=== PATIENT | male | born 1940 | race American Indian/Alaskan Native ===

== ENCOUNTER 2017-05-18 23:38 | Inpatient (IN) | payer MEDICARE ==
[2017-05-18 23:39] VITALS: BMI 31.6
[2017-05-19] MEDS ORDERED: Lidocaine 2% Jelly (Uro-Jet) ONE (00:44)
[2017-05-19] MEDS ORDERED: Sodium Chloride 0.9% 1,000 ML IV ONE (01:51)
[2017-05-19] MEDS ORDERED: Sodium Chloride 0.9% 1,000 ML ONE ×2 (02:07→08:50)
--- NOTE | 2017-05-19 02:23 | C.PDOC ---
History Of Present Illness 76 year old male [facility] for a complaint of bloody urine. Patient denies fever or abdominal pain. Chief Complaint (Nursing): Male Genitourinary History Per: Patient History/Exam Limitations: no limitations Onset/Duration Of Symptoms: Hrs Current Symptoms Are (Timing): Still Present Quality Of Discomfort: Unable To Describe Associated Symptoms: denies: Fever, Chills Alleviating Factors: None Recent travel outside of the [place]: No Past Medical History Reviewed: Historical Data, Nursing Documentation, Vital Signs Vital Signs: Last Vital Signs Temp 98.5 F 05/18/17 23:42 Pulse 90 05/18/17 23:42 Resp 18 05/18/17 23:42 BP 118/69 05/18/17 23:42 Pulse Ox 98 05/19/17 02:24 - Medical History PMH: Anemia, Asthma, CHF, HTN, Pneumonia (X3) - [facility] CYSTOMETROGRAM (01/23/14) TRANSURETHRAL PROSTATECTOMY ([place]) (01/30/14) Family History: States: Unknown Family Hx - Social History Hx Alcohol Use: No Hx Substance Use: No - Immunization History Hx Tetanus Toxoid Vaccination: No Hx Influenza Vaccination: Yes Hx Pneumococcal Vaccination: Yes Review Of Systems Constitutional: Negative for: Fever, Chills Gastrointestinal: Negative for: Abdominal Pain Genitourinary: Positive for: Hematuria Physical Exam - Physical Exam Appears: Non-toxic, No Acute Distress, Other (Conscious, Alert) Skin: Normal Color, Warm, Dry Head: Atraumatic, Normacephalic Eye(s): bilateral: Normal Inspection Oral Mucosa: Moist Chest: Symmetrical Cardiovascular: Rhythm Regular Respiratory: Normal Breath Sounds, No Rales, No Rhonchi, No Wheezing Gastrointestinal/Abdominal: Soft, No Tenderness, Distention (Hypogastric) Male Genital: Inguinal Swelling (Due to hernia with penile shaft embedded into hernia) Neurological/Psych: Oriented x3, Normal Speech ED Course And Treatment O2 Sat by Pulse Oximetry: 98 (Room air) Pulse Ox Interpretation: Normal Progress Note: Blood work ordered. IV fluids administered. Insertion of suh attempted with no success. Patient actively urinating blood in ER. Disposition Discussed With : Diya Parker Doctor Will See Patient In The: Hospital Counseled Patient/Family Regarding: Diagnosis - Disposition Disposition: HOSPITALIZED Disposition Time: 02:22 Condition: STABLE Forms: [facility] (Kittitian) - POA Present On Arrival: None - Clinical Impression Clinical Impression: Gross hematuria, Urethral obstruction, Hernia of scrotum - Scribe Statement The provider has reviewed the documentation as recorded by the Scribe Alec Castaneda All medical record entries made by the Scribe were at my direction and personally dictated by me. I have reviewed the chart and agree that the record accurately reflects my personal performance of the history, physical exam, medical decision making, and the department course for this patient. I have also personally directed, reviewed, and agree with the discharge instructions and disposition.
[2017-05-19 02:39] LABS: INR 2.1
[2017-05-19 02:55] LABS: CALCIUM 7.1 mg/dl (8.6-10.4); POTASSIUM 3.7 mmol/L (3.6-5.2); TOTAL PROTEIN 5.9 g/dL (6.3-8.3)
[2017-05-19 02:58] LABS: BASO % 0.4 % (0.0-2.0); EOS # 0.2 K/uL (0.0-0.7); EOS % 2.6 % (0.0-4.0); HEMATOCRIT 34.1 % (35.0-51.0); LYMPH % 16.8 % (20.0-40.0); MEAN CELL VOLUME 81.7 fL (80.0-94.0); MEAN CORPUSCULAR HEMOGLOBIN 26.7 pg (27.0-31.0); MEAN CORPUSCULAR HGB CONC 32.8 g/dL (33.0-37.0); MEAN PLATELET VOLUME 8.2 fL (7.2-11.7); MONO # 0.7 K/uL (0.0-0.8); MONO % 12.5 % (0.0-10.0); NRBC % 0.1 % (0.0-2.0)
[2017-05-19 03:08] LABS: ALB/GLOB RATIO 0.8 (1.0-2.1)
[2017-05-19] MEDS ORDERED: Albuterol HFA 90 mcg/actuation (8 g) IH SCH (06:15)
[2017-05-19 06:23] LABS: RBC URINE 612 /hpf (0-3); URINE BILIRUBIN NEGATIVE (NEGATIVE); URINE BLOOD 3+ (NEGATIVE); URINE COLOR Red (YELLOW); URINE GLUCOSE (UA) NORMAL (Normal); URINE KETONE NEGATIVE (NEGATIVE); URINE LEUKOCYTE ESTERASE 3+ Leu/uL (Negative); URINE PROTEIN 2+ mg/dL (NEGATIVE); URINE UROBILINOGEN NORMAL mg/dL (0.2-1.0); WBC URINE 269 /hpf (0-5)
[2017-05-19] MEDS: Cefepime IV 1 gm in Dextrose 1 GM/50 ML BAG IVPB SCH ×2 (08:57→18:55)
--- NOTE | 2017-05-19 09:08 | US ---
PROCEDURE: Ultrasound of the Kidneys HISTORY: urinary retention COMPARISON: None available. TECHNIQUE: Sonogram of the kidneys. FINDINGS: RIGHT KIDNEY: Measures: 11.4 cm. Normal in size, contour and echogenicity. No stone, solid mass lesion or hydronephrosis visualized. Lower pole simple cortical cyst 4.1 x 3.4 x 4.3 cm. No other mass. LEFT KIDNEY: Measures: 12.3 cm. Normal in size, contour and echogenicity. No stone, solid mass lesion or hydronephrosis visualized. OTHER FINDINGS: Debris within urinary bladder. Distended bladder volume is 2363 mL. This is grossly over distended. There is debris seen within the bladder lumen. Ureteral jets could not be demonstrated. The patient was unable to void for postvoid residual determination. IMPRESSION: Over distended bladder. Patient unable to void. Dependent debris within urinary bladder. Right lower pole simple renal cortical cyst.
[2017-05-19] MEDS: Pantoprazole 40 mg EC Tab PO SCH (10:41)
[2017-05-19] MEDS: Magnesium Hydroxide Susp 30 ml UD PO SCH (10:41)
[2017-05-19 12:55] LABS: RBC URINE 14102 /hpf (0-3); URINE BACTERIA RARE (<OCC); URINE BILIRUBIN NEGATIVE (NEGATIVE); URINE BLOOD 3+ (NEGATIVE); URINE GLUCOSE (UA) NORMAL (Normal); URINE KETONE NEGATIVE (NEGATIVE); URINE LEUKOCYTE ESTERASE 1+ Leu/uL (Negative); URINE PROTEIN 2+ mg/dL (NEGATIVE); URINE UROBILINOGEN NORMAL mg/dL (0.2-1.0); WBC CLUMPS MOD /hpf
[2017-05-19 12:56] LABS: URINE COLOR Red (YELLOW)
[2017-05-19 12:57] LABS: WBC URINE 20 /hpf (0-5)
--- NOTE | 2017-05-19 13:36 | CP.PCM.PN ---
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 Pt has multiple med problems,and is in senior living. Izquierdo inserted over 1k bloody urine obtained. suggest urine C&S treat any + culture. Please notify me when patient is cleared for cystoscopic eval. Jairon Objective - Vital Signs/Intake and Output Vital Signs (last 24 hours): Temp Pulse Resp BP Pulse Ox 98 F 104 H 20 126/60 100 05/19/17 11:45 05/19/17 11:45 05/19/17 11:45 05/19/17 11:45 05/19/17 11:45 Intake and Output: 05/19/17 05/19/17 06:59 18:59 Intake Total 1000 Output Total 300 2000 Balance 700 -2000 - Medications Medications: Current Medications Acetaminophen (Tylenol 325mg Tab) 650 mg PO Q4 ON LICENSE OF [facility] Last Admin: 05/19/17 12:11 Dose: 650 mg Albuterol (Ventolin Hfa 90 Mcg/Actuation (8 G)) 2 puff INH RQ6 ON LICENSE OF [facility] Sodium Chloride (Sodium Chloride 0.9%) 1,000 mls @ 50 mls/hr IV .Q20H ONE Stop: 05/19/17 21:50 Last Admin: 05/19/17 08:57 Dose: 50 mls/hr Cefepime HCl (Maxipime Iv 1 Gm Premix) 1 gm in 50 mls @ 100 mls/hr IVPB Q12H ON LICENSE OF [facility] Last Admin: 05/19/17 08:57 Dose: 100 mls/hr Lisinopril (Zestril) 2.5 mg PO DAILY ON LICENSE OF [facility] Last Admin: 05/19/17 10:41 Dose: 2.5 mg Magnesium Hydroxide (Milk Of Magnesia) 30 ml PO DAILY ON LICENSE OF [facility] Last Admin: 05/19/17 10:41 Dose: 30 ml Metoprolol Tartrate (Lopressor) 12.5 mg PO BID ON LICENSE OF [facility] Last Admin: 05/19/17 10:41 Dose: 12.5 mg Montelukast Sodium (Singulair) 10 mg PO DAILY ON LICENSE OF [facility] Last Admin: 05/19/17 10:41 Dose: 10 mg Pantoprazole Sodium (Protonix Ec Tab) 40 mg PO DAILY ON LICENSE OF [facility] Last Admin: 05/19/17 10:41 Dose: 40 mg Pneumococcal Polyvalent Vaccine (Pneumovax 23 Vaccine) 0.5 ml IM .ONCE ONE Stop: 05/22/17 10:01 - Labs Labs: 05/19/17 02:32 05/19/17 02:32 PT 24.4 SECONDS (9.7-12.2) H 05/19/17 02:32 INR 2.1 05/19/17 02:32 APTT 31 SECONDS (21-34) 05/19/17 02:32
[2017-05-19] MEDS: Albuterol HFA 90 mcg/actuation (8 g) INH SCH ×2 (14:16→21:34)
--- NOTE | 2017-05-19 14:24 | CP.PCM.PN ---
Subjective - Date & Time of Evaluation Date of Evaluation: 05/19/17 Time of Evaluation: 10:00 - Subjective Subjective: ] Dr. Parker note: HPI: Patient is a 89 year old male with a history of HTN and asthma is here for hematuria and urinary retention. Patient says for the past few days he has been having difacult time urinating and also bright red hematuria. He says he never had such symptoms before. Patient denies fever, chills, nausea, vomiting , chest pain, shortness of breath, or palpitations. Objective - Vital Signs/Intake and Output Vital Signs (last 24 hours): Temp Pulse Resp BP Pulse Ox 98 F 104 H 20 126/60 100 05/19/17 11:45 05/19/17 11:45 05/19/17 11:45 05/19/17 11:45 05/19/17 11:45 Intake and Output: 05/19/17 05/19/17 06:59 18:59 Intake Total 1000 Output Total 300 2000 Balance 700 -2000 - Medications Medications: Current Medications Acetaminophen (Tylenol 325mg Tab) 650 mg PO Q4 [facility] Last Admin: 05/19/17 12:11 Dose: 650 mg Albuterol (Ventolin Hfa 90 Mcg/Actuation (8 G)) 2 puff INH RQ6 [facility] Last Admin: 05/19/17 14:16 Dose: 2 puff Sodium Chloride (Sodium Chloride 0.9%) 1,000 mls @ 50 mls/hr IV .Q20H ONE Stop: 05/19/17 21:50 Last Admin: 05/19/17 08:57 Dose: 50 mls/hr Cefepime HCl (Maxipime Iv 1 Gm Premix) 1 gm in 50 mls @ 100 mls/hr IVPB Q12H [facility] Last Admin: 05/19/17 08:57 Dose: 100 mls/hr Lisinopril (Zestril) 2.5 mg PO DAILY [facility] Last Admin: 05/19/17 10:41 Dose: 2.5 mg Magnesium Hydroxide (Milk Of Magnesia) 30 ml PO DAILY [facility] Last Admin: 05/19/17 10:41 Dose: 30 ml Metoprolol Tartrate (Lopressor) 12.5 mg PO BID [facility] Last Admin: 05/19/17 10:41 Dose: 12.5 mg Montelukast Sodium (Singulair) 10 mg PO DAILY [facility] Last Admin: 05/19/17 10:41 Dose: 10 mg Pantoprazole Sodium (Protonix Ec Tab) 40 mg PO DAILY [facility] Last Admin: 05/19/17 10:41 Dose: 40 mg Pneumococcal Polyvalent Vaccine (Pneumovax 23 Vaccine) 0.5 ml IM .ONCE ONE Stop: 05/22/17 10:01 - Labs Labs: 05/19/17 02:32 05/19/17 02:32 PT 24.4 SECONDS (9.7-12.2) H 05/19/17 02:32 INR 2.1 05/19/17 02:32 APTT 31 SECONDS (21-34) 05/19/17 02:32 - Constitutional Appears: Non-toxic, No Acute Distress - Eye Exam Eye Exam: Normal appearance, PERRL. absent: Scleral icterus - ENT Exam ENT Exam: Normal Exam - Respiratory Exam Respiratory Exam: Clear to Ausculation Bilateral. absent: Rales, Rhonchi, Wheezes - Cardiovascular Exam Cardiovascular Exam: REGULAR RHYTHM, RRR, +S1, +S2. absent: Gallop, Rubs - GI/Abdominal Exam GI & Abdominal Exam: Soft, Normal Bowel Sounds. absent: Tenderness - Extremities Exam Extremities Exam: Normal Inspection. absent: Pedal Edema - Neurological Exam Neurological Exam: Alert, Oriented x3 - Psychiatric Exam Psychiatric exam: Normal Affect, Normal Mood - Skin Skin Exam: Normal Color. absent: Pallor Assessment and Plan (1) Urinary retention Assessment & Plan: Patient admitted to inpatient regular floor. Dr. De La O consulted for Urology, he has a suh catheter. Bladder ultrasound shows over distended bladder. He has been started on Cefipime for any UTI, follow up urine culture. Status: Acute (2) Acute kidney insufficiency Assessment & Plan: IV fluids, patient may have an obstructing stone. Consider CT scan or ultrasound to look for hydronephorsis. Status: Acute (3) Coagulopathy Assessment & Plan: INR is 2.1, follow morning INR, hold any VTE as of now. Status: Acute (4) Gross hematuria Assessment & Plan: Urology consulted, follow up with him, IV antibiotics. Status: Acute (5) HTN (hypertension) Assessment & Plan: continue home Zestril, Lopressor Status: Chronic (6) Asthma Assessment & Plan: Ventolin, Singular, home medication. Status: Chronic (7) Prophylactic measure Assessment & Plan: SCDS, hold VTE due to elevated INR Protonix 40mg Status: Acute
[2017-05-20] MEDS: Albuterol HFA 90 mcg/actuation (8 g) INH SCH ×3 (01:09→13:56)
[2017-05-20] MEDS: Cefepime IV 1 gm in Dextrose 1 GM/50 ML BAG IVPB SCH ×2 (05:20→19:00)
--- NOTE | 2017-05-20 07:43 | HP ---
HISTORY OF PRESENT ILLNESS: Mr. Redding is a 76-year-old man with congestive heart failure, history of prostatic enlargement, admitted to the hospital with complaint of hematuria and difficult with urination. The patient had an ultrasound show evidence of 2000 mL of urine in the bladder. The patient advised admission to the hospital, the Izquierdo catheter could not be passed. PAST MEDICAL HISTORY: Congestive heart failure, hydrocele, hernia, prostatic enlargement. PHYSICAL EXAMINATION: GENERAL: The patient is awake. VITAL SIGNS: Temperature 98, pulse . HEENT: Within normal limits. NECK: Supple. CHEST: Symmetrical. HEART: Regular. ABDOMEN: Soft. EXTREMITIES: edema. IMPRESSION: The patient suffers from hematuria gastrointestinal obstruction. The patient gets bedrest, supportive care. Urology consult. Diya Parker MD
[2017-05-20 08:38] LABS: INR 1.9
[2017-05-20 08:45] LABS: BASO % 0.5 % (0.0-2.0); EOS # 0.2 K/uL (0.0-0.7); EOS % 3.3 % (0.0-4.0); HEMATOCRIT 28.5 % (35.0-51.0); LYMPH # 1.1 K/uL (1.0-4.3); LYMPH % 15.3 % (20.0-40.0); MEAN CELL VOLUME 81.6 fL (80.0-94.0); MEAN CORPUSCULAR HEMOGLOBIN 27.1 pg (27.0-31.0); MEAN CORPUSCULAR HGB CONC 33.2 g/dL (33.0-37.0); MONO # 0.6 K/uL (0.0-0.8); MONO % 8.8 % (0.0-10.0); NRBC % 0.1 % (0.0-2.0); RED CELL DISTRIBUTION WIDTH 15.9 % (11.5-14.5); WHITE BLOOD COUNT 7.1 K/uL (4.8-10.8)
[2017-05-20] MEDS: Pantoprazole 40 mg EC Tab PO SCH (09:02)
[2017-05-20] MEDS: Magnesium Hydroxide Susp 30 ml UD PO SCH (09:05)
[2017-05-20 09:06] LABS: ALB/GLOB RATIO 0.8 (1.0-2.1); ALKALINE PHOSPHATASE 86 U/L (38-126); ALT/SGPT 39 U/L (21-72); AST/SGOT 26 U/L (17-59); BILIRUBIN,TOTAL 0.8 mg/dL (0.2-1.3); BLOOD UREA NITROGEN 15 mg/dL (9-20); CARBON DIOXIDE 33 mmol/L (22-30); CHLORIDE 101 mmol/L (98-107); GFR AFRICAN-AMERICAN > 60; GLUCOSE,RANDOM 68 mg/dL (75-110); MAGNESIUM 1.6 mg/dL (1.6-2.3); PHOSPHOROUS 2.5 mg/dL (2.5-4.5); POTASSIUM 3.6 mmol/L (3.6-5.2); SODIUM 140 mmol/L (132-148)
--- NOTE | 2017-05-20 10:56 | CP.PCM.PN ---
Subjective - Date & Time of Evaluation Date of Evaluation: 05/20/17 Time of Evaluation: 10:53 - Subjective Subjective: Urine still bloody,cath draining well,C&S pending CT pending. A Gross hematuria, UrinaryRetention. Suggest Please notify me when pt is cleared for cystoscopy. Jairon Objective - Vital Signs/Intake and Output Vital Signs (last 24 hours): Temp Pulse Resp BP Pulse Ox 98.0 F 101 H 20 133/60 99 05/20/17 08:00 05/20/17 08:00 05/20/17 08:00 05/20/17 08:00 05/20/17 05:00 Intake and Output: 05/20/17 05/20/17 06:59 18:59 Intake Total 1110 Output Total 3000 Balance -1890 - Medications Medications: Current Medications Acetaminophen (Tylenol 325mg Tab) 650 mg PO Q4 [facility] Last Admin: 05/20/17 09:01 Dose: Not Given Albuterol (Ventolin Hfa 90 Mcg/Actuation (8 G)) 2 puff INH RQ6 [facility] Last Admin: 05/20/17 08:59 Dose: Not Given Cefepime HCl (Maxipime Iv 1 Gm Premix) 1 gm in 50 mls @ 100 mls/hr IVPB Q12H [facility] Last Admin: 05/20/17 05:20 Dose: 100 mls/hr Lisinopril (Zestril) 2.5 mg PO DAILY [facility] Last Admin: 05/20/17 09:04 Dose: 2.5 mg Magnesium Hydroxide (Milk Of Magnesia) 30 ml PO DAILY [facility] Last Admin: 05/20/17 09:05 Dose: 30 ml Metoprolol Tartrate (Lopressor) 12.5 mg PO BID [facility] Last Admin: 05/20/17 09:02 Dose: 12.5 mg Montelukast Sodium (Singulair) 10 mg PO DAILY [facility] Last Admin: 05/20/17 09:02 Dose: 10 mg Pantoprazole Sodium (Protonix Ec Tab) 40 mg PO DAILY [facility] Last Admin: 05/20/17 09:02 Dose: 40 mg Pneumococcal Polyvalent Vaccine (Pneumovax 23 Vaccine) 0.5 ml IM .ONCE ONE Stop: 05/22/17 10:01 - Labs Labs: 05/20/17 08:18 05/20/17 08:18 PT 22.0 SECONDS (9.7-12.2) H 05/20/17 08:18 INR 1.9 05/20/17 08:18 APTT 31 SECONDS (21-34) 05/20/17 08:18
--- NOTE | 2017-05-20 12:30 | CT ---
PROCEDURE: CT Abdomen and Pelvis without intravenous contrast HISTORY: Hematuria COMPARISON: None. TECHNIQUE: Helical CT of the abdomen and pelvis was performed without oral or intravenous contrast as per referring physician request.. Contrast Dose: None. Radiation dose: Total exam DLP = 1315.98 mGy-cm. This CT exam was performed using one or more of the following dose reduction techniques: Automated exposure control, adjustment of the mA and/or kV according to patient size, and/or use of iterative reconstruction technique. FINDINGS: LOWER THORAX: Cardiomegaly is noted as well as a smaller pleural effusion exerting compression atelectasis of the left lower lobe base. No pericardial or right pleural effusion. LIVER: Unremarkable. No gross lesion or ductal dilatation. GALLBLADDER AND BILE DUCTS: Cholelithiasis identified within the dependent gallbladder which is mildly distended but without pericholecystic fluid collection or definite mural thickening. PANCREAS: Unremarkable. No gross lesion or ductal dilatation. SPLEEN: Unremarkable. ADRENALS: A tiny lucency is questioned at the right adrenal gland which could reflect a nodule is too small to characterize. KIDNEYS AND URETERS: The lack images contrast limits evaluation of the kidneys. Cystic changes within the kidneys may reflect prominent parapelvic cysts, which are favored over bilateral hydronephrosis. Further clinical correlation is advised. The ureters normal in caliber bilaterally. There is no radiodense urolithiasis identified bilaterally. A small lucency seen the upper pole left kidney too small to characterize as well as at the posterior upper pole right kidney and lower pole left kidney. Streaky bilateral perinephric changes are appreciated of uncertain significance and origin. VASCULATURE: Unremarkable. No aortic aneurysm. BOWEL: Unremarkable. No obstruction. No gross mural thickening. Poorly evaluated due lack of oral contrast. A large left inguinal hernia is identified containing largely Mesentery but also loops bowel which do not appear obstructed at this time. APPENDIX: Not clearly identified. PERITONEUM: Unremarkable. No free fluid. No free air. LYMPH NODES: Unremarkable. No enlarged lymph nodes. BLADDER: Distended with hyperdense material layering in the dependent portion suggestive of hemorrhage. Izquierdo catheter is identified in position however the bladder is not decompressed suggesting either clamping of the catheter or other intrinsic obstruction of the catheter. Further clinical correlation is advised. REPRODUCTIVE: Questionable post prostatectomy changes. Moderate left hydrocele as well as the aforementioned left inguinal hernia acute. BONES: No acute fracture. OTHER FINDINGS: Note is made of retroperitoneal hematoma which is mild in overall volume affecting the right iliopsoas muscle small ill defined compartments with the right iliac start iliopsoas muscle mildly enlarged is resolved. None is seen the left. Further, intraperitoneal and flank subcutaneous fatty opacity suggests probable anasarca developing. IMPRESSION: 1. Moderate hematoma is identified layering in the dependent urinary bladder with urinary bladder rather distended status post Izquierdo catheterization. Further clinical correlation is advised. 2. Mild right iliopsoas hematoma. Based on density, this appears to be subacute to chronic time frame and only mildly enlarges the right psoas muscle. 3. Cholelithiasis. 4. A large left inguinal hernia is identified as well as multiple tiny fatty periumbilical hernia is. The left inguinal hernia contains loops of bowel which do not appear obstructed. Is also moderate left hydrocele. 5. Mild anasarca
--- NOTE | 2017-05-20 16:31 | CP.PCM.PN ---
Subjective - Date & Time of Evaluation Date of Evaluation: 05/20/17 Time of Evaluation: 10:00 - Subjective Subjective: PGY3 on medicine Dr. Parker service: Pt seen and examined at bedside this morning. Pt complains of scrotal pain secondary to swelling/hernia. Pt denied other symptoms at this point. Per Dr. De La O, pt to have cystoscopy today due to bladder hematoma finding on CT. Pt hgb drop noted and type/cross was ordered. Pt also ate one piece of chicken at noon before tray was taken away due to these new events. Per anesthesiologist Dr. Sultana, pt will need to wait until 8PM for cystoscopy. NPO order placed. Objective - Vital Signs/Intake and Output Vital Signs (last 24 hours): Temp Pulse Resp BP Pulse Ox 98.0 F 101 H 20 133/60 99 05/20/17 08:00 05/20/17 08:00 05/20/17 08:00 05/20/17 08:00 05/20/17 05:00 Intake and Output: 05/20/17 05/20/17 06:59 18:59 Intake Total 1110 Output Total 3000 Balance -1890 - Medications Medications: Current Medications Acetaminophen (Tylenol 325mg Tab) 650 mg PO Q4 [facility] Last Admin: 05/20/17 12:48 Dose: Not Given Albuterol (Ventolin Hfa 90 Mcg/Actuation (8 G)) 2 puff INH RQ6 [facility] Last Admin: 05/20/17 13:56 Dose: 2 puff Cefepime HCl (Maxipime Iv 1 Gm Premix) 1 gm in 50 mls @ 100 mls/hr IVPB Q12H [facility] Last Admin: 05/20/17 05:20 Dose: 100 mls/hr Lisinopril (Zestril) 2.5 mg PO DAILY [facility] Last Admin: 05/20/17 09:04 Dose: 2.5 mg Magnesium Hydroxide (Milk Of Magnesia) 30 ml PO DAILY [facility] Last Admin: 05/20/17 09:05 Dose: 30 ml Metoprolol Tartrate (Lopressor) 12.5 mg PO BID [facility] Last Admin: 05/20/17 09:02 Dose: 12.5 mg Montelukast Sodium (Singulair) 10 mg PO DAILY [facility] Last Admin: 05/20/17 09:02 Dose: 10 mg Pantoprazole Sodium (Protonix Ec Tab) 40 mg PO DAILY [facility] Last Admin: 05/20/17 09:02 Dose: 40 mg Pneumococcal Polyvalent Vaccine (Pneumovax 23 Vaccine) 0.5 ml IM .ONCE ONE Stop: 05/22/17 10:01 - Labs Labs: 05/20/17 08:18 05/20/17 08:18 PT 22.0 SECONDS (9.7-12.2) H 05/20/17 08:18 INR 1.9 05/20/17 08:18 APTT 31 SECONDS (21-34) 05/20/17 08:18 - Constitutional Appears: Non-toxic, No Acute Distress - Head Exam Head Exam: NORMOCEPHALIC - Eye Exam Eye Exam: Normal appearance Pupil Exam: NORMAL ACCOMODATION - ENT Exam ENT Exam: Mucous Membranes Moist - Respiratory Exam Respiratory Exam: Clear to Ausculation Bilateral, NORMAL BREATHING PATTERN - Cardiovascular Exam Cardiovascular Exam: REGULAR RHYTHM, +S1, +S2 - GI/Abdominal Exam GI & Abdominal Exam: Soft, Normal Bowel Sounds - Exam Exam: Scrotal Swelling Additional comments: suh draining bloody urine - Neurological Exam Neurological Exam: Alert, Awake, Oriented x3 - Psychiatric Exam Psychiatric exam: Normal Mood - Skin Skin Exam: Intact Assessment and Plan - Assessment and Plan (Free Text) Assessment: (1) Urinary retention Assessment & Plan: Patient admitted to inpatient regular floor. Dr. De La O consulted for Urology, he has a suh catheter. Bladder ultrasound shows over distended bladder. Urine culture showed Gram+ cocci with colony count of 10k to 50k. Possible contamination. CT showed bladder hematomas without hydronephrosis or stone, result discussed with Dr. De La O. NPO for possible cystoscopy at 8pm today per conversation with Dr. Sultana. Message left with Dr. De La O. Status: Acute (2) Acute kidney insufficiency Assessment & Plan: IV fluids, patient may have an obstructing stone. (3) Coagulopathy Assessment & Plan: INR is 1.9, follow morning INR, hold any VTE as of now. Status: Acute (4) Gross hematuria Assessment & Plan: Urology consulted, follow up with him, IV antibiotics. Status: Acute (5) HTN (hypertension) Assessment & Plan: continue home Zestril, Lopressor Status: Chronic (6) Asthma Assessment & Plan: Ventolin, Singular, home medication. Status: Chronic (7) Prophylactic measure Assessment & Plan: SCDS, hold VTE due to elevated INR Protonix 40mg Status: Acute Management as per Dr. Parker.
[2017-05-20] MEDS ORDERED: Lactated Ringer's 1,000 ML IV ONE ×2 (17:07)
[2017-05-20 17:42] LABS: HEMATOCRIT 28.4 % (35.0-51.0); MEAN CELL VOLUME 81.5 fL (80.0-94.0); MEAN CORPUSCULAR HEMOGLOBIN 26.3 pg (27.0-31.0); MEAN CORPUSCULAR HGB CONC 32.3 g/dL (33.0-37.0); MEAN PLATELET VOLUME 7.5 fL (7.2-11.7); RED CELL DISTRIBUTION WIDTH 16.2 % (11.5-14.5); WHITE BLOOD COUNT 8.4 K/uL (4.8-10.8)
[2017-05-20] MEDS ORDERED: Midazolam 2 MG/2 ML VIAL ONE (18:26)
[2017-05-20] MEDS ORDERED: Propofol 10 mg/ml Inj (20 ML) ONE (18:26)
[2017-05-20] MEDS ORDERED: Gentamicin 160 MG in Sodium Chloride 0.9% 100 ML IVPB ONE (19:00)
--- NOTE | 2017-05-20 19:21 | PCM.SURG1 ---
Surgeon's Initial Post Op Note - Surgeon's Notes Surgeon: Jairon [employer] Equipment Erector: Lauren Type of Anesthesia: General Endo Anesthesia Administered By: staff Pre-Operative Diagnosis: Hematuria/clot retention/BPH w urinary retention Operative Findings: Enlarged Prostate /Trabeculated [id number] cc clots in Bladder Post-Operative Diagnosis: same Operation Performed: Cystoscopy and evacuation of clots/Insertion of hematuria catheter Specimen/Specimens Removed: clots Estimated Blood Loss: EBL {In ML}: 250 Blood Products Given: FFP Drains Used: No Drains Post-Op Condition: Good Date of Surgery/Procedure: 05/20/17 Time of Surgery/Procedure: 19:22
[2017-05-20] MEDS ORDERED: Etomidate 20 mg/10ml Inj IV ONE (19:29)
[2017-05-21] MEDS: Albuterol HFA 90 mcg/actuation (8 g) INH SCH ×3 (01:24→19:29)
[2017-05-21 02:12] VITALS: RESP 20
[2017-05-21] MEDS: Cefepime IV 1 gm in Dextrose 1 GM/50 ML BAG IVPB SCH ×2 (05:18→17:31)
--- NOTE | 2017-05-21 06:54 | CON ---
DATE: 05/19/2017 The consultation was done in the emergency room at [facility] after the patient was admitted. REASON FOR THE CONSULTATION: Urinary retention. HISTORY OF PRESENT ILLNESS: The patient was transferred to the long-term with urinary retention and the emergency room staff was unable to place a catheter. The patient has a history of gross blood draining from the tip of the penis. Evidently, he has a history of BPH in the past. He was at the [facility] and he was not subjected to any surgery because of prior medical illnesses. He is presently in a long-term. The patient states he is unable to urinate for at least 24 hours. An attempt has been made by the emergency room staff and has been unable to pass the catheter. Further history is noncontributory. REVIEW OF SYSTEMS: RESPIRATORY: The patient is not short of breath. There is no wheezing. CARDIAC: The patient is not complaining of any chest pain. GASTROINTESTINAL: The patient has no history of constipation or change in bowel habits. GENITOURINARY: The patient has not been able to urinate for 24 hours, has had problems urinating for several months. ORTHOPEDIC HISTORY: Noncontributory. SOCIAL HISTORY: The patient is a and has been in a long-term since being discharged from the [facility]. PHYSICAL EXAMINATION: GENERAL: He is awake, alert, and oriented x3. VITAL SIGNS: Within normal limits. HEAD, EYES, EARS, NOSE, AND THROAT: Within normal limits. NECK: Supple. There are no bruits, nodes, or mass. CHEST: Clear bilaterally. There are no rales or rhonchi. HEART: Normal sinus rhythm. There is no murmur. ABDOMEN: Soft, nontender. There are no masses or organomegaly. NEUROLOGIC: The patient is awake, alert, and oriented x3. He knows where he lives. He knows what today is. He knows that he is in [facility] Emergency Room. ASSESSMENT: The patient is obese. The bladder is palpably distended 4 to 5 fingers above the pubic bone. On the scrotum, there is a large left inguinal hernia/hydrocele that does not transilluminate light well. Penis is buried in the scrotum. The patient is uncircumcised. PLAN: We will attempt to place a Izquierdo catheter in the ER Department. Subsequently, after much difficulty, the catheter was placed. We obtained approximately 1000 mL of bloody urine. SUGGEST: Observe the patient. The patient may need further evaluation. The patient should be admitted and started on IV antibiotics, pending urine culture. Urine culture from the catheterized specimen has been sent. Davon De La O MD
[2017-05-21 07:40] LABS: BASO % 0.4 % (0.0-2.0); EOS # 0.3 K/uL (0.0-0.7); LYMPH # 1.6 K/uL (1.0-4.3); MEAN CORPUSCULAR HEMOGLOBIN 26.9 pg (27.0-31.0); MEAN CORPUSCULAR HGB CONC 33.2 g/dL (33.0-37.0); MEAN PLATELET VOLUME 7.8 fL (7.2-11.7); MONO # 0.8 K/uL (0.0-0.8); MONO % 7.5 % (0.0-10.0); NRBC % 0.4 % (0.0-2.0); RED CELL DISTRIBUTION WIDTH 16.2 % (11.5-14.5); WHITE BLOOD COUNT 10.9 K/uL (4.8-10.8)
[2017-05-21 07:43] LABS: ALB/GLOB RATIO 0.8 (1.0-2.1); ALKALINE PHOSPHATASE 87 U/L (38-126); ALT/SGPT 39 U/L (21-72); AST/SGOT 27 U/L (17-59); BILIRUBIN,TOTAL 0.7 mg/dL (0.2-1.3); BLOOD UREA NITROGEN 11 mg/dL (9-20); CALCIUM 7.3 mg/dl (8.6-10.4); CARBON DIOXIDE 37 mmol/L (22-30); CHLORIDE 105 mmol/L (98-107); GFR AFRICAN-AMERICAN > 60; GLUCOSE,RANDOM 70 mg/dL (75-110); POTASSIUM 3.4 mmol/L (3.6-5.2); SODIUM 142 mmol/L (132-148)
--- NOTE | 2017-05-21 07:54 | OP ---
PROCEDURE DATE: 05/20/2017 PREOPERATIVE DIAGNOSES: Urinary clot retention and enlarged prostate with bladder outlet obstruction. POSTOPERATIVE DIAGNOSES: Urinary clot retention and enlarged prostate with bladder outlet obstruction, plus significant trabeculation of bladder with pseudodiverticulum formation. PROCEDURES: Cystoscopy, evacuation of clots. DESCRIPTION OF PROCEDURE: Prior to the procedure, a detailed informed consent was obtained from the patient. He is aware of the risks and complications of the cystoscopy. He is aware that the evacuation of clots may not stop whole bleeding and that further procedures may be necessary. He consented to the procedure and is willing to accept the risks. He was brought in the room and a time-out was taken according to the rules and regulations of [facility]. In addition to the antibiotics the patient was already receiving intravenously, he received gentamicin 160 mg. After careful draping and prepping, the Izquierdo catheter was removed. The patient was cystoscoped with a #25 Storz panendoscope. The pendulous and membranous urethra were normal. The prostatic urethra showed trilobar hypertrophy with significant outlet obstruction. The bladder was entered atraumatically. There was a large amount of clotted blood within the bladder. It was evacuated. The bladder was inspected thoroughly with both the 30 and 70-degree lens. There were no evidence of urothelial tumors. There was significant trabeculation with diverticulum formation. Based on the above findings, the patient is basically in clot retention due to BPH and bladder outlet obstruction. The scope was backed out and over an appropriate guidewire, a #24 three-way hematuria catheter was inserted and continuous irrigation was begun. The irrigant fluid drained clear. We suggest the patient continue on CBI, catheter should be irrigated until urine is absolutely clear. Further evaluation when patient's medical status is improved, may be necessary. Davon De La O MD
[2017-05-21 08:01] LABS: INR 1.5
[2017-05-21] MEDS ORDERED: Potassium Chloride 20 mEq ER Tab PO ONE (08:45)
--- NOTE | 2017-05-21 09:06 | CP.PCM.PN ---
Subjective - Date & Time of Evaluation Date of Evaluation: 05/21/17 Time of Evaluation: 10:00 - Subjective Subjective: Dr. Parker note: Patient is a 76 year old with urinary retention and hematuria. He was complaining of some mild lower abdominal pain but not other complaints. Objective - Vital Signs/Intake and Output Vital Signs (last 24 hours): Temp Pulse Resp BP Pulse Ox 97.7 F 109 H 20 131/71 100 05/21/17 08:09 05/21/17 08:09 05/21/17 08:09 05/21/17 08:09 05/21/17 08:09 Intake and Output: 05/21/17 05/21/17 06:59 18:59 Intake Total 200 Output Total 350 400 Balance -150 -400 - Medications Medications: Current Medications Acetaminophen (Tylenol 325mg Tab) 650 mg PO Q4H PRN PRN Reason: FOR PAIN Albuterol (Ventolin Hfa 90 Mcg/Actuation (8 G)) 2 puff INH RQ6 [facility] Last Admin: 05/21/17 01:24 Dose: Not Given Cefepime HCl (Maxipime Iv 1 Gm Premix) 1 gm in 50 mls @ 100 mls/hr IVPB Q12H [facility] Last Admin: 05/21/17 05:18 Dose: 100 mls/hr Acetaminophen (Ofirmev) 100 mls @ 400 mls/hr IV Q6 PRN PRN Reason: Pain, moderate (4-7) Stop: 05/21/17 19:54 Last Admin: 05/20/17 20:16 Dose: 100 mls Lisinopril (Zestril) 2.5 mg PO DAILY [facility] Last Admin: 05/20/17 09:04 Dose: 2.5 mg Magnesium Hydroxide (Milk Of Magnesia) 30 ml PO DAILY [facility] Last Admin: 05/20/17 09:05 Dose: 30 ml Metoprolol Tartrate (Lopressor) 12.5 mg PO BID [facility] Last Admin: 05/20/17 17:46 Dose: Not Given Montelukast Sodium (Singulair) 10 mg PO DAILY [facility] Last Admin: 05/20/17 09:02 Dose: 10 mg Pantoprazole Sodium (Protonix Ec Tab) 40 mg PO DAILY [facility] Last Admin: 05/20/17 09:02 Dose: 40 mg Pneumococcal Polyvalent Vaccine (Pneumovax 23 Vaccine) 0.5 ml IM .ONCE ONE Stop: 05/22/17 10:01 Tamsulosin HCl (Flomax) 0.4 mg PO DAILY [facility] - Labs Labs: 05/21/17 06:57 05/21/17 06:57 PT 17.6 SECONDS (9.7-12.2) H 05/21/17 06:57 INR 1.5 05/21/17 06:57 APTT 31 SECONDS (21-34) 05/21/17 06:57 - Constitutional Appears: Non-toxic, No Acute Distress - Eye Exam Eye Exam: PERRL. absent: Scleral icterus - ENT Exam ENT Exam: Normal Exam - Respiratory Exam Respiratory Exam: Clear to Ausculation Bilateral. absent: Rales, Rhonchi, Wheezes - Cardiovascular Exam Cardiovascular Exam: REGULAR RHYTHM, RRR, +S1, +S2. absent: Gallop, Rubs - GI/Abdominal Exam GI & Abdominal Exam: Soft, Normal Bowel Sounds. absent: Tenderness - Exam Additional comments: follow catheter in place of some light red urine draining. - Extremities Exam Extremities Exam: Normal Inspection. absent: Pedal Edema - Back Exam Back Exam: NORMAL INSPECTION Assessment and Plan - Assessment and Plan (Free Text) Assessment: (1) Urinary retention Assessment & Plan: 05/21: cystoscopy preformed yesterday, he has suh in place with bladder irrigation. He has been started on Finesteride and Flomax for enlarged prostate , he is on IV Cefepime, culture results are back, day 3 of IV antibiotics. Patient admitted to inpatient regular floor. Dr. De La O consulted for Urology, he has a suh catheter. Bladder ultrasound shows over distended bladder. Urine culture showed Gram+ cocci with colony count of 10k to 50k. Possible contamination. CT showed bladder hematomas without hydronephrosis or stone, result discussed with Dr. De La O. NPO for possible cystoscopy at 8pm today per conversation with Dr. Sultana. Message left with Dr. De La O. Status: Acute (1) Anemia 05/21: Hbg is stable at 9.1 (2) Acute kidney insufficiency Assessment & Plan: 05/21: numbers improving continue with IV fluids IV fluids, patient may have an obstructing stone. (3) Coagulopathy Assessment & Plan: 05/21: Trending doiwnward, continue to monitor. INR is 1.9, follow morning INR, hold any VTE as of now. Status: Acute (4) Gross hematuria Assessment & Plan: 05/21: Day 3 of IV Cefepime. Urology consulted, follow up with him, IV antibiotics. Status: Acute (5) HTN (hypertension) Assessment & Plan: continue home Zestril, Lopressor Status: Chronic (6) Asthma Assessment & Plan: Ventolin, Singular, home medication. Status: Chronic (7) Prophylactic measure Assessment & Plan: SCDS, hold VTE due to elevated INR Protonix 40mg Status: Acute Management as per Dr. Parker.
[2017-05-21] MEDS: Magnesium Hydroxide Susp 30 ml UD PO SCH (10:00)
[2017-05-21] MEDS: Pantoprazole 40 mg EC Tab PO SCH (11:20)
--- NOTE | 2017-05-21 13:35 | CP.PCM.PN ---
Subjective - Date & Time of Evaluation Date of Evaluation: 05/21/17 Time of Evaluation: 13:31 - Subjective Subjective: Pt is comfotable and urine is clearing.. Suggest ciontinue cbi untill urine remains clear for 24 hr.Start pt on proscar and flomax. if pt is a canidate for elective surgery will considew TULAP if pt fails voiding trial after 2 to 3 mos of finesteride and flomax. Hosay Objective - Vital Signs/Intake and Output Vital Signs (last 24 hours): Temp Pulse Resp BP Pulse Ox 97.7 F 109 H 20 131/71 100 05/21/17 08:09 05/21/17 08:09 05/21/17 08:09 05/21/17 08:09 05/21/17 08:09 Intake and Output: 05/21/17 05/21/17 06:59 18:59 Intake Total 200 Output Total 350 400 Balance -150 -400 - Medications Medications: Current Medications Acetaminophen (Tylenol 325mg Tab) 650 mg PO Q4H PRN PRN Reason: FOR PAIN Albuterol (Ventolin Hfa 90 Mcg/Actuation (8 G)) 2 puff INH RQ6 [facility] Last Admin: 05/21/17 09:40 Dose: Not Given Cefepime HCl (Maxipime Iv 1 Gm Premix) 1 gm in 50 mls @ 100 mls/hr IVPB Q12H [facility] Last Admin: 05/21/17 05:18 Dose: 100 mls/hr Acetaminophen (Ofirmev) 100 mls @ 400 mls/hr IV Q6 PRN PRN Reason: Pain, moderate (4-7) Stop: 05/21/17 19:54 Last Admin: 05/20/17 20:16 Dose: 100 mls Lisinopril (Zestril) 2.5 mg PO DAILY [facility] Last Admin: 05/21/17 11:22 Dose: 2.5 mg Magnesium Hydroxide (Milk Of Magnesia) 30 ml PO DAILY [facility] Last Admin: 05/20/17 09:05 Dose: 30 ml Metoprolol Tartrate (Lopressor) 12.5 mg PO BID [facility] Last Admin: 05/21/17 11:19 Dose: 12.5 mg Montelukast Sodium (Singulair) 10 mg PO DAILY [facility] Last Admin: 05/21/17 11:19 Dose: 10 mg Pantoprazole Sodium (Protonix Ec Tab) 40 mg PO DAILY [facility] Last Admin: 05/21/17 11:20 Dose: 40 mg Pneumococcal Polyvalent Vaccine (Pneumovax 23 Vaccine) 0.5 ml IM .ONCE ONE Stop: 05/22/17 10:01 Tamsulosin HCl (Flomax) 0.4 mg PO DAILY [facility] Last Admin: 05/21/17 11:19 Dose: 0.4 mg - Labs Labs: 05/21/17 06:57 05/21/17 06:57 PT 17.6 SECONDS (9.7-12.2) H 05/21/17 06:57 INR 1.5 05/21/17 06:57 APTT 31 SECONDS (21-34) 05/21/17 06:57
[2017-05-22] MEDS: Albuterol HFA 90 mcg/actuation (8 g) INH SCH ×4 (01:32→13:22)
[2017-05-22] MEDS: Cefepime IV 1 gm in Dextrose 1 GM/50 ML BAG IVPB SCH ×2 (06:00→17:54)
[2017-05-22 07:47] LABS: INR 1.6
[2017-05-22 07:50] LABS: BASO # 0.1 K/uL (0.0-0.2); BASO % 0.7 % (0.0-2.0); EOS # 0.3 K/uL (0.0-0.7); EOS % 3.1 % (0.0-4.0); LYMPH # 2.2 K/uL (1.0-4.3); LYMPH % 20.9 % (20.0-40.0); MEAN CELL VOLUME 80.6 fL (80.0-94.0); MEAN CORPUSCULAR HEMOGLOBIN 26.3 pg (27.0-31.0); MEAN CORPUSCULAR HGB CONC 32.6 g/dL (33.0-37.0); MEAN PLATELET VOLUME 7.5 fL (7.2-11.7); MONO # 0.8 K/uL (0.0-0.8); MONO % 7.5 % (0.0-10.0); NRBC % 0.2 % (0.0-2.0); RED CELL DISTRIBUTION WIDTH 16.1 % (11.5-14.5); WHITE BLOOD COUNT 10.5 K/uL (4.8-10.8)
[2017-05-22 08:14] LABS: ALB/GLOB RATIO 0.7 (1.0-2.1); ALKALINE PHOSPHATASE 80 U/L (38-126); ALT/SGPT 34 U/L (21-72); AST/SGOT 19 U/L (17-59); BILIRUBIN,TOTAL 0.4 mg/dL (0.2-1.3); BLOOD UREA NITROGEN 8 mg/dL (9-20); CALCIUM 6.3 mg/dl (8.6-10.4); CARBON DIOXIDE 37 mmol/L (22-30); CHLORIDE 101 mmol/L (98-107); GFR AFRICAN-AMERICAN > 60; GLUCOSE,RANDOM 86 mg/dL (75-110); MAGNESIUM 1.6 mg/dL (1.6-2.3); POTASSIUM 3.3 mmol/L (3.6-5.2); SODIUM 137 mmol/L (132-148); TOTAL PROTEIN 5.2 g/dL (6.3-8.3)
[2017-05-22] MEDS ORDERED: Pneumococcal 23-Valent Vaccine IM ONE (10:00)
[2017-05-22] MEDS ORDERED: Influenza Vaccine 60 mcg/0.5 mL SYR (4YR UP) IM ONE (10:00)
[2017-05-22] MEDS: Pantoprazole 40 mg EC Tab PO SCH (10:56)
[2017-05-22] MEDS: Magnesium Hydroxide Susp 30 ml UD PO SCH (11:09)
[2017-05-22] MEDS: Potassium Chloride 20 mEq ER Tab PO SCH (17:55)
[2017-05-23] MEDS: Cefepime IV 1 gm in Dextrose 1 GM/50 ML BAG IVPB SCH ×2 (05:20→18:09)
[2017-05-23] MEDS: Albuterol HFA 90 mcg/actuation (8 g) INH SCH ×3 (07:32→19:53)
[2017-05-23 07:34] LABS: INR 1.6
[2017-05-23 07:35] LABS: BASO % 0.5 % (0.0-2.0); EOS # 0.3 K/uL (0.0-0.7); EOS % 2.9 % (0.0-4.0); HEMATOCRIT 26.6 % (35.0-51.0); LYMPH # 2.3 K/uL (1.0-4.3); LYMPH % 24.4 % (20.0-40.0); MEAN CELL VOLUME 80.9 fL (80.0-94.0); MEAN CORPUSCULAR HEMOGLOBIN 26.9 pg (27.0-31.0); MEAN CORPUSCULAR HGB CONC 33.2 g/dL (33.0-37.0); MEAN PLATELET VOLUME 7.7 fL (7.2-11.7); MONO # 0.7 K/uL (0.0-0.8); MONO % 7.6 % (0.0-10.0); NRBC % 0.2 % (0.0-2.0); RED CELL DISTRIBUTION WIDTH 16.2 % (11.5-14.5); WHITE BLOOD COUNT 9.5 K/uL (4.8-10.8)
[2017-05-23 08:02] LABS: ALKALINE PHOSPHATASE 81 U/L (38-126); ALT/SGPT 34 U/L (21-72); AST/SGOT 20 U/L (17-59); BILIRUBIN,TOTAL 0.4 mg/dL (0.2-1.3); BLOOD UREA NITROGEN 8 mg/dL (9-20); CALCIUM 6.7 mg/dl (8.6-10.4); CARBON DIOXIDE 35 mmol/L (22-30); CHLORIDE 100 mmol/L (98-107); GFR AFRICAN-AMERICAN > 60; GLUCOSE,RANDOM 83 mg/dL (75-110); MAGNESIUM 1.5 mg/dL (1.6-2.3); POTASSIUM 3.7 mmol/L (3.6-5.2); SODIUM 137 mmol/L (132-148); TOTAL PROTEIN 5.4 g/dL (6.3-8.3)
[2017-05-23 08:07] LABS: ALB/GLOB RATIO 0.6 (1.0-2.1)
[2017-05-23] MEDS: Potassium Chloride 20 mEq ER Tab PO SCH (10:44)
[2017-05-23] MEDS: Magnesium Hydroxide Susp 30 ml UD PO SCH (10:45)
[2017-05-23] MEDS: Pantoprazole 40 mg EC Tab PO SCH (10:45)
[2017-05-24] MEDS: Albuterol HFA 90 mcg/actuation (8 g) INH SCH ×4 (01:34→19:28)
[2017-05-24] MEDS: Cefepime IV 1 gm in Dextrose 1 GM/50 ML BAG IVPB SCH (05:27)
--- NOTE | 2017-05-24 07:09 | PN ---
DATE: 05/23/2017 SUBJECTIVE: The patient is stable. Izquierdo in place, supportive care. Diya Parker MD
[2017-05-24 08:16] LABS: BASO # 0.1 K/uL (0.0-0.2); BASO % 0.7 % (0.0-2.0); EOS # 0.3 K/uL (0.0-0.7); EOS % 2.4 % (0.0-4.0); HEMATOCRIT 29.1 % (35.0-51.0); LYMPH # 2.3 K/uL (1.0-4.3); LYMPH % 20.6 % (20.0-40.0); MEAN CELL VOLUME 81.1 fL (80.0-94.0); MEAN CORPUSCULAR HEMOGLOBIN 27.2 pg (27.0-31.0); MEAN CORPUSCULAR HGB CONC 33.5 g/dL (33.0-37.0); MEAN PLATELET VOLUME 7.9 fL (7.2-11.7); MONO # 0.8 K/uL (0.0-0.8); MONO % 7.6 % (0.0-10.0); RED CELL DISTRIBUTION WIDTH 15.6 % (11.5-14.5)
[2017-05-24 08:18] LABS: INR 1.5
[2017-05-24 08:55] LABS: ALB/GLOB RATIO 0.8 (1.0-2.1); ALKALINE PHOSPHATASE 87 U/L (38-126); ALT/SGPT 33 U/L (21-72); AST/SGOT 25 U/L (17-59); BILIRUBIN,TOTAL 0.5 mg/dL (0.2-1.3); BLOOD UREA NITROGEN 7 mg/dL (9-20); CARBON DIOXIDE 34 mmol/L (22-30); CHLORIDE 101 mmol/L (98-107); GFR AFRICAN-AMERICAN > 60; GLUCOSE,RANDOM 87 mg/dL (75-110); MAGNESIUM 1.4 mg/dL (1.6-2.3); POTASSIUM 4.1 mmol/L (3.6-5.2); SODIUM 134 mmol/L (132-148)
[2017-05-24] MEDS: Pantoprazole 40 mg EC Tab PO SCH (09:29)
[2017-05-24] MEDS: Magnesium Hydroxide Susp 30 ml UD PO SCH (09:33)
--- NOTE | 2017-05-24 10:26 | CP.PCM.PN ---
Subjective - Date & Time of Evaluation Date of Evaluation: 05/24/17 Time of Evaluation: 10:28 - Subjective Subjective: PGY2 Medicine Note for Dr. Parker; all management as per Dr. Parker This patient was seen and examined at bedside this AM; he has no overnight complaints or acute complaints; denies fevers/chills, abdominal pain, N/V/D, chest pain, SOB, dysuria/freq/urg but has suh, denies lower extremity pain/ swelling. The patient is likely stable for d/c if tolerates trial to void; even stable for d/c if note will get suh catheter education; if unable to perform patient will likely have services where he is going to straight cath patient should avoid chronic foleys as they are a source for infection and this should be stressed as very important patient will need to continue macrobid for 7 more days, BID, for complicated UTI the patient needs to f.u w/ pmd for hepatitis testing as well as urine cytology if hematuria persists Objective - Vital Signs/Intake and Output Vital Signs (last 24 hours): Temp Pulse Resp BP Pulse Ox 98.5 F 80 20 103/62 99 05/24/17 08:00 05/24/17 09:03 05/24/17 08:00 05/24/17 08:00 05/24/17 08:00 Intake and Output: 05/24/17 05/24/17 06:59 18:59 Intake Total 750 Output Total 2450 Balance -1700 - Medications Medications: Current Medications Acetaminophen (Tylenol 325mg Tab) 650 mg PO Q4H PRN PRN Reason: FOR PAIN Last Admin: 05/22/17 22:43 Dose: 650 mg Albuterol (Ventolin Hfa 90 Mcg/Actuation (8 G)) 2 puff INH RQ6 [facility] Last Admin: 05/24/17 07:49 Dose: 2 puff Finasteride (Proscar) 5 mg PO DAILY [facility] Last Admin: 05/24/17 09:28 Dose: 5 mg Lisinopril (Zestril) 2.5 mg PO DAILY [facility] Last Admin: 05/24/17 09:29 Dose: 2.5 mg Magnesium Hydroxide (Milk Of Magnesia) 30 ml PO DAILY [facility] Last Admin: 05/24/17 09:33 Dose: 30 ml Metoprolol Tartrate (Lopressor) 12.5 mg PO BID [facility] Last Admin: 05/24/17 09:28 Dose: 12.5 mg Montelukast Sodium (Singulair) 10 mg PO DAILY [facility] Last Admin: 05/24/17 09:27 Dose: 10 mg Pantoprazole Sodium (Protonix Ec Tab) 40 mg PO DAILY [facility] Last Admin: 05/24/17 09:29 Dose: 40 mg Tamsulosin HCl (Flomax) 0.8 mg PO DAILY [facility] - Labs Labs: 05/24/17 07:54 05/24/17 07:54 PT 17.5 SECONDS (9.7-12.2) H 05/24/17 07:54 INR 1.5 05/24/17 07:54 APTT 31 SECONDS (21-34) 05/24/17 07:54 - Constitutional Appears: Well, Non-toxic - Head Exam Head Exam: NORMAL INSPECTION - Eye Exam Eye Exam: EOMI - ENT Exam ENT Exam: Mucous Membranes Moist - Neck Exam Neck Exam: Full ROM. absent: Lymphadenopathy - Respiratory Exam Respiratory Exam: Clear to Ausculation Bilateral - Cardiovascular Exam Cardiovascular Exam: REGULAR RHYTHM - GI/Abdominal Exam GI & Abdominal Exam: Soft, Normal Bowel Sounds - Extremities Exam Extremities Exam: Full ROM. absent: Calf Tenderness - Back Exam Back Exam: absent: CVA tenderness (L), CVA tenderness (R) - Neurological Exam Neurological Exam: Alert, Awake, CN II-XII Intact - Psychiatric Exam Psychiatric exam: Normal Affect - Skin Skin Exam: Warm Assessment and Plan - Assessment and Plan (Free Text) Assessment: Urinary retention 05/24: trial to void today; increased flomax to 0.8mg daily; day 6 of IV antibiotics; urine is sensitive to macrobid which he can continue upon discharge for a total of 14 days of abx for complicated cystitis -as per urology note; if the patient does not tolerate 3mo of medical management patient is eligible for prostate surgery for flow -will get straight cath education, and if unable to perform patient is likely going to facility where they have these services -urine should be sent for cytology if hematuria continues 05/21: cystoscopy preformed yesterday, he has suh in place with bladder irrigation. He has been started on Finesteride and Flomax for enlarged prostate , he is on IV Cefepime, culture results are back, day 3 of IV antibiotics. Patient admitted to inpatient regular floor. Dr. De La O consulted for Urology, he has a suh catheter. Bladder ultrasound shows over distended bladder. Urine culture showed Gram+ cocci with colony count of 10k to 50k. Possible contamination. CT showed bladder hematomas without hydronephrosis or stone, result discussed with Dr. De La O. NPO for possible cystoscopy at 8pm today per conversation with Dr. Sultana. Message left with Dr. De La O. Status: Acute Anemia; chronic 05/21: Hbg is stable at 9.1 Acute kidney insufficiency;resolved 05/24: likely 2/2 to obstruction; has resolved 05/21: numbers improving continue with IV fluids IV fluids, patient may have an obstructing stone. Coagulopathy; stable 05/24: unknown if patient has hepatitis; will need outpatient f/u 05/21: Trending downward, continue to monitor. INR is 1.9, follow morning INR, hold any VTE as of now. Gross hematuria 05/24: resolved; no clots/hematuria seen in suh bag 05/21: Day 3 of IV Cefepime. Urology consulted, follow up with him, IV antibiotics. HTN (hypertension);chronic continue home Zestril, Lopressor Asthma;chronic Ventolin, Singular, home medication. Prophylactic measure SCDS, hold VTE due to elevated INR Protonix 40mg All Management as per Dr. Parker.
[2017-05-24] MEDS ORDERED: Calcium Gluconate 4.65 mEq/10 ml Inj IVP ONE (13:33)
[2017-05-24] MEDS: Magnesium Sulfate 1 gm in D5W 1 GM/100 ML BAG IVPB SCH ×2 (14:31→15:12)
--- NOTE | 2017-05-24 22:09 | CP.PCM.PN ---
Subjective - Date & Time of Evaluation Date of Evaluation: 05/24/17 Time of Evaluation: 22:03 - Subjective Subjective: Suh removed without my order despite my note indicating pt should be on flomax and proscar before voiding trial,neither Resident or staff sucessful in replacing suh, suh re inserted. Suggest discharge pt with suh. DO NOT REMOVE SUH WITHOUT MY ORDER!!!!!!!. LEAVE PT ON FLOMAX AND PROSCAR AND HAVE HIM FOLLOW UP IN MY OFFICCE IN [address] VALENCIA Objective - Vital Signs/Intake and Output Vital Signs (last 24 hours): Temp Pulse Resp BP Pulse Ox 98.5 F 69 20 98/58 L 98 05/24/17 15:06 05/24/17 16:39 05/24/17 15:06 05/24/17 15:06 05/24/17 16:39 Intake and Output: 05/24/17 05/25/17 18:59 06:59 Intake Total 680 Output Total 300 Balance 380 - Medications Medications: Current Medications Acetaminophen (Tylenol 325mg Tab) 650 mg PO Q4H PRN PRN Reason: FOR PAIN Last Admin: 05/22/17 22:43 Dose: 650 mg Albuterol (Ventolin Hfa 90 Mcg/Actuation (8 G)) 2 puff INH RQ6 [facility] Last Admin: 05/24/17 19:28 Dose: 2 puff Finasteride (Proscar) 5 mg PO DAILY [facility] Last Admin: 05/24/17 09:28 Dose: 5 mg Lisinopril (Zestril) 2.5 mg PO DAILY [facility] Last Admin: 05/24/17 09:29 Dose: 2.5 mg Magnesium Hydroxide (Milk Of Magnesia) 30 ml PO DAILY [facility] Last Admin: 05/24/17 09:33 Dose: 30 ml Metoprolol Tartrate (Lopressor) 12.5 mg PO BID [facility] Last Admin: 05/24/17 17:25 Dose: 12.5 mg Montelukast Sodium (Singulair) 10 mg PO DAILY [facility] Last Admin: 05/24/17 09:27 Dose: 10 mg Pantoprazole Sodium (Protonix Ec Tab) 40 mg PO DAILY [facility] Last Admin: 05/24/17 09:29 Dose: 40 mg Tamsulosin HCl (Flomax) 0.8 mg PO DAILY [facility] - Labs Labs: 05/24/17 07:54 05/24/17 07:54 PT 17.5 SECONDS (9.7-12.2) H 05/24/17 07:54 INR 1.5 05/24/17 07:54 APTT 31 SECONDS (21-34) 05/24/17 07:54
[2017-05-25 00:54] VITALS: O2SAT 100
[2017-05-25] MEDS: Albuterol HFA 90 mcg/actuation (8 g) INH SCH ×3 (01:09→20:30)
[2017-05-25 06:34] LABS: BASO # 0.1 K/uL (0.0-0.2); BASO % 0.9 % (0.0-2.0); EOS # 0.2 K/uL (0.0-0.7); LYMPH # 2.6 K/uL (1.0-4.3); LYMPH % 22.3 % (20.0-40.0); MEAN CORPUSCULAR HEMOGLOBIN 25.8 pg (27.0-31.0); MEAN CORPUSCULAR HGB CONC 31.8 g/dL (33.0-37.0); MEAN PLATELET VOLUME 7.4 fL (7.2-11.7); MONO % 8.1 % (0.0-10.0); RED CELL DISTRIBUTION WIDTH 16.1 % (11.5-14.5); WHITE BLOOD COUNT 11.9 K/uL (4.8-10.8)
[2017-05-25 07:27] LABS: ALKALINE PHOSPHATASE 97 U/L (38-126); ALT/SGPT 28 U/L (21-72); AST/SGOT 22 U/L (17-59); BILIRUBIN,TOTAL 0.5 mg/dL (0.2-1.3); BLOOD UREA NITROGEN 8 mg/dL (9-20); CARBON DIOXIDE 33 mmol/L (22-30); CHLORIDE 98 mmol/L (98-107); GFR AFRICAN-AMERICAN > 60; GLUCOSE,RANDOM 90 mg/dL (75-110); POTASSIUM 4.5 mmol/L (3.6-5.2); SODIUM 132 mmol/L (132-148); TOTAL PROTEIN 5.2 g/dL (6.3-8.3)
[2017-05-25 07:28] LABS: ALB/GLOB RATIO 0.8 (1.0-2.1)
--- NOTE | 2017-05-25 07:42 | CP.PCM.PN ---
Subjective - Date & Time of Evaluation Date of Evaluation: 05/25/17 Time of Evaluation: 09:19 - Subjective Subjective: PGY2 Medicine Note for Dr. Parker; all management as per Dr. Parker Pt seen and examined at bedside; he failed his trial to void and [facility]; patient is not eligible for straight cath because of grossly enlarged prostate; the patient denies any symptoms currently ; fevers/chills, GUERRERO, CP, SOB, abdominal pain, N/V/D, dysuria/freq/urg, or lower extremity pain/swelling. Objective - Vital Signs/Intake and Output Vital Signs (last 24 hours): Temp Pulse Resp BP Pulse Ox 98.2 F 82 20 102/66 100 05/25/17 00:00 05/25/17 00:00 05/25/17 00:00 05/25/17 00:00 05/25/17 00:00 Intake and Output: 05/25/17 05/25/17 06:59 18:59 Intake Total 660 Output Total 2200 Balance -1540 - Medications Medications: Current Medications Acetaminophen (Tylenol 325mg Tab) 650 mg PO Q4H PRN PRN Reason: FOR PAIN Last Admin: 05/22/17 22:43 Dose: 650 mg Albuterol (Ventolin Hfa 90 Mcg/Actuation (8 G)) 2 puff INH RQ6 [facility] Last Admin: 05/25/17 01:09 Dose: Not Given Finasteride (Proscar) 5 mg PO DAILY [facility] Last Admin: 05/24/17 09:28 Dose: 5 mg Lisinopril (Zestril) 2.5 mg PO DAILY [facility] Last Admin: 05/24/17 09:29 Dose: 2.5 mg Magnesium Hydroxide (Milk Of Magnesia) 30 ml PO DAILY [facility] Last Admin: 05/24/17 09:33 Dose: 30 ml Metoprolol Tartrate (Lopressor) 12.5 mg PO BID [facility] Last Admin: 05/24/17 17:25 Dose: 12.5 mg Montelukast Sodium (Singulair) 10 mg PO DAILY [facility] Last Admin: 05/24/17 09:27 Dose: 10 mg Pantoprazole Sodium (Protonix Ec Tab) 40 mg PO DAILY [facility] Last Admin: 05/24/17 09:29 Dose: 40 mg Tamsulosin HCl (Flomax) 0.8 mg PO DAILY [facility] - Labs Labs: 05/25/17 06:24 05/25/17 06:24 PT 17.5 SECONDS (9.7-12.2) H 05/24/17 07:54 INR 1.5 05/24/17 07:54 APTT 31 SECONDS (21-34) 05/24/17 07:54 - Constitutional Appears: Non-toxic - Head Exam Head Exam: ATRAUMATIC - Eye Exam Eye Exam: EOMI Pupil Exam: PERRL - ENT Exam ENT Exam: Mucous Membranes Moist - Neck Exam Neck Exam: Full ROM - Respiratory Exam Respiratory Exam: Clear to Ausculation Bilateral, NORMAL BREATHING PATTERN. absent: Rales, Rhonchi, Wheezes - Cardiovascular Exam Cardiovascular Exam: REGULAR RHYTHM - GI/Abdominal Exam GI & Abdominal Exam: Soft, Normal Bowel Sounds - Extremities Exam Extremities Exam: Full ROM. absent: Calf Tenderness - Back Exam Back Exam: absent: CVA tenderness (L), CVA tenderness (R) - Neurological Exam Neurological Exam: Alert, Awake - Psychiatric Exam Psychiatric exam: Normal Affect - Skin Skin Exam: Warm Assessment and Plan - Assessment and Plan (Free Text) Assessment: Urinary retention 05/25: trial to void failed; urology recommends [facility] with [facility]; will give macrobid to take for a total of 14 days of Abx; patient will need to f/u with urology in 6weeks 05/24: trial to void today; increased flomax to 0.8mg daily; day 6 of IV antibiotics; urine is sensitive to macrobid which he can continue upon discharge for a total of 14 days of abx for complicated cystitis -as per urology note; if the patient does not tolerate 3mo of medical management patient is eligible for prostate surgery for flow -will get straight cath education, and if unable to perform patient is likely going to facility where they have these services -urine should be sent for cytology if hematuria continues On admission: cystoscopy preformed yesterday, he has suh in place with bladder irrigation. He has been started on Finesteride and Flomax for enlarged prostate, he is on IV Cefepime, culture results are back, day 3 of IV antibiotics. Patient admitted to inpatient regular floor. Dr. De La O consulted for Urology, he has a suh catheter. Bladder ultrasound shows over distended bladder. Urine culture showed Gram+ cocci with colony count of 10k to 50k. Possible contamination. CT showed bladder hematomas without hydronephrosis or stone, result discussed with Dr. De La O. Anemia; chronic 05/25: stable 05/21: Hbg is stable at 9.1 Acute kidney insufficiency;resolved 05/24: likely 2/2 to obstruction; has resolved 05/21: numbers improving continue with IV fluids IV fluids, patient may have an obstructing stone. Coagulopathy; stable 05/24: unknown if patient has hepatitis; will need outpatient f/u 05/21: Trending downward, continue to monitor. INR is 1.9, follow morning INR, hold any VTE as of now. Gross hematuria; resolved 05/24: resolved; no clots/hematuria seen in suh bag 05/21: Day 3 of IV Cefepime. Urology consulted, follow up with him, IV antibiotics. HTN (hypertension);chronic continue home Zestril, Lopressor Asthma;chronic Ventolin, Singular, home medication. Prophylactic measure SCDS, hold VTE due to elevated INR Protonix 40mg The patient will likely be d/c back to [facility] with macrobid and suh will need to f/u w/ Dr. De La O; urology in 6 weeks c/w macrobid BID for a total of 14 days of Abx for complicated cystitis as organisms susceptible to that patient is to increase flomax of 0.8mg per day c/w all other medications All Management as per Dr. Parker.
[2017-05-25] MEDS: Pantoprazole 40 mg EC Tab PO SCH (11:00)
[2017-05-25] MEDS: Magnesium Hydroxide Susp 30 ml UD PO SCH (11:00)
[2017-05-25 16:23] VITALS: BP 117/68; PULSE 83; TEMP 98.1
== END 2017-05-25 22:35 | DRG 726 ==
LOC: C.ER 23:38 → C.9E 05-19 02:24 → C.3T 05-19 14:12
PROVIDERS: ADMIT Internal Medicine Pulmonary Disease; ATTEND Internal Medicine Pulmonary Disease
PROC: 0TCB8ZZ Extirpation of Matter from Bladder, Via Natural or Artificial Opening Endoscopic (ICD-10-PCS; principal; 2017-05-20 17:00)
DX: N40.1 Benign prostatic hyperplasia with lower urinary tract symptoms (principal); D68.9 Coagulation defect, unspecified; I11.0 Hypertensive heart disease with heart failure; I50.9 Heart failure, unspecified; R31.0 Gross hematuria; K40.90 Unilateral inguinal hernia, without obstruction or gangrene, not specified as recurrent; N32.0 Bladder-neck obstruction; N32.89 Other specified disorders of bladder; N43.3 Hydrocele, unspecified; E66.9 Obesity, unspecified; J45.909 Unspecified asthma, uncomplicated; D64.9 Anemia, unspecified; N28.9 Disorder of kidney and ureter, unspecified; N36.8 Other specified disorders of urethra; N47.8 Other disorders of prepuce; N30.90 Cystitis, unspecified without hematuria

== ENCOUNTER 2017-10-18 12:43 | Day surgery (SDC) | payer MEDICARE ==
[2017-10-13 08:21] VITALS: BMI 26.4
[2017-10-18] MEDS ORDERED: Gentamicin 160 MG in Sodium Chloride 0.9% 100 ML IVPB ONE (13:46)
[2017-10-18] MEDS ORDERED: Ciprofloxacin 400mg/200ml D5W 400 MG/200 ML BAG IVPB ONE (16:33)
[2017-10-18] MEDS ORDERED: Propofol 10 mg/ml Inj (20 ML) ONE (17:07)
--- NOTE | 2017-10-18 17:30 | PCM.SURG1 ---
Surgeon's Initial Post Op Note - Surgeon's Notes Surgeon: [employer] Worker: MATHEUS Type of Anesthesia: General LMA Anesthesia Administered By: Staff Pre-Operative Diagnosis: Urinary retention/bph Operative Findings: BPH VILLAREAL Post-Operative Diagnosis: Urinary retention/BPH Operation Performed: TULAP Specimen/Specimens Removed: NA Estimated Blood Loss: EBL {In ML}: 0 Blood Products Given: N/A Drains Used: No Drains Post-Op Condition: Good Date of Surgery/Procedure: 10/18/17 Time of Surgery/Procedure: 17:29
[2017-10-18] MEDS ORDERED: Lactated Ringer's 1,000 ML IV SCH (17:45)
[2017-10-18] MEDS ORDERED: Morphine 4 MG/ML VIAL ONE (17:59)
[2017-10-18 18:26] VITALS: O2SAT 100
[2017-10-18 20:08] VITALS: BP 154/83; PULSE 76; RESP 10; TEMP 97.8
--- NOTE | 2017-10-19 05:06 | OP ---
PROCEDURE DATE: 10/18/2017 PREOPERATIVE DIAGNOSIS: Benign prostatic hyperplasia and urinary retention. POSTOPERATIVE DIAGNOSIS: Benign prostatic hyperplasia and urinary retention. PROCEDURE: Transurethral laser ablation of the prostate (GreenLight laser vaporization of the prostrate.) SURGEON: Davon De La O MD BOBJ DEVELOPER: None. FINDINGS: Trilobar hypertrophy of the prostate with median lobe and significant outlet obstruction compared to prior trabeculation of bladder. DESCRIPTION OF PROCEDURE: Prior to the procedure, detailed informed consent was obtained from the patient. The risk, complications, and alternatives of GreenLight laser prostatectomy and all three method of managing urinary retention, secondary to BPH were reviewed. The patient agreed to accept the risk and signed the consent. He was brought into the room, and a time-out was taken according to the rules and regulations of [facility]. The patient was cystoscoped with a laser cystoscope. The pendulous and membranous urethra was normal. The prostatic urethra showed trilobar hypertrophy with significant outlet obstruction. There was also a small median lobe. The bladder was entered atraumatically. There was no evidence of urothelial tumors or stones. Both ureteral orifices effluxed clear urine. The laser element was then inserted in the laser resectoscope sheath and the laser vaporization of the prostrate was began at 11 'o clock from just distal to the bladder neck down to 6'o clock just proximal to the verumontanum. The left lateral lobe, the roof tissue, and the base tissue were vaporized in a similar fashion. The median lobe was vaporized with care not to injure the urethral orifice. No injury occurred. The patient tolerated this procedure well. There was no bleeding. The bladder was filled. The scope was removed and clear irrigate plug was and #[address] 5 mL catheter was inserted. Drained normal saline irrigation. It was inflated with normal amount of saline. The patient was given a prescription for Cipro, and a followup appointment in our office tomorrow for Izquierdo catheter removal, plus the detailed explanation of all risks and complications of this procedure and the management. Davon De La O MD
== END 2017-10-18 19:30 | disposition home or self-care (01) ==
LOC: C.SDS 12:43
PROVIDERS: ATTEND Urology
DX: N40.1 Benign prostatic hyperplasia with lower urinary tract symptoms (principal); R33.8 Other retention of urine
CPT/HCPCS: 52648; J0744; J1580; J2270

== ENCOUNTER 2017-11-09 14:07 | Inpatient (IN) | payer MEDICARE ==
[2017-11-09 14:07] VITALS: BMI 26.4
[2017-11-09 15:28] LABS: ABG ALLEN TEST POS; ARTERIAL BLOOD GAS HCO3 21.8 mmol/L (21-28); ARTERIAL BLOOD GAS PCO2 36 mm/Hg (35-45); ARTERIAL BLOOD GAS PH 7.37 (7.35-7.45); ARTERIAL BLOOD GAS PO2 75 mm/Hg (80-100); ARTERIAL BLOOD GAS TCO2 21.9 mmol/L (22-28)
[2017-11-09 15:32] LABS: BASO # 0.1 K/uL (0.0-0.2); BASO % 0.3 % (0.0-2.0); EOS # 0.1 K/uL (0.0-0.7); EOS % 0.4 % (0.0-4.0); HEMOGLOBIN 14.7 g/dL (12.0-18.0); LYMPH # 4.1 K/uL (1.0-4.3); LYMPH % 19.2 % (20.0-40.0); MEAN CELL VOLUME 82.3 fL (80.0-94.0); MEAN CORPUSCULAR HEMOGLOBIN 27.5 pg (27.0-31.0); MEAN CORPUSCULAR HGB CONC 33.4 g/dL (33.0-37.0); MEAN PLATELET VOLUME 8.3 fL (7.2-11.7); MONO # 0.6 K/uL (0.0-0.8); MONO % 2.7 % (0.0-10.0); NEUT # 16.4 K/uL (1.8-7.0); NEUT % 77.4 % (50.0-75.0); RBC 5.34 Mil/uL (4.40-5.90); RED CELL DISTRIBUTION WIDTH 15.8 % (11.5-14.5); WHITE BLOOD COUNT 21.1 K/uL (4.8-10.8)
[2017-11-09 15:43] LABS: INR 1.3
--- NOTE | 2017-11-09 15:45 | C.PDOC ---
History Of Present Illness 77yo male, presents to ED from home via EMS after patient's family witnessed a syncopal episode. Patient has a history of CHF, BPH, hydrocele, and hernia. HPI and ROS limited as patient is a poor historian. PMD: Dr. Jean Time Seen by Provider: 11/09/17 14:15 Chief Complaint (Nursing): Syncope History Per: Patient, Family Additional History Per: Patient Past Medical History Reviewed: Historical Data, Nursing Documentation, Vital Signs Vital Signs: Last Vital Signs Temp 97.7 F 11/09/17 21:00 Pulse 149 H 11/09/17 21:00 Resp 12 11/09/17 21:00 BP 139/82 11/09/17 21:00 Pulse Ox 98 11/09/17 21:00 - Medical History PMH: Anemia, Asthma, CHF, HTN, Pneumonia (X3), Chronic Kidney Disease (RENAL INSUFFICIENCY) Surgical History: Endoscopy - [facility] Procedures CYSTOMETROGRAM (01/23/14) EXTIRPATION OF MATTER FROM BLADDER, ENDO (05/19/17) TRANSURETHRAL PROSTATECTOMY ([place]) (01/30/14) Family History: States: No Known Family Hx, Unknown Family Hx - Social History Hx Alcohol Use: No Hx Substance Use: No - Immunization History Hx Tetanus Toxoid Vaccination: No Hx Influenza Vaccination: Yes Hx Pneumococcal Vaccination: No Review Of Systems Except As Marked, All Systems Reviewed And Found Negative. Constitutional: Positive for: Weakness. Negative for: Fever, Chills, Sweats Eyes: Negative for: Pain, Vision Change, Conjunctivae Inflammation ENT: Negative for: Ear Pain, Ear Discharge, Nose Pain, Nose Discharge Cardiovascular: Negative for: Chest Pain, Palpitations, Orthopnea, Paroxysmal Noc. Dyspnea Respiratory: Positive for: Shortness of Breath. Negative for: Cough Gastrointestinal: Positive for: Vomiting Genitourinary: Negative for: Dysuria, Frequency, Incontinence Musculoskeletal: Negative for: Neck Pain Neurological: Positive for: Seizures. Negative for: Weakness, Numbness, Incoordination Psych: Negative for: Anxiety, Depression Physical Exam - Physical Exam Appears: Toxic, In Acute Distress, Confused Skin: Normal Color, Warm, Dry, Diaphoretic Head: Atraumatic, Normacephalic Eye(s): bilateral: Normal Inspection, PERRL, EOMI Ear(s): Bilateral: Normal Nose: Normal Oral Mucosa: Moist Tongue: Normal Appearing Gingiva: Normal Appearing Throat: Normal Neck: Normal ROM, Supple Chest: Symmetrical Cardiovascular: Rhythm Regular (tachycardic), Other (hypotensive; diminished heart sounds) Respiratory: Other (distant lung sounds; tachypnea) Gastrointestinal/Abdominal: Tenderness (rigid abdomen), Distention, Guarding, Rebound, Hernia (large bilateral inguinal hernia with large amount of bowel; indwelling suh) Back: Normal Inspection Male Genital: No Normal Inspection (large left inguinal hernia filled with large amount of colon with indwelling catheter) Extremity: Normal ROM Extremity: Bilateral: Atraumatic Neurological/Psych: Oriented x3 ED Course And Treatment - Laboratory Results Result Diagrams: 11/09/17 21:02 11/09/17 21:02 O2 Sat by Pulse Oximetry: 94 Pulse Ox Interpretation: Abnormal Interpretation Of Abnormal: abnormal, hypoxic on room air Critical Care Time - Critical Care Note Total Time (in mins): 90 Documented critical care: time excludes all time spent performing seperately billable procedures. Medical Decision Making Medical Decision Making: Impression: Plan: -- ABG shock panel -- Labs -- CXR -- EKG -- Urinalysis Time: 1612 CXR FINDINGS: LUNGS: No active pulmonary disease. PLEURA: No significant pleural effusion identified, no pneumothorax apparent. CARDIOVASCULAR: Normal. OSSEOUS STRUCTURES: No significant abnormalities. VISUALIZED UPPER ABDOMEN: Free air seen beneath right hemidiaphragm. Recommend further evaluation with computed tomography of the abdomen and pelvis. OTHER FINDINGS: None. IMPRESSION: No infiltrate. Free air seen beneath right hemidiaphragm. Recommend further evaluation with computed tomography of the abdomen and pelvis. vice president quality improvement paged. Time: [address] Jean, patient's PMD who is requesting Dr. Gaytan for surgical consult. Surgery resident aware, will evaluate patient in ER. Time: 1627 On reassessment, patient is resting comfortably in ER. Disposition Doctor Will See Patient In The: Hospital Counseled Patient/Family Regarding: Diagnosis - Disposition Disposition: HOSPITALIZED Disposition Time: 04:00 Condition: CRITICAL - Clinical Impression Clinical Impression: Perforated abdominal viscus, Sepsis - Scribe Statement The provider has reviewed the documentation as recorded by the Scribe (Ayah Guzman) Provider Attestation: All medical record entries made by the Scribe were at my direction and personally dictated by me. I have reviewed the chart and agree that the record accurately reflects my personal performance of the history, physical exam, medical decision making, and the department course for this patient. I have also personally directed, reviewed, and agree with the discharge instructions and disposition.
[2017-11-09 15:53] LABS: ALBUMIN 4.1 g/dL (3.5-5.0); AST/SGOT 29 U/L (17-59); BLOOD UREA NITROGEN 16 mg/dL (9-20); CALCIUM 10.6 mg/dl (8.6-10.4); GFR AFRICAN-AMERICAN 59; GFR NON-AFRICAN AMERICAN 49
[2017-11-09] MEDS ORDERED: Sodium Chloride 0.9% 1,000 ML IV ONE (16:00)
[2017-11-09 16:03] LABS: B-TYPE NATRIURETIC PEPTIDE 780 pg/mL (0-900)
[2017-11-09 16:15] LABS: ALT/SGPT < 6 U/L (21-72)
--- NOTE | 2017-11-09 16:15 | RAD ---
HISTORY: Sepsis Patient COMPARISON: 01/15/2014 FINDINGS: LUNGS: No active pulmonary disease. PLEURA: No significant pleural effusion identified, no pneumothorax apparent. CARDIOVASCULAR: Normal. OSSEOUS STRUCTURES: No significant abnormalities. VISUALIZED UPPER ABDOMEN: Free air seen beneath right hemidiaphragm. Recommend further evaluation with computed tomography of the abdomen and pelvis. OTHER FINDINGS: None. IMPRESSION: No infiltrate. Free air seen beneath right hemidiaphragm. Recommend further evaluation with computed tomography of the abdomen and pelvis. Findings discussed by telephone with Dr. Mora at 4:13 p.m. on 11/09/2017.
[2017-11-09] MEDS ORDERED: Sodium Chloride 0.9% 1,000 ML ONE (16:24)
[2017-11-09] MEDS ORDERED: DiphenhydrAMINE 50 mg/ml Inj IM STA (16:37)
[2017-11-09] MEDS ORDERED: DiphenhydrAMINE 50 mg/ml Inj IVP STA (16:37)
[2017-11-09] MEDS ORDERED: Iodixanol 320 MG/ML 100 ML BOTTLE IV ONE (16:44)
[2017-11-09] MEDS ORDERED: DiphenhydrAMINE 50 mg/ml Inj ONE (16:45)
--- NOTE | 2017-11-09 17:03 | CP.PCM.CON ---
History of Present Illness - History of Present Illness History of Present Illness: Surgery- Dr. Gaytan Reason for consult: Pneumoperitoneum 77M w/ pmhx significant for HTN, DM, BPH presents to [facility] with syncopal episode at home witnessed by family members and generalized abdominal pain localized to the groin that started earlier today. Patient never experienced abdominal pain like this in the past. Complains of nausea, multiple episodes of non-bloody, non-bilious vomiting. Work up in the ER showed free air under the diaphragm with CXR. Denies: fevers, chills, numbness/tingling in extremities PMD: [facility] PMH: stated above, CHH, Pneumonia, CKD, inguinal hernia PSH: prostatectomy (2014), bladder procedure (2017) ALL: shellfish SocialHx: lives at home w/ family. Denies ETOH, recreational drug use FH: non-contributory Review of Systems - Review of Systems Systems not reviewed;Unavailable: Intubated - Constitutional Constitutional: As Per HPI Past Patient History - Past Medical History & Family History Past Medical History?: Yes - Past Social History Smoking Status: Never Smoked - CARDIAC Hx Congestive Heart Failure: Yes Hx Hypertension: Yes - PULMONARY Hx Asthma: Yes Hx Pneumonia: Yes (X3) - NEUROLOGICAL Hx Neurological Disorder: Yes Hx Dizziness: Yes - HEENT Hx HEENT Problems: Yes Hx Cataracts: Yes - RENAL Hx Chronic Kidney Disease: Yes (RENAL INSUFFICIENCY) - ENDOCRINE/METABOLIC Hx Endocrine Disorders: No - HEMATOLOGICAL/ONCOLOGICAL Hx Anemia: Yes - INTEGUMENTARY Hx Dermatological Problems: No - MUSCULOSKELETAL/RHEUMATOLOGICAL Hx Musculoskeletal Disorders: Yes Hx Osteoarthritis: Yes - GASTROINTESTINAL Hx Gastrointestinal Disorders: Yes Hx Gastroesophageal Reflux: Yes - GENITOURINARY/GYNECOLOGICAL Hx Genitourinary Disorders: Yes Hx Prostate Problems: Yes (Urinary Retention, BPH) Other/Comment: SUH CATH - PSYCHIATRIC Hx Substance Use: No - SURGICAL HISTORY Hx Surgeries: Yes Other/Comment: Cystoscopy - ANESTHESIA Hx Anesthesia: Yes Hx Anesthesia Reactions: No Hx Malignant Hyperthermia: No Meds Allergies/Adverse Reactions: Allergies Allergy/AdvReac Type Severity Reaction Status Date / Time shellfish derived Allergy Verified 11/09/17 15:18 - Medications Medications: Current Medications Piperacillin Sod/Tazobactam (Sod 3.375 gm/ Sodium Chloride) 100 mls @ 200 mls/ hr IVPB Q6H ZAID PRN Reason: Protocol Vancomycin HCl 1 gm/ Sodium (Chloride) 250 mls @ 166.7 mls/hr IVPB Q24H ZAID PRN Reason: Protocol Physical Exam - Constitutional Appears: No Acute Distress, Unkempt - Head Exam Head Exam: ATRAUMATIC - Eye Exam Eye Exam: EOMI. absent: Scleral icterus - ENT Exam ENT Exam: Mucous Membranes Moist - Respiratory Exam Respiratory Exam: NORMAL BREATHING PATTERN. absent: Accessory Muscle Use, Respiratory Distress - Cardiovascular Exam Cardiovascular Exam: +S1, +S2. absent: Bradycardia, Tachycardia - GI/Abdominal Exam GI & Abdominal Exam: Distended, Firm, Guarding, Hernia, Rigid, Soft, Tenderness Additional comments: para-umbilical hernia - Neurological Exam Neurological exam: Alert, Oriented x3 - Skin Skin Exam: Intact, Warm Results - Vital Signs Recent Vital Signs: Last Vital Signs Temp 98.5 F 11/09/17 14:15 Pulse 102 H 11/09/17 14:15 Resp 26 H 11/09/17 14:15 BP 190/86 H 11/09/17 14:15 Pulse Ox 94 L 11/09/17 16:28 - Labs Result Diagrams: 11/09/17 15:27 11/09/17 15:27 Labs: Laboratory Results - last 24 hr 11/09/17 11/09/17 11/09/17 14:28 15:25 15:27 WBC 21.1 H D RBC 5.34 Hgb 14.7 D Hct 44.0 MCV 82.3 MCH 27.5 MCHC 33.4 RDW 15.8 H Plt Count 357 MPV 8.3 Neut % (Auto) 77.4 H Lymph % (Auto) 19.2 L Andrews % (Auto) 2.7 Eos % (Auto) 0.4 Baso % (Auto) 0.3 Neut # (Auto) 16.4 H Lymph # (Auto) 4.1 Andrews # (Auto) 0.6 Eos # (Auto) 0.1 Baso # (Auto) 0.1 ESR 6 PT INR APTT Puncture Site Rra pCO2 36 pO2 75 L HCO3 21.8 ABG pH 7.37 ABG Total CO2 21.9 L ABG O2 Saturation 98.0 ABG Base Excess -3.9 L Tino Test Pos ABG Potassium 3.5 L A-a O2 Difference 80.0 Respiratory Index 1.1 Sodium 139.0 Chloride 105.0 Glucose 335 H Lactate 2.1 Liter Flow 2.0 FiO2 28.0 Potassium Carbon Dioxide Anion Gap BUN Creatinine Est GFR ( Amer) Est GFR (Non-Af Amer) POC Glucose (mg/dL) 273 H Random Glucose Calcium Phosphorus Magnesium Total Bilirubin AST ALT Alkaline Phosphatase Troponin I C-React Prot High Sens NT-Pro-B Natriuret Pep Total Protein Albumin Globulin Albumin/Globulin Ratio Arterial Blood Potassium 3.5 L 11/09/17 11/09/17 11/09/17 15:27 15:27 15:27 WBC RBC Hgb Hct MCV MCH MCHC RDW Plt Count MPV Neut % (Auto) Lymph % (Auto) Andrews % (Auto) Eos % (Auto) Baso % (Auto) Neut # (Auto) Lymph # (Auto) Andrews # (Auto) Eos # (Auto) Baso # (Auto) ESR PT 14.0 H INR 1.3 APTT 30 Puncture Site pCO2 pO2 HCO3 ABG pH ABG Total CO2 ABG O2 Saturation ABG Base Excess Tino Test ABG Potassium A-a O2 Difference Respiratory Index Sodium 141 Chloride 101 Glucose Lactate Liter Flow FiO2 Potassium 3.9 Carbon Dioxide 27 Anion Gap 17 BUN 16 Creatinine 1.4 Est GFR ( Amer) 59 Est GFR (Non-Af Amer) 49 POC Glucose (mg/dL) Random Glucose 285 H Calcium 10.6 H Phosphorus 4.1 Magnesium 2.4 H Total Bilirubin 0.8 AST 29 ALT < 6 L D Alkaline Phosphatase 97 Troponin I 0.0320 C-React Prot High Sens 2.97 NT-Pro-B Natriuret Pep 780 Total Protein 8.1 Albumin 4.1 Globulin 4.0 H Albumin/Globulin Ratio 1.0 Arterial Blood Potassium Assessment & Plan - Assessment and Plan (Free Text) Assessment: 77M w/ pneumoperitoneum Plan: Place suh strict I/O IVF&Abx Type and Cross 2u PRBC Plan for OR for Exploratory laparotomy d/w Dr. Gaytan surgical attending [facility] PGY1
--- NOTE | 2017-11-09 17:24 | CT ---
PROCEDURE: CT Abdomen and Pelvis with contrast HISTORY: free air COMPARISON: 05/20/2017. TECHNIQUE: CT scan of the abdomen and pelvis was performed after administration of intravenous contrast. Oral contrast was not administered. Coronal and sagittal reformatted images were obtained. Contrast dose: 100 mL Visipaque Radiation dose: Total exam DLP = 642.80 mGy-cm. This CT exam was performed using one or more of the following dose reduction techniques: Automated exposure control, adjustment of the mA and/or kV according to patient size, and/or use of iterative reconstruction technique. FINDINGS: LOWER THORAX: There is scattered centrilobular emphysema in the visualized lungs and bibasilar atelectasis. LIVER: The liver is normal in size and there is homogeneous enhancement. No gross lesion or ductal dilatation. GALLBLADDER AND BILE DUCTS: There are multiple gallstones. PANCREAS: Mild diffuse atrophy. No gross lesion or ductal dilatation. SPLEEN: Normal in size with homogeneous enhancement. ADRENALS: No discrete nodule. KIDNEYS AND URETERS: Both kidneys are normal in size with homogeneous enhancement. There are bilateral simple cortical and parapelvic cysts. No hydronephrosis. No solid mass. VASCULATURE: No aortic aneurysm. BOWEL: There is apparent diffuse wall thickening in the stomach with mucosal enhancement. The small bowel loops are normal in caliber. APPENDIX: No inflammatory changes in the right lower quadrant there is moderate amount of fluid in the abdomen and pelvis. PERITONEUM: There is moderate pneumoperitoneum with free air anterior to the liver and small foci of free air in the large inguinal scrotal hernia. LYMPH NODES: No enlarged lymph nodes. BLADDER: Indwelling Izquierdo catheter with decompression of the urinary bladder. REPRODUCTIVE: Unremarkable. BONES: No acute fracture. Within normal limits for the patient's age. OTHER FINDINGS: There is a large left inguinal scrotal hernia containing nonobstructed colon and moderate amount of fluid. There are also small foci of free air. There are also infraumbilical para median fat containing hernia and small focus of air in the deep abdominal wall. IMPRESSION: 1. Moderate pneumoperitoneum suggestive of hollow viscus perforation. The exact site of perforation is difficult to identified however peptic ulcer perforation is suspected is majority of the areas anterior to the liver. 2. Moderate amount of free fluid in the abdomen and pelvis. 3. Large left inguinal scrotal hernia containing nonobstructed colon, moderate amount of fluid and tiny foci of free air. 4. Cholelithiasis.
[2017-11-09] MEDS: Piperacillin/Tazobact 3.375 GM in Sodium Chloride 100 ML IVPB SCH (17:31)
[2017-11-09] MEDS ORDERED: Propofol 10 mg/ml Inj (20 ML) ONE (17:39)
[2017-11-09] MEDS ORDERED: Succinylcholine Chloride 20 mg/ml Syr (5 ml) IV ONE (17:40)
[2017-11-09] MEDS ORDERED: Rocuronium 10 mg/ml (5 ml) ONE (17:40)
[2017-11-09] MEDS ORDERED: Midazolam 2 MG/2 ML VIAL ONE (17:41)
[2017-11-09 17:46] LABS: URINE BACTERIA RARE (<OCC); URINE BILIRUBIN NEGATIVE (NEGATIVE); URINE BLOOD 3+ (NEGATIVE); URINE CLARITY Hazy (Clear); URINE COLOR Yellow (YELLOW); URINE GLUCOSE (UA) 2+ mg/dL (Normal); URINE LEUKOCYTE ESTERASE 3+ Leu/uL (Negative); URINE PROTEIN 1+ mg/dL (NEGATIVE); URINE UROBILINOGEN NORMAL mg/dL (0.2-1.0)
[2017-11-09] MEDS ORDERED: Etomidate 20 mg/10ml Inj IV ONE (19:22)
[2017-11-09] MEDS ORDERED: Lactated Ringer's 1,000 ML IV SCH (20:45)
--- NOTE | 2017-11-09 20:47 | PCM.SURG1 ---
Surgeon's Initial Post Op Note - Surgeon's Notes Surgeon: Dr. Gaytan Head Cleaning Porter: Dr. Melton PGY3, Jo Ann PGY2, PGY1 Type of Anesthesia: General Endo Pre-Operative Diagnosis: pneumoperitoneum. Acute Abdomen Operative Findings: lesser curvature to pylorus perforated Gastric ulcer. Large left inguinal hernia w/ colon and succus fluid, contents reduced. 6 liters of intrabdominal succus and irrigation fluid evacuated. Post-Operative Diagnosis: Large perforated gastric ulcer. Large left inguinal hernia. Umbilical hernia Operation Performed: Exploratory laparotomy, distal gastrectomy with anterior retrocolic functional promise en y reconstruction; gastrojejustomy and distal jejunostomy; Intra-abdominal primary Left inguinal herniorraphy Specimen/Specimens Removed: Distal Stomach. Peritoneal fluid culture Estimated Blood Loss: EBL {In ML}: 250 Blood Products Given: N/A Drains Used: Ry (x2; scrotal & nava's pouch) Post-Op Condition: Fair Date of Surgery/Procedure: 11/09/17 Time of Surgery/Procedure: 20:52
[2017-11-09] MEDS ORDERED: Lactated Ringer's 1,000 ML IV ONE (21:00)
[2017-11-09 21:08] LABS: MEAN CELL VOLUME 82.5 fL (80.0-94.0); MEAN CORPUSCULAR HEMOGLOBIN 27.6 pg (27.0-31.0); MEAN CORPUSCULAR HGB CONC 33.4 g/dL (33.0-37.0); MEAN PLATELET VOLUME 7.9 fL (7.2-11.7); RBC 6.12 Mil/uL (4.40-5.90); RED CELL DISTRIBUTION WIDTH 16.6 % (11.5-14.5)
[2017-11-09 21:26] LABS: ALB/GLOB RATIO 0.9 (1.0-2.1); ALBUMIN 3.4 g/dL (3.5-5.0); ALT/SGPT 9 U/L (21-72); AST/SGOT 27 U/L (17-59); BLOOD UREA NITROGEN 18 mg/dL (9-20); CALCIUM 9.4 mg/dl (8.6-10.4); GFR AFRICAN-AMERICAN > 60; GFR NON-AFRICAN AMERICAN 53
[2017-11-09 21:30] LABS: HEMOGLOBIN 16.9 g/dL (12.0-18.0); WHITE BLOOD COUNT 2.9 K/uL (4.8-10.8)
[2017-11-09 21:36] LABS: ARTERIAL BLOOD GAS HCO3 16.9 mmol/L (21-28); ARTERIAL BLOOD GAS HEMOGLOBIN 16.8 g/dL (11.7-17.4); ARTERIAL BLOOD GAS O2 SAT 99.8 % (95-98); ARTERIAL BLOOD GAS PCO2 49 mm/Hg (35-45); ARTERIAL BLOOD GAS PH 7.18 (7.35-7.45); ARTERIAL BLOOD GAS PO2 166 mm/Hg (80-100); ARTERIAL BLOOD GAS TCO2 19.8 mmol/L (22-28)
[2017-11-09 21:37] LABS: BASO % 0.4 % (0.0-2.0); EOS % 0.1 % (0.0-4.0); LYMPH % 15.4 % (20.0-40.0); MONO % 8.4 % (0.0-10.0); NEUT # 2.2 K/uL (1.8-7.0); NEUT % 75.7 % (50.0-75.0); NRBC % 0.5 % (0.0-2.0)
[2017-11-09 21:38] LABS: LYMPH # 0.4 K/uL (1.0-4.3); MONO # 0.2 K/uL (0.0-0.8)
[2017-11-09 21:48] LABS: ARTERIAL BLOOD GAS HCO3 16.9 mmol/L (21-28); ARTERIAL BLOOD GAS O2 SAT 100.1 % (95-98); ARTERIAL BLOOD GAS PCO2 48 mm/Hg (35-45); ARTERIAL BLOOD GAS PH 7.18 (7.35-7.45); ARTERIAL BLOOD GAS PO2 170 mm/Hg (80-100); ARTERIAL BLOOD GAS TCO2 19.4 mmol/L (22-28)
--- NOTE | 2017-11-09 22:14 | CP.PCM.CON ---
History of Present Illness - History of Present Illness History of Present Illness: 77 y/o male with h/o HTN,asthma presented to ER with abdominal pain,nausea and vomiting.found to have acute abdomen and pneumoperitoneum,taken to OR. He had a Large perforated gastric ulcer and Large left inguinal hernia. Umbilical hernia Operation Performed: Exploratory laparotomy, distal gastrectomy with anterior retrocolic functional promise en y reconstruction; gastrojejustomy and distal jejunostomy; Intra-abdominal primary Left inguinal herniorraphy history from chart patient on vetilator ,sedated,tachycardic Review of Systems - Review of Systems Systems not reviewed;Unavailable: Intubated Past Patient History - Past Medical History & Family History Past Medical History?: Yes - Past Social History Smoking Status: Never Smoked - CARDIAC Hx Congestive Heart Failure: Yes Hx Hypertension: Yes - PULMONARY Hx Asthma: Yes Hx Pneumonia: Yes (X3) - NEUROLOGICAL Hx Neurological Disorder: Yes Hx Dizziness: Yes - HEENT Hx HEENT Problems: Yes Hx Cataracts: Yes - RENAL Hx Chronic Kidney Disease: Yes (RENAL INSUFFICIENCY) - ENDOCRINE/METABOLIC Hx Endocrine Disorders: No - HEMATOLOGICAL/ONCOLOGICAL Hx Anemia: Yes - INTEGUMENTARY Hx Dermatological Problems: No - MUSCULOSKELETAL/RHEUMATOLOGICAL Hx Musculoskeletal Disorders: Yes Hx Osteoarthritis: Yes - GASTROINTESTINAL Hx Gastrointestinal Disorders: Yes Hx Gastroesophageal Reflux: Yes - GENITOURINARY/GYNECOLOGICAL Hx Genitourinary Disorders: Yes Hx Prostate Problems: Yes (Urinary Retention, BPH) Other/Comment: STAHL CATH - PSYCHIATRIC Hx Substance Use: No - SURGICAL HISTORY Hx Surgeries: Yes Other/Comment: Cystoscopy - ANESTHESIA Hx Anesthesia: Yes Hx Anesthesia Reactions: No Hx Malignant Hyperthermia: No Meds Allergies/Adverse Reactions: Allergies Allergy/AdvReac Type Severity Reaction Status Date / Time shellfish derived Allergy Verified 11/09/17 15:18 - Medications Medications: Current Medications Enoxaparin Sodium (Lovenox) 40 mg SC DAILY [facility] Hydromorphone HCl (Dilaudid) 0.5 mg IVP Q3H PRN PRN Reason: Pain, moderate (4-7) Piperacillin Sod/Tazobactam (Sod 3.375 gm/ Sodium Chloride) 100 mls @ 200 mls/ hr IVPB Q6H [facility]AID PRN Reason: Protocol Last Admin: 11/09/17 17:31 Dose: 200 mls/hr Vancomycin HCl 1 gm/ Sodium (Chloride) 250 mls @ 166.7 mls/hr IVPB Q24H [facility]AID PRN Reason: Protocol Last Admin: 11/09/17 18:21 Dose: 250 mls Lactated Ringer's (Lactated Ringer's) 1,000 mls @ 150 mls/hr IV .Q6H40M PENDING SALE TO [facility] Last Admin: 11/09/17 21:29 Dose: 150 mls/hr Sodium Chloride (Sodium Chloride 0.9%) 1,000 mls @ 1,000 mls/hr IV .Q1H ONE Stop: 11/09/17 22:52 Acetaminophen 1,000 mg/ (Miscellaneous) 100 mls @ 400 mls/hr IV Q6 [facility] Ondansetron HCl (Zofran Inj) 4 mg IVP Q4 PRN PRN Reason: Nausea/Vomiting Pantoprazole Sodium (Protonix Inj) 40 mg IVP Q12H [facility] Last Admin: 11/09/17 21:39 Dose: 40 mg Physical Exam - Constitutional Additional comments: orally intubated - Head Exam Head Exam: ATRAUMATIC, NORMAL INSPECTION, NORMOCEPHALIC - Eye Exam Eye Exam: EOMI Pupil Exam: NORMAL ACCOMODATION, PERRL - ENT Exam ENT Exam: Mucous Membranes Dry - Neck Exam Neck exam: Positive for: Normal Inspection - Respiratory Exam Respiratory Exam: Clear to Auscultation Bilateral - Cardiovascular Exam Cardiovascular Exam: Tachycardia. absent: JVD - GI/Abdominal Exam GI & Abdominal Exam: Firm Additional comments: no bowel sounds,drains +t - Extremities Exam Extremities exam: Negative for: pedal edema - Skin Skin Exam: Dry, Warm Results - Vital Signs Recent Vital Signs: Last Vital Signs Temp 97.7 F 11/09/17 21:00 Pulse 149 H 11/09/17 21:00 Resp 12 11/09/17 21:00 BP 139/82 11/09/17 21:00 Pulse Ox 94 L 11/09/17 22:07 - Labs Result Diagrams: 11/09/17 21:02 11/09/17 21:02 Labs: Laboratory Results - last 24 hr 11/09/17 11/09/17 11/09/17 14:28 15:25 15:27 WBC 21.1 H D RBC 5.34 Hgb 14.7 D Hct 44.0 MCV 82.3 MCH 27.5 MCHC 33.4 RDW 15.8 H Plt Count 357 MPV 8.3 Neut % (Auto) 77.4 H Lymph % (Auto) 19.2 L Swisher % (Auto) 2.7 Eos % (Auto) 0.4 Baso % (Auto) 0.3 Neut # (Auto) 16.4 H Lymph # (Auto) 4.1 Swisher # (Auto) 0.6 Eos # (Auto) 0.1 Baso # (Auto) 0.1 ESR 6 PT INR APTT Puncture Site Rra pCO2 36 pO2 75 L HCO3 21.8 ABG pH 7.37 ABG Total CO2 21.9 L ABG O2 Saturation 98.0 ABG Base Excess -3.9 L ABG Hemoglobin ABG Carboxyhemoglobin POC ABG HHb (Measured) ABG Methemoglobin Tino Test Pos ABG Potassium 3.5 L A-a O2 Difference 80.0 Respiratory Index 1.1 Hgb O2 Saturation Sodium 139.0 Chloride 105.0 Glucose 335 H Lactate 2.1 Liter Flow 2.0 Vent Mode Mechanical Rate FiO2 28.0 Tidal Volume PEEP Crit Value Called To Crit Value Called By Crit Value Read Back Blood Gas Notified Time Potassium Carbon Dioxide Anion Gap BUN Creatinine Est GFR ( Amer) Est GFR (Non-Af Amer) POC Glucose (mg/dL) 273 H Random Glucose Lactic Acid Calcium Phosphorus Magnesium Total Bilirubin AST ALT Alkaline Phosphatase Troponin I C-React Prot High Sens NT-Pro-B Natriuret Pep Total Protein Albumin Globulin Albumin/Globulin Ratio Procalcitonin Arterial Blood Potassium 3.5 L Urine Color Urine Clarity Urine pH Ur Specific Chilton Urine Protein Urine Glucose (UA) Urine Ketones Urine Blood Urine Nitrate Urine Bilirubin Urine Urobilinogen Ur Leukocyte Esterase Urine WBC (Auto) Urine RBC (Auto) Urine Bacteria Blood Type Antibody Screen 11/09/17 11/09/17 11/09/17 15:27 15:27 15:27 WBC RBC Hgb Hct MCV MCH MCHC RDW Plt Count MPV Neut % (Auto) Lymph % (Auto) Swisher % (Auto) Eos % (Auto) Baso % (Auto) Neut # (Auto) Lymph # (Auto) Swisher # (Auto) Eos # (Auto) Baso # (Auto) ESR PT 14.0 H INR 1.3 APTT 30 Puncture Site pCO2 pO2 HCO3 ABG pH ABG Total CO2 ABG O2 Saturation ABG Base Excess ABG Hemoglobin ABG Carboxyhemoglobin POC ABG HHb (Measured) ABG Methemoglobin Tino Test ABG Potassium A-a O2 Difference Respiratory Index Hgb O2 Saturation Sodium 141 Chloride 101 Glucose Lactate Liter Flow Vent Mode Mechanical Rate FiO2 Tidal Volume PEEP Crit Value Called To Crit Value Called By Crit Value Read Back Blood Gas Notified Time Potassium 3.9 Carbon Dioxide 27 Anion Gap 17 BUN 16 Creatinine 1.4 Est GFR ( Amer) 59 Est GFR (Non-Af Amer) 49 POC Glucose (mg/dL) Random Glucose 285 H Lactic Acid Calcium 10.6 H Phosphorus 4.1 Magnesium 2.4 H Total Bilirubin 0.8 AST 29 ALT < 6 L D Alkaline Phosphatase 97 Troponin I 0.0320 C-React Prot High Sens NT-Pro-B Natriuret Pep 780 Total Protein 8.1 Albumin 4.1 Globulin 4.0 H Albumin/Globulin Ratio 1.0 Procalcitonin 0.10 L Arterial Blood Potassium Urine Color Urine Clarity Urine pH Ur Specific Chilton Urine Protein Urine Glucose (UA) Urine Ketones Urine Blood Urine Nitrate Urine Bilirubin Urine Urobilinogen Ur Leukocyte Esterase Urine WBC (Auto) Urine RBC (Auto) Urine Bacteria Blood Type Antibody Screen 11/09/17 11/09/17 11/09/17 15:27 17:31 17:31 WBC RBC Hgb Hct MCV MCH MCHC RDW Plt Count MPV Neut % (Auto) Lymph % (Auto) Swisher % (Auto) Eos % (Auto) Baso % (Auto) Neut # (Auto) Lymph # (Auto) Swisher # (Auto) Eos # (Auto) Baso # (Auto) ESR PT INR APTT Puncture Site pCO2 pO2 HCO3 ABG pH ABG Total CO2 ABG O2 Saturation ABG Base Excess ABG Hemoglobin ABG Carboxyhemoglobin POC ABG HHb (Measured) ABG Methemoglobin Tino Test ABG Potassium A-a O2 Difference Respiratory Index Hgb O2 Saturation Sodium Chloride Glucose Lactate Liter Flow Vent Mode Mechanical Rate FiO2 Tidal Volume PEEP Crit Value Called To Crit Value Called By Crit Value Read Back Blood Gas Notified Time Potassium Carbon Dioxide Anion Gap BUN Creatinine Est GFR ( Amer) Est GFR (Non-Af Amer) POC Glucose (mg/dL) Random Glucose Lactic Acid Calcium Phosphorus Magnesium Total Bilirubin AST ALT Alkaline Phosphatase Troponin I C-React Prot High Sens 2.97 NT-Pro-B Natriuret Pep Total Protein Albumin Globulin Albumin/Globulin Ratio Procalcitonin Arterial Blood Potassium Urine Color Yellow Urine Clarity Hazy Urine pH 6.0 Ur Specific Chilton 1.048 H Urine Protein 1+ H Urine Glucose (UA) 2+ H Urine Ketones Negative Urine Blood 3+ H Urine Nitrate Negative Urine Bilirubin Negative Urine Urobilinogen Normal Ur Leukocyte Esterase 3+ H Urine WBC (Auto) 214 H Urine RBC (Auto) 125 H Urine Bacteria Rare Blood Type O POSITIVE Antibody Screen Negative 11/09/17 11/09/17 11/09/17 20:52 21:02 21:02 WBC 2.9 L D RBC 6.12 H Hgb 16.9 D Hct 50.5 MCV 82.5 MCH 27.6 MCHC 33.4 RDW 16.6 H Plt Count 336 MPV 7.9 Neut % (Auto) 75.7 H Lymph % (Auto) 15.4 L Swisher % (Auto) 8.4 Eos % (Auto) 0.1 Baso % (Auto) 0.4 Neut # (Auto) 2.2 Lymph # (Auto) 0.4 L Swisher # (Auto) 0.2 Eos # (Auto) 0.0 Baso # (Auto) 0.0 ESR PT INR APTT Puncture Site pCO2 pO2 HCO3 ABG pH ABG Total CO2 ABG O2 Saturation ABG Base Excess ABG Hemoglobin ABG Carboxyhemoglobin POC ABG HHb (Measured) ABG Methemoglobin Tino Test ABG Potassium A-a O2 Difference Respiratory Index Hgb O2 Saturation Sodium 144 Chloride 108 H Glucose Lactate Liter Flow Vent Mode Mechanical Rate FiO2 Tidal Volume PEEP Crit Value Called To Crit Value Called By Crit Value Read Back Blood Gas Notified Time Potassium 4.6 Carbon Dioxide 21 L Anion Gap 19 BUN 18 Creatinine 1.3 Est GFR ( Amer) > 60 Est GFR (Non-Af Amer) 53 POC Glucose (mg/dL) 118 H Random Glucose 123 H Lactic Acid Calcium 9.4 Phosphorus Magnesium Total Bilirubin 0.8 AST 27 ALT 9 L D Alkaline Phosphatase 71 Troponin I C-React Prot High Sens NT-Pro-B Natriuret Pep Total Protein 6.9 Albumin 3.4 L Globulin 3.5 Albumin/Globulin Ratio 0.9 L Procalcitonin Arterial Blood Potassium Urine Color Urine Clarity Urine pH Ur Specific Chilton Urine Protein Urine Glucose (UA) Urine Ketones Urine Blood Urine Nitrate Urine Bilirubin Urine Urobilinogen Ur Leukocyte Esterase Urine WBC (Auto) Urine RBC (Auto) Urine Bacteria Blood Type Antibody Screen 11/09/17 11/09/17 11/09/17 21:02 21:29 21:35 WBC RBC Hgb Hct MCV MCH MCHC RDW Plt Count MPV Neut % (Auto) Lymph % (Auto) Swisher % (Auto) Eos % (Auto) Baso % (Auto) Neut # (Auto) Lymph # (Auto) Swisher # (Auto) Eos # (Auto) Baso # (Auto) ESR PT INR APTT Puncture Site B Lb pCO2 49 H 48 H pO2 166 H 170 H HCO3 16.9 L 16.9 L ABG pH 7.18 L* 7.18 L* ABG Total CO2 19.8 L 19.4 L ABG O2 Saturation 99.8 H 100.1 H ABG Base Excess -10.3 L -10.4 L ABG Hemoglobin 16.8 ABG Carboxyhemoglobin 1.6 H POC ABG HHb (Measured) 0.2 ABG Methemoglobin 1.3 Tino Test Na Na ABG Potassium 4.7 A-a O2 Difference 58.0 55.0 Respiratory Index 0.3 0.3 Hgb O2 Saturation 96.9 Sodium 138.0 Chloride 109.0 H Glucose 148 H Lactate 2.7 H Liter Flow Vent Mode Prvc Prvc Mechanical Rate 12 12 FiO2 40.0 40.0 Tidal Volume 500 500 PEEP 5 5 Crit Value Called To Dr. collette murdock Crit Value Called By Meena kwok Crit Value Read Back Y Y Blood Gas Notified Time 2134 2139 Potassium Carbon Dioxide Anion Gap BUN Creatinine Est GFR ( Amer) Est GFR (Non-Af Amer) POC Glucose (mg/dL) Random Glucose Lactic Acid 4.8 H* Calcium Phosphorus Magnesium Total Bilirubin AST ALT Alkaline Phosphatase Troponin I C-React Prot High Sens NT-Pro-B Natriuret Pep Total Protein Albumin Globulin Albumin/Globulin Ratio Procalcitonin Arterial Blood Potassium 4.7 Urine Color Urine Clarity Urine pH Ur Specific Chilton Urine Protein Urine Glucose (UA) Urine Ketones Urine Blood Urine Nitrate Urine Bilirubin Urine Urobilinogen Ur Leukocyte Esterase Urine WBC (Auto) Urine RBC (Auto) Urine Bacteria Blood Type Antibody Screen Assessment & Plan - Assessment and Plan (Free Text) Assessment: 1.Perforated stomach /Intra-abdominal infection-leucopenia,elevated LA s/p Exploratory laparotomy, distal gastrectomy with anterior retrocolic functional promise en y reconstruction; gastrojejustomy and distal jejunostomy; Intra-abdominal primary Left inguinal herniorraphy IVfluids antibiotics 2.Respiratory failure-On Vent post op metabolic acidosis wean as tolerated 3.H/o HTN 4.Asthma
[2017-11-09] MEDS: Lactated Ringer's 1,000 ML IV SCH (22:54)
[2017-11-09] MEDS: Sodium Chloride 0.9% 1,000 ML IV ONE ×2 (23:02→23:46)
[2017-11-09] MEDS: metroNIDAZOLE IV 500 mg/100 ml 500 MG/100 ML BAG IVPB SCH (23:13)
[2017-11-09] MEDS: Acetaminophen IV 1,000 MG in Premixed IV 1 EA IV SCH (23:18)
[2017-11-09] MEDS: HYDROmorphone 0.5 mg/0.5 ml ISec IVP PRN (23:26)
[2017-11-10] MEDS: Piperacillin/Tazobact 3.375 GM in Sodium Chloride 100 ML IVPB SCH ×5 (00:28→23:00)
[2017-11-10 01:47] LABS: VENOUS BLOOD GAS BASE EXCESS -7.5 mmol/L (0.0-2.0); VENOUS BLOOD GAS PCO2 48 mmHg (40-60); VENOUS BLOOD GAS PO2 31 mm/Hg (30-55); VENOUS BLOOD PH 7.23 (7.32-7.43)
[2017-11-10] MEDS ORDERED: Sodium Chloride 0.9% 1,000 ML IV ONE ×2 (02:19→10:52)
[2017-11-10] MEDS: Lactated Ringer's 1,000 ML IV SCH ×6 (03:15→18:30)
[2017-11-10] MEDS: Acetaminophen IV 1,000 MG in Premixed IV 1 EA IV SCH ×3 (05:11→18:31)
[2017-11-10] MEDS: metroNIDAZOLE IV 500 mg/100 ml 500 MG/100 ML BAG IVPB SCH ×3 (05:11→21:33)
--- NOTE | 2017-11-10 05:44 | OP ---
PROCEDURE DATE: 11/09/2017 PREOPERATIVE DIAGNOSIS: Free air under the diaphragm, acute abdomen. PROCEDURE CARRIED OUT: Exploratory laparotomy, partial gastrectomy with functional Frandy-en-Y reconstruction, gastrojejunostomy and a jejunojejunostomy below this, and repair of incarcerated left inguinal hernia. SURGEON: Jonathan Gaytan Jr., MD MASH GRINDER: Dr. Pedraza, Dr. Melton, and Dr. Ludwig. TYPE OF ANESTHESIA: General. ANESTHESIA ADMINISTERED BY: Dr. Sultana. ESTIMATED BLOOD LOSS: 250 mL. INDICATION: The patient is a 77-year-old man presenting with acute abdominal pain. OPERATIVE FINDINGS: There is a huge perforation of the lesser curvature, going from just above the pylorus, midway, almost three quarters of the way up the lesser curvature. The rest of the stomach and duodenum were normal. I have never seen a hole quite so big in the stomach. We reconstructed with an anterior retrocolic gastrojejunostomy which had a jejunojejunostomy below it. In addition, there was chronically incarcerated left inguinal hernia which large bowel. However, we were able to reduce this but was filled with the perforated gastric juices, so we removed the valve out of the hernia. We then placed sutures to close this peritoneally, and we placed the drain into the scrotum to help drain out the fluid and most likely will reaccumulate here. After we had irrigated out the stomach and found the perforation, we did not detect any other abnormalities in the colon or in the rest of the abdomen. The gallbladder had stones but I did not detect any air or any other abnormality in this. The liver appeared normal, otherwise. At the end of the procedure, we brought the nasal gastric tube down through the anastomotic area below the jejunojejunostomy. After this has been done, we then closed the wounds with running sutures of Novafil and PDS and partially closed the skin. OPERATION CARRIED OUT: Exploratory laparotomy, partial gastrectomy with functional Frandy-en-Y reconstruction, gastrojejunostomy with jejunojejunostomy, and repair of chronically incarcerated left inguinal hernia. Two drains were left, one in the right upper quadrant and the other in the left scrotum. Jonathan Gaytan Jr., MD [facility] # [id number]
[2017-11-10 05:52] LABS: ARTERIAL BLOOD GAS HCO3 18.3 mmol/L (21-28); ARTERIAL BLOOD GAS O2 SAT 100.1 % (95-98); ARTERIAL BLOOD GAS PCO2 26 mm/Hg (35-45); ARTERIAL BLOOD GAS PH 7.37 (7.35-7.45); ARTERIAL BLOOD GAS PO2 164 mm/Hg (80-100); ARTERIAL BLOOD GAS TCO2 15.8 mmol/L (22-28)
[2017-11-10] MEDS ORDERED: Metoprolol 1 mg/ml Inj IVP ONE ×2 (06:19→06:32)
[2017-11-10 06:33] LABS: BASO % 0.3 % (0.0-2.0); HEMOGLOBIN 15.2 g/dL (12.0-18.0); LYMPH # 0.6 K/uL (1.0-4.3); LYMPH % 13.4 % (20.0-40.0); MEAN CELL VOLUME 81.3 fL (80.0-94.0); MEAN CORPUSCULAR HEMOGLOBIN 27.3 pg (27.0-31.0); MEAN CORPUSCULAR HGB CONC 33.6 g/dL (33.0-37.0); MEAN PLATELET VOLUME 8.1 fL (7.2-11.7); MONO # 0.3 K/uL (0.0-0.8); MONO % 7.5 % (0.0-10.0); NEUT # 3.5 K/uL (1.8-7.0); NEUT % 78.8 % (50.0-75.0); RBC 5.57 Mil/uL (4.40-5.90); WHITE BLOOD COUNT 4.5 K/uL (4.8-10.8)
[2017-11-10] MEDS: HYDROmorphone 0.5 mg/0.5 ml ISec IVP PRN ×2 (06:39→21:39)
[2017-11-10 06:49] LABS: ALB/GLOB RATIO 0.9 (1.0-2.1); ALBUMIN 2.9 g/dL (3.5-5.0); CALCIUM 8.3 mg/dl (8.6-10.4)
--- NOTE | 2017-11-10 08:18 | RAD ---
HISTORY: Intubated s/p surgery COMPARISON: Plain radiographs performed earlier the same date. FINDINGS: The endotracheal tube terminates 1.8 cm proximal to the brittney. The nasogastric tube terminates in the stomach. LUNGS: The right lung is well inflated and clear. There is a left retrocardiac opacity. PLEURA: Suspect small left pleural effusion. No significant right pleural effusion identified, no pneumothorax apparent. CARDIOVASCULAR: Normal. OSSEOUS STRUCTURES: No significant abnormalities. VISUALIZED UPPER ABDOMEN: Normal. OTHER FINDINGS: None. IMPRESSION: Endotracheal tube terminates 1.8 cm proximal to the brittney. Nasogastric tube terminates in the stomach. Suspect small left pleural effusion and left lower lobe atelectasis.
--- NOTE | 2017-11-10 08:28 | RAD ---
PROCEDURE: CHEST RADIOGRAPH, 1 VIEW HISTORY: on ventilator COMPARISON: 11/09/2017. FINDINGS: The endotracheal tube terminates at the brittney. The nasogastric tube terminates in the stomach. LUNGS: The right lung is well inflated and clear. There is a left retrocardiac opacity. PLEURA: No pneumothorax or right pleural fluid seen. Suspect small left pleural effusion. CARDIOVASCULAR: Normal. OSSEOUS STRUCTURES: No significant abnormalities. VISUALIZED UPPER ABDOMEN: Normal. OTHER FINDINGS: None. IMPRESSION: Endotracheal tube terminates at the brittney. Nasogastric tube terminates in the stomach. Left retrocardiac opacity may represent atelectasis and also suspected is small left pleural effusion.
--- NOTE | 2017-11-10 10:02 | CP.PCM.PN ---
Subjective - Date & Time of Evaluation Date of Evaluation: 11/10/17 Time of Evaluation: 09:30 - Subjective Subjective: Surgery- Dr. Gaytan Patient seen and examined at bedside this AM. Pt was tachycardic overnight which responded to fluid bolus. Current intubated on PRVC 45 5 16 500. No sedation or pressors. is Awake and responds to simple verbal commands. Right kvng 180 sero sang, LLQ 50cc serous. NGT 35cc, suh 175cc. Objective - Vital Signs/Intake and Output Vital Signs (last 24 hours): Temp Pulse Resp BP Pulse Ox 98.1 F 124 H 26 H 141/82 98 11/10/17 08:00 11/10/17 08:10 11/10/17 08:10 11/10/17 08:10 11/10/17 08:10 Intake and Output: 11/10/17 11/10/17 06:59 18:59 Intake Total 6000 250 Output Total 510 25 Balance 5490 225 - Medications Medications: Current Medications Enoxaparin Sodium (Lovenox) 40 mg SC DAILY [facility] Hydromorphone HCl (Dilaudid) 0.5 mg IVP Q3H PRN PRN Reason: Pain, moderate (4-7) Last Admin: 11/10/17 06:39 Dose: 0.5 mg Piperacillin Sod/Tazobactam (Sod 3.375 gm/ Sodium Chloride) 100 mls @ 200 mls/ hr IVPB Q6H ZAID PRN Reason: Protocol Last Admin: 11/10/17 04:30 Dose: 200 mls/hr Vancomycin HCl 1 gm/ Sodium (Chloride) 250 mls @ 166.7 mls/hr IVPB Q24H ZAID PRN Reason: Protocol Last Admin: 11/09/17 18:21 Dose: 250 mls Acetaminophen 1,000 mg/ (Miscellaneous) 100 mls @ 400 mls/hr IV Q6 [facility] Last Admin: 11/10/17 05:11 Dose: 400 mls/hr Metronidazole (Flagyl) 500 mg in 100 mls @ 100 mls/hr IVPB Q8 ZAID PRN Reason: Protocol Last Admin: 11/10/17 05:11 Dose: 100 mls/hr Lactated Ringer's (Lactated Ringer's) 1,000 mls @ 250 mls/hr IV .Q4H [facility] Last Admin: 11/10/17 06:21 Dose: 250 mls/hr Ondansetron HCl (Zofran Inj) 4 mg IVP Q4 PRN PRN Reason: Nausea/Vomiting Pantoprazole Sodium (Protonix Inj) 40 mg IVP Q12H [facility] Last Admin: 11/10/17 08:34 Dose: 40 mg - Labs Labs: 11/10/17 06:28 11/10/17 06:28 PT 14.0 SECONDS (9.7-12.2) H 11/09/17 15:27 INR 1.3 11/09/17 15:27 APTT 30 SECONDS (21-34) 11/09/17 15:27 - Constitutional Appears: Non-toxic, No Acute Distress - Head Exam Head Exam: absent: ATRAUMATIC - Eye Exam Eye Exam: EOMI. absent: Scleral icterus - ENT Exam ENT Exam: Mucous Membranes Moist - Respiratory Exam Respiratory Exam: absent: Accessory Muscle Use, Respiratory Distress Additional comments: Intubated on PRVC - Cardiovascular Exam Cardiovascular Exam: +S1, +S2. absent: Bradycardia, Tachycardia - GI/Abdominal Exam GI & Abdominal Exam: Soft, Tenderness (jake-incisonal tenderness). absent: Distended, Firm, Guarding, Rigid - Extremities Exam Extremities Exam: absent: Calf Tenderness - Neurological Exam Neurological Exam: Alert, Awake - Skin Skin Exam: Intact, Warm Assessment and Plan - Assessment and Plan (Free Text) Assessment: 77M s/p ex-lap, partial gastrectomy w/ promise en y, Left inguinal herrnioraphy Plan: - NPO - IVF/Abx - GI/DVT ppx - NGT to suction - strict I/O - Pain control PRN - f/u Path report - d/w Dr. Gaytan surgical attending PGY1
--- NOTE | 2017-11-10 14:46 | CARD ---
APPROVED REPORT EKG Measurement Heart [id number] <Conclusion> Sinus tachycardia with 1st degree AV block with premature atrial complexes Left axis deviation Anterior infarct, age undetermined Abnormal ECG
--- NOTE | 2017-11-10 15:02 | CP.CCUPN ---
<Eve Young - Last Filed: 11/10/17 15:16> CCU Subjective - Physician Review Subjective (Free Text): Patient seen and examined at bedside. Resting comfortably. Currently Intubated. CCU Objective - Vital Signs / Intake & Output Vital Signs (Last 4 hours): Vital Signs Pulse Resp BP Pulse Ox 11/10/17 11:10 120 H 22 127/78 99 11/10/17 11:01 122 H 27 H 123/76 98 11/10/17 11:00 123 H 26 H 99 Intake and Output (Last 8hrs): Intake & Output 11/09/17 11/10/17 11/10/17 22:59 06:59 14:59 Intake Total 3300 4950 1800 Output Total 95 415 185 Balance 3205 4535 1615 Weight 200 lb 190 lb 8 oz Intake: IV 3050 Intake, IV Amount 250 4950 1800 Left Antecubital 100 2300 1000 Right Antecubital 150 2650 800 Oral 0 Output: Gastric Drainage 0 Gastric Amount 15 20 Right Nares 15 20 Drainage 45 230 70 LEFT INGUINAL 20 90 40 Left Lower Abdomen 50 Right Lower Abdomen 90 30 Urine 35 165 115 Urethral (Izquierdo) 15 165 115 Other: Voiding Method Indwelling Catheter - Medications Active Medications: Active Medications Generic Name Dose Route Start Last Admin Trade Name Freq PRN Reason Stop Dose Admin Enoxaparin Sodium 40 mg 11/10/17 22:00 Lovenox SC DAILY ZAID Hydromorphone HCl 0.5 mg 11/09/17 17:19 11/10/17 06:39 Dilaudid IVP 0.5 mg Q3H PRN Administration Pain, moderate (4-7) Piperacillin Sod/Tazobactam 100 mls @ 200 mls/hr 11/09/17 17:00 11/10/17 10: 24 Sod 3.375 gm/ Sodium Chloride IVPB 200 mls/hr Q6H ZAID Administration Protocol Vancomycin HCl 1 gm/ Sodium 250 mls @ 166.7 mls/hr 11/09/17 17:00 11/09/17 18 :21 Chloride IVPB 250 mls Q24H ZAID Administration Protocol Acetaminophen 1,000 mg/ 100 mls @ 400 mls/hr 11/09/17 22:03 11/10/17 13:33 Miscellaneous IV 400 mls/hr Q6 ZADI Administration Lactated Ringer's 1,000 mls @ 250 mls/hr 11/10/17 06:20 11/10/17 14:21 Lactated Ringer's IV Not Given .Q4H ZAID Metronidazole 500 mg in 100 mls @ 100 mls/hr 11/10/17 14:00 11/10/17 14:19 Flagyl IVPB 100 mls/hr Q8 ZAID Administration Protocol Ondansetron HCl 4 mg 11/09/17 17:19 Zofran Inj IVP Q4 PRN Nausea/Vomiting Pantoprazole Sodium 40 mg 11/09/17 20:45 11/10/17 08:34 Protonix Inj IVP 40 mg Q12H ZAID Administration - Patient Studies Lab Studies: Microbiology Studies 11/09/17 17:31 Urine Culture - Preliminary Urine Gram Positive Cocci 11/09/17 Unknown Gram Stain - Final Peritoneal Fluid Lab Studies 11/10/17 11/10/17 11/10/17 Range/Units 06:28 06:28 05:21 WBC 4.5 L D (4.8-10.8) K/uL RBC 5.57 (4.40-5.90) Mil/uL Hgb 15.2 (12.0-18.0) g/dL Hct 45.3 (35.0-51.0) % MCV 81.3 (80.0-94.0) fL MCH 27.3 (27.0-31.0) pg MCHC 33.6 (33.0-37.0) g/dL RDW 16.0 H (11.5-14.5) % Plt Count 299 (130-400) K/uL MPV 8.1 (7.2-11.7) fL Neut % (Auto) 78.8 H (50.0-75.0) % Lymph % (Auto) 13.4 L (20.0-40.0) % [place] % (Auto) 7.5 (0.0-10.0) % Eos % (Auto) 0.0 (0.0-4.0) % Baso % (Auto) 0.3 (0.0-2.0) % Neut # (Auto) 3.5 (1.8-7.0) K/uL Lymph # (Auto) 0.6 L (1.0-4.3) K/uL [place] # (Auto) 0.3 (0.0-0.8) K/uL Eos # (Auto) 0.0 (0.0-0.7) K/uL Baso # (Auto) 0.0 (0.0-0.2) K/uL ESR (0-15) mm/hr PT (9.7-12.2) SECONDS INR APTT (21-34) SECONDS Puncture Site Lb pCO2 26 L (35-45) mm/Hg pO2 164 H (80-100) mm/Hg HCO3 18.3 L (21-28) mmol/L ABG pH 7.37 (7.35-7.45) ABG Total CO2 15.8 L (22-28) mmol/L ABG O2 Saturation 100.1 H (95-98) % ABG Base Excess -8.6 L (-2.0-3.0) mmol/L ABG Hemoglobin (11.7-17.4) g/dL ABG Carboxyhemoglobin (0.5-1.5) % POC ABG HHb (Measured) (0.0-5.0) % ABG Methemoglobin (0.0-3.0) % Tino Test Na ABG Potassium 5.0 (3.6-5.2) mmol/L VBG pH (7.32-7.43) VBG pCO2 (40-60) mmHg VBG HCO3 mmol/L VBG Total CO2 (22-28) mmol/L VBG O2 Sat (Calc) (40-65) % VBG Base Excess (0.0-2.0) mmol/L VBG Potassium (3.6-5.2) mmol/L A-a O2 Difference 89.0 mm/Hg Respiratory Index 0.5 Hgb O2 Saturation (95.0-98.0) % Sodium 139 137.0 (132-148) mmol/l Chloride 113 H 111.0 H (98-107) mmol/L Glucose 133 H (75-110) mg/dl Lactate 2.9 H (0.7-2.1) mmol/L Liter Flow Vent Mode Prvc Mechanical Rate 16 FiO2 40.0 % Tidal Volume 500 PEEP 5 Crit Value Called To Crit Value Called By Crit Value Read Back Blood Gas Notified Time Potassium 5.2 (3.6-5.2) mmol/L Carbon Dioxide 14 L (22-30) mmol/L Anion Gap 17 (10-20) BUN 21 H (9-20) mg/dL Creatinine 1.8 H (0.8-1.5) mg/dL Est GFR ( Amer) 44 Est GFR (Non-Af Amer) 37 POC Glucose (mg/dL) (65-110) mg/dL Random Glucose 119 H (75-110) mg/dL Lactic Acid (0.7-2.1) mmol/L Calcium 8.3 L (8.6-10.4) mg/dl Phosphorus (2.5-4.5) mg/dL Magnesium (1.6-2.3) mg/dL Total Bilirubin 0.9 (0.2-1.3) mg/dL AST 28 (17-59) U/L ALT 6 L D (21-72) U/L Alkaline Phosphatase 47 (38-126) U/L Troponin I (0.00-0.120) ng/mL C-React Prot High Sens (1.00-3.00) mg/L NT-Pro-B Natriuret Pep (0-900) pg/mL Total Protein 6.2 L (6.3-8.3) g/dL Albumin 2.9 L (3.5-5.0) g/dL Globulin 3.3 (2.2-3.9) gm/dL Albumin/Globulin Ratio 0.9 L (1.0-2.1) Procalcitonin (0.19-0.49) NG/ML Arterial Blood Potassium 5.0 (3.6-5.2) mmol/L Venous Blood Potassium (3.6-5.2) mmol/L Urine Color (YELLOW) Urine Clarity (Clear) Urine pH (5.0-8.0) Ur Specific [place] (1.003-1.030) Urine Protein (NEGATIVE) mg/dL Urine Glucose (UA) (Normal) mg/dL Urine Ketones (NEGATIVE) mg/dL Urine Blood (NEGATIVE) Urine Nitrate (NEGATIVE) Urine Bilirubin (NEGATIVE) Urine Urobilinogen (0.2-1.0) mg/dL Ur Leukocyte Esterase (Negative) [place]/uL Urine WBC (Auto) (0-5) /hpf Urine RBC (Auto) (0-3) /hpf Urine Bacteria (<OCC) Blood Type Antibody Screen 11/10/17 11/09/17 11/09/17 Range/Units 01:43 21:35 21:29 WBC (4.8-10.8) K/uL RBC (4.40-5.90) Mil/uL Hgb (12.0-18.0) g/dL Hct (35.0-51.0) % MCV (80.0-94.0) fL MCH (27.0-31.0) pg MCHC (33.0-37.0) g/dL RDW (11.5-14.5) % Plt Count (130-400) K/uL MPV (7.2-11.7) fL Neut % (Auto) (50.0-75.0) % Lymph % (Auto) (20.0-40.0) % [place] % (Auto) (0.0-10.0) % Eos % (Auto) (0.0-4.0) % Baso % (Auto) (0.0-2.0) % Neut # (Auto) (1.8-7.0) K/uL Lymph # (Auto) (1.0-4.3) K/uL [place] # (Auto) (0.0-0.8) K/uL Eos # (Auto) (0.0-0.7) K/uL Baso # (Auto) (0.0-0.2) K/uL ESR (0-15) mm/hr PT (9.7-12.2) SECONDS INR APTT (21-34) SECONDS Puncture Site Lb B pCO2 48 H 49 H (35-45) mm/Hg pO2 31 170 H 166 H (80-100) mm/Hg HCO3 16.9 L 16.9 L (21-28) mmol/L ABG pH 7.18 L* 7.18 L* (7.35-7.45) ABG Total CO2 19.4 L 19.8 L (22-28) mmol/L ABG O2 Saturation 100.1 H 99.8 H (95-98) % ABG Base Excess -10.4 L -10.3 L (-2.0-3.0) mmol/L ABG Hemoglobin 16.8 (11.7-17.4) g/dL ABG Carboxyhemoglobin 1.6 H (0.5-1.5) % POC ABG HHb (Measured) 0.2 (0.0-5.0) % ABG Methemoglobin 1.3 (0.0-3.0) % Tino Test Na Na ABG Potassium 4.7 (3.6-5.2) mmol/L VBG pH 7.23 L (7.32-7.43) VBG pCO2 48 (40-60) mmHg VBG HCO3 17.7 mmol/L VBG Total CO2 21.6 L (22-28) mmol/L VBG O2 Sat (Calc) 63.3 (40-65) % VBG Base Excess -7.5 L (0.0-2.0) mmol/L VBG Potassium 5.0 (3.6-5.2) mmol/L A-a O2 Difference 55.0 58.0 mm/Hg Respiratory Index 0.3 0.3 Hgb O2 Saturation 96.9 (95.0-98.0) % Sodium 138.0 138.0 (132-148) mmol/l Chloride 108.0 H 109.0 H (98-107) mmol/L Glucose 138 H 148 H (75-110) mg/dl Lactate 4.6 H* 2.7 H (0.7-2.1) mmol/L Liter Flow Vent Mode Prvc Prvc Mechanical Rate 12 12 FiO2 40.0 40.0 40.0 % Tidal Volume 500 500 PEEP 5 5 5 Crit Value Called To Dr.perrera Francis murdock Crit Value Called By Louise barry E rissa Robledo Crit Value Read Back Y Y Y Blood Gas Notified Time 146 2139 2134 Potassium (3.6-5.2) mmol/L Carbon Dioxide (22-30) mmol/L Anion Gap (10-20) BUN (9-20) mg/dL Creatinine (0.8-1.5) mg/dL Est GFR ( Amer) Est GFR (Non-Af Amer) POC Glucose (mg/dL) (65-110) mg/dL Random Glucose (75-110) mg/dL Lactic Acid (0.7-2.1) mmol/L Calcium (8.6-10.4) mg/dl Phosphorus (2.5-4.5) mg/dL Magnesium (1.6-2.3) mg/dL Total Bilirubin (0.2-1.3) mg/dL AST (17-59) U/L ALT (21-72) U/L Alkaline Phosphatase (38-126) U/L Troponin I (0.00-0.120) ng/mL C-React Prot High Sens (1.00-3.00) mg/L NT-Pro-B Natriuret Pep (0-900) pg/mL Total Protein (6.3-8.3) g/dL Albumin (3.5-5.0) g/dL Globulin (2.2-3.9) gm/dL Albumin/Globulin Ratio (1.0-2.1) Procalcitonin (0.19-0.49) NG/ML Arterial Blood Potassium 4.7 (3.6-5.2) mmol/L Venous Blood Potassium 5.0 (3.6-5.2) mmol/L Urine Color (YELLOW) Urine Clarity (Clear) Urine pH (5.0-8.0) Ur Specific [place] (1.003-1.030) Urine Protein (NEGATIVE) mg/dL Urine Glucose (UA) (Normal) mg/dL Urine Ketones (NEGATIVE) mg/dL Urine Blood (NEGATIVE) Urine Nitrate (NEGATIVE) Urine Bilirubin (NEGATIVE) Urine Urobilinogen (0.2-1.0) mg/dL Ur Leukocyte Esterase (Negative) [place]/uL Urine WBC (Auto) (0-5) /hpf Urine RBC (Auto) (0-3) /hpf Urine Bacteria (<OCC) Blood Type Antibody Screen 11/09/17 11/09/17 11/09/17 Range/Units 21:02 21:02 21:02 WBC 2.9 L D (4.8-10.8) K/uL RBC 6.12 H (4.40-5.90) Mil/uL Hgb 16.9 D (12.0-18.0) g/dL Hct 50.5 (35.0-51.0) % MCV 82.5 (80.0-94.0) fL MCH 27.6 (27.0-31.0) pg MCHC 33.4 (33.0-37.0) g/dL RDW 16.6 H (11.5-14.5) % Plt Count 336 (130-400) K/uL MPV 7.9 (7.2-11.7) fL Neut % (Auto) 75.7 H (50.0-75.0) % Lymph % (Auto) 15.4 L (20.0-40.0) % [place] % (Auto) 8.4 (0.0-10.0) % Eos % (Auto) 0.1 (0.0-4.0) % Baso % (Auto) 0.4 (0.0-2.0) % Neut # (Auto) 2.2 (1.8-7.0) K/uL Lymph # (Auto) 0.4 L (1.0-4.3) K/uL [place] # (Auto) 0.2 (0.0-0.8) K/uL Eos # (Auto) 0.0 (0.0-0.7) K/uL Baso # (Auto) 0.0 (0.0-0.2) K/uL ESR (0-15) mm/hr PT (9.7-12.2) SECONDS INR APTT (21-34) SECONDS Puncture Site pCO2 (35-45) mm/Hg pO2 (80-100) mm/Hg HCO3 (21-28) mmol/L ABG pH (7.35-7.45) ABG Total CO2 (22-28) mmol/L ABG O2 Saturation (95-98) % ABG Base Excess (-2.0-3.0) mmol/L ABG Hemoglobin (11.7-17.4) g/dL ABG Carboxyhemoglobin (0.5-1.5) % POC ABG HHb (Measured) (0.0-5.0) % ABG Methemoglobin (0.0-3.0) % Tino Test ABG Potassium (3.6-5.2) mmol/L VBG pH (7.32-7.43) VBG pCO2 (40-60) mmHg VBG HCO3 mmol/L VBG Total CO2 (22-28) mmol/L VBG O2 Sat (Calc) (40-65) % VBG Base Excess (0.0-2.0) mmol/L VBG Potassium (3.6-5.2) mmol/L A-a O2 Difference mm/Hg Respiratory Index Hgb O2 Saturation (95.0-98.0) % Sodium 144 (132-148) mmol/l Chloride 108 H (98-107) mmol/L Glucose (75-110) mg/dl Lactate (0.7-2.1) mmol/L Liter Flow Vent Mode Mechanical Rate FiO2 % Tidal Volume PEEP Crit Value Called To Crit Value Called By Crit Value Read Back Blood Gas Notified Time Potassium 4.6 (3.6-5.2) mmol/L Carbon Dioxide 21 L (22-30) mmol/L Anion Gap 19 (10-20) BUN 18 (9-20) mg/dL Creatinine 1.3 (0.8-1.5) mg/dL Est GFR ( Amer) > 60 Est GFR (Non-Af Amer) 53 POC Glucose (mg/dL) (65-110) mg/dL Random Glucose 123 H (75-110) mg/dL Lactic Acid 4.8 H* (0.7-2.1) mmol/L Calcium 9.4 (8.6-10.4) mg/dl Phosphorus (2.5-4.5) mg/dL Magnesium (1.6-2.3) mg/dL Total Bilirubin 0.8 (0.2-1.3) mg/dL AST 27 (17-59) U/L ALT 9 L D (21-72) U/L Alkaline Phosphatase 71 (38-126) U/L Troponin I (0.00-0.120) ng/mL C-React Prot High Sens (1.00-3.00) mg/L NT-Pro-B Natriuret Pep (0-900) pg/mL Total Protein 6.9 (6.3-8.3) g/dL Albumin 3.4 L (3.5-5.0) g/dL Globulin 3.5 (2.2-3.9) gm/dL Albumin/Globulin Ratio 0.9 L (1.0-2.1) Procalcitonin (0.19-0.49) NG/ML Arterial Blood Potassium (3.6-5.2) mmol/L Venous Blood Potassium (3.6-5.2) mmol/L Urine Color (YELLOW) Urine Clarity (Clear) Urine pH (5.0-8.0) Ur Specific [place] (1.003-1.030) Urine Protein (NEGATIVE) mg/dL Urine Glucose (UA) (Normal) mg/dL Urine Ketones (NEGATIVE) mg/dL Urine Blood (NEGATIVE) Urine Nitrate (NEGATIVE) Urine Bilirubin (NEGATIVE) Urine Urobilinogen (0.2-1.0) mg/dL Ur Leukocyte Esterase (Negative) [place]/uL Urine WBC (Auto) (0-5) /hpf Urine RBC (Auto) (0-3) /hpf Urine Bacteria (<OCC) Blood Type Antibody Screen 11/09/17 11/09/17 11/09/17 Range/Units 20:52 17:31 17:31 WBC (4.8-10.8) K/uL RBC (4.40-5.90) Mil/uL Hgb (12.0-18.0) g/dL Hct (35.0-51.0) % MCV (80.0-94.0) fL MCH (27.0-31.0) pg MCHC (33.0-37.0) g/dL RDW (11.5-14.5) % Plt Count (130-400) K/uL MPV (7.2-11.7) fL Neut % (Auto) (50.0-75.0) % Lymph % (Auto) (20.0-40.0) % [place] % (Auto) (0.0-10.0) % Eos % (Auto) (0.0-4.0) % Baso % (Auto) (0.0-2.0) % Neut # (Auto) (1.8-7.0) K/uL Lymph # (Auto) (1.0-4.3) K/uL [place] # (Auto) (0.0-0.8) K/uL Eos # (Auto) (0.0-0.7) K/uL Baso # (Auto) (0.0-0.2) K/uL ESR (0-15) mm/hr PT (9.7-12.2) SECONDS INR APTT (21-34) SECONDS Puncture Site pCO2 (35-45) mm/Hg pO2 (80-100) mm/Hg HCO3 (21-28) mmol/L ABG pH (7.35-7.45) ABG Total CO2 (22-28) mmol/L ABG O2 Saturation (95-98) % ABG Base Excess (-2.0-3.0) mmol/L ABG Hemoglobin (11.7-17.4) g/dL ABG Carboxyhemoglobin (0.5-1.5) % POC ABG HHb (Measured) (0.0-5.0) % ABG Methemoglobin (0.0-3.0) % Tino Test ABG Potassium (3.6-5.2) mmol/L VBG pH (7.32-7.43) VBG pCO2 (40-60) mmHg VBG HCO3 mmol/L VBG Total CO2 (22-28) mmol/L VBG O2 Sat (Calc) (40-65) % VBG Base Excess (0.0-2.0) mmol/L VBG Potassium (3.6-5.2) mmol/L A-a O2 Difference mm/Hg Respiratory Index Hgb O2 Saturation (95.0-98.0) % Sodium (132-148) mmol/l Chloride (98-107) mmol/L Glucose (75-110) mg/dl Lactate (0.7-2.1) mmol/L Liter Flow Vent Mode Mechanical Rate FiO2 % Tidal Volume PEEP Crit Value Called To Crit Value Called By Crit Value Read Back Blood Gas Notified Time Potassium (3.6-5.2) mmol/L Carbon Dioxide (22-30) mmol/L Anion Gap (10-20) BUN (9-20) mg/dL Creatinine (0.8-1.5) mg/dL Est GFR ( Amer) Est GFR (Non-Af Amer) POC Glucose (mg/dL) 118 H (65-110) mg/dL Random Glucose (75-110) mg/dL Lactic Acid (0.7-2.1) mmol/L Calcium (8.6-10.4) mg/dl Phosphorus (2.5-4.5) mg/dL Magnesium (1.6-2.3) mg/dL Total Bilirubin (0.2-1.3) mg/dL AST (17-59) U/L ALT (21-72) U/L Alkaline Phosphatase (38-126) U/L Troponin I (0.00-0.120) ng/mL C-React Prot High Sens (1.00-3.00) mg/L NT-Pro-B Natriuret Pep (0-900) pg/mL Total Protein (6.3-8.3) g/dL Albumin (3.5-5.0) g/dL Globulin (2.2-3.9) gm/dL Albumin/Globulin Ratio (1.0-2.1) Procalcitonin (0.19-0.49) NG/ML Arterial Blood Potassium (3.6-5.2) mmol/L Venous Blood Potassium (3.6-5.2) mmol/L Urine Color Yellow (YELLOW) Urine Clarity Hazy (Clear) Urine pH 6.0 (5.0-8.0) Ur Specific [place] 1.048 H (1.003-1.030) Urine Protein 1+ H (NEGATIVE) mg/dL Urine Glucose (UA) 2+ H (Normal) mg/dL Urine Ketones Negative (NEGATIVE) mg/dL Urine Blood 3+ H (NEGATIVE) Urine Nitrate Negative (NEGATIVE) Urine Bilirubin Negative (NEGATIVE) Urine Urobilinogen Normal (0.2-1.0) mg/dL Ur Leukocyte Esterase 3+ H (Negative) [place]/uL Urine WBC (Auto) 214 H (0-5) /hpf Urine RBC (Auto) 125 H (0-3) /hpf Urine Bacteria Rare (<OCC) Blood Type O POSITIVE Antibody Screen Negative 11/09/17 11/09/17 11/09/17 Range/Units 15:27 15:27 15:27 WBC (4.8-10.8) K/uL RBC (4.40-5.90) Mil/uL Hgb (12.0-18.0) g/dL Hct (35.0-51.0) % MCV (80.0-94.0) fL MCH (27.0-31.0) pg MCHC (33.0-37.0) g/dL RDW (11.5-14.5) % Plt Count (130-400) K/uL MPV (7.2-11.7) fL Neut % (Auto) (50.0-75.0) % Lymph % (Auto) (20.0-40.0) % [place] % (Auto) (0.0-10.0) % Eos % (Auto) (0.0-4.0) % Baso % (Auto) (0.0-2.0) % Neut # (Auto) (1.8-7.0) K/uL Lymph # (Auto) (1.0-4.3) K/uL [place] # (Auto) (0.0-0.8) K/uL Eos # (Auto) (0.0-0.7) K/uL Baso # (Auto) (0.0-0.2) K/uL ESR (0-15) mm/hr PT (9.7-12.2) SECONDS INR APTT (21-34) SECONDS Puncture Site pCO2 (35-45) mm/Hg pO2 (80-100) mm/Hg HCO3 (21-28) mmol/L ABG pH (7.35-7.45) ABG Total CO2 (22-28) mmol/L ABG O2 Saturation (95-98) % ABG Base Excess (-2.0-3.0) mmol/L ABG Hemoglobin (11.7-17.4) g/dL ABG Carboxyhemoglobin (0.5-1.5) % POC ABG HHb (Measured) (0.0-5.0) % ABG Methemoglobin (0.0-3.0) % Tino Test ABG Potassium (3.6-5.2) mmol/L VBG pH (7.32-7.43) VBG pCO2 (40-60) mmHg VBG HCO3 mmol/L VBG Total CO2 (22-28) mmol/L VBG O2 Sat (Calc) (40-65) % VBG Base Excess (0.0-2.0) mmol/L VBG Potassium (3.6-5.2) mmol/L A-a O2 Difference mm/Hg Respiratory Index Hgb O2 Saturation (95.0-98.0) % Sodium 141 (132-148) mmol/l Chloride 101 (98-107) mmol/L Glucose (75-110) mg/dl Lactate (0.7-2.1) mmol/L Liter Flow Vent Mode Mechanical Rate FiO2 % Tidal Volume PEEP Crit Value Called To Crit Value Called By Crit Value Read Back Blood Gas Notified Time Potassium 3.9 (3.6-5.2) mmol/L Carbon Dioxide 27 (22-30) mmol/L Anion Gap 17 (10-20) BUN 16 (9-20) mg/dL Creatinine 1.4 (0.8-1.5) mg/dL Est GFR ( Amer) 59 Est GFR (Non-Af Amer) 49 POC Glucose (mg/dL) (65-110) mg/dL Random Glucose 285 H (75-110) mg/dL Lactic Acid (0.7-2.1) mmol/L Calcium 10.6 H (8.6-10.4) mg/dl Phosphorus 4.1 (2.5-4.5) mg/dL Magnesium 2.4 H (1.6-2.3) mg/dL Total Bilirubin 0.8 (0.2-1.3) mg/dL AST 29 (17-59) U/L ALT < 6 L D (21-72) U/L Alkaline Phosphatase 97 (38-126) U/L Troponin I 0.0320 (0.00-0.120) ng/mL C-React Prot High Sens 2.97 (1.00-3.00) mg/L NT-Pro-B Natriuret Pep 780 (0-900) pg/mL Total Protein 8.1 (6.3-8.3) g/dL Albumin 4.1 (3.5-5.0) g/dL Globulin 4.0 H (2.2-3.9) gm/dL Albumin/Globulin Ratio 1.0 (1.0-2.1) Procalcitonin 0.10 L (0.19-0.49) NG/ML Arterial Blood Potassium (3.6-5.2) mmol/L Venous Blood Potassium (3.6-5.2) mmol/L Urine Color (YELLOW) Urine Clarity (Clear) Urine pH (5.0-8.0) Ur Specific [place] (1.003-1.030) Urine Protein (NEGATIVE) mg/dL Urine Glucose (UA) (Normal) mg/dL Urine Ketones (NEGATIVE) mg/dL Urine Blood (NEGATIVE) Urine Nitrate (NEGATIVE) Urine Bilirubin (NEGATIVE) Urine Urobilinogen (0.2-1.0) mg/dL Ur Leukocyte Esterase (Negative) [place]/uL Urine WBC (Auto) (0-5) /hpf Urine RBC (Auto) (0-3) /hpf Urine Bacteria (<OCC) Blood Type Antibody Screen 11/09/17 11/09/17 11/09/17 Range/Units 15:27 15:27 15:25 WBC 21.1 H D (4.8-10.8) K/uL RBC 5.34 (4.40-5.90) Mil/uL Hgb 14.7 D (12.0-18.0) g/dL Hct 44.0 (35.0-51.0) % MCV 82.3 (80.0-94.0) fL MCH 27.5 (27.0-31.0) pg MCHC 33.4 (33.0-37.0) g/dL RDW 15.8 H (11.5-14.5) % Plt Count 357 (130-400) K/uL MPV 8.3 (7.2-11.7) fL Neut % (Auto) 77.4 H (50.0-75.0) % Lymph % (Auto) 19.2 L (20.0-40.0) % [place] % (Auto) 2.7 (0.0-10.0) % Eos % (Auto) 0.4 (0.0-4.0) % Baso % (Auto) 0.3 (0.0-2.0) % Neut # (Auto) 16.4 H (1.8-7.0) K/uL Lymph # (Auto) 4.1 (1.0-4.3) K/uL [place] # (Auto) 0.6 (0.0-0.8) K/uL Eos # (Auto) 0.1 (0.0-0.7) K/uL Baso # (Auto) 0.1 (0.0-0.2) K/uL ESR 6 (0-15) mm/hr PT 14.0 H (9.7-12.2) SECONDS INR 1.3 APTT 30 (21-34) SECONDS Puncture Site Rra pCO2 36 (35-45) mm/Hg pO2 75 L (80-100) mm/Hg HCO3 21.8 (21-28) mmol/L ABG pH 7.37 (7.35-7.45) ABG Total CO2 21.9 L (22-28) mmol/L ABG O2 Saturation 98.0 (95-98) % ABG Base Excess -3.9 L (-2.0-3.0) mmol/L ABG Hemoglobin (11.7-17.4) g/dL ABG Carboxyhemoglobin (0.5-1.5) % POC ABG HHb (Measured) (0.0-5.0) % ABG Methemoglobin (0.0-3.0) % Tino Test Pos ABG Potassium 3.5 L (3.6-5.2) mmol/L VBG pH (7.32-7.43) VBG pCO2 (40-60) mmHg VBG HCO3 mmol/L VBG Total CO2 (22-28) mmol/L VBG O2 Sat (Calc) (40-65) % VBG Base Excess (0.0-2.0) mmol/L VBG Potassium (3.6-5.2) mmol/L A-a O2 Difference 80.0 mm/Hg Respiratory Index 1.1 Hgb O2 Saturation (95.0-98.0) % Sodium 139.0 (132-148) mmol/l Chloride 105.0 (98-107) mmol/L Glucose 335 H (75-110) mg/dl Lactate 2.1 (0.7-2.1) mmol/L Liter Flow 2.0 Vent Mode Mechanical Rate FiO2 28.0 % Tidal Volume PEEP Crit Value Called To Crit Value Called By Crit Value Read Back Blood Gas Notified Time Potassium (3.6-5.2) mmol/L Carbon Dioxide (22-30) mmol/L Anion Gap (10-20) BUN (9-20) mg/dL Creatinine (0.8-1.5) mg/dL Est GFR ( Amer) Est GFR (Non-Af Amer) POC Glucose (mg/dL) (65-110) mg/dL Random Glucose (75-110) mg/dL Lactic Acid (0.7-2.1) mmol/L Calcium (8.6-10.4) mg/dl Phosphorus (2.5-4.5) mg/dL Magnesium (1.6-2.3) mg/dL Total Bilirubin (0.2-1.3) mg/dL AST (17-59) U/L ALT (21-72) U/L Alkaline Phosphatase (38-126) U/L Troponin I (0.00-0.120) ng/mL C-React Prot High Sens (1.00-3.00) mg/L NT-Pro-B Natriuret Pep (0-900) pg/mL Total Protein (6.3-8.3) g/dL Albumin (3.5-5.0) g/dL Globulin (2.2-3.9) gm/dL Albumin/Globulin Ratio (1.0-2.1) Procalcitonin (0.19-0.49) NG/ML Arterial Blood Potassium 3.5 L (3.6-5.2) mmol/L Venous Blood Potassium (3.6-5.2) mmol/L Urine Color (YELLOW) Urine Clarity (Clear) Urine pH (5.0-8.0) Ur Specific [place] (1.003-1.030) Urine Protein (NEGATIVE) mg/dL Urine Glucose (UA) (Normal) mg/dL Urine Ketones (NEGATIVE) mg/dL Urine Blood (NEGATIVE) Urine Nitrate (NEGATIVE) Urine Bilirubin (NEGATIVE) Urine Urobilinogen (0.2-1.0) mg/dL Ur Leukocyte Esterase (Negative) [place]/uL Urine WBC (Auto) (0-5) /hpf Urine RBC (Auto) (0-3) /hpf Urine Bacteria (<OCC) Blood Type Antibody Screen Laboratory Results - last 24 hr 11/09/17 11/09/17 11/09/17 15:25 15:27 15:27 WBC 21.1 H D RBC 5.34 Hgb 14.7 D Hct 44.0 MCV 82.3 MCH 27.5 MCHC 33.4 RDW 15.8 H Plt Count 357 MPV 8.3 Neut % (Auto) 77.4 H Lymph % (Auto) 19.2 L [place] % (Auto) 2.7 Eos % (Auto) 0.4 Baso % (Auto) 0.3 Neut # (Auto) 16.4 H Lymph # (Auto) 4.1 [place] # (Auto) 0.6 Eos # (Auto) 0.1 Baso # (Auto) 0.1 ESR 6 PT 14.0 H INR 1.3 APTT 30 Puncture Site Rra pCO2 36 pO2 75 L HCO3 21.8 ABG pH 7.37 ABG Total CO2 21.9 L ABG O2 Saturation 98.0 ABG Base Excess -3.9 L ABG Hemoglobin ABG Carboxyhemoglobin POC ABG HHb (Measured) ABG Methemoglobin Tino Test Pos ABG Potassium 3.5 L VBG pH VBG pCO2 VBG HCO3 VBG Total CO2 VBG O2 Sat (Calc) VBG Base Excess VBG Potassium A-a O2 Difference 80.0 Respiratory Index 1.1 Hgb O2 Saturation Sodium 139.0 Chloride 105.0 Glucose 335 H Lactate 2.1 Liter Flow 2.0 Vent Mode Mechanical Rate FiO2 28.0 Tidal Volume PEEP Crit Value Called To Crit Value Called By Crit Value Read Back Blood Gas Notified Time Potassium Carbon Dioxide Anion Gap BUN Creatinine Est GFR ( Amer) Est GFR (Non-Af Amer) POC Glucose (mg/dL) Random Glucose Lactic Acid Calcium Phosphorus Magnesium Total Bilirubin AST ALT Alkaline Phosphatase Troponin I C-React Prot High Sens NT-Pro-B Natriuret Pep Total Protein Albumin Globulin Albumin/Globulin Ratio Procalcitonin Arterial Blood Potassium 3.5 L Venous Blood Potassium Urine Color Urine Clarity Urine pH Ur Specific [place] Urine Protein Urine Glucose (UA) Urine Ketones Urine Blood Urine Nitrate Urine Bilirubin Urine Urobilinogen Ur Leukocyte Esterase Urine WBC (Auto) Urine RBC (Auto) Urine Bacteria Blood Type Antibody Screen 11/09/17 11/09/17 11/09/17 15:27 15:27 15:27 WBC RBC Hgb Hct MCV MCH MCHC RDW Plt Count MPV Neut % (Auto) Lymph % (Auto) [place] % (Auto) Eos % (Auto) Baso % (Auto) Neut # (Auto) Lymph # (Auto) [place] # (Auto) Eos # (Auto) Baso # (Auto) ESR PT INR APTT Puncture Site pCO2 pO2 HCO3 ABG pH ABG Total CO2 ABG O2 Saturation ABG Base Excess ABG Hemoglobin ABG Carboxyhemoglobin POC ABG HHb (Measured) ABG Methemoglobin Tino Test ABG Potassium VBG pH VBG pCO2 VBG HCO3 VBG Total CO2 VBG O2 Sat (Calc) VBG Base Excess VBG Potassium A-a O2 Difference Respiratory Index Hgb O2 Saturation Sodium 141 Chloride 101 Glucose Lactate Liter Flow Vent Mode Mechanical Rate FiO2 Tidal Volume PEEP Crit Value Called To Crit Value Called By Crit Value Read Back Blood Gas Notified Time Potassium 3.9 Carbon Dioxide 27 Anion Gap 17 BUN 16 Creatinine 1.4 Est GFR ( Amer) 59 Est GFR (Non-Af Amer) 49 POC Glucose (mg/dL) Random Glucose 285 H Lactic Acid Calcium 10.6 H Phosphorus 4.1 Magnesium 2.4 H Total Bilirubin 0.8 AST 29 ALT < 6 L D Alkaline Phosphatase 97 Troponin I 0.0320 C-React Prot High Sens 2.97 NT-Pro-B Natriuret Pep 780 Total Protein 8.1 Albumin 4.1 Globulin 4.0 H Albumin/Globulin Ratio 1.0 Procalcitonin 0.10 L Arterial Blood Potassium Venous Blood Potassium Urine Color Urine Clarity Urine pH Ur Specific [place] Urine Protein Urine Glucose (UA) Urine Ketones Urine Blood Urine Nitrate Urine Bilirubin Urine Urobilinogen Ur Leukocyte Esterase Urine WBC (Auto) Urine RBC (Auto) Urine Bacteria Blood Type Antibody Screen 11/09/17 11/09/17 11/09/17 17:31 17:31 20:52 WBC RBC Hgb Hct MCV MCH MCHC RDW Plt Count MPV Neut % (Auto) Lymph % (Auto) [place] % (Auto) Eos % (Auto) Baso % (Auto) Neut # (Auto) Lymph # (Auto) [place] # (Auto) Eos # (Auto) Baso # (Auto) ESR PT INR APTT Puncture Site pCO2 pO2 HCO3 ABG pH ABG Total CO2 ABG O2 Saturation ABG Base Excess ABG Hemoglobin ABG Carboxyhemoglobin POC ABG HHb (Measured) ABG Methemoglobin Tino Test ABG Potassium VBG pH VBG pCO2 VBG HCO3 VBG Total CO2 VBG O2 Sat (Calc) VBG Base Excess VBG Potassium A-a O2 Difference Respiratory Index Hgb O2 Saturation Sodium Chloride Glucose Lactate Liter Flow Vent Mode Mechanical Rate FiO2 Tidal Volume PEEP Crit Value Called To Crit Value Called By Crit Value Read Back Blood Gas Notified Time Potassium Carbon Dioxide Anion Gap BUN Creatinine Est GFR ( Amer) Est GFR (Non-Af Amer) POC Glucose (mg/dL) 118 H Random Glucose Lactic Acid Calcium Phosphorus Magnesium Total Bilirubin AST ALT Alkaline Phosphatase Troponin I C-React Prot High Sens NT-Pro-B Natriuret Pep Total Protein Albumin Globulin Albumin/Globulin Ratio Procalcitonin Arterial Blood Potassium Venous Blood Potassium Urine Color Yellow Urine Clarity Hazy Urine pH 6.0 Ur Specific [place] 1.048 H Urine Protein 1+ H Urine Glucose (UA) 2+ H Urine Ketones Negative Urine Blood 3+ H Urine Nitrate Negative Urine Bilirubin Negative Urine Urobilinogen Normal Ur Leukocyte Esterase 3+ H Urine WBC (Auto) 214 H Urine RBC (Auto) 125 H Urine Bacteria Rare Blood Type O POSITIVE Antibody Screen Negative 11/09/17 11/09/17 11/09/17 21:02 21:02 21:02 WBC 2.9 L D RBC 6.12 H Hgb 16.9 D Hct 50.5 MCV 82.5 MCH 27.6 MCHC 33.4 RDW 16.6 H Plt Count 336 MPV 7.9 Neut % (Auto) 75.7 H Lymph % (Auto) 15.4 L [place] % (Auto) 8.4 Eos % (Auto) 0.1 Baso % (Auto) 0.4 Neut # (Auto) 2.2 Lymph # (Auto) 0.4 L [place] # (Auto) 0.2 Eos # (Auto) 0.0 Baso # (Auto) 0.0 ESR PT INR APTT Puncture Site pCO2 pO2 HCO3 ABG pH ABG Total CO2 ABG O2 Saturation ABG Base Excess ABG Hemoglobin ABG Carboxyhemoglobin POC ABG HHb (Measured) ABG Methemoglobin Tino Test ABG Potassium VBG pH VBG pCO2 VBG HCO3 VBG Total CO2 VBG O2 Sat (Calc) VBG Base Excess VBG Potassium A-a O2 Difference Respiratory Index Hgb O2 Saturation Sodium 144 Chloride 108 H Glucose Lactate Liter Flow Vent Mode Mechanical Rate FiO2 Tidal Volume PEEP Crit Value Called To Crit Value Called By Crit Value Read Back Blood Gas Notified Time Potassium 4.6 Carbon Dioxide 21 L Anion Gap 19 BUN 18 Creatinine 1.3 Est GFR ( Amer) > 60 Est GFR (Non-Af Amer) 53 POC Glucose (mg/dL) Random Glucose 123 H Lactic Acid 4.8 H* Calcium 9.4 Phosphorus Magnesium Total Bilirubin 0.8 AST 27 ALT 9 L D Alkaline Phosphatase 71 Troponin I C-React Prot High Sens NT-Pro-B Natriuret Pep Total Protein 6.9 Albumin 3.4 L Globulin 3.5 Albumin/Globulin Ratio 0.9 L Procalcitonin Arterial Blood Potassium Venous Blood Potassium Urine Color Urine Clarity Urine pH Ur Specific [place] Urine Protein Urine Glucose (UA) Urine Ketones Urine Blood Urine Nitrate Urine Bilirubin Urine Urobilinogen Ur Leukocyte Esterase Urine WBC (Auto) Urine RBC (Auto) Urine Bacteria Blood Type Antibody Screen 11/09/17 11/09/17 11/10/17 21:29 21:35 01:43 WBC RBC Hgb Hct MCV MCH MCHC RDW Plt Count MPV Neut % (Auto) Lymph % (Auto) [place] % (Auto) Eos % (Auto) Baso % (Auto) Neut # (Auto) Lymph # (Auto) [place] # (Auto) Eos # (Auto) Baso # (Auto) ESR PT INR APTT Puncture Site B Lb pCO2 49 H 48 H pO2 166 H 170 H 31 HCO3 16.9 L 16.9 L ABG pH 7.18 L* 7.18 L* ABG Total CO2 19.8 L 19.4 L ABG O2 Saturation 99.8 H 100.1 H ABG Base Excess -10.3 L -10.4 L ABG Hemoglobin 16.8 ABG Carboxyhemoglobin 1.6 H POC ABG HHb (Measured) 0.2 ABG Methemoglobin 1.3 Tino Test Na Na ABG Potassium 4.7 VBG pH 7.23 L VBG pCO2 48 VBG HCO3 17.7 VBG Total CO2 21.6 L VBG O2 Sat (Calc) 63.3 VBG Base Excess -7.5 L VBG Potassium 5.0 A-a O2 Difference 58.0 55.0 Respiratory Index 0.3 0.3 Hgb O2 Saturation 96.9 Sodium 138.0 138.0 Chloride 109.0 H 108.0 H Glucose 148 H 138 H Lactate 2.7 H 4.6 H* Liter Flow Vent Mode Prvc Prvc Mechanical Rate 12 12 FiO2 40.0 40.0 40.0 Tidal Volume 500 500 PEEP 5 5 5 Crit Value Called To Dr. collette Trevizo Crit Value Called By Meena Gil jitterbug operator Crit Value Read Back Y Y Y Blood Gas Notified Time 2134 2139 146 Potassium Carbon Dioxide Anion Gap BUN Creatinine Est GFR ( Amer) Est GFR (Non-Af Amer) POC Glucose (mg/dL) Random Glucose Lactic Acid Calcium Phosphorus Magnesium Total Bilirubin AST ALT Alkaline Phosphatase Troponin I C-React Prot High Sens NT-Pro-B Natriuret Pep Total Protein Albumin Globulin Albumin/Globulin Ratio Procalcitonin Arterial Blood Potassium 4.7 Venous Blood Potassium 5.0 Urine Color Urine Clarity Urine pH Ur Specific [place] Urine Protein Urine Glucose (UA) Urine Ketones Urine Blood Urine Nitrate Urine Bilirubin Urine Urobilinogen Ur Leukocyte Esterase Urine WBC (Auto) Urine RBC (Auto) Urine Bacteria Blood Type Antibody Screen 11/10/17 11/10/17 11/10/17 05:21 06:28 06:28 WBC 4.5 L D RBC 5.57 Hgb 15.2 Hct 45.3 MCV 81.3 MCH 27.3 MCHC 33.6 RDW 16.0 H Plt Count 299 MPV 8.1 Neut % (Auto) 78.8 H Lymph % (Auto) 13.4 L [place] % (Auto) 7.5 Eos % (Auto) 0.0 Baso % (Auto) 0.3 Neut # (Auto) 3.5 Lymph # (Auto) 0.6 L [place] # (Auto) 0.3 Eos # (Auto) 0.0 Baso # (Auto) 0.0 ESR PT INR APTT Puncture Site Lb pCO2 26 L pO2 164 H HCO3 18.3 L ABG pH 7.37 ABG Total CO2 15.8 L ABG O2 Saturation 100.1 H ABG Base Excess -8.6 L ABG Hemoglobin ABG Carboxyhemoglobin POC ABG HHb (Measured) ABG Methemoglobin Tino Test Na ABG Potassium 5.0 VBG pH VBG pCO2 VBG HCO3 VBG Total CO2 VBG O2 Sat (Calc) VBG Base Excess VBG Potassium A-a O2 Difference 89.0 Respiratory Index 0.5 Hgb O2 Saturation Sodium 137.0 139 Chloride 111.0 H 113 H Glucose 133 H Lactate 2.9 H Liter Flow Vent Mode Prvc Mechanical Rate 16 FiO2 40.0 Tidal Volume 500 PEEP 5 Crit Value Called To Crit Value Called By Crit Value Read Back Blood Gas Notified Time Potassium 5.2 Carbon Dioxide 14 L Anion Gap 17 BUN 21 H Creatinine 1.8 H Est GFR ( Amer) 44 Est GFR (Non-Af Amer) 37 POC Glucose (mg/dL) Random Glucose 119 H Lactic Acid Calcium 8.3 L Phosphorus Magnesium Total Bilirubin 0.9 AST 28 ALT 6 L D Alkaline Phosphatase 47 Troponin I C-React Prot High Sens NT-Pro-B Natriuret Pep Total Protein 6.2 L Albumin 2.9 L Globulin 3.3 Albumin/Globulin Ratio 0.9 L Procalcitonin Arterial Blood Potassium 5.0 Venous Blood Potassium Urine Color Urine Clarity Urine pH Ur Specific [place] Urine Protein Urine Glucose (UA) Urine Ketones Urine Blood Urine Nitrate Urine Bilirubin Urine Urobilinogen Ur Leukocyte Esterase Urine WBC (Auto) Urine RBC (Auto) Urine Bacteria Blood Type Antibody Screen EKG/Cardiology Studies: Cardiology / EKG Studies 11/09/17 14:23 EKG [ELECTROCARDIOGRAM] Stat Comment: Mode Of Transportation: BED Reason For Exam: cp 11/09/17 15:07 ELECTROCARDIOGRAM Stat Comment: Mode Of Transportation: Reason For Exam: Sepsis Patient Fingerstick Blood Sugar Results: 273 Critical Care Progress Note - Nutrition Nutrition: Nutrition Category Date Time Status NPO Diet [DIET] Diets 11/09/17 Dinner Active Assessment/Plan - Assessment and Plan (Free Text) Assessment: 77 y/o male with h/o HTN,asthma presented to ER with abdominal pain,nausea and vomiting.found to have acute abdomen and pneumoperitoneum,taken to OR. S/P Exploratory laparotomy, distal gastrectomy with anterior retrocolic functional promise en y reconstruction; gastrojejustomy and distal jejunostomy; Intra- abdominal primary Left inguinal herniorraphy. POD1 Plan: Neuro: GCS: 11T Sedation: None Cardio: A: Hx of HTN Patient is normotensive. Hold Anti-Hypertensive Meds. Pulm A: Res. Failure-On vent Post-Op, Hx of Asthma PRVC: 40% Fi02, 16RR, 500 TV, 5 PEEP. Wean as tolerated Consider CPAP trial GI: A: Abdominal Surgery POD #1 Management per surgery team. PRN Zofran ID Afebrile, no leukocytosis, Elevated Lactate (Improving) Post-Op Prophylaxis with Vancomycin, Zosyn and Flagyl. Follow Up Cultures Renal A: MONY, likely Pre-Renal LR @ 250 If Cr continues to rise, renally dose medications. Proph Lovenox. <Tonio Chavira S - Last Filed: 11/10/17 17:53> CCU Objective - Vital Signs / Intake & Output Vital Signs (Last 4 hours): Vital Signs Pulse Resp BP Pulse Ox 11/10/17 15:10 120 H 24 136/74 100 11/10/17 15:00 121 H 26 H 100 11/10/17 14:10 120 H 26 H 133/74 100 11/10/17 14:00 123 H 27 H 100 Intake and Output (Last 8hrs): Intake & Output 11/10/17 11/10/17 11/10/17 06:59 14:59 22:59 Intake Total 4950 2950 Output Total 415 405 Balance 4535 2545 Weight 190 lb 8 oz Intake: Intake, IV Amount 4950 2950 Left Antecubital 2300 1150 Right Antecubital 2650 1800 Output: Gastric Amount 20 Right Nares 20 Drainage 230 70 LEFT INGUINAL 90 40 Left Lower Abdomen 50 Right Lower Abdomen 90 30 Urine 165 335 Urethral (Izquierdo) 165 335 - Medications Active Medications: Active Medications Generic Name Dose Route Start Last Admin Trade Name Freq PRN Reason Stop Dose Admin Enoxaparin Sodium 40 mg 11/10/17 22:00 Lovenox SC DAILY ZAID Hydromorphone HCl 0.5 mg 11/09/17 17:19 11/10/17 06:39 Dilaudid IVP 0.5 mg Q3H PRN Administration Pain, moderate (4-7) Piperacillin Sod/Tazobactam 100 mls @ 200 mls/hr 11/09/17 17:00 11/10/17 17: 31 Sod 3.375 gm/ Sodium Chloride IVPB 200 mls/hr Q6H ZAID Administration Protocol Vancomycin HCl 1 gm/ Sodium 250 mls @ 166.7 mls/hr 11/09/17 17:00 11/10/17 17 :33 Chloride IVPB 166.7 mls/hr Q24H ZAID Administration Protocol Acetaminophen 1,000 mg/ 100 mls @ 400 mls/hr 11/09/17 22:03 11/10/17 13:33 Miscellaneous IV 400 mls/hr Q6 ZAID Administration Lactated Ringer's 1,000 mls @ 250 mls/hr 11/10/17 06:20 11/10/17 14:21 Lactated Ringer's IV Not Given .Q4H ZAID Metronidazole 500 mg in 100 mls @ 100 mls/hr 11/10/17 14:00 11/10/17 14:19 Flagyl IVPB 100 mls/hr Q8 ZAID Administration Protocol Ondansetron HCl 4 mg 11/09/17 17:19 Zofran Inj IVP Q4 PRN Nausea/Vomiting Pantoprazole Sodium 40 mg 11/09/17 20:45 11/10/17 08:34 Protonix Inj IVP 40 mg Q12H ZAID Administration - Patient Studies Lab Studies: Microbiology Studies 11/09/17 17:31 Urine Culture - Preliminary Urine Gram Positive Cocci 11/09/17 Unknown Gram Stain - Final Peritoneal Fluid Lab Studies 11/10/17 11/10/17 11/10/17 Range/Units 06:28 06:28 05:21 WBC 4.5 L D (4.8-10.8) K/uL RBC 5.57 (4.40-5.90) Mil/uL Hgb 15.2 (12.0-18.0) g/dL Hct 45.3 (35.0-51.0) % MCV 81.3 (80.0-94.0) fL MCH 27.3 (27.0-31.0) pg MCHC 33.6 (33.0-37.0) g/dL RDW 16.0 H (11.5-14.5) % Plt Count 299 (130-400) K/uL MPV 8.1 (7.2-11.7) fL Neut % (Auto) 78.8 H (50.0-75.0) % Lymph % (Auto) 13.4 L (20.0-40.0) % [place] % (Auto) 7.5 (0.0-10.0) % Eos % (Auto) 0.0 (0.0-4.0) % Baso % (Auto) 0.3 (0.0-2.0) % Neut # (Auto) 3.5 (1.8-7.0) K/uL Lymph # (Auto) 0.6 L (1.0-4.3) K/uL [place] # (Auto) 0.3 (0.0-0.8) K/uL Eos # (Auto) 0.0 (0.0-0.7) K/uL Baso # (Auto) 0.0 (0.0-0.2) K/uL Puncture Site Lb pCO2 26 L (35-45) mm/Hg pO2 164 H (80-100) mm/Hg HCO3 18.3 L (21-28) mmol/L ABG pH 7.37 (7.35-7.45) ABG Total CO2 15.8 L (22-28) mmol/L ABG O2 Saturation 100.1 H (95-98) % ABG Base Excess -8.6 L (-2.0-3.0) mmol/L ABG Hemoglobin (11.7-17.4) g/dL ABG Carboxyhemoglobin (0.5-1.5) % POC ABG HHb (Measured) (0.0-5.0) % ABG Methemoglobin (0.0-3.0) % Tino Test Na ABG Potassium 5.0 (3.6-5.2) mmol/L VBG pH (7.32-7.43) VBG pCO2 (40-60) mmHg VBG HCO3 mmol/L VBG Total CO2 (22-28) mmol/L VBG O2 Sat (Calc) (40-65) % VBG Base Excess (0.0-2.0) mmol/L VBG Potassium (3.6-5.2) mmol/L A-a O2 Difference 89.0 mm/Hg Respiratory Index 0.5 Hgb O2 Saturation (95.0-98.0) % Glucose 133 H (75-110) mg/dl Lactate 2.9 H (0.7-2.1) mmol/L Vent Mode Prvc Mechanical Rate 16 FiO2 40.0 % Tidal Volume 500 PEEP 5 Crit Value Called To Crit Value Called By Crit Value Read Back Blood Gas Notified Time Sodium 139 137.0 (132-148) mmol/L Potassium 5.2 (3.6-5.2) mmol/L Chloride 113 H 111.0 H (98-107) mmol/L Carbon Dioxide 14 L (22-30) mmol/L Anion Gap 17 (10-20) BUN 21 H (9-20) mg/dL Creatinine 1.8 H (0.8-1.5) mg/dL Est GFR ( Amer) 44 Est GFR (Non-Af Amer) 37 POC Glucose (mg/dL) (65-110) mg/dL Random Glucose 119 H (75-110) mg/dL Lactic Acid (0.7-2.1) mmol/L Calcium 8.3 L (8.6-10.4) mg/dl Total Bilirubin 0.9 (0.2-1.3) mg/dL AST 28 (17-59) U/L ALT 6 L D (21-72) U/L Alkaline Phosphatase 47 (38-126) U/L Total Protein 6.2 L (6.3-8.3) g/dL Albumin 2.9 L (3.5-5.0) g/dL Globulin 3.3 (2.2-3.9) gm/dL Albumin/Globulin Ratio 0.9 L (1.0-2.1) Arterial Blood Potassium 5.0 (3.6-5.2) mmol/L Venous Blood Potassium (3.6-5.2) mmol/L Blood Type Antibody Screen 11/10/17 11/09/17 11/09/17 Range/Units 01:43 21:35 21:29 WBC (4.8-10.8) K/uL RBC (4.40-5.90) Mil/uL Hgb (12.0-18.0) g/dL Hct (35.0-51.0) % MCV (80.0-94.0) fL MCH (27.0-31.0) pg MCHC (33.0-37.0) g/dL RDW (11.5-14.5) % Plt Count (130-400) K/uL MPV (7.2-11.7) fL Neut % (Auto) (50.0-75.0) % Lymph % (Auto) (20.0-40.0) % [place] % (Auto) (0.0-10.0) % Eos % (Auto) (0.0-4.0) % Baso % (Auto) (0.0-2.0) % Neut # (Auto) (1.8-7.0) K/uL Lymph # (Auto) (1.0-4.3) K/uL [place] # (Auto) (0.0-0.8) K/uL Eos # (Auto) (0.0-0.7) K/uL Baso # (Auto) (0.0-0.2) K/uL Puncture Site Lb B pCO2 48 H 49 H (35-45) mm/Hg pO2 31 170 H 166 H (80-100) mm/Hg HCO3 16.9 L 16.9 L (21-28) mmol/L ABG pH 7.18 L* 7.18 L* (7.35-7.45) ABG Total CO2 19.4 L 19.8 L (22-28) mmol/L ABG O2 Saturation 100.1 H 99.8 H (95-98) % ABG Base Excess -10.4 L -10.3 L (-2.0-3.0) mmol/L ABG Hemoglobin 16.8 (11.7-17.4) g/dL ABG Carboxyhemoglobin 1.6 H (0.5-1.5) % POC ABG HHb (Measured) 0.2 (0.0-5.0) % ABG Methemoglobin 1.3 (0.0-3.0) % Tino Test Na Na ABG Potassium 4.7 (3.6-5.2) mmol/L VBG pH 7.23 L (7.32-7.43) VBG pCO2 48 (40-60) mmHg VBG HCO3 17.7 mmol/L VBG Total CO2 21.6 L (22-28) mmol/L VBG O2 Sat (Calc) 63.3 (40-65) % VBG Base Excess -7.5 L (0.0-2.0) mmol/L VBG Potassium 5.0 (3.6-5.2) mmol/L A-a O2 Difference 55.0 58.0 mm/Hg Respiratory Index 0.3 0.3 Hgb O2 Saturation 96.9 (95.0-98.0) % Glucose 138 H 148 H (75-110) mg/dl Lactate 4.6 H* 2.7 H (0.7-2.1) mmol/L Vent Mode Prvc Prvc Mechanical Rate 12 12 FiO2 40.0 40.0 40.0 % Tidal Volume 500 500 PEEP 5 5 5 Crit Value Called To Dr.perrera Francis murdock Crit Value Called By Louise barry E rissa Robledo Crit Value Read Back Y Y Y Blood Gas Notified Time 146 0 5 Sodium 138.0 138.0 (132-148) mmol/L Potassium (3.6-5.2) mmol/L Chloride 108.0 H 109.0 H (98-107) mmol/L Carbon Dioxide (22-30) mmol/L Anion Gap (10-20) BUN (9-20) mg/dL Creatinine (0.8-1.5) mg/dL Est GFR ( Amer) Est GFR (Non-Af Amer) POC Glucose (mg/dL) (65-110) mg/dL Random Glucose (75-110) mg/dL Lactic Acid (0.7-2.1) mmol/L Calcium (8.6-10.4) mg/dl Total Bilirubin (0.2-1.3) mg/dL AST (17-59) U/L ALT (21-72) U/L Alkaline Phosphatase (38-126) U/L Total Protein (6.3-8.3) g/dL Albumin (3.5-5.0) g/dL Globulin (2.2-3.9) gm/dL Albumin/Globulin Ratio (1.0-2.1) Arterial Blood Potassium 4.7 (3.6-5.2) mmol/L Venous Blood Potassium 5.0 (3.6-5.2) mmol/L Blood Type Antibody Screen 11/09/17 11/09/17 11/09/17 Range/Units 21:02 21:02 21:02 WBC 2.9 L D (4.8-10.8) K/uL RBC 6.12 H (4.40-5.90) Mil/uL Hgb 16.9 D (12.0-18.0) g/dL Hct 50.5 (35.0-51.0) % MCV 82.5 (80.0-94.0) fL MCH 27.6 (27.0-31.0) pg MCHC 33.4 (33.0-37.0) g/dL RDW 16.6 H (11.5-14.5) % Plt Count 336 (130-400) K/uL MPV 7.9 (7.2-11.7) fL Neut % (Auto) 75.7 H (50.0-75.0) % Lymph % (Auto) 15.4 L (20.0-40.0) % [place] % (Auto) 8.4 (0.0-10.0) % Eos % (Auto) 0.1 (0.0-4.0) % Baso % (Auto) 0.4 (0.0-2.0) % Neut # (Auto) 2.2 (1.8-7.0) K/uL Lymph # (Auto) 0.4 L (1.0-4.3) K/uL [place] # (Auto) 0.2 (0.0-0.8) K/uL Eos # (Auto) 0.0 (0.0-0.7) K/uL Baso # (Auto) 0.0 (0.0-0.2) K/uL Puncture Site pCO2 (35-45) mm/Hg pO2 (80-100) mm/Hg HCO3 (21-28) mmol/L ABG pH (7.35-7.45) ABG Total CO2 (22-28) mmol/L ABG O2 Saturation (95-98) % ABG Base Excess (-2.0-3.0) mmol/L ABG Hemoglobin (11.7-17.4) g/dL ABG Carboxyhemoglobin (0.5-1.5) % POC ABG HHb (Measured) (0.0-5.0) % ABG Methemoglobin (0.0-3.0) % Tino Test ABG Potassium (3.6-5.2) mmol/L VBG pH (7.32-7.43) VBG pCO2 (40-60) mmHg VBG HCO3 mmol/L VBG Total CO2 (22-28) mmol/L VBG O2 Sat (Calc) (40-65) % VBG Base Excess (0.0-2.0) mmol/L VBG Potassium (3.6-5.2) mmol/L A-a O2 Difference mm/Hg Respiratory Index Hgb O2 Saturation (95.0-98.0) % Glucose (75-110) mg/dl Lactate (0.7-2.1) mmol/L Vent Mode Mechanical Rate FiO2 % Tidal Volume PEEP Crit Value Called To Crit Value Called By Crit Value Read Back Blood Gas Notified Time Sodium 144 (132-148) mmol/L Potassium 4.6 (3.6-5.2) mmol/L Chloride 108 H (98-107) mmol/L Carbon Dioxide 21 L (22-30) mmol/L Anion Gap 19 (10-20) BUN 18 (9-20) mg/dL Creatinine 1.3 (0.8-1.5) mg/dL Est GFR ( Amer) > 60 Est GFR (Non-Af Amer) 53 POC Glucose (mg/dL) (65-110) mg/dL Random Glucose 123 H (75-110) mg/dL Lactic Acid 4.8 H* (0.7-2.1) mmol/L Calcium 9.4 (8.6-10.4) mg/dl Total Bilirubin 0.8 (0.2-1.3) mg/dL AST 27 (17-59) U/L ALT 9 L D (21-72) U/L Alkaline Phosphatase 71 (38-126) U/L Total Protein 6.9 (6.3-8.3) g/dL Albumin 3.4 L (3.5-5.0) g/dL Globulin 3.5 (2.2-3.9) gm/dL Albumin/Globulin Ratio 0.9 L (1.0-2.1) Arterial Blood Potassium (3.6-5.2) mmol/L Venous Blood Potassium (3.6-5.2) mmol/L Blood Type Antibody Screen 11/09/17 11/09/17 Range/Units 20:52 17:31 WBC (4.8-10.8) K/uL RBC (4.40-5.90) Mil/uL Hgb (12.0-18.0) g/dL Hct (35.0-51.0) % MCV (80.0-94.0) fL MCH (27.0-31.0) pg MCHC (33.0-37.0) g/dL RDW (11.5-14.5) % Plt Count (130-400) K/uL MPV (7.2-11.7) fL Neut % (Auto) (50.0-75.0) % Lymph % (Auto) (20.0-40.0) % [place] % (Auto) (0.0-10.0) % Eos % (Auto) (0.0-4.0) % Baso % (Auto) (0.0-2.0) % Neut # (Auto) (1.8-7.0) K/uL Lymph # (Auto) (1.0-4.3) K/uL [place] # (Auto) (0.0-0.8) K/uL Eos # (Auto) (0.0-0.7) K/uL Baso # (Auto) (0.0-0.2) K/uL Puncture Site pCO2 (35-45) mm/Hg pO2 (80-100) mm/Hg HCO3 (21-28) mmol/L ABG pH (7.35-7.45) ABG Total CO2 (22-28) mmol/L ABG O2 Saturation (95-98) % ABG Base Excess (-2.0-3.0) mmol/L ABG Hemoglobin (11.7-17.4) g/dL ABG Carboxyhemoglobin (0.5-1.5) % POC ABG HHb (Measured) (0.0-5.0) % ABG Methemoglobin (0.0-3.0) % Tino Test ABG Potassium (3.6-5.2) mmol/L VBG pH (7.32-7.43) VBG pCO2 (40-60) mmHg VBG HCO3 mmol/L VBG Total CO2 (22-28) mmol/L VBG O2 Sat (Calc) (40-65) % VBG Base Excess (0.0-2.0) mmol/L VBG Potassium (3.6-5.2) mmol/L A-a O2 Difference mm/Hg Respiratory Index Hgb O2 Saturation (95.0-98.0) % Glucose (75-110) mg/dl Lactate (0.7-2.1) mmol/L Vent Mode Mechanical Rate FiO2 % Tidal Volume PEEP Crit Value Called To Crit Value Called By Crit Value Read Back Blood Gas Notified Time Sodium (132-148) mmol/L Potassium (3.6-5.2) mmol/L Chloride (98-107) mmol/L Carbon Dioxide (22-30) mmol/L Anion Gap (10-20) BUN (9-20) mg/dL Creatinine (0.8-1.5) mg/dL Est GFR ( Amer) Est GFR (Non-Af Amer) POC Glucose (mg/dL) 118 H (65-110) mg/dL Random Glucose (75-110) mg/dL Lactic Acid (0.7-2.1) mmol/L Calcium (8.6-10.4) mg/dl Total Bilirubin (0.2-1.3) mg/dL AST (17-59) U/L ALT (21-72) U/L Alkaline Phosphatase (38-126) U/L Total Protein (6.3-8.3) g/dL Albumin (3.5-5.0) g/dL Globulin (2.2-3.9) gm/dL Albumin/Globulin Ratio (1.0-2.1) Arterial Blood Potassium (3.6-5.2) mmol/L Venous Blood Potassium (3.6-5.2) mmol/L Blood Type O POSITIVE Antibody Screen Negative Laboratory Results - last 24 hr 11/09/17 11/09/17 11/09/17 17:31 20:52 21:02 WBC 2.9 L D RBC 6.12 H Hgb 16.9 D Hct 50.5 MCV 82.5 MCH 27.6 MCHC 33.4 RDW 16.6 H Plt Count 336 MPV 7.9 Neut % (Auto) 75.7 H Lymph % (Auto) 15.4 L [place] % (Auto) 8.4 Eos % (Auto) 0.1 Baso % (Auto) 0.4 Neut # (Auto) 2.2 Lymph # (Auto) 0.4 L [place] # (Auto) 0.2 Eos # (Auto) 0.0 Baso # (Auto) 0.0 Puncture Site pCO2 pO2 HCO3 ABG pH ABG Total CO2 ABG O2 Saturation ABG Base Excess ABG Hemoglobin ABG Carboxyhemoglobin POC ABG HHb (Measured) ABG Methemoglobin Tino Test ABG Potassium VBG pH VBG pCO2 VBG HCO3 VBG Total CO2 VBG O2 Sat (Calc) VBG Base Excess VBG Potassium A-a O2 Difference Respiratory Index Hgb O2 Saturation Glucose Lactate Vent Mode Mechanical Rate FiO2 Tidal Volume PEEP Crit Value Called To Crit Value Called By Crit Value Read Back Blood Gas Notified Time Sodium Potassium Chloride Carbon Dioxide Anion Gap BUN Creatinine Est GFR ( Amer) Est GFR (Non-Af Amer) POC Glucose (mg/dL) 118 H Random Glucose Lactic Acid Calcium Total Bilirubin AST ALT Alkaline Phosphatase Total Protein Albumin Globulin Albumin/Globulin Ratio Arterial Blood Potassium Venous Blood Potassium Blood Type O POSITIVE Antibody Screen Negative 11/09/17 11/09/17 11/09/17 21:02 21:02 21:29 WBC RBC Hgb Hct MCV MCH MCHC RDW Plt Count MPV Neut % (Auto) Lymph % (Auto) [place] % (Auto) Eos % (Auto) Baso % (Auto) Neut # (Auto) Lymph # (Auto) [place] # (Auto) Eos # (Auto) Baso # (Auto) Puncture Site B pCO2 49 H pO2 166 H HCO3 16.9 L ABG pH 7.18 L* ABG Total CO2 19.8 L ABG O2 Saturation 99.8 H ABG Base Excess -10.3 L ABG Hemoglobin 16.8 ABG Carboxyhemoglobin 1.6 H POC ABG HHb (Measured) 0.2 ABG Methemoglobin 1.3 Tino Test Na ABG Potassium VBG pH VBG pCO2 VBG HCO3 VBG Total CO2 VBG O2 Sat (Calc) VBG Base Excess VBG Potassium A-a O2 Difference 58.0 Respiratory Index 0.3 Hgb O2 Saturation 96.9 Glucose Lactate Vent Mode Prvc Mechanical Rate 12 FiO2 40.0 Tidal Volume 500 PEEP 5 Crit Value Called To Dr. murdock Crit Value Called By Meena Crit Value Read Back Y Blood Gas Notified Time 2135 Sodium 144 Potassium 4.6 Chloride 108 H Carbon Dioxide 21 L Anion Gap 19 BUN 18 Creatinine 1.3 Est GFR ( Amer) > 60 Est GFR (Non-Af Amer) 53 POC Glucose (mg/dL) Random Glucose 123 H Lactic Acid 4.8 H* Calcium 9.4 Total Bilirubin 0.8 AST 27 ALT 9 L D Alkaline Phosphatase 71 Total Protein 6.9 Albumin 3.4 L Globulin 3.5 Albumin/Globulin Ratio 0.9 L Arterial Blood Potassium Venous Blood Potassium Blood Type Antibody Screen 11/09/17 11/10/17 11/10/17 21:35 01:43 05:21 WBC RBC Hgb Hct MCV MCH MCHC RDW Plt Count MPV Neut % (Auto) Lymph % (Auto) [place] % (Auto) Eos % (Auto) Baso % (Auto) Neut # (Auto) Lymph # (Auto) [place] # (Auto) Eos # (Auto) Baso # (Auto) Puncture Site Lb Lb pCO2 48 H 26 L pO2 170 H 31 164 H HCO3 16.9 L 18.3 L ABG pH 7.18 L* 7.37 ABG Total CO2 19.4 L 15.8 L ABG O2 Saturation 100.1 H 100.1 H ABG Base Excess -10.4 L -8.6 L ABG Hemoglobin ABG Carboxyhemoglobin POC ABG HHb (Measured) ABG Methemoglobin Tino Test Na Na ABG Potassium 4.7 5.0 VBG pH 7.23 L VBG pCO2 48 VBG HCO3 17.7 VBG Total CO2 21.6 L VBG O2 Sat (Calc) 63.3 VBG Base Excess -7.5 L VBG Potassium 5.0 A-a O2 Difference 55.0 89.0 Respiratory Index 0.3 0.5 Hgb O2 Saturation Glucose 148 H 138 H 133 H Lactate 2.7 H 4.6 H* 2.9 H Vent Mode Prvc Prvc Mechanical Rate 12 16 FiO2 40.0 40.0 40.0 Tidal Volume 500 500 PEEP 5 5 5 Crit Value Called To Francis Trevizo Crit Value Called By Jamel Gil jitterbug operator Crit Value Read Back Y Y Blood Gas Notified Time 2139 146 Sodium 138.0 138.0 137.0 Potassium Chloride 109.0 H 108.0 H 111.0 H Carbon Dioxide Anion Gap BUN Creatinine Est GFR ( Amer) Est GFR (Non-Af Amer) POC Glucose (mg/dL) Random Glucose Lactic Acid Calcium Total Bilirubin AST ALT Alkaline Phosphatase Total Protein Albumin Globulin Albumin/Globulin Ratio Arterial Blood Potassium 4.7 5.0 Venous Blood Potassium 5.0 Blood Type Antibody Screen 11/10/17 11/10/17 06:28 06:28 WBC 4.5 L D RBC 5.57 Hgb 15.2 Hct 45.3 MCV 81.3 MCH 27.3 MCHC 33.6 RDW 16.0 H Plt Count 299 MPV 8.1 Neut % (Auto) 78.8 H Lymph % (Auto) 13.4 L [place] % (Auto) 7.5 Eos % (Auto) 0.0 Baso % (Auto) 0.3 Neut # (Auto) 3.5 Lymph # (Auto) 0.6 L [place] # (Auto) 0.3 Eos # (Auto) 0.0 Baso # (Auto) 0.0 Puncture Site pCO2 pO2 HCO3 ABG pH ABG Total CO2 ABG O2 Saturation ABG Base Excess ABG Hemoglobin ABG Carboxyhemoglobin POC ABG HHb (Measured) ABG Methemoglobin Tino Test ABG Potassium VBG pH VBG pCO2 VBG HCO3 VBG Total CO2 VBG O2 Sat (Calc) VBG Base Excess VBG Potassium A-a O2 Difference Respiratory Index Hgb O2 Saturation Glucose Lactate Vent Mode Mechanical Rate FiO2 Tidal Volume PEEP Crit Value Called To Crit Value Called By Crit Value Read Back Blood Gas Notified Time Sodium 139 Potassium 5.2 Chloride 113 H Carbon Dioxide 14 L Anion Gap 17 BUN 21 H Creatinine 1.8 H Est GFR ( Amer) 44 Est GFR (Non-Af Amer) 37 POC Glucose (mg/dL) Random Glucose 119 H Lactic Acid Calcium 8.3 L Total Bilirubin 0.9 AST 28 ALT 6 L D Alkaline Phosphatase 47 Total Protein 6.2 L Albumin 2.9 L Globulin 3.3 Albumin/Globulin Ratio 0.9 L Arterial Blood Potassium Venous Blood Potassium Blood Type Antibody Screen Critical Care Progress Note - Nutrition Nutrition: Nutrition Category Date Time Status NPO Diet [DIET] Diets 11/09/17 Dinner Active Attending/Attestation - Attestation I have personally seen and examined this patient.: Yes I have fully participated in the care of the patient.: Yes I have reviewed all pertinent clinical information: Yes Notes (Text): 11/10/17 17:51 patient seen and examined in the intensive care unit. Status post exploratory laparotomy, distal gastrectomy with anterior retrocolic functional promise en y reconstruction; gastrojejustomy and distal jejunostomy; Intra-abdominal primary Left inguinal herniorraphy on ventilatory support Weaning from tomorrow morning Continue fluid resuscitation Continue IV antibiotics
[2017-11-10] MEDS: Enoxaparin 40 mg Syringe SC SCH (21:32)
[2017-11-10] MEDS ORDERED: Acetaminophen IV 1,000 MG in Premixed IV 1 EA IV SCH ×2 (22:00)
[2017-11-11] MEDS: Lactated Ringer's 1,000 ML IV SCH ×2 (02:25→04:15)
[2017-11-11] MEDS: Piperacillin/Tazobact 3.375 GM in Sodium Chloride 100 ML IVPB SCH ×4 (05:00→22:57)
[2017-11-11 05:48] LABS: ABG ALLEN TEST POS; ARTERIAL BLOOD GAS HCO3 19.8 mmol/L (21-28); ARTERIAL BLOOD GAS HEMOGLOBIN 12.8 g/dL (11.7-17.4); ARTERIAL BLOOD GAS O2 SAT 99.8 % (95-98); ARTERIAL BLOOD GAS PCO2 27 mm/Hg (35-45); ARTERIAL BLOOD GAS PO2 130 mm/Hg (80-100); ARTERIAL BLOOD GAS TCO2 17.5 mmol/L (22-28)
[2017-11-11] MEDS: metroNIDAZOLE IV 500 mg/100 ml 500 MG/100 ML BAG IVPB SCH ×2 (05:51→13:46)
[2017-11-11 07:11] LABS: BASO % 0.1 % (0.0-2.0); CALCIUM 8.4 mg/dl (8.6-10.4); EOS % 0.1 % (0.0-4.0); HEMOGLOBIN 12.8 g/dL (12.0-18.0); LYMPH # 0.4 K/uL (1.0-4.3); LYMPH % 3.4 % (20.0-40.0); MEAN CELL VOLUME 82.5 fL (80.0-94.0); MEAN CORPUSCULAR HEMOGLOBIN 27.7 pg (27.0-31.0); MEAN CORPUSCULAR HGB CONC 33.6 g/dL (33.0-37.0); MEAN PLATELET VOLUME 8.5 fL (7.2-11.7); MONO # 0.5 K/uL (0.0-0.8); MONO % 4.3 % (0.0-10.0); NEUT % 92.1 % (50.0-75.0); NRBC % 0.1 % (0.0-2.0); PLATELET COUNT 206 K/uL (130-400); RBC 4.63 Mil/uL (4.40-5.90); RED CELL DISTRIBUTION WIDTH 17.1 % (11.5-14.5); WHITE BLOOD COUNT 10.8 K/uL (4.8-10.8)
[2017-11-11] MEDS ORDERED: Metoprolol 1 mg/ml Inj IVP ONE (07:30)
--- NOTE | 2017-11-11 07:37 | CP.PCM.PN ---
Subjective - Date & Time of Evaluation Date of Evaluation: 11/11/17 Time of Evaluation: 07:34 - Subjective Subjective: Surgery: Dr. Lara Patient remains intubated in ICU. Patient is awake and alert. Responding with head nods. Some pain in abdomen but improved since admission. Per nursing no acute events overnight. Objective - Vital Signs/Intake and Output Vital Signs (last 24 hours): Temp Pulse Resp BP Pulse Ox 98.4 F 113 H 25 H 116/64 100 11/11/17 00:00 11/11/17 02:10 11/11/17 02:10 11/11/17 02:10 11/11/17 02:10 Intake and Output: 11/11/17 11/11/17 06:59 18:59 Intake Total 1708 Output Total 760 Balance 948 - Medications Medications: Current Medications Enoxaparin Sodium (Lovenox) 40 mg SC DAILY [facility] Last Admin: 11/10/17 21:32 Dose: 40 mg Hydromorphone HCl (Dilaudid) 0.5 mg IVP Q3H PRN PRN Reason: Pain, moderate (4-7) Last Admin: 11/10/17 21:39 Dose: 0.5 mg Piperacillin Sod/Tazobactam (Sod 3.375 gm/ Sodium Chloride) 100 mls @ 200 mls/ hr IVPB Q6H [facility] PRN Reason: Protocol Last Admin: 11/11/17 05:00 Dose: 200 mls/hr Vancomycin HCl 1 gm/ Sodium (Chloride) 250 mls @ 166.7 mls/hr IVPB Q24H [facility] PRN Reason: Protocol Last Admin: 11/10/17 17:33 Dose: 166.7 mls/hr Acetaminophen 1,000 mg/ (Miscellaneous) 100 mls @ 400 mls/hr IV Q6 [facility] Last Admin: 11/10/17 18:31 Dose: 400 mls/hr Metronidazole (Flagyl) 500 mg in 100 mls @ 100 mls/hr IVPB Q8 [facility] PRN Reason: Protocol Last Admin: 11/11/17 05:51 Dose: 100 mls/hr Lactated Ringer's (Lactated Ringer's) 1,000 mls @ 125 mls/hr IV .Q8H [facility] Last Admin: 11/11/17 04:15 Dose: 125 mls/hr Ondansetron HCl (Zofran Inj) 4 mg IVP Q4 PRN PRN Reason: Nausea/Vomiting Pantoprazole Sodium (Protonix Inj) 40 mg IVP Q12H [facility] Last Admin: 11/10/17 20:45 Dose: 40 mg - Labs Labs: 11/11/17 06:28 11/11/17 06:28 PT 14.0 SECONDS (9.7-12.2) H 11/09/17 15:27 INR 1.3 11/09/17 15:27 APTT 30 SECONDS (21-34) 11/09/17 15:27 - Constitutional Appears: Non-toxic, No Acute Distress - Head Exam Head Exam: ATRAUMATIC, NORMOCEPHALIC - Eye Exam Eye Exam: EOMI, Normal appearance - ENT Exam ENT Exam: Mucous Membranes Moist Additional comments: ETT in place, NG tube in place on LCWS - Respiratory Exam Additional comments: on minimal vent settings - Cardiovascular Exam Cardiovascular Exam: Tachycardia, Irregular Rhythm - GI/Abdominal Exam GI & Abdominal Exam: Soft, Tenderness (jake-incisional. dressing CDI ). absent : Distended, Guarding, Rebound - Neurological Exam Neurological Exam: Alert, Awake - Psychiatric Exam Psychiatric exam: Normal Affect, Normal Mood - Skin Skin Exam: Dry, Warm Assessment and Plan - Assessment and Plan (Free Text) Assessment: 77 y/o male s/p ex lap with partial gastrectomy and Frandy en Y recon for large perforated gastric ulcer POD2 Plan: -NPO -NGT on LCWS -ok for DVT ppx -wean to extubate -cont abx -cont PPI -cont suh -monitor for bowel function -customer development manager consult -patient remains tachy, recommend cardiology consult for possible a. fib -further recs per Dr. Lara [facility] PGY3
[2017-11-11] MEDS: Dextrose 5%/0.45% NS 1,000 ML IV SCH ×2 (08:48→16:45)
[2017-11-11 09:24] LABS: BANDS 21 % (0-2); LYMPHOCYTE 4 % (20-40); MONOCYTE 6 % (0-10); NEUTROPHIL 69 % (50-75); TOTAL CELLS COUNTED 100
[2017-11-11 09:25] LABS: ANISOCYTOSIS SLIGHT; PLATELET ESTIMATE NORMAL (NORMAL)
[2017-11-11 09:26] LABS: BURR CELLS SLIGHT
--- NOTE | 2017-11-11 09:30 | CP.PCM.PN ---
Subjective - Date & Time of Evaluation Date of Evaluation: 11/11/17 Time of Evaluation: 09:27 - Subjective Subjective: findings reviewed with patient Objective - Vital Signs/Intake and Output Vital Signs (last 24 hours): Temp Pulse Resp BP Pulse Ox 98.2 F 104 H 25 H 127/61 100 11/11/17 08:00 11/11/17 08:11 11/11/17 08:11 11/11/17 08:11 11/11/17 08:11 Intake and Output: 11/11/17 11/11/17 06:59 18:59 Intake Total 1708 375 Output Total 760 150 Balance 948 225 - Medications Medications: Current Medications Enoxaparin Sodium (Lovenox) 40 mg SC DAILY [facility] Last Admin: 11/10/17 21:32 Dose: 40 mg Hydromorphone HCl (Dilaudid) 0.5 mg IVP Q3H PRN PRN Reason: Pain, moderate (4-7) Last Admin: 11/10/17 21:39 Dose: 0.5 mg Piperacillin Sod/Tazobactam (Sod 3.375 gm/ Sodium Chloride) 100 mls @ 200 mls/ hr IVPB Q6H [facility]AID PRN Reason: Protocol Last Admin: 11/11/17 05:00 Dose: 200 mls/hr Vancomycin HCl 1 gm/ Sodium (Chloride) 250 mls @ 166.7 mls/hr IVPB Q24H [facility]AID PRN Reason: Protocol Last Admin: 11/10/17 17:33 Dose: 166.7 mls/hr Acetaminophen 1,000 mg/ (Miscellaneous) 100 mls @ 400 mls/hr IV Q6 [facility] Last Admin: 11/10/17 18:31 Dose: 400 mls/hr Metronidazole (Flagyl) 500 mg in 100 mls @ 100 mls/hr IVPB Q8 [facility]AID PRN Reason: Protocol Last Admin: 11/11/17 05:51 Dose: 100 mls/hr Dextrose/Sodium Chloride (Dextrose 5%/0.45% Ns 1000 Ml) 1,000 mls @ 125 mls/hr IV .Q8H [facility] Last Admin: 11/11/17 08:48 Dose: 125 mls/hr Ondansetron HCl (Zofran Inj) 4 mg IVP Q4 PRN PRN Reason: Nausea/Vomiting Pantoprazole Sodium (Protonix Inj) 40 mg IVP Q12H [facility] Last Admin: 11/11/17 08:19 Dose: 40 mg - Labs Labs: 11/11/17 06:28 11/11/17 06:28 PT 14.0 SECONDS (9.7-12.2) H 11/09/17 15:27 INR 1.3 11/09/17 15:27 APTT 30 SECONDS (21-34) 11/09/17 15:27
--- NOTE | 2017-11-11 09:49 | RAD ---
Chest x-ray single frontal view History: Ventilated patient. Comparison: 11/10/2017 Findings: Endotracheal tube somewhat low lying approximately 8 millimeters above the brittney. Retraction approximately 1 centimeter may be helpful. Other lines and tubes in stable position. Left basilar consolidative changes with associated left pleural effusion. Right infrahilar consolidative changes. Right paratracheal opacity may represent prominent vasculature. Scattered upper lobe granulomatous changes. Cardiomegaly. Degenerative changes in the spine. Impression: Endotracheal tube somewhat low lying approximately 8 millimeters above the brittney. Retraction approximately 1 centimeter may be helpful. Other lines and tubes in stable position. Left basilar consolidative changes with associated left pleural effusion. Right infrahilar consolidative changes. Right paratracheal opacity may represent prominent vasculature. Scattered upper lobe granulomatous changes. Cardiomegaly.
[2017-11-11] MEDS ORDERED: Sod Polystyrene Sulf 15 gm/60 ml Susp PO ONE (11:00)
[2017-11-11] MEDS: Enoxaparin 40 mg Syringe SC SCH (11:04)
--- NOTE | 2017-11-11 19:06 | CP.CCUPN ---
<Eve Young - Last Filed: 11/11/17 19:03> CCU Subjective - Physician Review Subjective (Free Text): Patient seen and examined at bedside. Resting comfortably. Currently Intubated. CCU Objective - Vital Signs / Intake & Output Vital Signs (Last 4 hours): Vital Signs Temp Pulse Resp BP Pulse Ox 11/11/17 16:10 124 H 25 H 115/63 100 11/11/17 16:00 98.8 F 111 H 18 100 11/11/17 15:10 128 H 23 100/68 100 Intake and Output (Last 8hrs): Intake & Output 11/11/17 11/11/17 11/11/17 06:59 14:59 22:59 Intake Total 1108 950 250 Output Total 525 315 20 Balance 583 635 230 Weight 192 lb Intake: Intake, IV Amount 1108 950 250 Right Antecubital 1108 950 250 Oral 0 Output: Gastric Amount 10 Right Nares 10 Drainage 120 LEFT INGUINAL 40 Right Lower Abdomen 80 Urine 395 315 20 Urethral (Izquierdo) 395 315 20 Stool 0 0 - Physical Exam Head: Positive for: Atraumatic, Normocephalic Extroacular Muscles: Positive for: EOMI Nose (External): Positive for: Other (NG Tube) Respiratory/Chest: Positive for: Clear to Auscultation, Other (Intubated ). Negative for: Accessory Muscle Use Cardiovascular: Positive for: Normal S1, S2, Irregular Rhythm Abdomen: Positive for: Tenderness (Surgical Site. ), Other (G tube x 2 with abdominal dressing (Clean Dry and Intact) ) Lower Extremity: Negative for: Edema Neurological: Positive for: GCS=15 (11T) - Medications Active Medications: Active Medications Generic Name Dose Route Start Last Admin Trade Name Freq PRN Reason Stop Dose Admin Enoxaparin Sodium 40 mg 11/10/17 22:00 11/11/17 11:04 Lovenox SC 40 mg DAILY [facility] Administration Hydromorphone HCl 0.5 mg 11/09/17 17:19 11/10/17 21:39 Dilaudid IVP 0.5 mg Q3H PRN Administration Pain, moderate (4-7) Piperacillin Sod/Tazobactam 100 mls @ 200 mls/hr 11/09/17 17:00 11/11/17 11: 05 Sod 3.375 gm/ Sodium Chloride IVPB 200 mls/hr Q6H [facility] Administration Protocol Vancomycin HCl 1 gm/ Sodium 250 mls @ 166.7 mls/hr 11/09/17 17:00 11/11/17 17 :25 Chloride IVPB 166.7 mls/hr Q24H [facility] Administration Protocol Acetaminophen 1,000 mg/ 100 mls @ 400 mls/hr 11/09/17 22:03 11/10/17 18:31 Miscellaneous IV 400 mls/hr Q6 [facility] Administration Dextrose/Sodium Chloride 1,000 mls @ 125 mls/hr 11/11/17 08:45 11/11/17 16:45 Dextrose 5%/0.45% Ns 1000 Ml IV Not Given .Q8H [facility] Ondansetron HCl 4 mg 11/09/17 17:19 Zofran Inj IVP Q4 PRN Nausea/Vomiting Pantoprazole Sodium 40 mg 11/09/17 20:45 11/11/17 08:19 Protonix Inj IVP 40 mg Q12H [facility] Administration - Patient Studies Lab Studies: Microbiology Studies 11/09/17 Unknown Gram Stain - Final Peritoneal Fluid Body Fluid Culture - Preliminary Gram Positive Cocci 11/10/17 00:42 MRSA Culture (Admit) - Final Naris MRSA DETECTED 11/09/17 17:31 Urine Culture - Final Urine Enterococcus Faecalis 11/09/17 23:10 Blood Culture - Preliminary Blood NO GROWTH AFTER 24 HOURS 11/09/17 23:10 Blood Culture - Preliminary Blood NO GROWTH AFTER 24 HOURS Lab Studies 11/11/17 11/11/17 11/11/17 Range/Units 06:28 06:28 05:17 WBC 10.8 D (4.8-10.8) K/uL RBC 4.63 (4.40-5.90) Mil/uL Hgb 12.8 D (12.0-18.0) g/dL Hct 38.1 (35.0-51.0) % MCV 82.5 (80.0-94.0) fL MCH 27.7 (27.0-31.0) pg MCHC 33.6 (33.0-37.0) g/dL RDW 17.1 H (11.5-14.5) % Plt Count 206 (130-400) K/uL MPV 8.5 (7.2-11.7) fL Neut % (Auto) 92.1 H (50.0-75.0) % Lymph % (Auto) 3.4 L (20.0-40.0) % [place] % (Auto) 4.3 (0.0-10.0) % Eos % (Auto) 0.1 (0.0-4.0) % Baso % (Auto) 0.1 (0.0-2.0) % Neut # (Auto) 10.0 H (1.8-7.0) K/uL Lymph # (Auto) 0.4 L (1.0-4.3) K/uL [place] # (Auto) 0.5 (0.0-0.8) K/uL Eos # (Auto) 0.0 (0.0-0.7) K/uL Baso # (Auto) 0.0 (0.0-0.2) K/uL Neutrophils % (Manual) 69 (50-75) % Band Neutrophils % 21 H* (0-2) % Lymphocytes % (Manual) 4 L (20-40) % Monocytes % (Manual) 6 (0-10) % Platelet Estimate Normal (NORMAL) Anisocytosis (manual) Slight Helen Cells Slight Puncture Site Lr pCO2 27 L (35-45) mm/Hg pO2 130 H (80-100) mm/Hg HCO3 19.8 L (21-28) mmol/L ABG pH 7.40 (7.35-7.45) ABG Total CO2 17.5 L (22-28) mmol/L ABG O2 Saturation 99.8 H (95-98) % ABG Base Excess -6.6 L (-2.0-3.0) mmol/L ABG Hemoglobin 12.8 (11.7-17.4) g/dL ABG Carboxyhemoglobin 1.6 H (0.5-1.5) % POC ABG HHb (Measured) 0.2 (0.0-5.0) % ABG Methemoglobin 1.2 (0.0-3.0) % Tino Test Pos A-a O2 Difference 121.0 mm/Hg Respiratory Index 0.9 Hgb O2 Saturation 97.0 (95.0-98.0) % Vent Mode Prvc Mechanical Rate 16 FiO2 40.0 % Tidal Volume 500 PEEP 5 Sodium 144 (132-148) mmol/L Potassium 5.4 H (3.6-5.2) mmol/L Chloride 112 H (98-107) mmol/L Carbon Dioxide 17 L (22-30) mmol/L Anion Gap 20 (10-20) BUN 29 H (9-20) mg/dL Creatinine 2.2 H (0.8-1.5) mg/dL Est GFR ( Amer) 35 Est GFR (Non-Af Amer) 29 Random Glucose 66 L (75-110) mg/dL Calcium 8.4 L (8.6-10.4) mg/dl Phosphorus 4.4 (2.5-4.5) mg/dL Magnesium 1.9 (1.6-2.3) mg/dL Total Bilirubin 0.8 (0.2-1.3) mg/dL AST 37 (17-59) U/L ALT 10 L D (21-72) U/L Alkaline Phosphatase 32 L D (38-126) U/L Total Protein 6.1 L (6.3-8.3) g/dL Albumin 3.0 L (3.5-5.0) g/dL Globulin 3.1 (2.2-3.9) gm/dL Albumin/Globulin Ratio 1.0 (1.0-2.1) Laboratory Results - last 24 hr 11/11/17 11/11/17 11/11/17 05:17 06:28 06:28 WBC 10.8 D RBC 4.63 Hgb 12.8 D Hct 38.1 MCV 82.5 MCH 27.7 MCHC 33.6 RDW 17.1 H Plt Count 206 MPV 8.5 Neut % (Auto) 92.1 H Lymph % (Auto) 3.4 L [place] % (Auto) 4.3 Eos % (Auto) 0.1 Baso % (Auto) 0.1 Neut # (Auto) 10.0 H Lymph # (Auto) 0.4 L [place] # (Auto) 0.5 Eos # (Auto) 0.0 Baso # (Auto) 0.0 Neutrophils % (Manual) 69 Band Neutrophils % 21 H* Lymphocytes % (Manual) 4 L Monocytes % (Manual) 6 Platelet Estimate Normal Anisocytosis (manual) Slight Helen Cells Slight Puncture Site Lr pCO2 27 L pO2 130 H HCO3 19.8 L ABG pH 7.40 ABG Total CO2 17.5 L ABG O2 Saturation 99.8 H ABG Base Excess -6.6 L ABG Hemoglobin 12.8 ABG Carboxyhemoglobin 1.6 H POC ABG HHb (Measured) 0.2 ABG Methemoglobin 1.2 Tino Test Pos A-a O2 Difference 121.0 Respiratory Index 0.9 Hgb O2 Saturation 97.0 Vent Mode Prvc Mechanical Rate 16 FiO2 40.0 Tidal Volume 500 PEEP 5 Sodium 144 Potassium 5.4 H Chloride 112 H Carbon Dioxide 17 L Anion Gap 20 BUN 29 H Creatinine 2.2 H Est GFR ( Amer) 35 Est GFR (Non-Af Amer) 29 Random Glucose 66 L Calcium 8.4 L Phosphorus 4.4 Magnesium 1.9 Total Bilirubin 0.8 AST 37 ALT 10 L D Alkaline Phosphatase 32 L D Total Protein 6.1 L Albumin 3.0 L Globulin 3.1 Albumin/Globulin Ratio 1.0 Fingerstick Blood Sugar Results: 273 Review of Systems - Review of Systems Systems not reviewed;Unavailable: Intubated Critical Care Progress Note - Nutrition Nutrition: Nutrition Category Date Time Status NPO Diet [DIET] Diets 11/09/17 Dinner Active Assessment/Plan - Assessment and Plan (Free Text) Assessment: 77 y/o male with h/o HTN,asthma presented to ER with abdominal pain,nausea and vomiting.found to have acute abdomen and pneumoperitoneum,taken to OR. S/P Exploratory laparotomy, distal gastrectomy with anterior retrocolic functional promise en y reconstruction; gastrojejustomy and distal jejunostomy; Intra- abdominal primary Left inguinal herniorraphy. POD2 Plan: Neuro: GCS: 11T Sedation: None Cardio: A: Hx of HTN, New Onset A-fib Patient is normotensive. Hold Anti-Hypertensive Meds. 1 dose of Lopressor given per Surgery Cardiology COnsulted for new onset A-fib Pulm A: Res. Failure-On vent Post-Op, Hx of Asthma PRVC: 40% Fi02, 16RR, 500 TV, 5 PEEP. Wean as tolerated CPAP trial. Plan for extubation tomorrow. GI: A: Abdominal Surgery POD #2 Management per surgery team. PRN Zofran ID Afebrile, no leukocytosis, Elevated Lactate (Improving) Post-Op Prophylaxis with Vancomycin, Zosyn and Flagyl. Blood Culture - NEGATIVE Urine Culture - Enterococcus Faecalis MRSA CUlture - NEGATIVE Peritoneal Fluid - Gram Positve Cocci Renal A: MONY (Worsening), likely Pre-Renal D5 @ 125mls/ her If Cr continues to rise, renally dose medications. Proph Lovenox. Protonix Patient seen and discussed with ICU Attending Eve Young, PGY-1 <LaneAlirio lora M - Last Filed: 11/11/17 19:19> CCU Objective - Vital Signs / Intake & Output Vital Signs (Last 4 hours): Vital Signs Temp Pulse Resp BP Pulse Ox 11/11/17 16:10 124 H 25 H 115/63 100 11/11/17 16:00 98.8 F 111 H 18 100 Intake and Output (Last 8hrs): Intake & Output 11/11/17 11/11/17 11/11/17 06:59 14:59 22:59 Intake Total 1108 950 250 Output Total 525 315 20 Balance 583 635 230 Weight 192 lb Intake: Intake, IV Amount 1108 950 250 Right Antecubital 1108 950 250 Oral 0 Output: Gastric Amount 10 Right Nares 10 Drainage 120 LEFT INGUINAL 40 Right Lower Abdomen 80 Urine 395 315 20 Urethral (Izquierdo) 395 315 20 Stool 0 0 - Medications Active Medications: Active Medications Generic Name Dose Route Start Last Admin Trade Name Freq PRN Reason Stop Dose Admin Enoxaparin Sodium 40 mg 11/10/17 22:00 11/11/17 11:04 Lovenox SC 40 mg DAILY [facility] Administration Hydromorphone HCl 0.5 mg 11/09/17 17:19 11/10/17 21:39 Dilaudid IVP 0.5 mg Q3H PRN Administration Pain, moderate (4-7) Piperacillin Sod/Tazobactam 100 mls @ 200 mls/hr 11/09/17 17:00 11/11/17 19: 07 Sod 3.375 gm/ Sodium Chloride IVPB 200 mls/hr Q6H [facility] Administration Protocol Vancomycin HCl 1 gm/ Sodium 250 mls @ 166.7 mls/hr 11/09/17 17:00 11/11/17 17 :25 Chloride IVPB 166.7 mls/hr Q24H [facility] Administration Protocol Acetaminophen 1,000 mg/ 100 mls @ 400 mls/hr 11/09/17 22:03 11/10/17 18:31 Miscellaneous IV 400 mls/hr Q6 [facility] Administration Dextrose/Sodium Chloride 1,000 mls @ 125 mls/hr 11/11/17 08:45 11/11/17 16:45 Dextrose 5%/0.45% Ns 1000 Ml IV Not Given .Q8H [facility] Ondansetron HCl 4 mg 11/09/17 17:19 Zofran Inj IVP Q4 PRN Nausea/Vomiting Pantoprazole Sodium 40 mg 11/09/17 20:45 11/11/17 08:19 Protonix Inj IVP 40 mg Q12H [facility] Administration - Patient Studies Lab Studies: Microbiology Studies 11/09/17 Unknown Gram Stain - Final Peritoneal Fluid Body Fluid Culture - Preliminary Gram Positive Cocci 11/10/17 00:42 MRSA Culture (Admit) - Final Naris MRSA DETECTED 11/09/17 17:31 Urine Culture - Final Urine Enterococcus Faecalis 11/09/17 23:10 Blood Culture - Preliminary Blood NO GROWTH AFTER 24 HOURS 11/09/17 23:10 Blood Culture - Preliminary Blood NO GROWTH AFTER 24 HOURS Lab Studies 11/11/17 11/11/17 11/11/17 Range/Units 06:28 06:28 05:17 WBC 10.8 D (4.8-10.8) K/uL RBC 4.63 (4.40-5.90) Mil/uL Hgb 12.8 D (12.0-18.0) g/dL Hct 38.1 (35.0-51.0) % MCV 82.5 (80.0-94.0) fL MCH 27.7 (27.0-31.0) pg MCHC 33.6 (33.0-37.0) g/dL RDW 17.1 H (11.5-14.5) % Plt Count 206 (130-400) K/uL MPV 8.5 (7.2-11.7) fL Neut % (Auto) 92.1 H (50.0-75.0) % Lymph % (Auto) 3.4 L (20.0-40.0) % [place] % (Auto) 4.3 (0.0-10.0) % Eos % (Auto) 0.1 (0.0-4.0) % Baso % (Auto) 0.1 (0.0-2.0) % Neut # (Auto) 10.0 H (1.8-7.0) K/uL Lymph # (Auto) 0.4 L (1.0-4.3) K/uL [place] # (Auto) 0.5 (0.0-0.8) K/uL Eos # (Auto) 0.0 (0.0-0.7) K/uL Baso # (Auto) 0.0 (0.0-0.2) K/uL Neutrophils % (Manual) 69 (50-75) % Band Neutrophils % 21 H* (0-2) % Lymphocytes % (Manual) 4 L (20-40) % Monocytes % (Manual) 6 (0-10) % Platelet Estimate Normal (NORMAL) Anisocytosis (manual) Slight [place] Cells Slight Puncture Site Lr pCO2 27 L (35-45) mm/Hg pO2 130 H (80-100) mm/Hg HCO3 19.8 L (21-28) mmol/L ABG pH 7.40 (7.35-7.45) ABG Total CO2 17.5 L (22-28) mmol/L ABG O2 Saturation 99.8 H (95-98) % ABG Base Excess -6.6 L (-2.0-3.0) mmol/L ABG Hemoglobin 12.8 (11.7-17.4) g/dL ABG Carboxyhemoglobin 1.6 H (0.5-1.5) % POC ABG HHb (Measured) 0.2 (0.0-5.0) % ABG Methemoglobin 1.2 (0.0-3.0) % Tino Test Pos A-a O2 Difference 121.0 mm/Hg Respiratory Index 0.9 Hgb O2 Saturation 97.0 (95.0-98.0) % Vent Mode Prvc Mechanical Rate 16 FiO2 40.0 % Tidal Volume 500 PEEP 5 Sodium 144 (132-148) mmol/L Potassium 5.4 H (3.6-5.2) mmol/L Chloride 112 H (98-107) mmol/L Carbon Dioxide 17 L (22-30) mmol/L Anion Gap 20 (10-20) BUN 29 H (9-20) mg/dL Creatinine 2.2 H (0.8-1.5) mg/dL Est GFR ( Amer) 35 Est GFR (Non-Af Amer) 29 Random Glucose 66 L (75-110) mg/dL Calcium 8.4 L (8.6-10.4) mg/dl Phosphorus 4.4 (2.5-4.5) mg/dL Magnesium 1.9 (1.6-2.3) mg/dL Total Bilirubin 0.8 (0.2-1.3) mg/dL AST 37 (17-59) U/L ALT 10 L D (21-72) U/L Alkaline Phosphatase 32 L D (38-126) U/L Total Protein 6.1 L (6.3-8.3) g/dL Albumin 3.0 L (3.5-5.0) g/dL Globulin 3.1 (2.2-3.9) gm/dL Albumin/Globulin Ratio 1.0 (1.0-2.1) Laboratory Results - last 24 hr 11/11/17 11/11/17 11/11/17 05:17 06:28 06:28 WBC 10.8 D RBC 4.63 Hgb 12.8 D Hct 38.1 MCV 82.5 MCH 27.7 MCHC 33.6 RDW 17.1 H Plt Count 206 MPV 8.5 Neut % (Auto) 92.1 H Lymph % (Auto) 3.4 L [place] % (Auto) 4.3 Eos % (Auto) 0.1 Baso % (Auto) 0.1 Neut # (Auto) 10.0 H Lymph # (Auto) 0.4 L [place] # (Auto) 0.5 Eos # (Auto) 0.0 Baso # (Auto) 0.0 Neutrophils % (Manual) 69 Band Neutrophils % 21 H* Lymphocytes % (Manual) 4 L Monocytes % (Manual) 6 Platelet Estimate Normal Anisocytosis (manual) Slight Helen Cells Slight Puncture Site Lr pCO2 27 L pO2 130 H HCO3 19.8 L ABG pH 7.40 ABG Total CO2 17.5 L ABG O2 Saturation 99.8 H ABG Base Excess -6.6 L ABG Hemoglobin 12.8 ABG Carboxyhemoglobin 1.6 H POC ABG HHb (Measured) 0.2 ABG Methemoglobin 1.2 Tino Test Pos A-a O2 Difference 121.0 Respiratory Index 0.9 Hgb O2 Saturation 97.0 Vent Mode Prvc Mechanical Rate 16 FiO2 40.0 Tidal Volume 500 PEEP 5 Sodium 144 Potassium 5.4 H Chloride 112 H Carbon Dioxide 17 L Anion Gap 20 BUN 29 H Creatinine 2.2 H Est GFR ( Amer) 35 Est GFR (Non-Af Amer) 29 Random Glucose 66 L Calcium 8.4 L Phosphorus 4.4 Magnesium 1.9 Total Bilirubin 0.8 AST 37 ALT 10 L D Alkaline Phosphatase 32 L D Total Protein 6.1 L Albumin 3.0 L Globulin 3.1 Albumin/Globulin Ratio 1.0 Critical Care Progress Note - Nutrition Nutrition: Nutrition Category Date Time Status NPO Diet [DIET] Diets 11/09/17 Dinner Active Attending/Attestation - Attestation I have personally seen and examined this patient.: Yes I have fully participated in the care of the patient.: Yes I have reviewed all pertinent clinical information: Yes Notes (Text): 11/11/17 19:19 Today: October The Patient was seen and examined at the bedside, Medical records reviewed, and management issues were discussed and formulated with the house staff. I have reviewed all the relevant clinical, laboratory, hemodynamic, radiographic data and medications Events reviewed Pain issues, skin care, head of the bed elevation, glycemic control were addressed. Agree with above resident's assessment and treatment plans of care as transcribed in Dr. Ojeda note.
[2017-11-11] MEDS ORDERED: Lactated Ringer's 1,000 ML IV SCH (19:15)
--- NOTE | 2017-11-11 21:18 | CARD ---
APPROVED REPORT EXAM: Two-dimensional and M-mode echocardiogram with Doppler and color Doppler. Other Information Quality : GoodRhythm : INDICATION Cardiomyopathy RISK FACTORS Hypertension 2D DIMENSIONS IVSd1.1 (0.7-1.1cm)LVDd4.0 (3.9-5.9cm) PWd1.2 (0.7-1.1cm)LVDs3.2 (2.5-4.0cm) FS (%) 20.0 %LVEF (%)41.5 (>50%) M-Mode DIMENSIONS Left Atrium (MM)3.95 (2.5-4.0cm)Aortic Root3.67 (2.2-3.7cm) Aortic Cusp Exc.2.69 (1.5-2.0cm) Mitral Valve MV E Vitpzznn97.0cm/sMV A Yqnwduch00.2cm/sE/A ratio0.7 TDI E/Lateral E'0.0E/Medial E'0.0 Tricuspid Valve TR Peak Qvfmbwcs315vq/sTR Peak Gr.[id number] LEFT VENTRICLE The left ventricle is normal size. There is borderline concentric left ventricular hypertrophy. Left ventricle systolic function is mildly impaired. The Ejection Fraction is 45-50%. There is global hypokinesis of the left ventricle. Transmitral Doppler flow pattern is Grade I-abnormal relaxation pattern. There is no ventricular septal defect visualized. RIGHT VENTRICLE The right ventricle is normal size. The right ventricular systolic function is normal. ATRIA The left atrium is mildly dilated. The right atrium size is normal. AORTIC VALVE The aortic valve is mildly sclerotic. The aortic valve is probably trileaflet. No aortic regurgitation is present. There is no aortic valvular stenosis. MITRAL VALVE Mitral annular calcification is mild. There is no evidence of mitral valve prolapse. Mitral regurgitation is trace. TRICUSPID VALVE The tricuspid valve is normal in structure. There is trace tricuspid regurgitation. Right ventricular systolic pressure is estimated at 40-50 mmHg. There is mild-moderate pulmonary hypertension. PULMONIC VALVE The pulmonic valve is not well visualized. There is no pulmonic valvular regurgitation. GREAT VESSELS The aortic root is normal in size. The ascending aorta is normal in size. Due to poor image quality, the IVC could not be assessed. PERICARDIAL EFFUSION There is no pericardial effusion. <Conclusion> There is borderline concentric left ventricular hypertrophy. Left ventricle systolic function is mildly impaired. The Ejection Fraction is 45-50%. There is global hypokinesis of the left ventricle. Transmitral Doppler flow pattern is Grade I-abnormal relaxation pattern. Mitral regurgitation is trace. There is mild-moderate pulmonary hypertension.
--- NOTE | 2017-11-11 23:05 | CP.PCM.CON ---
History of Present Illness - History of Present Illness History of Present Illness: 77 year old with HTN, Asthma, was admitted with abd pain, found with perforated peptic ulcer, had surgery. post op had tachy cardia, low urine out put, responded to IV fluid, still intubated awake, cooperative. Echo with LVH, EF 45- 50% no , mild PAH. sinus on Echo. observe with hydration, check TSH, needs anticoagulation when stable Review of Systems - Review of Systems Systems not reviewed;Unavailable: Unstable Vital Signs - Constitutional Constitutional: Anorexia, Weakness - EENT Eyes: absent: Discharge Ears: absent: Ear Discharge Nose/Mouth/Throat: absent: Epistaxis, Bleeding Gums - Cardiovascular Cardiovascular: absent: Acrocyanosis, Chest Pain, Diaphoresis, Pedal Edema, Syncope - Respiratory Respiratory: absent: Cough, Dyspnea, Hemoptysis - Gastrointestinal Gastrointestinal: Abdominal Pain. absent: Hematochezia, Melena - Genitourinary Genitourinary: Change in Urinary Stream Past Patient History - Past Medical History & Family History Past Medical History?: Yes - Past Social History Smoking Status: Never Smoked - CARDIAC Hx Congestive Heart Failure: Yes Hx Hypertension: Yes - PULMONARY Hx Asthma: Yes Hx Pneumonia: Yes (X3) - NEUROLOGICAL Hx Neurological Disorder: Yes Hx Dizziness: Yes - HEENT Hx HEENT Problems: Yes Hx Cataracts: Yes - RENAL Hx Chronic Kidney Disease: Yes (RENAL INSUFFICIENCY) - ENDOCRINE/METABOLIC Hx Endocrine Disorders: No - HEMATOLOGICAL/ONCOLOGICAL Hx Anemia: Yes - INTEGUMENTARY Hx Dermatological Problems: No - MUSCULOSKELETAL/RHEUMATOLOGICAL Hx Musculoskeletal Disorders: Yes Hx Osteoarthritis: Yes - GASTROINTESTINAL Hx Gastrointestinal Disorders: Yes Hx Gastroesophageal Reflux: Yes - GENITOURINARY/GYNECOLOGICAL Hx Genitourinary Disorders: Yes Hx Prostate Problems: Yes (Urinary Retention, BPH) Other/Comment: STAHL CATH - PSYCHIATRIC Hx Substance Use: No - SURGICAL HISTORY Hx Surgeries: Yes Other/Comment: Cystoscopy - ANESTHESIA Hx Anesthesia: Yes Hx Anesthesia Reactions: No Hx Malignant Hyperthermia: No Meds Allergies/Adverse Reactions: Allergies Allergy/AdvReac Type Severity Reaction Status Date / Time shellfish derived Allergy Verified 11/09/17 15:18 - Medications Medications: Current Medications Enoxaparin Sodium (Lovenox) 40 mg SC DAILY [facility]AID Last Admin: 11/11/17 11:04 Dose: 40 mg Hydromorphone HCl (Dilaudid) 0.5 mg IVP Q3H PRN PRN Reason: Pain, moderate (4-7) Last Admin: 11/10/17 21:39 Dose: 0.5 mg Piperacillin Sod/Tazobactam (Sod 3.375 gm/ Sodium Chloride) 100 mls @ 200 mls/ hr IVPB Q6H [facility] PRN Reason: Protocol Last Admin: 11/11/17 22:57 Dose: 200 mls/hr Vancomycin HCl 1 gm/ Sodium (Chloride) 250 mls @ 166.7 mls/hr IVPB Q24H [facility] PRN Reason: Protocol Last Admin: 11/11/17 17:25 Dose: 166.7 mls/hr Acetaminophen 1,000 mg/ (Miscellaneous) 100 mls @ 400 mls/hr IV Q6 [facility] Last Admin: 11/10/17 18:31 Dose: 400 mls/hr Dextrose/Sodium Chloride (Dextrose 5%/0.45% Ns 1000 Ml) 1,000 mls @ 125 mls/hr IV .Q8H [facility] Last Admin: 11/11/17 16:45 Dose: Not Given Ondansetron HCl (Zofran Inj) 4 mg IVP Q4 PRN PRN Reason: Nausea/Vomiting Pantoprazole Sodium (Protonix Inj) 40 mg IVP Q12H [facility] Last Admin: 11/11/17 19:52 Dose: 40 mg Physical Exam - Constitutional Appears: Toxic - Head Exam Head Exam: ATRAUMATIC - Eye Exam Eye Exam: EOMI - ENT Exam ENT Exam: Mucous Membranes Moist - Neck Exam Neck exam: Negative for: Lymphadenopathy, Thyromegaly - Respiratory Exam Respiratory Exam: Clear to Auscultation Bilateral. absent: Rales - Cardiovascular Exam Cardiovascular Exam: REGULAR RHYTHM, Systolic Murmur - GI/Abdominal Exam GI & Abdominal Exam: Normal Bowel Sounds. absent: Organomegaly - Rectal Exam Rectal Exam: Deferred - Extremities Exam Extremities exam: Positive for: normal capillary refill. Negative for: calf tenderness - Neurological Exam Neurological exam: Alert - Psychiatric Exam Psychiatric exam: Normal Mood - Skin Skin Exam: Dry Results - Vital Signs Recent Vital Signs: Last Vital Signs Temp 100 F H 11/11/17 20:00 Pulse 130 H 11/11/17 20:10 Resp 22 11/11/17 20:10 BP 121/49 L 11/11/17 20:10 Pulse Ox 100 11/11/17 20:10 - Labs Result Diagrams: 11/11/17 06:28 11/11/17 06:28 Labs: Laboratory Results - last 24 hr 11/11/17 11/11/17 11/11/17 05:17 06:28 06:28 WBC 10.8 D RBC 4.63 Hgb 12.8 D Hct 38.1 MCV 82.5 MCH 27.7 MCHC 33.6 RDW 17.1 H Plt Count 206 MPV 8.5 Neut % (Auto) 92.1 H Lymph % (Auto) 3.4 L Owen % (Auto) 4.3 Eos % (Auto) 0.1 Baso % (Auto) 0.1 Neut # (Auto) 10.0 H Lymph # (Auto) 0.4 L Owen # (Auto) 0.5 Eos # (Auto) 0.0 Baso # (Auto) 0.0 Neutrophils % (Manual) 69 Band Neutrophils % 21 H* Lymphocytes % (Manual) 4 L Monocytes % (Manual) 6 Platelet Estimate Normal Anisocytosis (manual) Slight Helen Cells Slight Puncture Site Lr pCO2 27 L pO2 130 H HCO3 19.8 L ABG pH 7.40 ABG Total CO2 17.5 L ABG O2 Saturation 99.8 H ABG Base Excess -6.6 L ABG Hemoglobin 12.8 ABG Carboxyhemoglobin 1.6 H POC ABG HHb (Measured) 0.2 ABG Methemoglobin 1.2 Tino Test Pos A-a O2 Difference 121.0 Respiratory Index 0.9 Hgb O2 Saturation 97.0 Vent Mode Prvc Mechanical Rate 16 FiO2 40.0 Tidal Volume 500 PEEP 5 Sodium 144 Potassium 5.4 H Chloride 112 H Carbon Dioxide 17 L Anion Gap 20 BUN 29 H Creatinine 2.2 H Est GFR ( Amer) 35 Est GFR (Non-Af Amer) 29 Random Glucose 66 L Calcium 8.4 L Phosphorus 4.4 Magnesium 1.9 Total Bilirubin 0.8 AST 37 ALT 10 L D Alkaline Phosphatase 32 L D Total Protein 6.1 L Albumin 3.0 L Globulin 3.1 Albumin/Globulin Ratio 1.0 Assessment & Plan (1) Atrial fib/flutter, transient Status: Acute Comment: observe with hydration, needs anticoagulation (2) Perforated abdominal viscus Status: Acute Comment: post op (3) Sepsis Status: Acute (4) HTN (hypertension) Status: Chronic
[2017-11-12] MEDS: Dextrose 5%/0.45% NS 1,000 ML IV SCH ×4 (01:05→10:45)
[2017-11-12] MEDS: HYDROmorphone 0.5 mg/0.5 ml ISec IVP PRN (01:08)
[2017-11-12] MEDS ORDERED: Metoprolol 1 mg/ml Inj IVP SCH (01:30)
[2017-11-12] MEDS: Piperacillin/Tazobact 3.375 GM in Sodium Chloride 100 ML IVPB SCH ×4 (04:11→23:01)
[2017-11-12 06:09] LABS: ABG ALLEN TEST POS; ARTERIAL BLOOD GAS HCO3 22.2 mmol/L (21-28); ARTERIAL BLOOD GAS HEMOGLOBIN 10.7 g/dL (11.7-17.4); ARTERIAL BLOOD GAS O2 SAT 100.2 % (95-98); ARTERIAL BLOOD GAS PCO2 28 mm/Hg (35-45); ARTERIAL BLOOD GAS PH 7.45 (7.35-7.45); ARTERIAL BLOOD GAS PO2 139 mm/Hg (80-100); ARTERIAL BLOOD GAS TCO2 20.4 mmol/L (22-28)
[2017-11-12 06:19] LABS: BASO % 0.1 % (0.0-2.0); HEMOGLOBIN 10.8 g/dL (12.0-18.0); LYMPH # 0.5 K/uL (1.0-4.3); LYMPH % 5.9 % (20.0-40.0); MEAN CELL VOLUME 81.5 fL (80.0-94.0); MEAN CORPUSCULAR HEMOGLOBIN 27.8 pg (27.0-31.0); MEAN PLATELET VOLUME 8.8 fL (7.2-11.7); MONO # 0.3 K/uL (0.0-0.8); MONO % 3.2 % (0.0-10.0); NEUT # 8.3 K/uL (1.8-7.0); NEUT % 90.8 % (50.0-75.0); PLATELET COUNT 187 K/uL (130-400); RBC 3.89 Mil/uL (4.40-5.90); RED CELL DISTRIBUTION WIDTH 16.8 % (11.5-14.5); WHITE BLOOD COUNT 9.2 K/uL (4.8-10.8)
[2017-11-12 06:28] LABS: ALB/GLOB RATIO 0.8 (1.0-2.1); ALBUMIN 2.3 g/dL (3.5-5.0)
--- NOTE | 2017-11-12 07:50 | CP.PCM.PN ---
Subjective - Date & Time of Evaluation Date of Evaluation: 11/12/17 Time of Evaluation: 07:48 - Subjective Subjective: Surgery: Dr Moore, covering for Dr. Gaytan Patient with tachycardia overnight, improved with lopressor. Patient remained on pressure support, tolerating. Per nursing NGT 820cc/24hr and 868cc/urine output. No bowel function. Objective - Vital Signs/Intake and Output Vital Signs (last 24 hours): Temp Pulse Resp BP Pulse Ox 98.7 F 111 H 17 101/66 100 11/12/17 04:00 11/12/17 06:00 11/12/17 06:00 11/12/17 05:10 11/12/17 06:00 Intake and Output: 11/12/17 11/12/17 06:59 18:59 Intake Total 1555 Output Total 1310 Balance 245 - Medications Medications: Current Medications Heparin Sodium (Porcine) (Heparin) 5,000 units SC Q8 [facility] Hydromorphone HCl (Dilaudid) 0.5 mg IVP Q3H PRN PRN Reason: Pain, moderate (4-7) Last Admin: 11/12/17 01:08 Dose: 0.5 mg Piperacillin Sod/Tazobactam (Sod 3.375 gm/ Sodium Chloride) 100 mls @ 200 mls/ hr IVPB Q6H [facility] PRN Reason: Protocol Last Admin: 11/12/17 04:11 Dose: 200 mls/hr Acetaminophen 1,000 mg/ (Miscellaneous) 100 mls @ 400 mls/hr IV Q6 [facility] Last Admin: 11/10/17 18:31 Dose: 400 mls/hr Dextrose/Sodium Chloride (Dextrose 5%/0.45% Ns 1000 Ml) 1,000 mls @ 125 mls/hr IV .Q8H [facility] Last Admin: 11/12/17 04:14 Dose: 125 mls/hr Metoprolol Tartrate (Lopressor) 2.5 mg IVP Q6H [facility] Ondansetron HCl (Zofran Inj) 4 mg IVP Q4 PRN PRN Reason: Nausea/Vomiting Pantoprazole Sodium (Protonix Inj) 40 mg IVP Q12H [facility] Last Admin: 11/11/17 19:52 Dose: 40 mg - Labs Labs: 11/12/17 05:53 11/12/17 05:55 PT 14.0 SECONDS (9.7-12.2) H 11/09/17 15:27 INR 1.3 11/09/17 15:27 APTT 30 SECONDS (21-34) 11/09/17 15:27 - Constitutional Appears: No Acute Distress - Head Exam Head Exam: ATRAUMATIC, NORMOCEPHALIC - Eye Exam Eye Exam: EOMI, Normal appearance - ENT Exam ENT Exam: Mucous Membranes Moist Additional comments: NGT and ETT in place - Respiratory Exam Respiratory Exam: absent: Respiratory Distress - Cardiovascular Exam Cardiovascular Exam: Tachycardia, Irregular Rhythm - GI/Abdominal Exam GI & Abdominal Exam: Soft. absent: Distended, Guarding, Tenderness, Rebound Additional comments: dressing CDI, Ry drains x2 - Skin Skin Exam: Dry, Warm Assessment and Plan - Assessment and Plan (Free Text) Assessment: 77 y/o male s/p ex lap w/ partial gastrectomy and Frandy en Y recon POD3 Plan: -wean to extubate -MONY: will d/c Vanco and switch Lovenox to heparin -cont Zosyn -cont PPI BID -cont suh -reinforce dressing prn -pain control -monitor for bowel function -further recs per Dr. Moore AKWhcindy PGY3
--- NOTE | 2017-11-12 08:33 | RAD ---
HISTORY: ff-up COMPARISON: Portable chest 11/11/2017. FINDINGS: LUNGS: Endotracheal and nasogastric tubes are not significantly changed in position. Left basilar airspace disease persists with underlying left pleural effusion not excluded. None is seen at the right. No pneumothorax bilaterally. PLEURA: As above. CARDIOVASCULAR: Stable cardiomegaly. No definite pulmonary vascular congestion. OSSEOUS STRUCTURES: No significant abnormalities. VISUALIZED UPPER ABDOMEN: Normal. OTHER FINDINGS: None. IMPRESSION: No interval change in left basilar airspace disease with underlying left pleural effusion not excluded. Stable cardiomegaly.
[2017-11-12 08:52] LABS: BANDS 10 % (0-2); LYMPHOCYTE 9 % (20-40); MONOCYTE 5 % (0-10); NEUTROPHIL 76 % (50-75); PLATELET ESTIMATE NORMAL (NORMAL); TOTAL CELLS COUNTED 100
[2017-11-12 08:53] LABS: ANISOCYTOSIS SLIGHT; BURR CELLS SLIGHT; HYPOCHROMIC SLIGHT; OVALOCYTES SLIGHT; POIKILOCYTOSIS SLIGHT
[2017-11-12 08:54] LABS: TOXIC GRANULATION PRESENT
[2017-11-12] MEDS: Metoprolol 1 mg/ml Inj IVP SCH ×3 (10:15→21:51)
[2017-11-12] MEDS: Ipratropium 0.02% Inhal Soln (0.5 mg/2.5 ml) UD IH SCH ×3 (12:04→19:59)
[2017-11-12 16:16] LABS: ABG ALLEN TEST PO; ARTERIAL BLOOD GAS O2 SAT 99.7 % (95-98); ARTERIAL BLOOD GAS PCO2 28 mm/Hg (35-45); ARTERIAL BLOOD GAS PH 7.44 (7.35-7.45); ARTERIAL BLOOD GAS PO2 125 mm/Hg (80-100); ARTERIAL BLOOD GAS TCO2 19.9 mmol/L (22-28)
--- NOTE | 2017-11-12 16:50 | CP.CCUPN ---
<Eve Young - Last Filed: 11/12/17 16:40> CCU Subjective - Physician Review Subjective (Free Text): Patient seen and examined at bedside. Resting comfortably. Currently Intubated. CCU Objective - Vital Signs / Intake & Output Vital Signs (Last 4 hours): Vital Signs Pulse Resp BP Pulse Ox 11/12/17 15:00 106 H 14 100 11/12/17 14:10 108 H 22 103/55 L 100 11/12/17 14:00 90 23 100 11/12/17 13:11 96 H 23 107/46 L 100 11/12/17 13:00 101 H 23 100 Intake and Output (Last 8hrs): Intake & Output 11/12/17 11/12/17 11/12/17 06:59 14:59 22:59 Intake Total 1080 625 Output Total 1160 270 Balance -80 355 Weight 192 lb 12.8 oz Intake: Intake, IV Amount 1080 625 Right Antecubital 1080 625 Output: Gastric Amount 800 Right Nares 800 Drainage 60 LEFT INGUINAL 20 Right Lower Abdomen 40 Urine 300 270 Urethral (Izquierdo) 300 270 - Physical Exam Head: Positive for: Atraumatic, Normocephalic Extroacular Muscles: Positive for: EOMI Nose (External): Positive for: Other (NG Tube) Respiratory/Chest: Positive for: Clear to Auscultation, Other (Intubated ). Negative for: Accessory Muscle Use Cardiovascular: Positive for: Normal S1, S2, Irregular Rhythm Abdomen: Positive for: Tenderness (Surgical Site. ), Other (G tube x 2 with abdominal dressing (Clean Dry and Intact) ) Lower Extremity: Negative for: Edema Neurological: Positive for: GCS=15 (11T) - Medications Active Medications: Active Medications Generic Name Dose Route Start Last Admin Trade Name Freq PRN Reason Stop Dose Admin Heparin Sodium (Porcine) 5,000 units 11/12/17 14:00 11/12/17 14:13 Heparin SC 5,000 units Q8 ZAID Administration Hydromorphone HCl 0.5 mg 11/09/17 17:19 11/12/17 01:08 Dilaudid IVP 0.5 mg Q3H PRN Administration Pain, moderate (4-7) Piperacillin Sod/Tazobactam 100 mls @ 200 mls/hr 11/09/17 17:00 11/12/17 11: 47 Sod 3.375 gm/ Sodium Chloride IVPB 200 mls/hr Q6H ZAID Administration Protocol Dextrose/Sodium Chloride 1,000 mls @ 50 mls/hr 11/12/17 10:44 11/12/17 10:45 Dextrose 5%/0.45% Ns 1000 Ml IV 50 mls/hr .Q20H ZAID Administration Ipratropium [place] 0.5 mg 11/12/17 10:45 11/12/17 13:32 Atrovent IH Not Given RQ6 ZAID Metoprolol Tartrate 2.5 mg 11/12/17 10:15 11/12/17 10:15 Lopressor IVP Not Given Q6H ZAID Ondansetron HCl 4 mg 11/09/17 17:19 Zofran Inj IVP Q4 PRN Nausea/Vomiting Pantoprazole Sodium 40 mg 11/09/17 20:45 11/12/17 09:38 Protonix Inj IVP 40 mg Q12H ZAID Administration - Patient Studies Lab Studies: Microbiology Studies 11/09/17 Unknown Gram Stain - Final Peritoneal Fluid Body Fluid Culture - Preliminary Streptococcus Viridans Staphylococcus Aureus 11/09/17 23:10 Blood Culture - Preliminary Blood NO GROWTH AFTER 48 HOURS 11/09/17 23:10 Blood Culture - Preliminary Blood NO GROWTH AFTER 48 HOURS Lab Studies 11/12/17 11/12/17 11/12/17 Range/Units 16:13 12:08 05:55 WBC (4.8-10.8) K/uL RBC (4.40-5.90) Mil/uL Hgb (12.0-18.0) g/dL Hct (35.0-51.0) % MCV (80.0-94.0) fL MCH (27.0-31.0) pg MCHC (33.0-37.0) g/dL RDW (11.5-14.5) % Plt Count (130-400) K/uL MPV (7.2-11.7) fL Neut % (Auto) (50.0-75.0) % Lymph % (Auto) (20.0-40.0) % [place] % (Auto) (0.0-10.0) % Eos % (Auto) (0.0-4.0) % Baso % (Auto) (0.0-2.0) % Neut # (Auto) (1.8-7.0) K/uL Lymph # (Auto) (1.0-4.3) K/uL [place] # (Auto) (0.0-0.8) K/uL Eos # (Auto) (0.0-0.7) K/uL Baso # (Auto) (0.0-0.2) K/uL Neutrophils % (Manual) (50-75) % Band Neutrophils % (0-2) % Lymphocytes % (Manual) (20-40) % Monocytes % (Manual) (0-10) % Toxic Granulation Platelet Estimate (NORMAL) Hypochromasia (manual) Poikilocytosis (manual Anisocytosis (manual) Ovalocytes [place] Cells Puncture Site Rr pCO2 28 L (35-45) mm/Hg pO2 125 H (80-100) mm/Hg HCO3 22.0 (21-28) mmol/L ABG pH 7.44 (7.35-7.45) ABG Total CO2 19.9 L (22-28) mmol/L ABG O2 Saturation 99.7 H (95-98) % ABG Base Excess -3.8 L (-2.0-3.0) mmol/L ABG Hemoglobin (11.7-17.4) g/dL ABG Carboxyhemoglobin (0.5-1.5) % POC ABG HHb (Measured) (0.0-5.0) % ABG Methemoglobin (0.0-3.0) % Tino Test Po ABG Potassium 3.4 L (3.6-5.2) mmol/L A-a O2 Difference 54.0 mm/Hg Respiratory Index 0.4 Hgb O2 Saturation (95.0-98.0) % Glucose 92 (75-110) mg/dl Lactate 1.2 (0.7-2.1) mmol/L Vent Mode FiO2 30.0 % PEEP Pressure Support Sodium 147.0 146 (132-148) mmol/L Potassium 4.5 (3.6-5.2) mmol/L Chloride 121.0 H 116 H (98-107) mmol/L Carbon Dioxide 20 L (22-30) mmol/L Anion Gap 14 (10-20) BUN 40 H (9-20) mg/dL Creatinine 2.5 H (0.8-1.5) mg/dL Est GFR ( Amer) 30 Est GFR (Non-Af Amer) 25 POC Glucose (mg/dL) 134 H (65-110) mg/dL Random Glucose 141 H (75-110) mg/dL Calcium 8.0 L (8.6-10.4) mg/dl Phosphorus 4.1 (2.5-4.5) mg/dL Magnesium 2.3 (1.6-2.3) mg/dL Total Bilirubin 0.7 (0.2-1.3) mg/dL AST 36 (17-59) U/L ALT 19 L D (21-72) U/L Alkaline Phosphatase 38 (38-126) U/L Total Protein 5.3 L (6.3-8.3) g/dL Albumin 2.3 L D (3.5-5.0) g/dL Globulin 3.0 (2.2-3.9) gm/dL Albumin/Globulin Ratio 0.8 L (1.0-2.1) TSH 3rd Generation 2.86 (0.46-4.68) mIU/L Arterial Blood Potassium 3.4 L (3.6-5.2) mmol/L 11/12/17 11/12/17 Range/Units 05:53 05:29 WBC 9.2 (4.8-10.8) K/uL RBC 3.89 L (4.40-5.90) Mil/uL Hgb 10.8 L D (12.0-18.0) g/dL Hct 31.7 L (35.0-51.0) % MCV 81.5 (80.0-94.0) fL MCH 27.8 (27.0-31.0) pg MCHC 34.0 (33.0-37.0) g/dL RDW 16.8 H (11.5-14.5) % Plt Count 187 (130-400) K/uL MPV 8.8 (7.2-11.7) fL Neut % (Auto) 90.8 H (50.0-75.0) % Lymph % (Auto) 5.9 L (20.0-40.0) % [place] % (Auto) 3.2 (0.0-10.0) % Eos % (Auto) 0.0 (0.0-4.0) % Baso % (Auto) 0.1 (0.0-2.0) % Neut # (Auto) 8.3 H (1.8-7.0) K/uL Lymph # (Auto) 0.5 L (1.0-4.3) K/uL [place] # (Auto) 0.3 (0.0-0.8) K/uL Eos # (Auto) 0.0 (0.0-0.7) K/uL Baso # (Auto) 0.0 (0.0-0.2) K/uL Neutrophils % (Manual) 76 H (50-75) % Band Neutrophils % 10 H (0-2) % Lymphocytes % (Manual) 9 L (20-40) % Monocytes % (Manual) 5 (0-10) % Toxic Granulation Present Platelet Estimate Normal (NORMAL) Hypochromasia (manual) Slight Poikilocytosis (manual Slight Anisocytosis (manual) Slight Ovalocytes Slight [place] Cells Slight Puncture Site L rad pCO2 28 L (35-45) mm/Hg pO2 139 H (80-100) mm/Hg HCO3 22.2 (21-28) mmol/L ABG pH 7.45 (7.35-7.45) ABG Total CO2 20.4 L (22-28) mmol/L ABG O2 Saturation 100.2 H (95-98) % ABG Base Excess -3.5 L (-2.0-3.0) mmol/L ABG Hemoglobin 10.7 L (11.7-17.4) g/dL ABG Carboxyhemoglobin 1.9 H (0.5-1.5) % POC ABG HHb (Measured) -0.2 L (0.0-5.0) % ABG Methemoglobin 0.9 (0.0-3.0) % Tino Test Pos ABG Potassium (3.6-5.2) mmol/L A-a O2 Difference 111.0 mm/Hg Respiratory Index 0.8 Hgb O2 Saturation 97.4 (95.0-98.0) % Glucose (75-110) mg/dl Lactate (0.7-2.1) mmol/L Vent Mode Cpap FiO2 40.0 % PEEP 5 Pressure Support 15 Sodium (132-148) mmol/L Potassium (3.6-5.2) mmol/L Chloride (98-107) mmol/L Carbon Dioxide (22-30) mmol/L Anion Gap (10-20) BUN (9-20) mg/dL Creatinine (0.8-1.5) mg/dL Est GFR ( Amer) Est GFR (Non-Af Amer) POC Glucose (mg/dL) (65-110) mg/dL Random Glucose (75-110) mg/dL Calcium (8.6-10.4) mg/dl Phosphorus (2.5-4.5) mg/dL Magnesium (1.6-2.3) mg/dL Total Bilirubin (0.2-1.3) mg/dL AST (17-59) U/L ALT (21-72) U/L Alkaline Phosphatase (38-126) U/L Total Protein (6.3-8.3) g/dL Albumin (3.5-5.0) g/dL Globulin (2.2-3.9) gm/dL Albumin/Globulin Ratio (1.0-2.1) TSH 3rd Generation (0.46-4.68) mIU/L Arterial Blood Potassium (3.6-5.2) mmol/L Laboratory Results - last 24 hr 11/12/17 11/12/17 11/12/17 05:29 05:53 05:55 WBC 9.2 RBC 3.89 L Hgb 10.8 L D Hct 31.7 L MCV 81.5 MCH 27.8 MCHC 34.0 RDW 16.8 H Plt Count 187 MPV 8.8 Neut % (Auto) 90.8 H Lymph % (Auto) 5.9 L [place] % (Auto) 3.2 Eos % (Auto) 0.0 Baso % (Auto) 0.1 Neut # (Auto) 8.3 H Lymph # (Auto) 0.5 L [place] # (Auto) 0.3 Eos # (Auto) 0.0 Baso # (Auto) 0.0 Neutrophils % (Manual) 76 H Band Neutrophils % 10 H Lymphocytes % (Manual) 9 L Monocytes % (Manual) 5 Toxic Granulation Present Platelet Estimate Normal Hypochromasia (manual) Slight Poikilocytosis (manual Slight Anisocytosis (manual) Slight Ovalocytes Slight [place] Cells Slight Puncture Site L rad pCO2 28 L pO2 139 H HCO3 22.2 ABG pH 7.45 ABG Total CO2 20.4 L ABG O2 Saturation 100.2 H ABG Base Excess -3.5 L ABG Hemoglobin 10.7 L ABG Carboxyhemoglobin 1.9 H POC ABG HHb (Measured) -0.2 L ABG Methemoglobin 0.9 Tino Test Pos ABG Potassium A-a O2 Difference 111.0 Respiratory Index 0.8 Hgb O2 Saturation 97.4 Glucose Lactate Vent Mode Cpap FiO2 40.0 PEEP 5 Pressure Support 15 Sodium 146 Potassium 4.5 Chloride 116 H Carbon Dioxide 20 L Anion Gap 14 BUN 40 H Creatinine 2.5 H Est GFR ( Amer) 30 Est GFR (Non-Af Amer) 25 POC Glucose (mg/dL) Random Glucose 141 H Calcium 8.0 L Phosphorus 4.1 Magnesium 2.3 Total Bilirubin 0.7 AST 36 ALT 19 L D Alkaline Phosphatase 38 Total Protein 5.3 L Albumin 2.3 L D Globulin 3.0 Albumin/Globulin Ratio 0.8 L TSH 3rd Generation 2.86 Arterial Blood Potassium 11/12/17 11/12/17 12:08 16:13 WBC RBC Hgb Hct MCV MCH MCHC RDW Plt Count MPV Neut % (Auto) Lymph % (Auto) [place] % (Auto) Eos % (Auto) Baso % (Auto) Neut # (Auto) Lymph # (Auto) [place] # (Auto) Eos # (Auto) Baso # (Auto) Neutrophils % (Manual) Band Neutrophils % Lymphocytes % (Manual) Monocytes % (Manual) Toxic Granulation Platelet Estimate Hypochromasia (manual) Poikilocytosis (manual Anisocytosis (manual) Ovalocytes [place] Cells Puncture Site Rr pCO2 28 L pO2 125 H HCO3 22.0 ABG pH 7.44 ABG Total CO2 19.9 L ABG O2 Saturation 99.7 H ABG Base Excess -3.8 L ABG Hemoglobin ABG Carboxyhemoglobin POC ABG HHb (Measured) ABG Methemoglobin Tino Test Po ABG Potassium 3.4 L A-a O2 Difference 54.0 Respiratory Index 0.4 Hgb O2 Saturation Glucose 92 Lactate 1.2 Vent Mode FiO2 30.0 PEEP Pressure Support Sodium 147.0 Potassium Chloride 121.0 H Carbon Dioxide Anion Gap BUN Creatinine Est GFR ( Amer) Est GFR (Non-Af Amer) POC Glucose (mg/dL) 134 H Random Glucose Calcium Phosphorus Magnesium Total Bilirubin AST ALT Alkaline Phosphatase Total Protein Albumin Globulin Albumin/Globulin Ratio TSH 3rd Generation Arterial Blood Potassium 3.4 L Fingerstick Blood Sugar Results: 134 Review of Systems - Review of Systems Systems not reviewed;Unavailable: Intubated Critical Care Progress Note - Nutrition Nutrition: Nutrition Category Date Time Status NPO Diet [DIET] Diets 11/09/17 Dinner Active Assessment/Plan - Assessment and Plan (Free Text) Assessment: 77 y/o male with h/o HTN,asthma presented to ER with abdominal pain,nausea and vomiting.found to have acute abdomen and pneumoperitoneum,taken to OR. S/P Exploratory laparotomy, distal gastrectomy with anterior retrocolic functional promise en y reconstruction; gastrojejustomy and distal jejunostomy; Intra- abdominal primary Left inguinal herniorraphy. POD3 Plan: Neuro: GCS: 11T Sedation: None Cardio: A: Hx of HTN, New Onset A-fib Patient is normotensive. Hold Anti-Hypertensive Meds. Started on Lopressor 2.5mg Q6H Cardiology COnsulted for new onset A-fib Pulm A: Res. Failure-On vent Post-Op, Hx of Asthma PRVC: 40% Fi02, 16RR, 500 TV, 5 PEEP. Tolerating CPAP Extubate today and start on Aerosal Mask 02 GI: A: Abdominal Surgery POD #3 Management per surgery team. PRN Zofran ID Afebrile, no leukocytosis, Elevated Lactate (Resolved) Post-Op Prophylaxis with Zosyn Blood Culture - NEGATIVE Urine Culture - Enterococcus Faecalis MRSA CUlture - NEGATIVE Peritoneal Fluid - POSITIVE for Stertococcus Viridans, and Staph Auerues Renal A: MONY (Worsening), likely Pre-Renal D5 @ 125mls reduced to 50mls/ due to fluid overload If Cr continues to rise, renally dose medications. Nephrology Consulted Proph Lovenox. Protonix Patient seen and discussed with ICU Attending Eve Young, PGY-1 <Rachid Lucas M - Last Filed: 11/13/17 15:47> CCU Objective - Vital Signs / Intake & Output Vital Signs (Last 4 hours): Vital Signs Temp Pulse Resp BP Pulse Ox 11/13/17 15:00 82 25 H 100 11/13/17 14:54 85 21 116/57 L 100 11/13/17 14:00 106 H 16 97 11/13/17 13:55 109 H 27 H 109/58 L 98 11/13/17 13:00 85 15 11/13/17 12:55 117 H 14 111/56 L 11/13/17 12:07 104 H 15 11/13/17 12:00 98 F 100 11/13/17 11:54 114 H 16 129/63 Intake and Output (Last 8hrs): Intake & Output 11/13/17 11/13/17 11/13/17 06:59 14:59 22:59 Intake Total 600 985 75 Output Total 1395 320 80 Balance -795 665 -5 Weight 185 lb 3 oz Intake: Intake, IV Amount 600 625 75 Left Antecubital 200 625 75 Right Antecubital 400 Oral 360 Output: Gastric Amount 800 0 Right Nares 800 0 Drainage 45 LEFT INGUINAL 25 Right Lower Abdomen 20 Urine 550 320 80 Urethral (Izquierdo) 550 320 80 Emesis 0 0 Other: # Bowel Movements 0 0 0 - Medications Active Medications: Active Medications Generic Name Dose Route Start Last Admin Trade Name Freq PRN Reason Stop Dose Admin Heparin Sodium (Porcine) 5,000 units 11/12/17 14:00 11/13/17 13:27 Heparin SC 5,000 units Q8 ZAID Administration Hydromorphone HCl 0.5 mg 11/09/17 17:19 11/13/17 03:19 Dilaudid IVP 0.5 mg Q3H PRN Administration Pain, moderate (4-7) Piperacillin Sod/Tazobactam 100 mls @ 200 mls/hr 11/09/17 17:00 11/13/17 10: 12 Sod 3.375 gm/ Sodium Chloride IVPB 200 mls/hr Q6H ZAID Administration Protocol Dextrose/Sodium Chloride 1,000 mls @ 75 mls/hr 11/13/17 08:30 11/13/17 10:14 Dextrose 5%/0.45% Ns 1000 Ml IV 75 mls/hr .[id number] ZAID Administration Ipratropium [place] 0.5 mg 11/12/17 10:45 11/13/17 13:31 Atrovent IH 0.5 mg RQ6 ZAID Administration Metoprolol Tartrate 2.5 mg 11/12/17 10:15 11/13/17 10:12 Lopressor IVP Not Given Q6H ZAID Ondansetron HCl 4 mg 11/09/17 17:19 Zofran Inj IVP Q4 PRN Nausea/Vomiting Pantoprazole Sodium 40 mg 11/09/17 20:45 11/13/17 10:11 Protonix Inj IVP 40 mg Q12H ZAID Administration - Patient Studies Lab Studies: Microbiology Studies 11/09/17 Unknown Gram Stain - Final Peritoneal Fluid Body Fluid Culture - Preliminary Streptococcus Viridans Methicillin Resistant S Aureus Yeast Species 11/09/17 23:10 Blood Culture - Preliminary Blood NO GROWTH AFTER 3 DAYS 11/09/17 23:10 Blood Culture - Preliminary Blood NO GROWTH AFTER 3 DAYS Lab Studies 11/13/17 11/13/17 11/13/17 Range/Units 13:49 11:31 06:18 WBC 8.6 (4.8-10.8) K/uL RBC 3.64 L (4.40-5.90) Mil/uL Hgb 10.0 L (12.0-18.0) g/dL Hct 29.3 L (35.0-51.0) % MCV 80.6 (80.0-94.0) fL MCH 27.4 (27.0-31.0) pg MCHC 34.0 (33.0-37.0) g/dL RDW 16.8 H (11.5-14.5) % Plt Count 171 (130-400) K/uL MPV 8.6 (7.2-11.7) fL Neut % (Auto) 89.7 H (50.0-75.0) % Lymph % (Auto) 5.6 L (20.0-40.0) % [place] % (Auto) 4.6 (0.0-10.0) % Eos % (Auto) 0.0 (0.0-4.0) % Baso % (Auto) 0.1 (0.0-2.0) % Neut # (Auto) 7.7 H (1.8-7.0) K/uL Lymph # (Auto) 0.5 L (1.0-4.3) K/uL [place] # (Auto) 0.4 (0.0-0.8) K/uL Eos # (Auto) 0.0 (0.0-0.7) K/uL Baso # (Auto) 0.0 (0.0-0.2) K/uL Neutrophils % (Manual) 90 H (50-75) % Lymphocytes % (Manual) 7 L (20-40) % Monocytes % (Manual) 3 (0-10) % Toxic Granulation Present Platelet Estimate Normal (NORMAL) Polychromasia Slight Hypochromasia (manual) Slight Anisocytosis (manual) Slight Puncture Site pCO2 (35-45) mm/Hg pO2 (80-100) mm/Hg HCO3 (21-28) mmol/L ABG pH (7.35-7.45) ABG Total CO2 (22-28) mmol/L ABG O2 Saturation (95-98) % ABG Base Excess (-2.0-3.0) mmol/L Tino Test ABG Potassium (3.6-5.2) mmol/L A-a O2 Difference mm/Hg Respiratory Index Sodium (132-148) mmol/l Chloride (98-107) mmol/L Glucose (75-110) mg/dl Lactate (0.7-2.1) mmol/L FiO2 % Potassium (3.6-5.2) mmol/L Carbon Dioxide (22-30) mmol/L Anion Gap (10-20) BUN (9-20) mg/dL Creatinine (0.8-1.5) mg/dL Est GFR ( Amer) Est GFR (Non-Af Amer) POC Glucose (mg/dL) 99 (65-110) mg/dL Random Glucose (75-110) mg/dL Calcium (8.6-10.4) mg/dl Total Bilirubin (0.2-1.3) mg/dL AST (17-59) U/L ALT (21-72) U/L Alkaline Phosphatase (38-126) U/L Total Protein (6.3-8.3) g/dL Albumin (3.5-5.0) g/dL Globulin (2.2-3.9) gm/dL Albumin/Globulin Ratio (1.0-2.1) Arterial Blood Potassium (3.6-5.2) mmol/L Urine Color (YELLOW) Urine Clarity (Clear) Urine pH (5.0-8.0) Ur Specific [place] (1.003-1.030) Urine Protein (NEGATIVE) mg/dL Urine Glucose (UA) (Normal) mg/dL Urine Ketones (NEGATIVE) mg/dL Urine Blood (NEGATIVE) Urine Nitrate (NEGATIVE) Urine Bilirubin (NEGATIVE) Urine Urobilinogen (0.2-1.0) mg/dL Ur Leukocyte Esterase (Negative) [place]/uL Urine WBC (Auto) (0-5) /hpf Urine RBC (Auto) (0-3) /hpf Ur Squamous Epith Cells (0-5) /hpf Urine Bacteria (<OCC) Urine Osmolality (300-1000) mosm/kg Ur Random Creatinine mg/dL Ur Random Sodium mmol/L Ur Random Uric Acid mg/dL Ur Random Glucose mg/dL Ur Random Calcium mg/dL Urine Collection Time Urine Total Volume Ur Calcium 24 Hr Random Vancomycin 7.5 ug/mL 11/13/17 11/13/17 11/12/17 Range/Units 06:16 05:00 23:19 WBC (4.8-10.8) K/uL RBC (4.40-5.90) Mil/uL Hgb (12.0-18.0) g/dL Hct (35.0-51.0) % MCV (80.0-94.0) fL MCH (27.0-31.0) pg MCHC (33.0-37.0) g/dL RDW (11.5-14.5) % Plt Count (130-400) K/uL MPV (7.2-11.7) fL Neut % (Auto) (50.0-75.0) % Lymph % (Auto) (20.0-40.0) % [place] % (Auto) (0.0-10.0) % Eos % (Auto) (0.0-4.0) % Baso % (Auto) (0.0-2.0) % Neut # (Auto) (1.8-7.0) K/uL Lymph # (Auto) (1.0-4.3) K/uL [place] # (Auto) (0.0-0.8) K/uL Eos # (Auto) (0.0-0.7) K/uL Baso # (Auto) (0.0-0.2) K/uL Neutrophils % (Manual) (50-75) % Lymphocytes % (Manual) (20-40) % Monocytes % (Manual) (0-10) % Toxic Granulation Platelet Estimate (NORMAL) Polychromasia Hypochromasia (manual) Anisocytosis (manual) Puncture Site pCO2 (35-45) mm/Hg pO2 (80-100) mm/Hg HCO3 (21-28) mmol/L ABG pH (7.35-7.45) ABG Total CO2 (22-28) mmol/L ABG O2 Saturation (95-98) % ABG Base Excess (-2.0-3.0) mmol/L Tino Test ABG Potassium (3.6-5.2) mmol/L A-a O2 Difference mm/Hg Respiratory Index Sodium 149 H (132-148) mmol/l Chloride 119 H (98-107) mmol/L Glucose (75-110) mg/dl Lactate (0.7-2.1) mmol/L FiO2 % Potassium 4.0 (3.6-5.2) mmol/L Carbon Dioxide 21 L (22-30) mmol/L Anion Gap 13 (10-20) BUN 39 H (9-20) mg/dL Creatinine 2.3 H (0.8-1.5) mg/dL Est GFR ( Amer) 33 Est GFR (Non-Af Amer) 28 POC Glucose (mg/dL) 131 H 119 H (65-110) mg/dL Random Glucose 101 (75-110) mg/dL Calcium 7.9 L (8.6-10.4) mg/dl Total Bilirubin 0.6 (0.2-1.3) mg/dL AST 26 (17-59) U/L ALT 17 L (21-72) U/L Alkaline Phosphatase 50 (38-126) U/L Total Protein 5.2 L (6.3-8.3) g/dL Albumin 2.2 L (3.5-5.0) g/dL Globulin 3.0 (2.2-3.9) gm/dL Albumin/Globulin Ratio 0.8 L (1.0-2.1) Arterial Blood Potassium (3.6-5.2) mmol/L Urine Color (YELLOW) Urine Clarity (Clear) Urine pH (5.0-8.0) Ur Specific [place] (1.003-1.030) Urine Protein (NEGATIVE) mg/dL Urine Glucose (UA) (Normal) mg/dL Urine Ketones (NEGATIVE) mg/dL Urine Blood (NEGATIVE) Urine Nitrate (NEGATIVE) Urine Bilirubin (NEGATIVE) Urine Urobilinogen (0.2-1.0) mg/dL Ur Leukocyte Esterase (Negative) [place]/uL Urine WBC (Auto) (0-5) /hpf Urine RBC (Auto) (0-3) /hpf Ur Squamous Epith Cells (0-5) /hpf Urine Bacteria (<OCC) Urine Osmolality (300-1000) mosm/kg Ur Random Creatinine mg/dL Ur Random Sodium mmol/L Ur Random Uric Acid mg/dL Ur Random Glucose mg/dL Ur Random Calcium mg/dL Urine Collection Time Urine Total Volume Ur Calcium 24 Hr Random Vancomycin ug/mL 11/12/17 11/12/17 11/12/17 Range/Units 18:09 18:09 17:33 WBC (4.8-10.8) K/uL RBC (4.40-5.90) Mil/uL Hgb (12.0-18.0) g/dL Hct (35.0-51.0) % MCV (80.0-94.0) fL MCH (27.0-31.0) pg MCHC (33.0-37.0) g/dL RDW (11.5-14.5) % Plt Count (130-400) K/uL MPV (7.2-11.7) fL Neut % (Auto) (50.0-75.0) % Lymph % (Auto) (20.0-40.0) % [place] % (Auto) (0.0-10.0) % Eos % (Auto) (0.0-4.0) % Baso % (Auto) (0.0-2.0) % Neut # (Auto) (1.8-7.0) K/uL Lymph # (Auto) (1.0-4.3) K/uL [place] # (Auto) (0.0-0.8) K/uL Eos # (Auto) (0.0-0.7) K/uL Baso # (Auto) (0.0-0.2) K/uL Neutrophils % (Manual) (50-75) % Lymphocytes % (Manual) (20-40) % Monocytes % (Manual) (0-10) % Toxic Granulation Platelet Estimate (NORMAL) Polychromasia Hypochromasia (manual) Anisocytosis (manual) Puncture Site pCO2 (35-45) mm/Hg pO2 (80-100) mm/Hg HCO3 (21-28) mmol/L ABG pH (7.35-7.45) ABG Total CO2 (22-28) mmol/L ABG O2 Saturation (95-98) % ABG Base Excess (-2.0-3.0) mmol/L Tino Test ABG Potassium (3.6-5.2) mmol/L A-a O2 Difference mm/Hg Respiratory Index Sodium (132-148) mmol/l Chloride (98-107) mmol/L Glucose (75-110) mg/dl Lactate (0.7-2.1) mmol/L FiO2 % Potassium (3.6-5.2) mmol/L Carbon Dioxide (22-30) mmol/L Anion Gap (10-20) BUN (9-20) mg/dL Creatinine (0.8-1.5) mg/dL Est GFR ( Amer) Est GFR (Non-Af Amer) POC Glucose (mg/dL) 103 (65-110) mg/dL Random Glucose (75-110) mg/dL Calcium (8.6-10.4) mg/dl Total Bilirubin (0.2-1.3) mg/dL AST (17-59) U/L ALT (21-72) U/L Alkaline Phosphatase (38-126) U/L Total Protein (6.3-8.3) g/dL Albumin (3.5-5.0) g/dL Globulin (2.2-3.9) gm/dL Albumin/Globulin Ratio (1.0-2.1) Arterial Blood Potassium (3.6-5.2) mmol/L Urine Color Yellow (YELLOW) Urine Clarity Hazy (Clear) Urine pH 5.0 (5.0-8.0) Ur Specific [place] 1.019 (1.003-1.030) Urine Protein 1+ H (NEGATIVE) mg/dL Urine Glucose (UA) Normal (Normal) mg/dL Urine Ketones Negative (NEGATIVE) mg/dL Urine Blood 2+ H (NEGATIVE) Urine Nitrate Negative (NEGATIVE) Urine Bilirubin Negative (NEGATIVE) Urine Urobilinogen Normal (0.2-1.0) mg/dL Ur Leukocyte Esterase 3+ H (Negative) [place]/uL Urine WBC (Auto) 36 H (0-5) /hpf Urine RBC (Auto) 28 H (0-3) /hpf Ur Squamous Epith Cells < 1 (0-5) /hpf Urine Bacteria Few H (<OCC) Urine Osmolality 427 (300-1000) mosm/kg Ur Random Creatinine 96.8 mg/dL Ur Random Sodium 27 mmol/L Ur Random Uric Acid 46.4 mg/dL Ur Random Glucose < 20 mg/dL Ur Random Calcium < 1.0 mg/dL Urine Collection Time Cancelled Urine Total Volume Cancelled Ur Calcium 24 Hr Cancelled Random Vancomycin ug/mL 11/12/17 11/12/17 Range/Units 16:13 12:08 WBC (4.8-10.8) K/uL RBC (4.40-5.90) Mil/uL Hgb (12.0-18.0) g/dL Hct (35.0-51.0) % MCV (80.0-94.0) fL MCH (27.0-31.0) pg MCHC (33.0-37.0) g/dL RDW (11.5-14.5) % Plt Count (130-400) K/uL MPV (7.2-11.7) fL Neut % (Auto) (50.0-75.0) % Lymph % (Auto) (20.0-40.0) % [place] % (Auto) (0.0-10.0) % Eos % (Auto) (0.0-4.0) % Baso % (Auto) (0.0-2.0) % Neut # (Auto) (1.8-7.0) K/uL Lymph # (Auto) (1.0-4.3) K/uL [place] # (Auto) (0.0-0.8) K/uL Eos # (Auto) (0.0-0.7) K/uL Baso # (Auto) (0.0-0.2) K/uL Neutrophils % (Manual) (50-75) % Lymphocytes % (Manual) (20-40) % Monocytes % (Manual) (0-10) % Toxic Granulation Platelet Estimate (NORMAL) Polychromasia Hypochromasia (manual) Anisocytosis (manual) Puncture Site Rr pCO2 28 L (35-45) mm/Hg pO2 125 H (80-100) mm/Hg HCO3 22.0 (21-28) mmol/L ABG pH 7.44 (7.35-7.45) ABG Total CO2 19.9 L (22-28) mmol/L ABG O2 Saturation 99.7 H (95-98) % ABG Base Excess -3.8 L (-2.0-3.0) mmol/L Tino Test Po ABG Potassium 3.4 L (3.6-5.2) mmol/L A-a O2 Difference 54.0 mm/Hg Respiratory Index 0.4 Sodium 147.0 (132-148) mmol/l Chloride 121.0 H (98-107) mmol/L Glucose 92 (75-110) mg/dl Lactate 1.2 (0.7-2.1) mmol/L FiO2 30.0 % Potassium (3.6-5.2) mmol/L Carbon Dioxide (22-30) mmol/L Anion Gap (10-20) BUN (9-20) mg/dL Creatinine (0.8-1.5) mg/dL Est GFR ( Amer) Est GFR (Non-Af Amer) POC Glucose (mg/dL) 134 H (65-110) mg/dL Random Glucose (75-110) mg/dL Calcium (8.6-10.4) mg/dl Total Bilirubin (0.2-1.3) mg/dL AST (17-59) U/L ALT (21-72) U/L Alkaline Phosphatase (38-126) U/L Total Protein (6.3-8.3) g/dL Albumin (3.5-5.0) g/dL Globulin (2.2-3.9) gm/dL Albumin/Globulin Ratio (1.0-2.1) Arterial Blood Potassium 3.4 L (3.6-5.2) mmol/L Urine Color (YELLOW) Urine Clarity (Clear) Urine pH (5.0-8.0) Ur Specific [place] (1.003-1.030) Urine Protein (NEGATIVE) mg/dL Urine Glucose (UA) (Normal) mg/dL Urine Ketones (NEGATIVE) mg/dL Urine Blood (NEGATIVE) Urine Nitrate (NEGATIVE) Urine Bilirubin (NEGATIVE) Urine Urobilinogen (0.2-1.0) mg/dL Ur Leukocyte Esterase (Negative) [place]/uL Urine WBC (Auto) (0-5) /hpf Urine RBC (Auto) (0-3) /hpf Ur Squamous Epith Cells (0-5) /hpf Urine Bacteria (<OCC) Urine Osmolality (300-1000) mosm/kg Ur Random Creatinine mg/dL Ur Random Sodium mmol/L Ur Random Uric Acid mg/dL Ur Random Glucose mg/dL Ur Random Calcium mg/dL Urine Collection Time Urine Total Volume Ur Calcium 24 Hr Random Vancomycin ug/mL Laboratory Results - last 24 hr 11/12/17 11/12/17 11/12/17 12:08 16:13 17:33 WBC RBC Hgb Hct MCV MCH MCHC RDW Plt Count MPV Neut % (Auto) Lymph % (Auto) [place] % (Auto) Eos % (Auto) Baso % (Auto) Neut # (Auto) Lymph # (Auto) [place] # (Auto) Eos # (Auto) Baso # (Auto) Neutrophils % (Manual) Lymphocytes % (Manual) Monocytes % (Manual) Toxic Granulation Platelet Estimate Polychromasia Hypochromasia (manual) Anisocytosis (manual) Puncture Site Rr pCO2 28 L pO2 125 H HCO3 22.0 ABG pH 7.44 ABG Total CO2 19.9 L ABG O2 Saturation 99.7 H ABG Base Excess -3.8 L Tino Test Po ABG Potassium 3.4 L A-a O2 Difference 54.0 Respiratory Index 0.4 Sodium 147.0 Chloride 121.0 H Glucose 92 Lactate 1.2 FiO2 30.0 Potassium Carbon Dioxide Anion Gap BUN Creatinine Est GFR ( Amer) Est GFR (Non-Af Amer) POC Glucose (mg/dL) 134 H 103 Random Glucose Calcium Total Bilirubin AST ALT Alkaline Phosphatase Total Protein Albumin Globulin Albumin/Globulin Ratio Arterial Blood Potassium 3.4 L Urine Color Urine Clarity Urine pH Ur Specific [place] Urine Protein Urine Glucose (UA) Urine Ketones Urine Blood Urine Nitrate Urine Bilirubin Urine Urobilinogen Ur Leukocyte Esterase Urine WBC (Auto) Urine RBC (Auto) Ur Squamous Epith Cells Urine Bacteria Urine Osmolality Ur Random Creatinine Ur Random Sodium Ur Random Uric Acid Ur Random Glucose Ur Random Calcium Urine Collection Time Urine Total Volume Ur Calcium 24 Hr Random Vancomycin 11/12/17 11/12/17 11/12/17 18:09 18:09 23:19 WBC RBC Hgb Hct MCV MCH MCHC RDW Plt Count MPV Neut % (Auto) Lymph % (Auto) [place] % (Auto) Eos % (Auto) Baso % (Auto) Neut # (Auto) Lymph # (Auto) [place] # (Auto) Eos # (Auto) Baso # (Auto) Neutrophils % (Manual) Lymphocytes % (Manual) Monocytes % (Manual) Toxic Granulation Platelet Estimate Polychromasia Hypochromasia (manual) Anisocytosis (manual) Puncture Site pCO2 pO2 HCO3 ABG pH ABG Total CO2 ABG O2 Saturation ABG Base Excess Tino Test ABG Potassium A-a O2 Difference Respiratory Index Sodium Chloride Glucose Lactate FiO2 Potassium Carbon Dioxide Anion Gap BUN Creatinine Est GFR ( Amer) Est GFR (Non-Af Amer) POC Glucose (mg/dL) 119 H Random Glucose Calcium Total Bilirubin AST ALT Alkaline Phosphatase Total Protein Albumin Globulin Albumin/Globulin Ratio Arterial Blood Potassium Urine Color Yellow Urine Clarity Hazy Urine pH 5.0 Ur Specific [place] 1.019 Urine Protein 1+ H Urine Glucose (UA) Normal Urine Ketones Negative Urine Blood 2+ H Urine Nitrate Negative Urine Bilirubin Negative Urine Urobilinogen Normal Ur Leukocyte Esterase 3+ H Urine WBC (Auto) 36 H Urine RBC (Auto) 28 H Ur Squamous Epith Cells < 1 Urine Bacteria Few H Urine Osmolality 427 Ur Random Creatinine 96.8 Ur Random Sodium 27 Ur Random Uric Acid 46.4 Ur Random Glucose < 20 Ur Random Calcium < 1.0 Urine Collection Time Cancelled Urine Total Volume Cancelled Ur Calcium 24 Hr Cancelled Random Vancomycin 11/13/17 11/13/17 11/13/17 05:00 06:16 06:18 WBC 8.6 RBC 3.64 L Hgb 10.0 L Hct 29.3 L MCV 80.6 MCH 27.4 MCHC 34.0 RDW 16.8 H Plt Count 171 MPV 8.6 Neut % (Auto) 89.7 H Lymph % (Auto) 5.6 L [place] % (Auto) 4.6 Eos % (Auto) 0.0 Baso % (Auto) 0.1 Neut # (Auto) 7.7 H Lymph # (Auto) 0.5 L [place] # (Auto) 0.4 Eos # (Auto) 0.0 Baso # (Auto) 0.0 Neutrophils % (Manual) 90 H Lymphocytes % (Manual) 7 L Monocytes % (Manual) 3 Toxic Granulation Present Platelet Estimate Normal Polychromasia Slight Hypochromasia (manual) Slight Anisocytosis (manual) Slight Puncture Site pCO2 pO2 HCO3 ABG pH ABG Total CO2 ABG O2 Saturation ABG Base Excess Tino Test ABG Potassium A-a O2 Difference Respiratory Index Sodium 149 H Chloride 119 H Glucose Lactate FiO2 Potassium 4.0 Carbon Dioxide 21 L Anion Gap 13 BUN 39 H Creatinine 2.3 H Est GFR ( Amer) 33 Est GFR (Non-Af Amer) 28 POC Glucose (mg/dL) 131 H Random Glucose 101 Calcium 7.9 L Total Bilirubin 0.6 AST 26 ALT 17 L Alkaline Phosphatase 50 Total Protein 5.2 L Albumin 2.2 L Globulin 3.0 Albumin/Globulin Ratio 0.8 L Arterial Blood Potassium Urine Color Urine Clarity Urine pH Ur Specific [place] Urine Protein Urine Glucose (UA) Urine Ketones Urine Blood Urine Nitrate Urine Bilirubin Urine Urobilinogen Ur Leukocyte Esterase Urine WBC (Auto) Urine RBC (Auto) Ur Squamous Epith Cells Urine Bacteria Urine Osmolality Ur Random Creatinine Ur Random Sodium Ur Random Uric Acid Ur Random Glucose Ur Random Calcium Urine Collection Time Urine Total Volume Ur Calcium 24 Hr Random Vancomycin 11/13/17 11/13/17 11:31 13:49 WBC RBC Hgb Hct MCV MCH MCHC RDW Plt Count MPV Neut % (Auto) Lymph % (Auto) [place] % (Auto) Eos % (Auto) Baso % (Auto) Neut # (Auto) Lymph # (Auto) [place] # (Auto) Eos # (Auto) Baso # (Auto) Neutrophils % (Manual) Lymphocytes % (Manual) Monocytes % (Manual) Toxic Granulation Platelet Estimate Polychromasia Hypochromasia (manual) Anisocytosis (manual) Puncture Site pCO2 pO2 HCO3 ABG pH ABG Total CO2 ABG O2 Saturation ABG Base Excess [place]ino Test ABG Potassium A-a O2 Difference Respiratory Index Sodium Chloride Glucose Lactate FiO2 Potassium Carbon Dioxide Anion Gap BUN Creatinine Est GFR ( Amer) Est GFR (Non-Af Amer) POC Glucose (mg/dL) 99 Random Glucose Calcium Total Bilirubin AST ALT Alkaline Phosphatase Total Protein Albumin Globulin Albumin/Globulin Ratio Arterial Blood Potassium Urine Color Urine Clarity Urine pH Ur Specific [place] Urine Protein Urine Glucose (UA) Urine Ketones Urine Blood Urine Nitrate Urine Bilirubin Urine Urobilinogen Ur Leukocyte Esterase Urine WBC (Auto) Urine RBC (Auto) Ur Squamous Epith Cells Urine Bacteria Urine Osmolality Ur Random Creatinine Ur Random Sodium Ur Random Uric Acid Ur Random Glucose Ur Random Calcium Urine Collection Time Urine Total Volume Ur Calcium 24 Hr Random Vancomycin 7.5 Critical Care Progress Note - Nutrition Nutrition: Nutrition Category Date Time Status Liquid Diet [DIET] Diets 11/13/17 Lunch Active Assessment/Plan - Assessment and Plan (Free Text) Plan: Above patient seen and examined at bedside with above resident, who has documented my management and clinical findings -Hypoxic respiratory failure: tolerated CPAP, weaning parameters good and extubated -abx as per ID, culture (+)strep/enterococcus -A-fib: rate control with lopressor, hold AC until hemostasis assertained from surgery team -MONY: slow improvemenet, avoid nephrotoxic drugs -currently 2 drianiage tube present -continue DVT/PUD ppx -continue to [place] d/w ICU team/resident/nurse cc time 35 minutes - Date & Time Date: 11/12/17 Time: 13:00
[2017-11-12 18:29] LABS: SQUAMOUS EPITHIAL < 1 /hpf (0-5); URINE BACTERIA FEW (<OCC); URINE BILIRUBIN NEGATIVE (NEGATIVE); URINE BLOOD 2+ (NEGATIVE); URINE CLARITY Hazy (Clear); URINE COLOR Yellow (YELLOW); URINE GLUCOSE (UA) NORMAL (Normal); URINE LEUKOCYTE ESTERASE 3+ Leu/uL (Negative); URINE PROTEIN 1+ mg/dL (NEGATIVE); URINE UROBILINOGEN NORMAL mg/dL (0.2-1.0)
[2017-11-12 18:39] LABS: OSMOLALITY,URINE 427 mosm/kg (300-1000)
[2017-11-12 18:43] LABS: CREATININE, RANDOM URINE 96.8 mg/dL
--- NOTE | 2017-11-12 21:53 | CP.PCM.PN ---
Subjective - Date & Time of Evaluation Date of Evaluation: 11/12/17 Time of Evaluation: 21:00 - Subjective Subjective: extubated successfully doing well, normal LV on echo, EKG with atrial flutter and variable block rate about 70-80 on metoprolol intravenously?after he responded to IV fluid Objective - Vital Signs/Intake and Output Vital Signs (last 24 hours): Temp Pulse Resp BP Pulse Ox 99.8 F H 88 26 H 122/72 99 11/12/17 20:00 11/12/17 20:00 11/12/17 20:00 11/12/17 19:54 11/12/17 20:00 Intake and Output: 11/12/17 11/13/17 18:59 06:59 Intake Total 1025 100 Output Total 930 150 Balance 95 -50 - Medications Medications: Current Medications Heparin Sodium (Porcine) (Heparin) 5,000 units SC Q8 [facility] Last Admin: 11/12/17 21:50 Dose: 5,000 units Hydromorphone HCl (Dilaudid) 0.5 mg IVP Q3H PRN PRN Reason: Pain, moderate (4-7) Last Admin: 11/12/17 01:08 Dose: 0.5 mg Piperacillin Sod/Tazobactam (Sod 3.375 gm/ Sodium Chloride) 100 mls @ 200 mls/ hr IVPB Q6H [facility] PRN Reason: Protocol Last Admin: 11/12/17 17:42 Dose: 200 mls/hr Dextrose/Sodium Chloride (Dextrose 5%/0.45% Ns 1000 Ml) 1,000 mls @ 50 mls/hr IV .Q20H [facility] Last Admin: 11/12/17 10:45 Dose: 50 mls/hr Ipratropium [place] (Atrovent) 0.5 mg IH RQ6 [facility] Last Admin: 11/12/17 19:59 Dose: 0.5 mg Metoprolol Tartrate (Lopressor) 2.5 mg IVP Q6H [facility] Last Admin: 11/12/17 17:21 Dose: Not Given Ondansetron HCl (Zofran Inj) 4 mg IVP Q4 PRN PRN Reason: Nausea/Vomiting Pantoprazole Sodium (Protonix Inj) 40 mg IVP Q12H [facility] Last Admin: 11/12/17 20:31 Dose: 40 mg - Labs Labs: 11/12/17 05:53 11/12/17 05:55 PT 14.0 SECONDS (9.7-12.2) H 11/09/17 15:27 INR 1.3 11/09/17 15:27 APTT 30 SECONDS (21-34) 11/09/17 15:27 - Constitutional Appears: Non-toxic - Head Exam Head Exam: ATRAUMATIC - Eye Exam Eye Exam: EOMI - ENT Exam ENT Exam: Mucous Membranes Moist - Neck Exam Neck Exam: absent: Lymphadenopathy, Thyromegaly - Respiratory Exam Respiratory Exam: Clear to Ausculation Bilateral. absent: Rales - Cardiovascular Exam Cardiovascular Exam: Irregular Rhythm, Murmur - GI/Abdominal Exam GI & Abdominal Exam: Tenderness, Hypoactive Bowel Sounds - Rectal Exam Rectal Exam: Deferred - Extremities Exam Extremities Exam: Normal Capillary Refill. absent: Calf Tenderness - Neurological Exam Neurological Exam: Alert - Psychiatric Exam Psychiatric exam: Normal Mood - Skin Skin Exam: Dry Assessment and Plan (1) Atrial fib/flutter, transient Status: Acute (2) Perforated abdominal viscus Status: Acute (3) Sepsis Status: Acute (4) HTN (hypertension) Status: Chronic
[2017-11-13] MEDS: Ipratropium 0.02% Inhal Soln (0.5 mg/2.5 ml) UD IH SCH ×4 (01:01→19:59)
[2017-11-13] MEDS: HYDROmorphone 0.5 mg/0.5 ml ISec IVP PRN ×3 (03:19→21:02)
[2017-11-13] MEDS: Metoprolol 1 mg/ml Inj IVP SCH ×4 (04:27→21:29)
[2017-11-13] MEDS: Piperacillin/Tazobact 3.375 GM in Sodium Chloride 100 ML IVPB SCH ×4 (04:27→22:13)
[2017-11-13] MEDS: Dextrose 5%/0.45% NS 1,000 ML IV SCH ×3 (05:55→22:15)
[2017-11-13 06:27] LABS: BASO % 0.1 % (0.0-2.0); LYMPH # 0.5 K/uL (1.0-4.3); LYMPH % 5.6 % (20.0-40.0); MEAN CELL VOLUME 80.6 fL (80.0-94.0); MEAN CORPUSCULAR HEMOGLOBIN 27.4 pg (27.0-31.0); MEAN PLATELET VOLUME 8.6 fL (7.2-11.7); MONO # 0.4 K/uL (0.0-0.8); MONO % 4.6 % (0.0-10.0); NEUT # 7.7 K/uL (1.8-7.0); NEUT % 89.7 % (50.0-75.0); NRBC % 0.2 % (0.0-2.0); PLATELET COUNT 171 K/uL (130-400); RBC 3.64 Mil/uL (4.40-5.90); RED CELL DISTRIBUTION WIDTH 16.8 % (11.5-14.5); WHITE BLOOD COUNT 8.6 K/uL (4.8-10.8)
[2017-11-13 06:47] LABS: ALB/GLOB RATIO 0.8 (1.0-2.1); ALBUMIN 2.2 g/dL (3.5-5.0); CALCIUM 7.9 mg/dl (8.6-10.4)
--- NOTE | 2017-11-13 07:47 | CP.PCM.PN ---
Subjective - Date & Time of Evaluation Date of Evaluation: 11/13/17 Time of Evaluation: 07:44 - Subjective Subjective: Surgery: Dr. Moore covering for Dr. Gaytan Patient extubated yesterday. doing well. NGT output 800cc/24hr. Patient reports flatus, no BM. Patient reports appetite. Objective - Vital Signs/Intake and Output Vital Signs (last 24 hours): Temp Pulse Resp BP Pulse Ox 99.4 F 83 19 96/50 L 100 11/13/17 04:00 11/13/17 06:00 11/13/17 06:00 11/13/17 05:55 11/13/17 06:00 Intake and Output: 11/13/17 11/13/17 06:59 18:59 Intake Total 800 Output Total 1670 Balance -870 - Medications Medications: Current Medications Heparin Sodium (Porcine) (Heparin) 5,000 units SC Q8 [facility] Last Admin: 11/13/17 05:56 Dose: 5,000 units Hydromorphone HCl (Dilaudid) 0.5 mg IVP Q3H PRN PRN Reason: Pain, moderate (4-7) Last Admin: 11/13/17 03:19 Dose: 0.5 mg Piperacillin Sod/Tazobactam (Sod 3.375 gm/ Sodium Chloride) 100 mls @ 200 mls/ hr IVPB Q6H [facility] PRN Reason: Protocol Last Admin: 11/13/17 04:27 Dose: 200 mls/hr Dextrose/Sodium Chloride (Dextrose 5%/0.45% Ns 1000 Ml) 1,000 mls @ 50 mls/hr IV .Q20H [facility] Last Admin: 11/13/17 05:55 Dose: Not Given Ipratropium [place] (Atrovent) 0.5 mg IH RQ6 [facility] Last Admin: 11/13/17 07:31 Dose: 0.5 mg Metoprolol Tartrate (Lopressor) 2.5 mg IVP Q6H [facility] Last Admin: 11/13/17 04:27 Dose: 2.5 mg Ondansetron HCl (Zofran Inj) 4 mg IVP Q4 PRN PRN Reason: Nausea/Vomiting Pantoprazole Sodium (Protonix Inj) 40 mg IVP Q12H [facility] Last Admin: 11/12/17 20:31 Dose: 40 mg - Labs Labs: 11/13/17 06:18 11/13/17 06:16 PT 14.0 SECONDS (9.7-12.2) H 11/09/17 15:27 INR 1.3 11/09/17 15:27 APTT 30 SECONDS (21-34) 11/09/17 15:27 - Constitutional Appears: No Acute Distress - Head Exam Head Exam: ATRAUMATIC, NORMOCEPHALIC - Eye Exam Eye Exam: EOMI - ENT Exam ENT Exam: Mucous Membranes Dry - Respiratory Exam Respiratory Exam: NORMAL BREATHING PATTERN. absent: Respiratory Distress - Cardiovascular Exam Cardiovascular Exam: Irregular Rhythm. absent: Tachycardia - GI/Abdominal Exam GI & Abdominal Exam: Soft, Tenderness (jake-incisional ). absent: Guarding, Rigid, Rebound - Extremities Exam Extremities Exam: absent: Calf Tenderness - Neurological Exam Neurological Exam: Alert, Awake - Psychiatric Exam Psychiatric exam: Normal Affect, Normal Mood Assessment and Plan - Assessment and Plan (Free Text) Assessment: 77 y/o male s/p ex lap w/ partial gastrectomy and promise en y recon POD4 Plan: -clamp NGT and trial CLD today, if patient becomes nauseous place NGT back on LCWS -monitor for BM -OOB to chair -IS use -cont abx for 5 days post op -cont DVT ppx -further recs per Dr. Moore AKcindy PGY3
[2017-11-13] MEDS ORDERED: Albumin Human 25% (12.5 gm/50 ml) IV ONE (08:13)
--- NOTE | 2017-11-13 09:05 | CP.PCM.CON ---
History of Present Illness - History of Present Illness History of Present Illness: renal consult note Past Patient History - Past Medical History & Family History Past Medical History?: Yes - Past Social History Smoking Status: Never Smoked - CARDIAC Hx Congestive Heart Failure: Yes Hx Hypertension: Yes - PULMONARY Hx Asthma: Yes Hx Pneumonia: Yes (X3) - NEUROLOGICAL Hx Neurological Disorder: Yes Hx Dizziness: Yes - HEENT Hx HEENT Problems: Yes Hx Cataracts: Yes - RENAL Hx Chronic Kidney Disease: Yes (RENAL INSUFFICIENCY) - ENDOCRINE/METABOLIC Hx Endocrine Disorders: No - HEMATOLOGICAL/ONCOLOGICAL Hx Anemia: Yes - INTEGUMENTARY Hx Dermatological Problems: No - MUSCULOSKELETAL/RHEUMATOLOGICAL Hx Musculoskeletal Disorders: Yes Hx Osteoarthritis: Yes - GASTROINTESTINAL Hx Gastrointestinal Disorders: Yes Hx Gastroesophageal Reflux: Yes - GENITOURINARY/GYNECOLOGICAL Hx Genitourinary Disorders: Yes Hx Prostate Problems: Yes (Urinary Retention, BPH) Other/Comment: STAHL CATH - PSYCHIATRIC Hx Substance Use: No - SURGICAL HISTORY Hx Surgeries: Yes Other/Comment: Cystoscopy - ANESTHESIA Hx Anesthesia: Yes Hx Anesthesia Reactions: No Hx Malignant Hyperthermia: No Meds Allergies/Adverse Reactions: Allergies Allergy/AdvReac Type Severity Reaction Status Date / Time shellfish derived Allergy Verified 11/09/17 15:18 - Medications Medications: Current Medications Heparin Sodium (Porcine) (Heparin) 5,000 units SC Q8 [facility] Last Admin: 11/13/17 05:56 Dose: 5,000 units Hydromorphone HCl (Dilaudid) 0.5 mg IVP Q3H PRN PRN Reason: Pain, moderate (4-7) Last Admin: 11/13/17 03:19 Dose: 0.5 mg Piperacillin Sod/Tazobactam (Sod 3.375 gm/ Sodium Chloride) 100 mls @ 200 mls/ hr IVPB Q6H [facility] PRN Reason: Protocol Last Admin: 11/13/17 04:27 Dose: 200 mls/hr Dextrose/Sodium Chloride (Dextrose 5%/0.45% Ns 1000 Ml) 1,000 mls @ 75 mls/hr IV .[id number] [facility] Ipratropium [place] (Atrovent) 0.5 mg IH RQ6 [facility] Last Admin: 11/13/17 07:31 Dose: 0.5 mg Metoprolol Tartrate (Lopressor) 2.5 mg IVP Q6H [facility] Last Admin: 11/13/17 04:27 Dose: 2.5 mg Ondansetron HCl (Zofran Inj) 4 mg IVP Q4 PRN PRN Reason: Nausea/Vomiting Pantoprazole Sodium (Protonix Inj) 40 mg IVP Q12H [facility] Last Admin: 11/12/17 20:31 Dose: 40 mg Results - Vital Signs Recent Vital Signs: Last Vital Signs Temp 99.4 F 11/13/17 04:00 Pulse 83 11/13/17 06:00 Resp 19 11/13/17 06:00 BP 96/50 L 11/13/17 05:55 Pulse Ox 100 11/13/17 06:00 - Labs Result Diagrams: 11/13/17 06:18 11/13/17 06:16 Labs: Laboratory Results - last 24 hr 11/12/17 11/12/17 11/12/17 12:08 16:13 17:33 WBC RBC Hgb Hct MCV MCH MCHC RDW Plt Count MPV Neut % (Auto) Lymph % (Auto) [place] % (Auto) Eos % (Auto) Baso % (Auto) Neut # (Auto) Lymph # (Auto) [place] # (Auto) Eos # (Auto) Baso # (Auto) Puncture Site Rr pCO2 28 L pO2 125 H HCO3 22.0 ABG pH 7.44 ABG Total CO2 19.9 L ABG O2 Saturation 99.7 H ABG Base Excess -3.8 L Tino Test Po ABG Potassium 3.4 L A-a O2 Difference 54.0 Respiratory Index 0.4 Sodium 147.0 Chloride 121.0 H Glucose 92 Lactate 1.2 FiO2 30.0 Potassium Carbon Dioxide Anion Gap BUN Creatinine Est GFR ( Amer) Est GFR (Non-Af Amer) POC Glucose (mg/dL) 134 H 103 Random Glucose Calcium Total Bilirubin AST ALT Alkaline Phosphatase Total Protein Albumin Globulin Albumin/Globulin Ratio Arterial Blood Potassium 3.4 L Urine Color Urine Clarity Urine pH Ur Specific [place] Urine Protein Urine Glucose (UA) Urine Ketones Urine Blood Urine Nitrate Urine Bilirubin Urine Urobilinogen Ur Leukocyte Esterase Urine WBC (Auto) Urine RBC (Auto) Ur Squamous Epith Cells Urine Bacteria Urine Osmolality Ur Random Creatinine Ur Random Sodium Ur Random Uric Acid Ur Random Glucose Ur Random Calcium Urine Collection Time Urine Total Volume Ur Calcium 24 Hr 11/12/17 11/12/17 11/12/17 18:09 18:09 23:19 WBC RBC Hgb Hct MCV MCH MCHC RDW Plt Count MPV Neut % (Auto) Lymph % (Auto) [place] % (Auto) Eos % (Auto) Baso % (Auto) Neut # (Auto) Lymph # (Auto) [place] # (Auto) Eos # (Auto) Baso # (Auto) Puncture Site pCO2 pO2 HCO3 ABG pH ABG Total CO2 ABG O2 Saturation ABG Base Excess Tino Test ABG Potassium A-a O2 Difference Respiratory Index Sodium Chloride Glucose Lactate FiO2 Potassium Carbon Dioxide Anion Gap BUN Creatinine Est GFR ( Amer) Est GFR (Non-Af Amer) POC Glucose (mg/dL) 119 H Random Glucose Calcium Total Bilirubin AST ALT Alkaline Phosphatase Total Protein Albumin Globulin Albumin/Globulin Ratio Arterial Blood Potassium Urine Color Yellow Urine Clarity Hazy Urine pH 5.0 Ur Specific [place] 1.019 Urine Protein 1+ H Urine Glucose (UA) Normal Urine Ketones Negative Urine Blood 2+ H Urine Nitrate Negative Urine Bilirubin Negative Urine Urobilinogen Normal Ur Leukocyte Esterase 3+ H Urine WBC (Auto) 36 H Urine RBC (Auto) 28 H Ur Squamous Epith Cells < 1 Urine Bacteria Few H Urine Osmolality 427 Ur Random Creatinine 96.8 Ur Random Sodium 27 Ur Random Uric Acid 46.4 Ur Random Glucose < 20 Ur Random Calcium < 1.0 Urine Collection Time Cancelled Urine Total Volume Cancelled Ur Calcium 24 Hr Cancelled 11/13/17 11/13/17 11/13/17 05:00 06:16 06:18 WBC 8.6 RBC 3.64 L Hgb 10.0 L Hct 29.3 L MCV 80.6 MCH 27.4 MCHC 34.0 RDW 16.8 H Plt Count 171 MPV 8.6 Neut % (Auto) 89.7 H Lymph % (Auto) 5.6 L [place] % (Auto) 4.6 Eos % (Auto) 0.0 Baso % (Auto) 0.1 Neut # (Auto) 7.7 H Lymph # (Auto) 0.5 L [place] # (Auto) 0.4 Eos # (Auto) 0.0 Baso # (Auto) 0.0 Puncture Site pCO2 pO2 HCO3 ABG pH ABG Total CO2 ABG O2 Saturation ABG Base Excess Tino Test ABG Potassium A-a O2 Difference Respiratory Index Sodium 149 H Chloride 119 H Glucose Lactate FiO2 Potassium 4.0 Carbon Dioxide 21 L Anion Gap 13 BUN 39 H Creatinine 2.3 H Est GFR ( Amer) 33 Est GFR (Non-Af Amer) 28 POC Glucose (mg/dL) 131 H Random Glucose 101 Calcium 7.9 L Total Bilirubin 0.6 AST 26 ALT 17 L Alkaline Phosphatase 50 Total Protein 5.2 L Albumin 2.2 L Globulin 3.0 Albumin/Globulin Ratio 0.8 L Arterial Blood Potassium Urine Color Urine Clarity Urine pH Ur Specific [place] Urine Protein Urine Glucose (UA) Urine Ketones Urine Blood Urine Nitrate Urine Bilirubin Urine Urobilinogen Ur Leukocyte Esterase Urine WBC (Auto) Urine RBC (Auto) Ur Squamous Epith Cells Urine Bacteria Urine Osmolality Ur Random Creatinine Ur Random Sodium Ur Random Uric Acid Ur Random Glucose Ur Random Calcium Urine Collection Time Urine Total Volume Ur Calcium 24 Hr
[2017-11-13 09:11] LABS: LYMPHOCYTE 7 % (20-40); MONOCYTE 3 % (0-10); NEUTROPHIL 90 % (50-75); TOTAL CELLS COUNTED 100
[2017-11-13 09:12] LABS: ANISOCYTOSIS SLIGHT; HYPOCHROMIC SLIGHT; PLATELET ESTIMATE NORMAL (NORMAL); POLYCHROMIC SLIGHT
[2017-11-13 09:13] LABS: TOXIC GRANULATION PRESENT
--- NOTE | 2017-11-13 09:54 | CP.PCM.CON ---
History of Present Illness - History of Present Illness History of Present Illness: I was called for evaluation of abnormal kidney function. Pt is a 77yrs old male with Hx/o HTN, DM, prostate Ca had presented to ER for c/ o abdominal pain & vomiting. Work up had revealed pneumoperitoneum. Was taken to OR & found to have perforated large gastric ulcer & underwent Frandy en Y procedure with distal gastrectomy. On admission serum creatinine was normal but since then has progressive increase in BUN/Creat.Pt has also developed hypernatremia. Review of Systems - Review of Systems All systems: reviewed and no additional remarkable complaints except - Constitutional Constitutional: As Per HPI - Cardiovascular Additional comments: No chest pain or palpitations - Gastrointestinal Gastrointestinal: Abdominal Pain, Vomiting Past Patient History - Past Medical History & Family History Past Medical History?: Yes - Past Social History Smoking Status: Never Smoked - CARDIAC Hx Congestive Heart Failure: Yes Hx Hypertension: Yes - PULMONARY Hx Asthma: Yes Hx Pneumonia: Yes (X3) - NEUROLOGICAL Hx Neurological Disorder: Yes Hx Dizziness: Yes - HEENT Hx HEENT Problems: Yes Hx Cataracts: Yes - RENAL Hx Chronic Kidney Disease: Yes (RENAL INSUFFICIENCY) - ENDOCRINE/METABOLIC Hx Endocrine Disorders: No - HEMATOLOGICAL/ONCOLOGICAL Hx Anemia: Yes - INTEGUMENTARY Hx Dermatological Problems: No - MUSCULOSKELETAL/RHEUMATOLOGICAL Hx Musculoskeletal Disorders: Yes Hx Osteoarthritis: Yes - GASTROINTESTINAL Hx Gastrointestinal Disorders: Yes Hx Gastroesophageal Reflux: Yes - GENITOURINARY/GYNECOLOGICAL Hx Genitourinary Disorders: Yes Hx Prostate Problems: Yes (Urinary Retention, BPH) Other/Comment: STAHL CATH - PSYCHIATRIC Hx Substance Use: No - SURGICAL HISTORY Hx Surgeries: Yes Other/Comment: Cystoscopy - ANESTHESIA Hx Anesthesia: Yes Hx Anesthesia Reactions: No Hx Malignant Hyperthermia: No Meds Allergies/Adverse Reactions: Allergies Allergy/AdvReac Type Severity Reaction Status Date / Time shellfish derived Allergy Verified 11/09/17 15:18 - Medications Medications: Current Medications Heparin Sodium (Porcine) (Heparin) 5,000 units SC Q8 [facility] Last Admin: 11/13/17 05:56 Dose: 5,000 units Hydromorphone HCl (Dilaudid) 0.5 mg IVP Q3H PRN PRN Reason: Pain, moderate (4-7) Last Admin: 11/13/17 03:19 Dose: 0.5 mg Piperacillin Sod/Tazobactam (Sod 3.375 gm/ Sodium Chloride) 100 mls @ 200 mls/ hr IVPB Q6H [facility] PRN Reason: Protocol Last Admin: 11/13/17 04:27 Dose: 200 mls/hr Dextrose/Sodium Chloride (Dextrose 5%/0.45% Ns 1000 Ml) 1,000 mls @ 75 mls/hr IV .[id number] [facility] Ipratropium [place] (Atrovent) 0.5 mg IH RQ6 [facility] Last Admin: 11/13/17 07:31 Dose: 0.5 mg Metoprolol Tartrate (Lopressor) 2.5 mg IVP Q6H [facility] Last Admin: 11/13/17 04:27 Dose: 2.5 mg Ondansetron HCl (Zofran Inj) 4 mg IVP Q4 PRN PRN Reason: Nausea/Vomiting Pantoprazole Sodium (Protonix Inj) 40 mg IVP Q12H [facility] Last Admin: 11/12/17 20:31 Dose: 40 mg Physical Exam - Constitutional Additional comments: Alert sitting up in chair Extubated - Head Exam Head Exam: ATRAUMATIC, NORMOCEPHALIC - Eye Exam Additional comments: No icterus - ENT Exam ENT Exam: Mucous Membranes Dry - Neck Exam Additional comments: JVDs negative - Respiratory Exam Respiratory Exam: NORMAL BREATHING PATTERN Additional comments: Lungs clear to auscultation - Cardiovascular Exam Cardiovascular Exam: REGULAR RHYTHM, +S1, +S2 - GI/Abdominal Exam GI & Abdominal Exam: Soft Additional comments: Not examined in detail - Rectal Exam Rectal Exam: Deferred - Extremities Exam Additional comments: No edema or cyanosis Results - Vital Signs Recent Vital Signs: Last Vital Signs Temp 99.4 F 11/13/17 04:00 Pulse 83 11/13/17 06:00 Resp 19 11/13/17 06:00 BP 96/50 L 11/13/17 05:55 Pulse Ox 100 11/13/17 06:00 - Labs Result Diagrams: 11/13/17 06:18 11/13/17 06:16 Labs: Laboratory Results - last 24 hr 11/12/17 11/12/17 11/12/17 12:08 16:13 17:33 WBC RBC Hgb Hct MCV MCH MCHC RDW Plt Count MPV Neut % (Auto) Lymph % (Auto) Kane % (Auto) Eos % (Auto) Baso % (Auto) Neut # (Auto) Lymph # (Auto) Kane # (Auto) Eos # (Auto) Baso # (Auto) Neutrophils % (Manual) Lymphocytes % (Manual) Monocytes % (Manual) Toxic Granulation Platelet Estimate Polychromasia Hypochromasia (manual) Anisocytosis (manual) Puncture Site Rr pCO2 28 L pO2 125 H HCO3 22.0 ABG pH 7.44 ABG Total CO2 19.9 L ABG O2 Saturation 99.7 H ABG Base Excess -3.8 L Tino Test Po ABG Potassium 3.4 L A-a O2 Difference 54.0 Respiratory Index 0.4 Sodium 147.0 Chloride 121.0 H Glucose 92 Lactate 1.2 FiO2 30.0 Potassium Carbon Dioxide Anion Gap BUN Creatinine Est GFR ( Amer) Est GFR (Non-Af Amer) POC Glucose (mg/dL) 134 H 103 Random Glucose Calcium Total Bilirubin AST ALT Alkaline Phosphatase Total Protein Albumin Globulin Albumin/Globulin Ratio Arterial Blood Potassium 3.4 L Urine Color Urine Clarity Urine pH Ur Specific [place] Urine Protein Urine Glucose (UA) Urine Ketones Urine Blood Urine Nitrate Urine Bilirubin Urine Urobilinogen Ur Leukocyte Esterase Urine WBC (Auto) Urine RBC (Auto) Ur Squamous Epith Cells Urine Bacteria Urine Osmolality Ur Random Creatinine Ur Random Sodium Ur Random Uric Acid Ur Random Glucose Ur Random Calcium Urine Collection Time Urine Total Volume Ur Calcium 24 Hr 11/12/17 11/12/17 11/12/17 18:09 18:09 23:19 WBC RBC Hgb Hct MCV MCH MCHC RDW Plt Count MPV Neut % (Auto) Lymph % (Auto) Kane % (Auto) Eos % (Auto) Baso % (Auto) Neut # (Auto) Lymph # (Auto) Kane # (Auto) Eos # (Auto) Baso # (Auto) Neutrophils % (Manual) Lymphocytes % (Manual) Monocytes % (Manual) Toxic Granulation Platelet Estimate Polychromasia Hypochromasia (manual) Anisocytosis (manual) Puncture Site pCO2 pO2 HCO3 ABG pH ABG Total CO2 ABG O2 Saturation ABG Base Excess Tino Test ABG Potassium A-a O2 Difference Respiratory Index Sodium Chloride Glucose Lactate FiO2 Potassium Carbon Dioxide Anion Gap BUN Creatinine Est GFR ( Amer) Est GFR (Non-Af Amer) POC Glucose (mg/dL) 119 H Random Glucose Calcium Total Bilirubin AST ALT Alkaline Phosphatase Total Protein Albumin Globulin Albumin/Globulin Ratio Arterial Blood Potassium Urine Color Yellow Urine Clarity Hazy Urine pH 5.0 Ur Specific [place] 1.019 Urine Protein 1+ H Urine Glucose (UA) Normal Urine Ketones Negative Urine Blood 2+ H Urine Nitrate Negative Urine Bilirubin Negative Urine Urobilinogen Normal Ur Leukocyte Esterase 3+ H Urine WBC (Auto) 36 H Urine RBC (Auto) 28 H Ur Squamous Epith Cells < 1 Urine Bacteria Few H Urine Osmolality 427 Ur Random Creatinine 96.8 Ur Random Sodium 27 Ur Random Uric Acid 46.4 Ur Random Glucose < 20 Ur Random Calcium < 1.0 Urine Collection Time Cancelled Urine Total Volume Cancelled Ur Calcium 24 Hr Cancelled 11/13/17 11/13/17 11/13/17 05:00 06:16 06:18 WBC 8.6 RBC 3.64 L Hgb 10.0 L Hct 29.3 L MCV 80.6 MCH 27.4 MCHC 34.0 RDW 16.8 H Plt Count 171 MPV 8.6 Neut % (Auto) 89.7 H Lymph % (Auto) 5.6 L Kane % (Auto) 4.6 Eos % (Auto) 0.0 Baso % (Auto) 0.1 Neut # (Auto) 7.7 H Lymph # (Auto) 0.5 L Kane # (Auto) 0.4 Eos # (Auto) 0.0 Baso # (Auto) 0.0 Neutrophils % (Manual) 90 H Lymphocytes % (Manual) 7 L Monocytes % (Manual) 3 Toxic Granulation Present Platelet Estimate Normal Polychromasia Slight Hypochromasia (manual) Slight Anisocytosis (manual) Slight Puncture Site pCO2 pO2 HCO3 ABG pH ABG Total CO2 ABG O2 Saturation ABG Base Excess Tino Test ABG Potassium A-a O2 Difference Respiratory Index Sodium 149 H Chloride 119 H Glucose Lactate FiO2 Potassium 4.0 Carbon Dioxide 21 L Anion Gap 13 BUN 39 H Creatinine 2.3 H Est GFR ( Amer) 33 Est GFR (Non-Af Amer) 28 POC Glucose (mg/dL) 131 H Random Glucose 101 Calcium 7.9 L Total Bilirubin 0.6 AST 26 ALT 17 L Alkaline Phosphatase 50 Total Protein 5.2 L Albumin 2.2 L Globulin 3.0 Albumin/Globulin Ratio 0.8 L Arterial Blood Potassium Urine Color Urine Clarity Urine pH Ur Specific [place] Urine Protein Urine Glucose (UA) Urine Ketones Urine Blood Urine Nitrate Urine Bilirubin Urine Urobilinogen Ur Leukocyte Esterase Urine WBC (Auto) Urine RBC (Auto) Ur Squamous Epith Cells Urine Bacteria Urine Osmolality Ur Random Creatinine Ur Random Sodium Ur Random Uric Acid Ur Random Glucose Ur Random Calcium Urine Collection Time Urine Total Volume Ur Calcium 24 Hr Assessment & Plan - Assessment and Plan (Free Text) Assessment: 1.Acute kidney injury Etiology is most likely multifactorial e.g. ATN/Sepsis/toxic There has not been any further increaes in creatinine since yesterday 2.Hypernatremia ? intravascular volume depletion S/P distal gastrectomy & gastrojejunostomy HTN,DM Plan: Continue IV hydration with D5,1/2 NS Will order renal US Urine out put has remained good Avoid potentially nephrotoxic meds
--- NOTE | 2017-11-13 12:49 | CP.PCM.PN ---
Subjective - Date & Time of Evaluation Date of Evaluation: 11/13/17 Time of Evaluation: 10:50 - Subjective Subjective: Patient awake, alert, extubated yesterday, toelrating aerosol mask and is hungry Objective - Vital Signs/Intake and Output Vital Signs (last 24 hours): Temp Pulse Resp BP Pulse Ox 98 F 104 H 15 129/63 100 11/13/17 12:00 11/13/17 12:07 11/13/17 12:07 11/13/17 11:54 11/13/17 12:00 Intake and Output: 11/13/17 11/13/17 06:59 18:59 Intake Total 800 775 Output Total 1670 240 Balance -870 535 - Medications Medications: Current Medications Heparin Sodium (Porcine) (Heparin) 5,000 units SC Q8 [facility] Last Admin: 11/13/17 05:56 Dose: 5,000 units Hydromorphone HCl (Dilaudid) 0.5 mg IVP Q3H PRN PRN Reason: Pain, moderate (4-7) Last Admin: 11/13/17 03:19 Dose: 0.5 mg Piperacillin Sod/Tazobactam (Sod 3.375 gm/ Sodium Chloride) 100 mls @ 200 mls/ hr IVPB Q6H [facility] PRN Reason: Protocol Last Admin: 11/13/17 10:12 Dose: 200 mls/hr Dextrose/Sodium Chloride (Dextrose 5%/0.45% Ns 1000 Ml) 1,000 mls @ 75 mls/hr IV .[id number] [facility] Last Admin: 11/13/17 10:14 Dose: 75 mls/hr Ipratropium [place] (Atrovent) 0.5 mg IH RQ6 [facility] Last Admin: 11/13/17 07:31 Dose: 0.5 mg Metoprolol Tartrate (Lopressor) 2.5 mg IVP Q6H [facility] Last Admin: 11/13/17 10:12 Dose: Not Given Ondansetron HCl (Zofran Inj) 4 mg IVP Q4 PRN PRN Reason: Nausea/Vomiting Pantoprazole Sodium (Protonix Inj) 40 mg IVP Q12H [facility] Last Admin: 11/13/17 10:11 Dose: 40 mg - Labs Labs: 11/13/17 06:18 11/13/17 06:16 PT 14.0 SECONDS (9.7-12.2) H 11/09/17 15:27 INR 1.3 11/09/17 15:27 APTT 30 SECONDS (21-34) 11/09/17 15:27 - Head Exam Head Exam: ATRAUMATIC, NORMAL INSPECTION - Eye Exam Eye Exam: Normal appearance - ENT Exam ENT Exam: Mucous Membranes Moist - Respiratory Exam Respiratory Exam: Clear to Ausculation Bilateral, NORMAL BREATHING PATTERN - Cardiovascular Exam Cardiovascular Exam: Irregular Rhythm, +S1, +S2, Murmur - GI/Abdominal Exam GI & Abdominal Exam: Hypoactive Bowel Sounds Additional comments: multiple drains - Extremities Exam Extremities Exam: Normal Inspection - Neurological Exam Neurological Exam: Alert, Awake Assessment and Plan - Assessment and Plan (Free Text) Assessment: 77 y/o male with h/o HTN,asthma presented to ER with abdominal pain,nausea and vomiting.found to have acute abdomen and pneumoperitoneum,taken to OR. S/P Exploratory laparotomy, distal gastrectomy with anterior retrocolic functional promise en y reconstruction; gastrojejustomy and distal jejunostomy; Intra- abdominal primary Left inguinal herniorraphy. POD4 -Hypoxic Respiratory failure: extubated, change to nasal canula -A-fib: continue IV lopressor for rate control, start AC when surgery ascertains homeostasis continue Lopressor 2.5mg Q6H -Cardiology input appreciated Gi: Abdominal Surgery POD #4 (+)flatus, advance diet as per surgery -Hypernatremia: albumin + D5 IV, continue to monitor Sepsis: Afebrile, no leukocytosis, Elevated Lactate (Resolved), culture (+) strep and (+)MRSA, continue zosyn check vanco level, consider linezolid (light of renal failure), ID input MONY (Worsening), likely Pre-Renal, monitor urine output keep U/O > 0.5 ml/kg/hr , slow improvement DVT/PUD ppx: heparin/protonix PT/OT today oob to chair
--- NOTE | 2017-11-13 15:16 | US ---
PROCEDURE: Ultrasound of the Kidneys HISTORY: acute kidney injury COMPARISON: Abdomen pelvis CT with contrast 11/09/2017.. TECHNIQUE: Sonogram of the kidneys. FINDINGS: RIGHT KIDNEY: Measures: 10.8 x 5.3 x 4.8 cm. Right kidney is normal in size. No obstructive uropathy is evident. Multiple right renal cysts are identified including an upper midpole cyst measuring 2.4 x 2.4 x 2.3 cm. A mid to lower pole parapelvic cyst measures 4.7 x 3.5 x 4.7 cm. No urolithiasis or definitive solid parenchymal mass identified. LEFT KIDNEY: Measures: 10.3 x 5.5 x 4.9 cm. The left kidney is also normal in size with no definite solid mass or urolithiasis identified. Multiple left renal cysts are identified with the largest measuring 3.6 x 3.4 x 3.5 cm at the upper midpole region parapelvic in location. OTHER FINDINGS: Instill note is made of bilateral pleural effusions and cholelithiasis within the gallbladder. IMPRESSION: Concordant examination demonstrating multiple bilateral renal cysts as seen in prior CT 11/09/2017. No obstructive uropathy bilaterally.
[2017-11-14] MEDS: Ipratropium 0.02% Inhal Soln (0.5 mg/2.5 ml) UD IH SCH ×4 (01:53→19:23)
[2017-11-14] MEDS: HYDROmorphone 0.5 mg/0.5 ml ISec IVP PRN ×5 (03:18→22:25)
[2017-11-14] MEDS: Metoprolol 1 mg/ml Inj IVP SCH ×4 (04:54→21:19)
[2017-11-14] MEDS: Piperacillin/Tazobact 3.375 GM in Sodium Chloride 100 ML IVPB SCH ×4 (04:55→22:26)
[2017-11-14 06:35] LABS: BASO % 0.2 % (0.0-2.0); EOS % 0.4 % (0.0-4.0); HEMOGLOBIN 9.5 g/dL (12.0-18.0); LYMPH # 0.5 K/uL (1.0-4.3); LYMPH % 8.2 % (20.0-40.0); MEAN CELL VOLUME 80.8 fL (80.0-94.0); MEAN CORPUSCULAR HEMOGLOBIN 27.4 pg (27.0-31.0); MEAN CORPUSCULAR HGB CONC 33.9 g/dL (33.0-37.0); MEAN PLATELET VOLUME 8.4 fL (7.2-11.7); MONO # 0.6 K/uL (0.0-0.8); MONO % 9.6 % (0.0-10.0); NEUT # 4.8 K/uL (1.8-7.0); NEUT % 81.6 % (50.0-75.0); NRBC % 0.1 % (0.0-2.0); PLATELET COUNT 168 K/uL (130-400); RBC 3.45 Mil/uL (4.40-5.90); RED CELL DISTRIBUTION WIDTH 16.8 % (11.5-14.5); WHITE BLOOD COUNT 5.8 K/uL (4.8-10.8)
[2017-11-14 06:42] LABS: ALB/GLOB RATIO 0.9 (1.0-2.1); ALBUMIN 2.7 g/dL (3.5-5.0); CALCIUM 7.6 mg/dl (8.6-10.4)
--- NOTE | 2017-11-14 07:21 | CP.PCM.PN ---
Subjective - Date & Time of Evaluation Date of Evaluation: 11/14/17 Time of Evaluation: 07:10 - Subjective Subjective: Surgery- Dr. Moore (covering for Dr. Gaytan) Patient seen and examined at bedside. No acute events overnight. c/o of jake- incisonal pain that is manageable with current pain regiment. Tolerating CLD. Denies Nausea/vomiting. Passing flatus. Inguinal drain 60cc, RUQ drain 20cc serosang. Objective - Vital Signs/Intake and Output Vital Signs (last 24 hours): Temp Pulse Resp BP Pulse Ox 98.7 F 80 16 102/48 L 100 11/14/17 04:00 11/14/17 06:00 11/14/17 06:00 11/14/17 05:54 11/14/17 06:00 Intake and Output: 11/14/17 11/14/17 06:59 18:59 Intake Total 1375 Output Total 950 Balance 425 - Medications Medications: Current Medications Heparin Sodium (Porcine) (Heparin) 5,000 units SC Q8 [facility] Last Admin: 11/14/17 05:48 Dose: 5,000 units Hydromorphone HCl (Dilaudid) 0.5 mg IVP Q3H PRN PRN Reason: Pain, moderate (4-7) Last Admin: 11/14/17 03:18 Dose: 0.5 mg Piperacillin Sod/Tazobactam (Sod 3.375 gm/ Sodium Chloride) 100 mls @ 200 mls/ hr IVPB Q6H [facility] PRN Reason: Protocol Last Admin: 11/14/17 04:55 Dose: 200 mls/hr Dextrose/Sodium Chloride (Dextrose 5%/0.45% Ns 1000 Ml) 1,000 mls @ 75 mls/hr IV .[id number] [facility] Last Admin: 11/13/17 22:15 Dose: 75 mls/hr Ipratropium [place] (Atrovent) 0.5 mg IH RQ6 [facility] Last Admin: 11/14/17 01:53 Dose: 0.5 mg Metoprolol Tartrate (Lopressor) 2.5 mg IVP Q6H [facility] Last Admin: 11/14/17 04:54 Dose: 2.5 mg Ondansetron HCl (Zofran Inj) 4 mg IVP Q4 PRN PRN Reason: Nausea/Vomiting Pantoprazole Sodium (Protonix Susp) 40 mg PO DAILY [facility] - Labs Labs: 11/14/17 06:22 11/14/17 06:19 PT 14.0 SECONDS (9.7-12.2) H 11/09/17 15:27 INR 1.3 11/09/17 15:27 APTT 30 SECONDS (21-34) 11/09/17 15:27 - Constitutional Appears: Non-toxic, No Acute Distress - Head Exam Head Exam: ATRAUMATIC - Eye Exam Eye Exam: EOMI. absent: Scleral icterus - ENT Exam ENT Exam: Mucous Membranes Moist - Respiratory Exam Respiratory Exam: NORMAL BREATHING PATTERN. absent: Accessory Muscle Use, Respiratory Distress - Cardiovascular Exam Cardiovascular Exam: Tachycardia, +S1, +S2. absent: Bradycardia - GI/Abdominal Exam GI & Abdominal Exam: Soft, Tenderness (around incision). absent: Distended, Firm, Guarding, Rigid - Extremities Exam Extremities Exam: absent: Calf Tenderness - Neurological Exam Neurological Exam: Alert, Awake, Oriented x3 - Psychiatric Exam Psychiatric exam: Normal Affect - Skin Skin Exam: Intact, Warm Assessment and Plan - Assessment and Plan (Free Text) Assessment: 77M s/p ex lap w/ partial gastrectomy and promise en y POD5 Plan: - D/C NGT - c/w CLD; start on ensure clears - monitor for bowel function - Encourage OOB and IC use - OK to D/C abx tomorrow - DVT ppx - further recs per Dr. Oscar Pedraza PGY1
[2017-11-14 09:55] LABS: BANDS 1 % (0-2); LYMPHOCYTE 7 % (20-40); MONOCYTE 6 % (0-10); NEUTROPHIL 86 % (50-75); TOTAL CELLS COUNTED 100
[2017-11-14 09:56] LABS: PLATELET ESTIMATE NORMAL (NORMAL)
[2017-11-14 09:58] LABS: ANISOCYTOSIS SLIGHT
[2017-11-14 09:59] LABS: TOXIC GRANULATION PRESENT
[2017-11-14 10:00] LABS: POLYCHROMIC SLIGHT; TARGET CELLS SLIGHT
[2017-11-14] MEDS ORDERED: Pantoprazole 40 mg Susp UD PO SCH (10:00)
--- NOTE | 2017-11-14 11:17 | CP.PCM.PN ---
Subjective - Date & Time of Evaluation Date of Evaluation: 11/14/17 Time of Evaluation: 10:45 - Subjective Subjective: No complaints reported Comfortable sitting up in chair Objective - Vital Signs/Intake and Output Vital Signs (last 24 hours): Temp Pulse Resp BP Pulse Ox 97.6 F 127 H 22 126/64 98 11/14/17 08:00 11/14/17 09:03 11/14/17 09:03 11/14/17 09:03 11/14/17 09:03 Intake and Output: 11/14/17 11/14/17 06:59 18:59 Intake Total 1375 285 Output Total 950 170 Balance 425 115 - Medications Medications: Current Medications Heparin Sodium (Porcine) (Heparin) 5,000 units SC Q8 [facility] Last Admin: 11/14/17 05:48 Dose: 5,000 units Hydromorphone HCl (Dilaudid) 0.5 mg IVP Q3H PRN PRN Reason: Pain, moderate (4-7) Last Admin: 11/14/17 08:35 Dose: 0.5 mg Piperacillin Sod/Tazobactam (Sod 3.375 gm/ Sodium Chloride) 100 mls @ 200 mls/ hr IVPB Q6H [facility] PRN Reason: Protocol Last Admin: 11/14/17 10:12 Dose: 200 mls/hr Dextrose/Sodium Chloride (Dextrose 5%/0.45% Ns 1000 Ml) 1,000 mls @ 75 mls/hr IV .[id number] [facility] Last Admin: 11/13/17 22:15 Dose: 75 mls/hr Ipratropium [place] (Atrovent) 0.5 mg IH RQ6 [facility] Last Admin: 11/14/17 07:29 Dose: 0.5 mg Metoprolol Tartrate (Lopressor) 2.5 mg IVP Q6H [facility] Last Admin: 11/14/17 10:12 Dose: 2.5 mg Ondansetron HCl (Zofran Inj) 4 mg IVP Q4 PRN PRN Reason: Nausea/Vomiting Pantoprazole Sodium (Protonix Susp) 40 mg PO DAILY [facility] Last Admin: 11/14/17 10:12 Dose: 40 mg - Labs Labs: 11/14/17 06:22 11/14/17 06:19 PT 14.0 SECONDS (9.7-12.2) H 11/09/17 15:27 INR 1.3 11/09/17 15:27 APTT 30 SECONDS (21-34) 11/09/17 15:27 - Eye Exam Additional comments: No icterus - ENT Exam ENT Exam: Mucous Membranes Moist - Neck Exam Neck Exam: Normal Inspection - Respiratory Exam Respiratory Exam: NORMAL BREATHING PATTERN Additional comments: Lungs Clear. No wheezes - Cardiovascular Exam Cardiovascular Exam: REGULAR RHYTHM, +S1, +S2 - GI/Abdominal Exam GI & Abdominal Exam: Soft - Extremities Exam Additional comments: No edema or cyanosis Assessment and Plan - Assessment and Plan (Free Text) Assessment: MONY renal function is improving . Urine out put is good Hypernatremia is also resolving S/P abdominal Sx Plan: Continue with current Mx Renal US reviewed. Multiple B/L cysts noted. Follow periodically.
[2017-11-14] MEDS: Dextrose 5%/0.45% NS 1,000 ML IV SCH (13:06)
--- NOTE | 2017-11-14 15:40 | CP.PCM.PN ---
Subjective - Date & Time of Evaluation Date of Evaluation: 11/14/17 Time of Evaluation: 13:00 - Subjective Subjective: Patient seen and examiend at bedside. patient tolerated extubation. oob to chair , d/c angeli Objective - Vital Signs/Intake and Output Vital Signs (last 24 hours): Temp Pulse Resp BP Pulse Ox 97.8 F 82 22 120/65 100 11/14/17 12:00 11/14/17 15:00 11/14/17 15:00 11/14/17 14:54 11/14/17 15:00 Intake and Output: 11/14/17 11/14/17 06:59 18:59 Intake Total 1375 1340 Output Total 950 480 Balance 425 860 - Medications Medications: Current Medications Heparin Sodium (Porcine) (Heparin) 5,000 units SC Q8 [facility] Last Admin: 11/14/17 13:06 Dose: 5,000 units Hydromorphone HCl (Dilaudid) 0.5 mg IVP Q3H PRN PRN Reason: Pain, moderate (4-7) Last Admin: 11/14/17 13:04 Dose: 0.5 mg Piperacillin Sod/Tazobactam (Sod 3.375 gm/ Sodium Chloride) 100 mls @ 200 mls/ hr IVPB Q6H [facility] PRN Reason: Protocol Last Admin: 11/14/17 10:12 Dose: 200 mls/hr Dextrose/Sodium Chloride (Dextrose 5%/0.45% Ns 1000 Ml) 1,000 mls @ 75 mls/hr IV .[id number] [facility] Last Admin: 11/14/17 13:06 Dose: 75 mls/hr Linezolid (Zyvox 600mg/300ml D5w) 600 mg in 300 mls @ 200 mls/hr IVPB Q12 [facility] PRN Reason: Protocol Ipratropium [place] (Atrovent) 0.5 mg IH RQ6 [facility] Last Admin: 11/14/17 13:34 Dose: 0.5 mg Metoprolol Tartrate (Lopressor) 2.5 mg IVP Q6H [facility] Last Admin: 11/14/17 10:12 Dose: 2.5 mg Ondansetron HCl (Zofran Inj) 4 mg IVP Q4 PRN PRN Reason: Nausea/Vomiting Pantoprazole Sodium (Protonix Susp) 40 mg PO DAILY [facility] Last Admin: 11/14/17 10:12 Dose: 40 mg - Labs Labs: 11/14/17 06:22 11/14/17 06:19 PT 14.0 SECONDS (9.7-12.2) H 11/09/17 15:27 INR 1.3 11/09/17 15:27 APTT 30 SECONDS (21-34) 11/09/17 15:27 - Head Exam Head Exam: ATRAUMATIC, NORMAL INSPECTION - Eye Exam Pupil Exam: PERRL - ENT Exam ENT Exam: Mucous Membranes Moist - Respiratory Exam Respiratory Exam: Clear to Ausculation Bilateral, NORMAL BREATHING PATTERN - Cardiovascular Exam Cardiovascular Exam: Irregular Rhythm, +S1, +S2 - GI/Abdominal Exam GI & Abdominal Exam: Normal Bowel Sounds Additional comments: multiple drains - Extremities Exam Extremities Exam: Normal Inspection, Pedal Edema Assessment and Plan - Assessment and Plan (Free Text) Assessment: 77 y/o male with h/o HTN,asthma presented to ER with abdominal pain,nausea and vomiting.found to have acute abdomen and pneumoperitoneum,taken to OR. S/P Exploratory laparotomy, distal gastrectomy with anterior retrocolic functional promise en y reconstruction; gastrojejustomy and distal jejunostomy; Intra- abdominal primary Left inguinal herniorraphy. POD5 -Hypoxic Respiratory failure: extubated, change to nasal canula -A-fib: continue IV lopressor for rate control, start AC when surgery ascertains homeostasis continue Lopressor 2.5mg Q6H -Cardiology input appreciated Gi: Abdominal Surgery POD #5 (+)flatus, advance diet as per surgery -Hypernatremia: albumin + D5 IV, continue to monitor Sepsis: Afebrile, no leukocytosis, Elevated Lactate (Resolved), culture (+) strep and (+)MRSA, continue zosyn check vanco level, consider linezolid (light of renal failure), ID input MONY (Worsening), likely Pre-Renal, monitor urine output keep U/O > 0.5 ml/kg/hr , slow improvement DVT/PUD ppx: heparin/protonix PT/OT today oob to chair
--- NOTE | 2017-11-14 17:09 | CP.PCM.CON ---
History of Present Illness - History of Present Illness History of Present Illness: I was called for evaluation of peritoneal cultures Pt is a 77yrs old male with Hx/o HTN, DM, prostate Ca had presented to ER for c/ o abdominal pain & vomiting. Work up had revealed pneumoperitoneum. Was taken to OR & found to have perforated large gastric ulcer & underwent Frandy en Y procedure with distal gastrectomy. Urine growing enterococcus, peritoneal fluid growing strep viridens and MRSA Review of Systems - Review of Systems All systems: reviewed and no additional remarkable complaints except - Constitutional Constitutional: As Per HPI - EENT Eyes: absent: As Per HPI, Blind Spots, Blurred Vision, Change in Vision, Decreased Night Vision, Diplopia, Discharge, Dry Eye, Exophthalmos, Floaters, Irritation, Itchy Eyes, Loss of Peripheral Vision, Pain, Photophobia, Requires Corrective Lenses, Sees Flashes, Spots in Vision, Tunnel Vision, Other Visual Disturbances, Loss of Vision, Other Ears: absent: As Per HPI, Decreased Hearing, Ear Discharge, Ear Pain, Tinnitus, Abnormal Hearing, Disequilibrium, Dizziness, Other Nose/Mouth/Throat: absent: As Per HPI, Epistaxis, Nasal Congestion, Nasal Discharge, Nasal Obstruction, Nasal Trauma, Nose Pain, Post Nasal Drip, Sinus Pain, Sinus Pressure, Bleeding Gums, Change in Voice, Dental Pain, Dry Mouth, Dysphagia, Halitosis, Hoarsness, Lip Swelling, Mouth Lesions, Mouth Pain, Odynophagia, Sore Throat, Throat Swelling, Tongue Swelling, Facial Pain, Neck Pain, Neck Mass, Other - Cardiovascular Cardiovascular: absent: As Per HPI, Acrocyanosis, Chest Pain, Chest Pain at Rest , Chest Pain with Activity, Claudication, Diaphoresis, Dyspnea, Dyspnea on Exertion, Edema, Irregular Heart Rhythm, Pain Radiating to Arm/Neck/Jaw, Leg Edema, Leg Ulcers, Lightheadedness, Orthopnea, Palpitations, Paroxysmal Nocturnal Dyspnea, Pedal Edema, Radiating Pain, Rapid Heart Rate, Slow Heart Rate, Syncope, Other - Respiratory Respiratory: absent: As Per HPI, Cough, Dyspnea, Hemoptysis, Dyspnea on Exertion , Wheezing, Snoring, Stridor, Pain on Inspiration, Chest Congestion, Excessive Mucous Production, Change in Mucous Color, Pain with Coughing, Other - Gastrointestinal Gastrointestinal: As Per HPI - Genitourinary Genitourinary: As Per HPI - Musculoskeletal Musculoskeletal: absent: As Per HPI, Abnormal Gait, Arthralgias, Atrophy, Back Pain, Deformity, Joint Swelling, Limited Range of Motion, Loss of Height, Muscle Cramps, Muscle Weakness, Myalgias, Neck Pain, Numbness, Radiating Pain into Limb, Stiffness, Tingling, Other - Integumentary Integumentary: absent: As Per HPI, Acne, Alopecia, Bleeding Lesions, Change in Hair, Change in Nails, Change in Pigmentation, Changing Lesions, Dry Skin, Erythema, Furuncle, Hirsutism, Lesions, New Lesions, Non-Healing Lesions, Photosensitivity, Pruritus, Rash, Skin Pain, Skin Ulcer, Sores, Striae, Swelling , Unusual Bruising, Wounds, Jaundice, Other - Neurological Neurological: absent: As Per HPI, Abnormal Gait, Abnormal Hearing, Abnormal Movements, Abnormal Speech, Behavioral Changes, Burning Sensations, Confusion, Convulsions, Disequilibrium, Dizziness, Numbness, Focal Weakness, Frequent Falls , Headaches, Lack of Coordination, Loss of Vision, Memory Loss, Paresthesias, Radicular Pain, Restless Legs, Sensory Deficit, Syncope, Tingling, Tremor, Vertigo, Weakness, Other Visual Disturbances, Other - Psychiatric Psychiatric: absent: As Per HPI, Abnormal Sleep Pattern, Anhedonia, Anxiety, Auditory Hallucinations, Behavioral Changes, Change in Appetite, Change in Libido, Confusion, Depression, Difficulty Concentrating, Hallucinations, Homicidal Ideation, Hopelessness, Irritability, Memory Loss, Mood Swings, Panic Attacks, Paranoia, Suicidal Ideation, Visual Hallucinations, Tactile Hallucinations, Other - Endocrine Endocrine: absent: As Per HPI, Change in Body Appearance, Change in Libido, Cold Intolorance, Deepening of Voice, Excessive Sweating, Fatigue, Flushing, Heat Intolorance, Increase in Ring/Shoe/Hat Size, Palpitations, Polydipsia, Polyphagia, Polyuria, Other - Hematologic/Lymphatic Hematologic: absent: As Per HPI, Easy Bleeding, Easy Bruising, Lymphadenopathy, Other Past Patient History - Past Medical History & Family History Past Medical History?: Yes - Past Social History Smoking Status: Never Smoked - CARDIAC Hx Congestive Heart Failure: Yes Hx Hypertension: Yes - PULMONARY Hx Asthma: Yes Hx Pneumonia: Yes (X3) - NEUROLOGICAL Hx Neurological Disorder: Yes Hx Dizziness: Yes - HEENT Hx HEENT Problems: Yes Hx Cataracts: Yes - RENAL Hx Chronic Kidney Disease: Yes (RENAL INSUFFICIENCY) - ENDOCRINE/METABOLIC Hx Endocrine Disorders: No - HEMATOLOGICAL/ONCOLOGICAL Hx Anemia: Yes - INTEGUMENTARY Hx Dermatological Problems: No - MUSCULOSKELETAL/RHEUMATOLOGICAL Hx Musculoskeletal Disorders: Yes Hx Osteoarthritis: Yes - GASTROINTESTINAL Hx Gastrointestinal Disorders: Yes Hx Gastroesophageal Reflux: Yes - GENITOURINARY/GYNECOLOGICAL Hx Genitourinary Disorders: Yes Hx Prostate Problems: Yes (Urinary Retention, BPH) Other/Comment: STAHL CATH - PSYCHIATRIC Hx Substance Use: No - SURGICAL HISTORY Hx Surgeries: Yes Other/Comment: Cystoscopy - ANESTHESIA Hx Anesthesia: Yes Hx Anesthesia Reactions: No Hx Malignant Hyperthermia: No Meds Allergies/Adverse Reactions: Allergies Allergy/AdvReac Type Severity Reaction Status Date / Time shellfish derived Allergy Verified 11/09/17 15:18 - Medications Medications: Current Medications Heparin Sodium (Porcine) (Heparin) 5,000 units SC Q8 [facility] Last Admin: 11/14/17 13:06 Dose: 5,000 units Hydromorphone HCl (Dilaudid) 0.5 mg IVP Q3H PRN PRN Reason: Pain, moderate (4-7) Last Admin: 11/14/17 16:10 Dose: 0.5 mg Piperacillin Sod/Tazobactam (Sod 3.375 gm/ Sodium Chloride) 100 mls @ 200 mls/ hr IVPB Q6H [facility] PRN Reason: Protocol Last Admin: 11/14/17 16:10 Dose: 200 mls/hr Dextrose/Sodium Chloride (Dextrose 5%/0.45% Ns 1000 Ml) 1,000 mls @ 75 mls/hr IV .[id number] [facility] Last Admin: 11/14/17 13:06 Dose: 75 mls/hr Linezolid (Zyvox 600mg/300ml D5w) 600 mg in 300 mls @ 200 mls/hr IVPB Q12 [facility] PRN Reason: Protocol Ipratropium [place] (Atrovent) 0.5 mg IH RQ6 [facility] Last Admin: 11/14/17 13:34 Dose: 0.5 mg Metoprolol Tartrate (Lopressor) 2.5 mg IVP Q6H [facility] Last Admin: 11/14/17 16:12 Dose: 2.5 mg Ondansetron HCl (Zofran Inj) 4 mg IVP Q4 PRN PRN Reason: Nausea/Vomiting Pantoprazole Sodium (Protonix Susp) 40 mg PO DAILY [facility] Last Admin: 11/14/17 10:12 Dose: 40 mg Physical Exam - Constitutional Appears: Non-toxic, No Acute Distress, Chronically Ill - Head Exam Head Exam: ATRAUMATIC, NORMAL INSPECTION, NORMOCEPHALIC - Eye Exam Eye Exam: PERRL. absent: Scleral icterus - ENT Exam ENT Exam: Mucous Membranes Dry, Normal External Ear Exam - Neck Exam Neck exam: Negative for: Lymphadenopathy - Respiratory Exam Respiratory Exam: Decreased Breath Sounds, Rhonchi - Cardiovascular Exam Cardiovascular Exam: REGULAR RHYTHM, +S1, +S2 - GI/Abdominal Exam GI & Abdominal Exam: Diminished Bowel Sounds, Distended, Guarding, Rebound, Tenderness. absent: Rigid Additional comments: midline incision suprapubic drain - Rectal Exam Rectal Exam: Deferred - Exam Exam: NORMAL INSPECTION - Extremities Exam Extremities exam: Negative for: pedal edema - Back Exam Back exam: absent: CVA tenderness (L), CVA tenderness (R) - Neurological Exam Neurological exam: Alert, CN II-XII Intact, Oriented x3, Reflexes Normal - Psychiatric Exam Psychiatric exam: Flat Affect - Skin Skin Exam: Dry Results - Vital Signs Recent Vital Signs: Last Vital Signs Temp 98.8 F 11/14/17 16:00 Pulse 104 H 11/14/17 16:00 Resp 21 11/14/17 16:00 BP 130/69 11/14/17 15:54 Pulse Ox 100 11/14/17 16:00 - Labs Result Diagrams: 11/14/17 06:22 11/14/17 06:19 Labs: Laboratory Results - last 24 hr 11/13/17 11/13/17 11/14/17 17:35 23:38 05:23 WBC RBC Hgb Hct MCV MCH MCHC RDW Plt Count MPV Neut % (Auto) Lymph % (Auto) [place] % (Auto) Eos % (Auto) Baso % (Auto) Neut # (Auto) Lymph # (Auto) [place] # (Auto) Eos # (Auto) Baso # (Auto) Neutrophils % (Manual) Band Neutrophils % Lymphocytes % (Manual) Monocytes % (Manual) Toxic Granulation Platelet Estimate Polychromasia Anisocytosis (manual) Target Cells Sodium Potassium Chloride Carbon Dioxide Anion Gap BUN Creatinine Est GFR ( Amer) Est GFR (Non-Af Amer) POC Glucose (mg/dL) 115 H 128 H 145 H Random Glucose Calcium Phosphorus Magnesium Total Bilirubin AST ALT Alkaline Phosphatase Total Protein Albumin Globulin Albumin/Globulin Ratio 11/14/17 11/14/17 11/14/17 06:19 06:22 11:47 WBC 5.8 RBC 3.45 L Hgb 9.5 L Hct 27.9 L MCV 80.8 MCH 27.4 MCHC 33.9 RDW 16.8 H Plt Count 168 MPV 8.4 Neut % (Auto) 81.6 H Lymph % (Auto) 8.[address] [place] % (Auto) 9.6 Eos % (Auto) 0.4 Baso % (Auto) 0.2 Neut # (Auto) 4.8 Lymph # (Auto) 0.[address] # (Auto) 0.6 Eos # (Auto) 0.0 Baso # (Auto) 0.0 Neutrophils % (Manual) 86 H Band Neutrophils % 1 Lymphocytes % (Manual) 7 L Monocytes % (Manual) 6 Toxic Granulation Present Platelet Estimate Normal Polychromasia Slight Anisocytosis (manual) Slight Target Cells Slight Sodium 148 Potassium 4.0 Chloride 117 H Carbon Dioxide 22 Anion Gap 14 BUN 34 H Creatinine 1.8 H Est GFR ( Amer) 44 Est GFR (Non-Af Amer) 37 POC Glucose (mg/dL) 126 H Random Glucose 124 H Calcium 7.6 L Phosphorus 3.8 Magnesium 2.7 H Total Bilirubin 0.7 AST 18 ALT 13 L D Alkaline Phosphatase 48 Total Protein 5.8 L Albumin 2.7 L D Globulin 3.1 Albumin/Globulin Ratio 0.9 L Assessment & Plan (1) Atrial fib/flutter, transient Status: Acute (2) Perforated abdominal viscus Status: Acute (3) Sepsis Status: Acute (4) Acute kidney insufficiency Status: Acute (5) Gross hematuria Status: Acute - Assessment and Plan (Free Text) Assessment: cont iv antibiotics for min 7 days post op
[2017-11-14] MEDS: Fluconazole IV 200mg/100 ml NS 100 ML IVPB SCH (18:45)
[2017-11-14] MEDS: Linezolid 600 mg in D5W 300 ml 600 MG/300 ML BAG IVPB SCH (22:23)
[2017-11-15] MEDS: Ipratropium 0.02% Inhal Soln (0.5 mg/2.5 ml) UD IH SCH ×4 (01:52→19:37)
[2017-11-15] MEDS: Dextrose 5%/0.45% NS 1,000 ML IV SCH ×2 (02:00→04:47)
[2017-11-15] MEDS: HYDROmorphone 0.5 mg/0.5 ml ISec IVP PRN (02:09)
[2017-11-15] MEDS: Metoprolol 1 mg/ml Inj IVP SCH (04:18)
[2017-11-15] MEDS: Piperacillin/Tazobact 3.375 GM in Sodium Chloride 100 ML IVPB SCH ×4 (04:41→23:02)
[2017-11-15 06:32] LABS: BASO % 0.1 % (0.0-2.0); EOS % 0.6 % (0.0-4.0); HEMOGLOBIN 9.7 g/dL (12.0-18.0); LYMPH # 0.6 K/uL (1.0-4.3); LYMPH % 9.9 % (20.0-40.0); MEAN CORPUSCULAR HEMOGLOBIN 27.1 pg (27.0-31.0); MEAN CORPUSCULAR HGB CONC 33.5 g/dL (33.0-37.0); MEAN PLATELET VOLUME 8.3 fL (7.2-11.7); MONO # 0.7 K/uL (0.0-0.8); MONO % 11.4 % (0.0-10.0); NEUT # 4.9 K/uL (1.8-7.0); NRBC % 0.1 % (0.0-2.0); PLATELET COUNT 195 K/uL (130-400); RBC 3.58 Mil/uL (4.40-5.90); RED CELL DISTRIBUTION WIDTH 16.8 % (11.5-14.5); WHITE BLOOD COUNT 6.3 K/uL (4.8-10.8)
[2017-11-15 06:59] LABS: ALB/GLOB RATIO 0.8 (1.0-2.1); ALBUMIN 2.7 g/dL (3.5-5.0); CALCIUM 7.5 mg/dl (8.6-10.4)
[2017-11-15] MEDS ORDERED: POTASSIUM CH IV SCH ×2 (07:48→08:30)
[2017-11-15] MEDS ORDERED: DEXTROSE IV SCH ×2 (07:48→08:30)
[2017-11-15] MEDS ORDERED: [UNRECOGNIZED DRUG - OTHER] IV SCH ×2 (07:48→08:30)
[2017-11-15] MEDS ORDERED: D5W IV SCH ×2 (07:48→08:30)
--- NOTE | 2017-11-15 08:17 | CP.PCM.PN ---
Subjective - Date & Time of Evaluation Date of Evaluation: 11/15/17 Time of Evaluation: 06:45 - Subjective Subjective: Surgery- Dr. Moore (covering for Dr. Gaytan) Patient seen and examined at bedside. No acute events overnight. c/o of jake- incisonal pain that is manageable with current pain regiment. Tolerating CLD and ensure clears. dressing changed at bedside, incision clean and intact. No active draining. Denies Nausea/vomiting. Passing flatus and having BM. Ry Right 15cc serosang Left 105 serous Objective - Vital Signs/Intake and Output Vital Signs (last 24 hours): Temp Pulse Resp BP Pulse Ox 98.2 F 122 H 21 90/57 L 100 11/15/17 04:00 11/15/17 08:00 11/15/17 08:00 11/15/17 07:56 11/15/17 07:56 Intake and Output: 11/15/17 11/15/17 06:59 18:59 Intake Total 1475 Output Total 511 Balance 964 - Medications Medications: Current Medications Heparin Sodium (Porcine) (Heparin) 5,000 units SC Q8 [facility] Last Admin: 11/15/17 05:07 Dose: 5,000 units Piperacillin Sod/Tazobactam (Sod 3.375 gm/ Sodium Chloride) 100 mls @ 200 mls/ hr IVPB Q6H [facility] PRN Reason: Protocol Last Admin: 11/15/17 04:41 Dose: 200 mls/hr Linezolid (Zyvox 600mg/300ml D5w) 600 mg in 300 mls @ 200 mls/hr IVPB Q12 [facility] PRN Reason: Protocol Last Admin: 11/14/17 22:23 Dose: 200 mls/hr Fluconazole (Diflucan Iv 200 Mg/100 Ml Ns) 100 mls @ 100 mls/hr IVPB Q24H [facility] PRN Reason: Protocol Last Admin: 11/14/17 18:45 Dose: 100 mls/hr Potassium Chloride/Dextrose 40 (ml/ Dextrose/Sodium Chloride) 1,040 mls @ 75 mls/hr IV .[id number] [facility] Ipratropium [place] (Atrovent) 0.5 mg IH RQ6 [facility] Last Admin: 11/15/17 07:25 Dose: 0.5 mg Metoprolol Tartrate (Lopressor) 2.5 mg IVP Q6H [facility] Last Admin: 11/15/17 04:18 Dose: Not Given Ondansetron HCl (Zofran Inj) 4 mg IVP Q4 PRN PRN Reason: Nausea/Vomiting Pantoprazole Sodium (Protonix Susp) 40 mg PO DAILY [facility] Last Admin: 11/14/17 10:12 Dose: 40 mg - Labs Labs: 11/15/17 06:26 11/15/17 06:26 PT 14.0 SECONDS (9.7-12.2) H 11/09/17 15:27 INR 1.3 11/09/17 15:27 APTT 30 SECONDS (21-34) 11/09/17 15:27 - Constitutional Appears: Non-toxic, No Acute Distress - Head Exam Head Exam: ATRAUMATIC - Eye Exam Eye Exam: EOMI - ENT Exam ENT Exam: Mucous Membranes Moist - Respiratory Exam Respiratory Exam: NORMAL BREATHING PATTERN. absent: Accessory Muscle Use, Respiratory Distress - Cardiovascular Exam Cardiovascular Exam: +S1, +S2. absent: Bradycardia, Tachycardia - GI/Abdominal Exam GI & Abdominal Exam: Soft. absent: Distended, Firm, Guarding, Rigid, Tenderness Additional comments: Incision healing well; Clean and dry. Bridget in place. - Exam Additional comments: Left testicular fullness most likely hydrocele from defect - Extremities Exam Extremities Exam: Normal Inspection. absent: Calf Tenderness - Neurological Exam Neurological Exam: Alert, Awake, Oriented x3 - Psychiatric Exam Psychiatric exam: Normal Affect - Skin Skin Exam: Intact, Warm Assessment and Plan - Assessment and Plan (Free Text) Assessment: 77M s/p ex lap w/ partial gastrectomy and promise en y POD6 Plan: - continue ensure- start FLD - monitor for bowel function - Encourage OOB and IC use - DVT ppx - further recs per Dr. Oscar Pedraza PGY1
[2017-11-15 08:46] LABS: LYMPHOCYTE 10 % (20-40); MONOCYTE 10 % (0-10); NEUTROPHIL 79 % (50-75); PLATELET ESTIMATE NORMAL (NORMAL); REACTIVE LYMPHOCYTES 1 % (0-0); TOTAL CELLS COUNTED 100
[2017-11-15 08:47] LABS: ANISOCYTOSIS SLIGHT; HYPOCHROMIC SLIGHT; LARGE PLATELETS PRESENT; POLYCHROMIC SLIGHT
[2017-11-15 08:48] LABS: GIANT PLATELETS PRESENT
[2017-11-15] MEDS: Linezolid 600 mg in D5W 300 ml 600 MG/300 ML BAG IVPB SCH ×2 (09:13→21:01)
--- NOTE | 2017-11-15 09:45 | CP.PCM.PN ---
Subjective - Date & Time of Evaluation Date of Evaluation: 11/15/17 Time of Evaluation: 09:25 - Subjective Subjective: Pt states he feels better today No c/o palpitations, CP Objective - Vital Signs/Intake and Output Vital Signs (last 24 hours): Temp Pulse Resp BP Pulse Ox 98.2 F 122 H 21 90/57 L 100 11/15/17 04:00 11/15/17 08:00 11/15/17 08:00 11/15/17 07:56 11/15/17 07:56 Intake and Output: 11/15/17 11/15/17 06:59 18:59 Intake Total 1475 370 Output Total 511 150 Balance 964 220 - Medications Medications: Current Medications Heparin Sodium (Porcine) (Heparin) 5,000 units SC Q8 [facility] Last Admin: 11/15/17 05:07 Dose: 5,000 units Piperacillin Sod/Tazobactam (Sod 3.375 gm/ Sodium Chloride) 100 mls @ 200 mls/ hr IVPB Q6H [facility] PRN Reason: Protocol Last Admin: 11/15/17 04:41 Dose: 200 mls/hr Linezolid (Zyvox 600mg/300ml D5w) 600 mg in 300 mls @ 200 mls/hr IVPB Q12 [facility] PRN Reason: Protocol Last Admin: 11/15/17 09:13 Dose: 200 mls/hr Fluconazole (Diflucan Iv 200 Mg/100 Ml Ns) 100 mls @ 100 mls/hr IVPB Q24H [facility] PRN Reason: Protocol Last Admin: 11/14/17 18:45 Dose: 100 mls/hr Potassium Chloride 40 meq/ (Sodium Chloride) 1,020 mls @ 50 mls/hr IV .[id number] [facility] Ipratropium [place] (Atrovent) 0.5 mg IH RQ6 [facility] Last Admin: 11/15/17 07:25 Dose: 0.5 mg Ondansetron HCl (Zofran Inj) 4 mg IVP Q4 PRN PRN Reason: Nausea/Vomiting Pantoprazole Sodium (Protonix Ec Tab) 40 mg PO DAILY [facility] - Labs Labs: 11/15/17 06:26 11/15/17 06:26 PT 14.0 SECONDS (9.7-12.2) H 11/09/17 15:27 INR 1.3 11/09/17 15:27 APTT 30 SECONDS (21-34) 11/09/17 15:27 - Head Exam Head Exam: ATRAUMATIC, NORMOCEPHALIC - Eye Exam Eye Exam: Normal appearance Additional comments: No scleral icterus - ENT Exam ENT Exam: Mucous Membranes Moist - Neck Exam Neck Exam: Normal Inspection - Respiratory Exam Respiratory Exam: NORMAL BREATHING PATTERN Additional comments: Lungs clear. No wheezes - Cardiovascular Exam Cardiovascular Exam: REGULAR RHYTHM Additional comments: No gallop. Monitor shows atrial flutter HR 100/min. - GI/Abdominal Exam GI & Abdominal Exam: Firm Additional comments: Not examined in detail - Extremities Exam Additional comments: No edema or cyanosis Assessment and Plan - Assessment and Plan (Free Text) Assessment: MONY Renal function contines to improve Chronic A.fib/flutter f/b Cardiology S/P abdominal surgey Plan: Continue to monitor renal function Urine out remains good Maintain SP > 90
[2017-11-15] MEDS: Pantoprazole 40 mg EC Tab PO SCH (09:46)
[2017-11-15] MEDS: Potassium Chloride 40 MEQ in Sodium Chloride 0.45% 1,000 ML IV SCH (09:46)
--- NOTE | 2017-11-15 13:37 | CP.CCUPN ---
CCU Subjective - Physician Review Events Since Last Encounter (Free Text): 11/15/17 13:35 77-year-old male with a history of hypertension atrial fibrillation. Underwent a larger perforated gastric ulcer repair, gastrojejunostomy and the distal jejunojejunostomy. Patient is currently tolerating oral feeding. Comfortable. Heart rate is controlled well Minimal pain noted. CCU Objective - Vital Signs / Intake & Output Vital Signs (Last 4 hours): Vital Signs Pulse Resp BP Pulse Ox 11/15/17 12:13 86 11/15/17 11:55 111 H 22 155/77 H 11/15/17 11:00 90 23 100 11/15/17 10:54 91 H 23 98/54 L 100 11/15/17 10:00 94 H 23 100 11/15/17 09:54 85 25 H 110/53 L 100 Intake and Output (Last 8hrs): Intake & Output 11/14/17 11/15/17 11/15/17 22:59 06:59 14:59 Intake Total 950 850 553 Output Total 150 361 150 Balance 800 489 403 Weight 191 lb 8 oz Intake: Intake, IV Amount 950 650 283 Left Antecubital 675 650 Right Antecubital 200 Right Hand 75 283 Oral 200 270 Output: Drainage 50 60 LEFT INGUINAL 50 50 Right Lower Abdomen 10 Urine 100 300 150 Urine, Voided 100 300 150 Urine/Stool Mix 1 Emesis 0 Other: # Bowel Movements 1 - Physical Exam Narrative Physical Exam (Free Text): 11/15/17 13:35 On examination: Comfortable not in any distress, mild abdominal pain noted, SADA drain noted. Abdomen soft nontender no pedal edema [employer] AIDE alert awake oriented Head: Positive for: Atraumatic, Normocephalic Extroacular Muscles: Positive for: EOMI Nose (External): Positive for: Other (NG Tube) Respiratory/Chest: Positive for: Clear to Auscultation, Other (Intubated ). Negative for: Accessory Muscle Use Cardiovascular: Positive for: Normal S1, S2, Irregular Rhythm Abdomen: Positive for: Tenderness (Surgical Site. ), Other (G tube x 2 with abdominal dressing (Clean Dry and Intact) ) Lower Extremity: Negative for: Edema Neurological: Positive for: GCS=15 (11T) - Medications Active Medications: Active Medications Generic Name Dose Route Start Last Admin Trade Name Freq PRN Reason Stop Dose Admin Heparin Sodium (Porcine) 5,000 units 05/25/18 14:00 11/15/17 05:07 Heparin SC 5,000 units Q8 [facility] Administration Piperacillin Sod/Tazobactam 100 mls @ 200 mls/hr 11/09/17 17:00 11/15/17 11: 22 Sod 3.375 gm/ Sodium Chloride IVPB 200 mls/hr Q6H [facility] Administration Protocol Linezolid 600 mg in 300 mls @ 200 mls/hr 11/14/17 22:00 11/15/17 09:13 Zyvox 600mg/300ml D5w IVPB 200 mls/hr Q12 [facility] Administration Protocol Fluconazole 100 mls @ 100 mls/hr 11/14/17 18:00 11/14/17 18:45 Diflucan Iv 200 Mg/100 Ml Ns IVPB 100 mls/hr Q24H [facility] Administration Protocol Potassium Chloride 40 meq/ 1,020 mls @ 50 mls/hr 11/15/17 08:45 11/15/17 09: 46 Sodium Chloride IV 50 mls/hr .[id number] [facility] Administration Ipratropium [place] 0.5 mg 11/12/17 10:45 11/15/17 07:25 Atrovent IH 0.5 mg RQ6 [facility] Administration Ondansetron HCl 4 mg 11/09/17 17:19 Zofran Inj IVP Q4 PRN Nausea/Vomiting Pantoprazole Sodium 40 mg 11/15/17 10:00 11/15/17 09:46 Protonix Ec Tab PO 40 mg DAILY [facility] Administration - Patient Studies Lab Studies: Microbiology Studies 11/09/17 Unknown Gram Stain - Final Peritoneal Fluid Body Fluid Culture - Final Streptococcus Viridans Methicillin Resistant S Aureus Xiomara Albicans 11/09/17 23:10 Blood Culture - Final Blood NO GROWTH AFTER 5 DAYS Gram Stain - Final TEST NOT PERFORMED 11/09/17 23:10 Blood Culture - Final Blood NO GROWTH AFTER 5 DAYS Gram Stain - Final TEST NOT PERFORMED Lab Studies 11/15/17 11/15/17 11/15/17 Range/Units 12:11 07:37 06:26 WBC 6.3 (4.8-10.8) K/uL RBC 3.58 L (4.40-5.90) Mil/uL Hgb 9.7 L (12.0-18.0) g/dL Hct 29.0 L (35.0-51.0) % MCV 81.0 (80.0-94.0) fL MCH 27.1 (27.0-31.0) pg MCHC 33.5 (33.0-37.0) g/dL RDW 16.8 H (11.5-14.5) % Plt Count 195 (130-400) K/uL MPV 8.3 (7.2-11.7) fL Neut % (Auto) 78.0 H (50.0-75.0) % Lymph % (Auto) 9.9 L (20.0-40.0) % [place] % (Auto) 11.4 H (0.0-10.0) % Eos % (Auto) 0.6 (0.0-4.0) % Baso % (Auto) 0.1 (0.0-2.0) % Neut # (Auto) 4.9 (1.8-7.0) K/uL Lymph # (Auto) 0.6 L (1.0-4.3) K/uL [place] # (Auto) 0.7 (0.0-0.8) K/uL Eos # (Auto) 0.0 (0.0-0.7) K/uL Baso # (Auto) 0.0 (0.0-0.2) K/uL Neutrophils % (Manual) 79 H (50-75) % Lymphocytes % (Manual) 10 L (20-40) % Reactive Lymphs % 1 H (0-0) % Monocytes % (Manual) 10 (0-10) % Platelet Estimate Normal (NORMAL) Large Platelets Present Giant Platelets Present Polychromasia Slight Hypochromasia (manual) Slight Anisocytosis (manual) Slight Sodium (132-148) mmol/L Potassium (3.6-5.2) mmol/L Chloride (98-107) mmol/L Carbon Dioxide (22-30) mmol/L Anion Gap (10-20) BUN (9-20) mg/dL Creatinine (0.8-1.5) mg/dL Est GFR ( Amer) Est GFR (Non-Af Amer) POC Glucose (mg/dL) 149 H 155 H (65-110) mg/dL Random Glucose (75-110) mg/dL Calcium (8.6-10.4) mg/dl Phosphorus (2.5-4.5) mg/dL Magnesium (1.6-2.3) mg/dL Total Bilirubin (0.2-1.3) mg/dL AST (17-59) U/L ALT (21-72) U/L Alkaline Phosphatase (38-126) U/L Total Protein (6.3-8.3) g/dL Albumin (3.5-5.0) g/dL Globulin (2.2-3.9) gm/dL Albumin/Globulin Ratio (1.0-2.1) 11/15/17 11/14/17 Range/Units 06:26 17:40 WBC (4.8-10.8) K/uL RBC (4.40-5.90) Mil/uL Hgb (12.0-18.0) g/dL Hct (35.0-51.0) % MCV (80.0-94.0) fL MCH (27.0-31.0) pg MCHC (33.0-37.0) g/dL RDW (11.5-14.5) % Plt Count (130-400) K/uL MPV (7.2-11.7) fL Neut % (Auto) (50.0-75.0) % Lymph % (Auto) (20.0-40.0) % [place] % (Auto) (0.0-10.0) % Eos % (Auto) (0.0-4.0) % Baso % (Auto) (0.0-2.0) % Neut # (Auto) (1.8-7.0) K/uL Lymph # (Auto) (1.0-4.3) K/uL [place] # (Auto) (0.0-0.8) K/uL Eos # (Auto) (0.0-0.7) K/uL Baso # (Auto) (0.0-0.2) K/uL Neutrophils % (Manual) (50-75) % Lymphocytes % (Manual) (20-40) % Reactive Lymphs % (0-0) % Monocytes % (Manual) (0-10) % Platelet Estimate (NORMAL) Large Platelets Giant Platelets Polychromasia Hypochromasia (manual) Anisocytosis (manual) Sodium 144 (132-148) mmol/L Potassium 3.8 (3.6-5.2) mmol/L Chloride 113 H (98-107) mmol/L Carbon Dioxide 20 L (22-30) mmol/L Anion Gap 15 (10-20) BUN 27 H (9-20) mg/dL Creatinine 1.4 (0.8-1.5) mg/dL Est GFR ( Amer) 59 Est GFR (Non-Af Amer) 49 POC Glucose (mg/dL) 123 H (65-110) mg/dL Random Glucose 114 H (75-110) mg/dL Calcium 7.5 L (8.6-10.4) mg/dl Phosphorus 3.3 (2.5-4.5) mg/dL Magnesium 2.4 H (1.6-2.3) mg/dL Total Bilirubin 0.5 (0.2-1.3) mg/dL AST 15 L (17-59) U/L ALT 12 L (21-72) U/L Alkaline Phosphatase 46 (38-126) U/L Total Protein 5.8 L (6.3-8.3) g/dL Albumin 2.7 L (3.5-5.0) g/dL Globulin 3.2 (2.2-3.9) gm/dL Albumin/Globulin Ratio 0.8 L (1.0-2.1) Laboratory Results - last 24 hr 11/14/17 11/15/17 11/15/17 17:40 06:26 06:26 WBC 6.3 RBC 3.58 L Hgb 9.7 L Hct 29.0 L MCV 81.0 MCH 27.1 MCHC 33.5 RDW 16.8 H Plt Count 195 MPV 8.3 Neut % (Auto) 78.0 H Lymph % (Auto) 9.9 L [place] % (Auto) 11.4 H Eos % (Auto) 0.6 Baso % (Auto) 0.1 Neut # (Auto) 4.9 Lymph # (Auto) 0.6 L [place] # (Auto) 0.7 Eos # (Auto) 0.0 Baso # (Auto) 0.0 Neutrophils % (Manual) 79 H Lymphocytes % (Manual) 10 L Reactive Lymphs % 1 H Monocytes % (Manual) 10 Platelet Estimate Normal Large Platelets Present Giant Platelets Present Polychromasia Slight Hypochromasia (manual) Slight Anisocytosis (manual) Slight Sodium 144 Potassium 3.8 Chloride 113 H Carbon Dioxide 20 L Anion Gap 15 BUN 27 H Creatinine 1.4 Est GFR ( Amer) 59 Est GFR (Non-Af Amer) 49 POC Glucose (mg/dL) 123 H Random Glucose 114 H Calcium 7.5 L Phosphorus 3.3 Magnesium 2.4 H Total Bilirubin 0.5 AST 15 L ALT 12 L Alkaline Phosphatase 46 Total Protein 5.8 L Albumin 2.7 L Globulin 3.2 Albumin/Globulin Ratio 0.8 L 11/15/17 11/15/17 07:37 12:11 WBC RBC Hgb Hct MCV MCH MCHC RDW Plt Count MPV Neut % (Auto) Lymph % (Auto) [place] % (Auto) Eos % (Auto) Baso % (Auto) Neut # (Auto) Lymph # (Auto) [place] # (Auto) Eos # (Auto) Baso # (Auto) Neutrophils % (Manual) Lymphocytes % (Manual) Reactive Lymphs % Monocytes % (Manual) Platelet Estimate Large Platelets Giant Platelets Polychromasia Hypochromasia (manual) Anisocytosis (manual) Sodium Potassium Chloride Carbon Dioxide Anion Gap BUN Creatinine Est GFR ( Amer) Est GFR (Non-Af Amer) POC Glucose (mg/dL) 155 H 149 H Random Glucose Calcium Phosphorus Magnesium Total Bilirubin AST ALT Alkaline Phosphatase Total Protein Albumin Globulin Albumin/Globulin Ratio Fingerstick Blood Sugar Results: 135 Critical Care Progress Note - Nutrition Nutrition: Nutrition Category Date Time Status Liquid Diet [DIET] Diets 11/13/17 Lunch Active Assessment/Plan (1) Atrial fib/flutter, transient Assessment and plan: Patient underwent a perforation of the duodenal ulcer repair. Currently stable. RV with the atrial fibrillation, currently stable. Continue the current treatment. Stable for transfer to telemetry Current Visit: Yes Status: Acute (2) Perforated abdominal viscus Current Visit: Yes Status: Acute (3) Acute kidney insufficiency Current Visit: No Status: Acute
[2017-11-15] MEDS: Fluconazole IV 200mg/100 ml NS 100 ML IVPB SCH (17:09)
[2017-11-16] MEDS: Ipratropium 0.02% Inhal Soln (0.5 mg/2.5 ml) UD IH SCH ×4 (01:51→19:47)
[2017-11-16] MEDS: Piperacillin/Tazobact 3.375 GM in Sodium Chloride 100 ML IVPB SCH ×4 (05:11→22:52)
[2017-11-16] MEDS ORDERED: Sodium Chloride 0.9% 1,000 ML IV ONE (05:30)
[2017-11-16] MEDS: Potassium Chloride 40 MEQ in Sodium Chloride 0.45% 1,000 ML IV SCH (06:36)
--- NOTE | 2017-11-16 07:57 | CP.PCM.PN ---
Subjective - Date & Time of Evaluation Date of Evaluation: 11/16/17 Time of Evaluation: 07:54 - Subjective Subjective: Surgery: Dr. Moore covering for Dr. Lara Patient doing well today. + BM. Tolerating FLD. Denies f/c/n/v. Has been OOB to chair. Per nursing no acute events overnight. Objective - Vital Signs/Intake and Output Vital Signs (last 24 hours): Temp Pulse Resp BP Pulse Ox 97.8 F 79 23 135/70 100 11/15/17 08:00 11/16/17 02:00 11/16/17 02:00 11/16/17 01:57 11/16/17 02:00 - Medications Medications: Current Medications Heparin Sodium (Porcine) (Heparin) 5,000 units SC Q8 [facility] Last Admin: 11/16/17 05:10 Dose: 5,000 units Piperacillin Sod/Tazobactam (Sod 3.375 gm/ Sodium Chloride) 100 mls @ 200 mls/ hr IVPB Q6H [facility] PRN Reason: Protocol Last Admin: 11/16/17 05:11 Dose: 200 mls/hr Linezolid (Zyvox 600mg/300ml D5w) 600 mg in 300 mls @ 200 mls/hr IVPB Q12 [facility] PRN Reason: Protocol Last Admin: 11/15/17 21:01 Dose: 200 mls/hr Fluconazole (Diflucan Iv 200 Mg/100 Ml Ns) 100 mls @ 100 mls/hr IVPB Q24H [facility] PRN Reason: Protocol Last Admin: 11/15/17 17:09 Dose: 100 mls/hr Potassium Chloride 40 meq/ (Sodium Chloride) 1,020 mls @ 50 mls/hr IV .[id number] [facility] Last Admin: 11/16/17 06:36 Dose: 50 mls/hr Ipratropium [place] (Atrovent) 0.5 mg IH RQ6 [facility] Last Admin: 11/16/17 01:51 Dose: 0.5 mg Ondansetron HCl (Zofran Inj) 4 mg IVP Q4 PRN PRN Reason: Nausea/Vomiting Pantoprazole Sodium (Protonix Ec Tab) 40 mg PO DAILY [facility] Last Admin: 11/15/17 09:46 Dose: 40 mg - Labs Labs: 11/15/17 06:26 11/15/17 06:26 PT 14.0 SECONDS (9.7-12.2) H 11/09/17 15:27 INR 1.3 11/09/17 15:27 APTT 30 SECONDS (21-34) 11/09/17 15:27 - Constitutional Appears: Non-toxic, No Acute Distress, Chronically Ill - Head Exam Head Exam: ATRAUMATIC, NORMOCEPHALIC - Eye Exam Eye Exam: EOMI, Normal appearance - ENT Exam ENT Exam: Mucous Membranes Moist - Respiratory Exam Respiratory Exam: NORMAL BREATHING PATTERN. absent: Respiratory Distress - Cardiovascular Exam Cardiovascular Exam: REGULAR RHYTHM. absent: Tachycardia - GI/Abdominal Exam GI & Abdominal Exam: Soft. absent: Distended, Guarding, Tenderness, Rebound Additional comments: incision CDI with staple closure, kvng drain in RMQ and scrotum. Assessment and Plan - Assessment and Plan (Free Text) Assessment: 77 y/o male s/p partial gastrectomy w/ Frandy en Y recon for perforated gastric ulcer POD7 Plan: -kvng drains to stay until discharge -cont FLD for now and supplements, may consider advancing to soft diet today -OOB -IS use -PPI -ok for DVT ppx -per ID, IV abx cont for 7 days post op, can possible d/c today -further recs per Dr. Gunnar Courtney PGY3
--- NOTE | 2017-11-16 08:16 | PN ---
DATE: 11/12/2017 The patient on ventilator, supportive care, IV antibiotic. Continue treatment. Diya Parker MD
--- NOTE | 2017-11-16 08:17 | PN ---
DATE: 11/14/2017 The patient on IV antibiotics, supportive care . Diya Parker MD
--- NOTE | 2017-11-16 08:17 | PN ---
DATE: 11/15/2017 The patient is improving, extubated, IV antibiotics. Transfer to telemetry. Diya Parker MD
[2017-11-16] MEDS: Linezolid 600 mg in D5W 300 ml 600 MG/300 ML BAG IVPB SCH ×2 (09:00→21:14)
--- NOTE | 2017-11-16 09:53 | CP.PCM.PN ---
Subjective - Date & Time of Evaluation Date of Evaluation: 11/16/17 Time of Evaluation: 08:00 - Subjective Subjective: doing ok less pain no fever Objective - Vital Signs/Intake and Output Vital Signs (last 24 hours): Temp Pulse Resp BP Pulse Ox 97.8 F 90 23 135/63 97 11/15/17 08:00 11/16/17 08:00 11/16/17 08:00 11/16/17 05:56 11/16/17 08:00 Intake and Output: 11/16/17 11/16/17 06:59 18:59 Intake Total 1300 Output Total 540 Balance 760 - Medications Medications: Current Medications Heparin Sodium (Porcine) (Heparin) 5,000 units SC Q8 [facility] Last Admin: 11/16/17 05:10 Dose: 5,000 units Piperacillin Sod/Tazobactam (Sod 3.375 gm/ Sodium Chloride) 100 mls @ 200 mls/ hr IVPB Q6H [facility] PRN Reason: Protocol Last Admin: 11/16/17 05:11 Dose: 200 mls/hr Linezolid (Zyvox 600mg/300ml D5w) 600 mg in 300 mls @ 200 mls/hr IVPB Q12 [facility] PRN Reason: Protocol Last Admin: 11/15/17 21:01 Dose: 200 mls/hr Fluconazole (Diflucan Iv 200 Mg/100 Ml Ns) 100 mls @ 100 mls/hr IVPB Q24H [facility] PRN Reason: Protocol Last Admin: 11/15/17 17:09 Dose: 100 mls/hr Potassium Chloride 40 meq/ (Sodium Chloride) 1,020 mls @ 50 mls/hr IV .[id number] [facility] Last Admin: 11/16/17 06:36 Dose: 50 mls/hr Ipratropium [place] (Atrovent) 0.5 mg IH RQ6 [facility] Last Admin: 11/16/17 01:51 Dose: 0.5 mg Ondansetron HCl (Zofran Inj) 4 mg IVP Q4 PRN PRN Reason: Nausea/Vomiting Pantoprazole Sodium (Protonix Ec Tab) 40 mg PO DAILY [facility] Last Admin: 11/15/17 09:46 Dose: 40 mg Tramadol HCl (Ultram) 50 mg PO Q8 PRN PRN Reason: Pain, moderate (4-7) - Labs Labs: 11/15/17 06:26 11/15/17 06:26 PT 14.0 SECONDS (9.7-12.2) H 11/09/17 15:27 INR 1.3 11/09/17 15:27 APTT 30 SECONDS (21-34) 11/09/17 15:27 - Constitutional Appears: Non-toxic, Chronically Ill - Head Exam Head Exam: NORMOCEPHALIC - Eye Exam Eye Exam: PERRL - ENT Exam ENT Exam: Mucous Membranes Dry - Neck Exam Neck Exam: absent: Lymphadenopathy - Respiratory Exam Respiratory Exam: Decreased Breath Sounds - Cardiovascular Exam Cardiovascular Exam: REGULAR RHYTHM - GI/Abdominal Exam GI & Abdominal Exam: Distended - Rectal Exam Rectal Exam: Deferred - Exam Exam: NORMAL INSPECTION Assessment and Plan (1) Atrial fib/flutter, transient Status: Acute (2) Perforated abdominal viscus Status: Acute (3) Sepsis Status: Acute (4) Acute kidney insufficiency Status: Acute (5) Gross hematuria Status: Acute
[2017-11-16] MEDS: Pantoprazole 40 mg EC Tab PO SCH (10:42)
--- NOTE | 2017-11-16 11:04 | CP.PCM.PN ---
Subjective - Date & Time of Evaluation Date of Evaluation: 11/16/17 Time of Evaluation: 08:00 - Subjective Subjective: PGY2 medicine progress note for Dr. Parker: Patient was seen and examined at bedside with Dr. Parker. Patient has now been downgraded out of ICU after havng a larger perforated gastric ulcer repair, gastrojejunostomy and the distal jejunojejunostomy. He has now been switch to a regular diet per surgical team. He appeared comfortable in bed and had no complaints. Objective - Vital Signs/Intake and Output Vital Signs (last 24 hours): Temp Pulse Resp BP Pulse Ox 97.8 F 90 23 135/63 97 11/15/17 08:00 11/16/17 08:00 11/16/17 08:00 11/16/17 05:56 11/16/17 08:00 Intake and Output: 11/16/17 11/16/17 06:59 18:59 Intake Total 1300 Output Total 540 Balance 760 - Medications Medications: Current Medications Heparin Sodium (Porcine) (Heparin) 5,000 units SC Q8 [facility] Last Admin: 11/16/17 05:10 Dose: 5,000 units Piperacillin Sod/Tazobactam (Sod 3.375 gm/ Sodium Chloride) 100 mls @ 200 mls/ hr IVPB Q6H [facility] PRN Reason: Protocol Last Admin: 11/16/17 10:43 Dose: 200 mls/hr Linezolid (Zyvox 600mg/300ml D5w) 600 mg in 300 mls @ 200 mls/hr IVPB Q12 [facility] PRN Reason: Protocol Last Admin: 11/16/17 09:00 Dose: 200 mls/hr Fluconazole (Diflucan Iv 200 Mg/100 Ml Ns) 100 mls @ 100 mls/hr IVPB Q24H [facility] PRN Reason: Protocol Last Admin: 11/15/17 17:09 Dose: 100 mls/hr Potassium Chloride 40 meq/ (Sodium Chloride) 1,020 mls @ 50 mls/hr IV .[id number] [facility] Last Admin: 11/16/17 06:36 Dose: 50 mls/hr Ipratropium [place] (Atrovent) 0.5 mg IH RQ6 [facility] Last Admin: 11/16/17 01:51 Dose: 0.5 mg Ondansetron HCl (Zofran Inj) 4 mg IVP Q4 PRN PRN Reason: Nausea/Vomiting Pantoprazole Sodium (Protonix Ec Tab) 40 mg PO DAILY [facility] Last Admin: 11/16/17 10:42 Dose: 40 mg Tramadol HCl (Ultram) 50 mg PO Q8 PRN PRN Reason: Pain, moderate (4-7) - Labs Labs: 11/15/17 06:26 11/15/17 06:26 PT 14.0 SECONDS (9.7-12.2) H 11/09/17 15:27 INR 1.3 11/09/17 15:27 APTT 30 SECONDS (21-34) 11/09/17 15:27 - Constitutional Appears: Non-toxic, No Acute Distress - Head Exam Head Exam: ATRAUMATIC, NORMAL INSPECTION - Eye Exam Eye Exam: EOMI Pupil Exam: NORMAL ACCOMODATION - ENT Exam ENT Exam: Mucous Membranes Moist - Respiratory Exam Respiratory Exam: Clear to Ausculation Bilateral, NORMAL BREATHING PATTERN. absent: Respiratory Distress - Cardiovascular Exam Cardiovascular Exam: REGULAR RHYTHM, +S1, +S2 - GI/Abdominal Exam GI & Abdominal Exam: Soft, Tenderness Additional comments: kvng drain in place, dressing c/d/i - Extremities Exam Extremities Exam: Normal Inspection - Back Exam Back Exam: NORMAL INSPECTION - Neurological Exam Neurological Exam: Alert, Awake, Oriented x3 - Psychiatric Exam Psychiatric exam: Normal Affect, Normal Mood - Skin Skin Exam: Dry, Intact, Normal Color, Warm Assessment and Plan - Assessment and Plan (Free Text) Assessment: S/P perforated gastric ulcer repair POD 7 Dr. Moore consulted - help appreciated Dr. Gaytan consulted - help appreciated Patient was intubated during his time in ICU, now extubated and doing well Management per surgical team Monitor for bowel function Encourage OOB and IC use Dr. De Luna consulted - help appreciated Flucanazole IVPB daily Zosyn 3.375 gm IVPB Q6 hours Linezolid 600mg IVPB Q12 hours Tramadol 50mg PO Q8 prn pain Hypertension Controlled Hx. Atrial Fibrillation In NSR at this time Dr. Williamson consulted - help appreciated Rate controlled MONY Dr. Dela Cruz consulted - help appreciated Renal function imprving Urine out remains good Maintain SP > 90 Prophylactic Measures Heparin 5,000 U SC Q8 hours Protonix 40mg PO daily Zofran prn PT/PTT SCDs All management per Dr. Parker
[2017-11-16 12:04] LABS: BASO % 0.1 % (0.0-2.0); EOS % 0.2 % (0.0-4.0); LYMPH # 0.5 K/uL (1.0-4.3); LYMPH % 5.4 % (20.0-40.0); MEAN CELL VOLUME 80.9 fL (80.0-94.0); MEAN CORPUSCULAR HEMOGLOBIN 27.8 pg (27.0-31.0); MEAN CORPUSCULAR HGB CONC 34.3 g/dL (33.0-37.0); MONO # 0.6 K/uL (0.0-0.8); NEUT # 8.7 K/uL (1.8-7.0); NEUT % 88.3 % (50.0-75.0); PLATELET COUNT 255 K/uL (130-400); RED CELL DISTRIBUTION WIDTH 16.4 % (11.5-14.5); WHITE BLOOD COUNT 9.9 K/uL (4.8-10.8)
--- NOTE | 2017-11-16 12:16 | CP.PCM.PN ---
Subjective - Date & Time of Evaluation Date of Evaluation: 11/16/17 Time of Evaluation: 12:00 - Subjective Subjective: Stable postop, controlled rate, needs oral anticoagulation when cleared by surgery, still fib flutter, rate 70's, no AV blockers, rate controlled after hydration. Objective - Vital Signs/Intake and Output Vital Signs (last 24 hours): Temp Pulse Resp BP Pulse Ox 97.8 F 90 23 135/63 97 11/15/17 08:00 11/16/17 08:00 11/16/17 08:00 11/16/17 05:56 11/16/17 08:00 Intake and Output: 11/16/17 11/16/17 06:59 18:59 Intake Total 1300 Output Total 540 Balance 760 - Medications Medications: Current Medications Heparin Sodium (Porcine) (Heparin) 5,000 units SC Q8 [facility] Last Admin: 11/16/17 05:10 Dose: 5,000 units Piperacillin Sod/Tazobactam (Sod 3.375 gm/ Sodium Chloride) 100 mls @ 200 mls/ hr IVPB Q6H [facility] PRN Reason: Protocol Last Admin: 11/16/17 10:43 Dose: 200 mls/hr Linezolid (Zyvox 600mg/300ml D5w) 600 mg in 300 mls @ 200 mls/hr IVPB Q12 [facility] PRN Reason: Protocol Last Admin: 11/16/17 09:00 Dose: 200 mls/hr Fluconazole (Diflucan Iv 200 Mg/100 Ml Ns) 100 mls @ 100 mls/hr IVPB Q24H [facility] PRN Reason: Protocol Last Admin: 11/15/17 17:09 Dose: 100 mls/hr Potassium Chloride 40 meq/ (Sodium Chloride) 1,020 mls @ 50 mls/hr IV .[id number] [facility] Last Admin: 11/16/17 06:36 Dose: 50 mls/hr Ipratropium [place] (Atrovent) 0.5 mg IH RQ6 [facility] Last Admin: 11/16/17 01:51 Dose: 0.5 mg Ondansetron HCl (Zofran Inj) 4 mg IVP Q4 PRN PRN Reason: Nausea/Vomiting Pantoprazole Sodium (Protonix Ec Tab) 40 mg PO DAILY [facility] Last Admin: 11/16/17 10:42 Dose: 40 mg Tramadol HCl (Ultram) 50 mg PO Q8 PRN PRN Reason: Pain, moderate (4-7) - Labs Labs: 11/16/17 11:47 11/15/17 06:26 PT 14.0 SECONDS (9.7-12.2) H 11/09/17 15:27 INR 1.3 11/09/17 15:27 APTT 30 SECONDS (21-34) 11/09/17 15:27 - Constitutional Appears: Non-toxic - Head Exam Head Exam: ATRAUMATIC - Eye Exam Eye Exam: EOMI - ENT Exam ENT Exam: Mucous Membranes Moist - Neck Exam Neck Exam: absent: Lymphadenopathy, Thyromegaly - Respiratory Exam Respiratory Exam: Clear to Ausculation Bilateral. absent: Rales - Cardiovascular Exam Cardiovascular Exam: Irregular Rhythm, Murmur - GI/Abdominal Exam GI & Abdominal Exam: Normal Bowel Sounds. absent: Organomegaly - Rectal Exam Rectal Exam: Deferred - Extremities Exam Extremities Exam: Normal Capillary Refill. absent: Calf Tenderness - Neurological Exam Neurological Exam: Alert, Oriented x3 - Psychiatric Exam Psychiatric exam: Normal Mood - Skin Skin Exam: Dry Assessment and Plan (1) Atrial fib/flutter, transient Status: Acute (2) Perforated abdominal viscus Status: Acute (3) Sepsis Status: Acute (4) HTN (hypertension) Status: Chronic
[2017-11-16 12:25] LABS: ALB/GLOB RATIO 0.7 (1.0-2.1); ALBUMIN 2.3 g/dL (3.5-5.0); CALCIUM 7.6 mg/dl (8.6-10.4)
--- NOTE | 2017-11-16 12:47 | CP.PCM.PN ---
Subjective - Date & Time of Evaluation Date of Evaluation: 11/16/17 Time of Evaluation: 12:30 - Subjective Subjective: Feels better. Sitting up in chair Objective - Vital Signs/Intake and Output Vital Signs (last 24 hours): Temp Pulse Resp BP Pulse Ox 97.8 F 90 23 135/63 97 11/15/17 08:00 11/16/17 08:00 11/16/17 08:00 11/16/17 05:56 11/16/17 08:00 Intake and Output: 11/16/17 11/16/17 06:59 18:59 Intake Total 1300 Output Total 540 Balance 760 - Medications Medications: Current Medications Heparin Sodium (Porcine) (Heparin) 5,000 units SC Q8 [facility] Last Admin: 11/16/17 05:10 Dose: 5,000 units Piperacillin Sod/Tazobactam (Sod 3.375 gm/ Sodium Chloride) 100 mls @ 200 mls/ hr IVPB Q6H [facility] PRN Reason: Protocol Last Admin: 11/16/17 10:43 Dose: 200 mls/hr Linezolid (Zyvox 600mg/300ml D5w) 600 mg in 300 mls @ 200 mls/hr IVPB Q12 [facility] PRN Reason: Protocol Last Admin: 11/16/17 09:00 Dose: 200 mls/hr Fluconazole (Diflucan Iv 200 Mg/100 Ml Ns) 100 mls @ 100 mls/hr IVPB Q24H [facility] PRN Reason: Protocol Last Admin: 11/15/17 17:09 Dose: 100 mls/hr Potassium Chloride 40 meq/ (Sodium Chloride) 1,020 mls @ 50 mls/hr IV .[id number] [facility] Last Admin: 11/16/17 06:36 Dose: 50 mls/hr Ipratropium [place] (Atrovent) 0.5 mg IH RQ6 ZAID Last Admin: 11/16/17 01:51 Dose: 0.5 mg Ondansetron HCl (Zofran Inj) 4 mg IVP Q4 PRN PRN Reason: Nausea/Vomiting Pantoprazole Sodium (Protonix Ec Tab) 40 mg PO DAILY [facility] Last Admin: 11/16/17 10:42 Dose: 40 mg Tramadol HCl (Ultram) 50 mg PO Q8 PRN PRN Reason: Pain, moderate (4-7) - Labs Labs: 11/16/17 11:47 11/16/17 11:47 PT 14.0 SECONDS (9.7-12.2) H 11/09/17 15:27 INR 1.3 11/09/17 15:27 APTT 30 SECONDS (21-34) 11/09/17 15:27 - Constitutional Appears: No Acute Distress - Eye Exam Eye Exam: Normal appearance - Neck Exam Neck Exam: Normal Inspection - Respiratory Exam Respiratory Exam: NORMAL BREATHING PATTERN Additional comments: Lungs clear - Cardiovascular Exam Cardiovascular Exam: REGULAR RHYTHM Additional comments: No gallops - GI/Abdominal Exam GI & Abdominal Exam: Soft Assessment and Plan - Assessment and Plan (Free Text) Assessment: MONY renal function is stable Hypernatremia resolved S/P abdominal Sx Plan: Continue to monitor renal function Creat is slightly higher Continue to monitor
[2017-11-16 13:16] LABS: ANISOCYTOSIS SLIGHT; BANDS 2 % (0-2); HYPOCHROMIC SLIGHT; LYMPHOCYTE 5 % (20-40); MONOCYTE 3 % (0-10); NEUTROPHIL 88 % (50-75); OVALOCYTES SLIGHT; PLATELET ESTIMATE NORMAL (NORMAL); REACTIVE LYMPHOCYTES 2 % (0-0); TOTAL CELLS COUNTED 100
[2017-11-16] MEDS: Fluconazole IV 200mg/100 ml NS 100 ML IVPB SCH (17:48)
[2017-11-17] MEDS: Ipratropium 0.02% Inhal Soln (0.5 mg/2.5 ml) UD IH SCH ×4 (01:15→19:56)
[2017-11-17] MEDS: Piperacillin/Tazobact 3.375 GM in Sodium Chloride 100 ML IVPB SCH ×2 (04:58→10:08)
[2017-11-17] MEDS: Potassium Chloride 40 MEQ in Sodium Chloride 0.45% 1,000 ML IV SCH ×2 (06:05→21:57)
[2017-11-17 06:13] LABS: BASO % 0.2 % (0.0-2.0); EOS # 0.1 K/uL (0.0-0.7); EOS % 0.4 % (0.0-4.0); HEMOGLOBIN 10.4 g/dL (12.0-18.0); LYMPH # 0.9 K/uL (1.0-4.3); LYMPH % 6.6 % (20.0-40.0); MEAN CELL VOLUME 80.9 fL (80.0-94.0); MEAN CORPUSCULAR HEMOGLOBIN 26.8 pg (27.0-31.0); MEAN CORPUSCULAR HGB CONC 33.1 g/dL (33.0-37.0); MEAN PLATELET VOLUME 7.9 fL (7.2-11.7); MONO # 0.8 K/uL (0.0-0.8); NEUT # 11.4 K/uL (1.8-7.0); NEUT % 86.8 % (50.0-75.0); PLATELET COUNT 317 K/uL (130-400); RBC 3.89 Mil/uL (4.40-5.90); RED CELL DISTRIBUTION WIDTH 16.6 % (11.5-14.5); WHITE BLOOD COUNT 13.1 K/uL (4.8-10.8)
[2017-11-17 06:52] LABS: ALB/GLOB RATIO 0.8 (1.0-2.1); ALBUMIN 2.8 g/dL (3.5-5.0); CALCIUM 7.8 mg/dl (8.6-10.4)
--- NOTE | 2017-11-17 08:02 | CP.PCM.PN ---
Subjective - Date & Time of Evaluation Date of Evaluation: 11/17/17 Time of Evaluation: 08:02 - Subjective Subjective: Progress note for Dr. Parker's Service Patient was seen and examined at bedside. He is difficult to understand however motions that he is doing well. He states that upon discharge he would like to return home. No acute events overnight. Objective - Vital Signs/Intake and Output Vital Signs (last 24 hours): Temp Pulse Resp BP Pulse Ox 97.8 F 86 21 130/81 100 11/17/17 04:00 11/17/17 03:00 11/17/17 03:00 11/17/17 01:56 11/17/17 04:00 Intake and Output: 11/17/17 11/17/17 06:59 18:59 Intake Total 1220 Output Total 715 Balance 505 - Medications Medications: Current Medications Heparin Sodium (Porcine) (Heparin) 5,000 units SC Q8 [facility] Last Admin: 11/17/17 05:42 Dose: 5,000 units Piperacillin Sod/Tazobactam (Sod 3.375 gm/ Sodium Chloride) 100 mls @ 200 mls/ hr IVPB Q6H [facility] PRN Reason: Protocol Last Admin: 11/17/17 04:58 Dose: 200 mls/hr Linezolid (Zyvox 600mg/300ml D5w) 600 mg in 300 mls @ 200 mls/hr IVPB Q12 [facility] PRN Reason: Protocol Last Admin: 11/16/17 21:14 Dose: 200 mls/hr Fluconazole (Diflucan Iv 200 Mg/100 Ml Ns) 100 mls @ 100 mls/hr IVPB Q24H [facility] PRN Reason: Protocol Last Admin: 11/16/17 17:48 Dose: 100 mls/hr Potassium Chloride 40 meq/ (Sodium Chloride) 1,020 mls @ 50 mls/hr IV .[id number] [facility] Last Admin: 11/17/17 06:05 Dose: 50 mls/hr Ipratropium [employer] (Atrovent) 0.5 mg IH RQ6 [facility] Last Admin: 11/17/17 07:35 Dose: 0.5 mg Ondansetron HCl (Zofran Inj) 4 mg IVP Q4 PRN PRN Reason: Nausea/Vomiting Pantoprazole Sodium (Protonix Ec Tab) 40 mg PO DAILY [facility] Last Admin: 11/16/17 10:42 Dose: 40 mg Tramadol HCl (Ultram) 50 mg PO Q8 PRN PRN Reason: Pain, moderate (4-7) - Labs Labs: 11/17/17 06:04 11/17/17 06:04 PT 14.0 SECONDS (9.7-12.2) H 11/09/17 15:27 INR 1.3 11/09/17 15:27 APTT 30 SECONDS (21-34) 11/09/17 15:27 - Head Exam Head Exam: ATRAUMATIC, NORMOCEPHALIC - Eye Exam Eye Exam: EOMI, Normal appearance - ENT Exam ENT Exam: Mucous Membranes Moist - Respiratory Exam Respiratory Exam: Clear to Ausculation Bilateral, NORMAL BREATHING PATTERN - Cardiovascular Exam Cardiovascular Exam: REGULAR RHYTHM, +S1, +S2 - GI/Abdominal Exam GI & Abdominal Exam: Soft. absent: Tenderness Additional comments: Ry drain - Neurological Exam Neurological Exam: Alert, Awake, Oriented x3 - Psychiatric Exam Psychiatric exam: Normal Affect, Normal Mood - Skin Skin Exam: Dry, Warm Assessment and Plan - Assessment and Plan (Free Text) Plan: S/P perforated gastric ulcer repair POD 8 Dr. Moore consulted - help appreciated Dr. Gaytan consulted - help appreciated Patient was intubated during his time in ICU, now extubated and doing well Management per surgical team Monitor for bowel function Encourage OOB and IC use Dr. De Luna consulted - help appreciated Flucanazole IVPB daily Zosyn 3.375 gm IVPB Q6 hours Linezolid 600mg IVPB Q12 hours Tramadol 50mg PO Q8 prn pain Hypertension Controlled Hx. Atrial Fibrillation In NSR at this time Dr. Williamson consulted - help appreciated Rate controlled MONY Dr. Dela Cruz consulted - help appreciated Renal function imprving Urine out remains good Maintain SP > 90 Prophylactic Measures Heparin 5,000 U SC Q8 hours Protonix 40mg PO daily Zofran prn PT/PTT SCDs Case discussed with Dr. Parker All management per Dr. Parker
[2017-11-17 08:21] LABS: BANDS 5 % (0-2); LYMPHOCYTE 5 % (20-40); MONOCYTE 6 % (0-10); NEUTROPHIL 84 % (50-75); TOTAL CELLS COUNTED 100
[2017-11-17 08:22] LABS: ANISOCYTOSIS SLIGHT; PLATELET ESTIMATE NORMAL (NORMAL)
[2017-11-17 08:23] LABS: HYPOCHROMIC SLIGHT; LARGE PLATELETS PRESENT; OVALOCYTES SLIGHT
[2017-11-17] MEDS: Pantoprazole 40 mg EC Tab PO SCH (09:00)
[2017-11-17] MEDS: Linezolid 600 mg in D5W 300 ml 600 MG/300 ML BAG IVPB SCH ×2 (10:40→21:08)
--- NOTE | 2017-11-17 10:58 | CP.PCM.PN ---
Subjective - Date & Time of Evaluation Date of Evaluation: 11/17/17 Time of Evaluation: 10:10 - Subjective Subjective: Surgery- Dr. Moore (Covering for Dr. Gaytan Patient doing well today. No acute events overnight. Nursing notes reviewed. Tolerating Regular Soft diet. + BM. Denies f/c/n/v. Has been OOB to chair. Incision C/D/I. dressing changed at bedside this AM. Objective - Vital Signs/Intake and Output Vital Signs (last 24 hours): Temp Pulse Resp BP Pulse Ox 97.8 F 84 20 125/79 100 11/17/17 04:00 11/17/17 10:00 11/17/17 10:00 11/17/17 09:56 11/17/17 10:00 Intake and Output: 11/17/17 11/17/17 06:59 18:59 Intake Total 1220 Output Total 715 Balance 505 - Medications Medications: Current Medications Heparin Sodium (Porcine) (Heparin) 5,000 units SC Q8 [facility] Last Admin: 11/17/17 05:42 Dose: 5,000 units Piperacillin Sod/Tazobactam (Sod 3.375 gm/ Sodium Chloride) 100 mls @ 200 mls/ hr IVPB Q6H [facility] PRN Reason: Protocol Last Admin: 11/17/17 10:08 Dose: 200 mls/hr Linezolid (Zyvox 600mg/300ml D5w) 600 mg in 300 mls @ 200 mls/hr IVPB Q12 [facility] PRN Reason: Protocol Last Admin: 11/16/17 21:14 Dose: 200 mls/hr Fluconazole (Diflucan Iv 200 Mg/100 Ml Ns) 100 mls @ 100 mls/hr IVPB Q24H [facility] PRN Reason: Protocol Last Admin: 11/16/17 17:48 Dose: 100 mls/hr Potassium Chloride 40 meq/ (Sodium Chloride) 1,020 mls @ 50 mls/hr IV .[id number] [facility] Last Admin: 11/17/17 06:05 Dose: 50 mls/hr Ipratropium [place] (Atrovent) 0.5 mg IH RQ6 [facility] Last Admin: 11/17/17 07:35 Dose: 0.5 mg Ondansetron HCl (Zofran Inj) 4 mg IVP Q4 PRN PRN Reason: Nausea/Vomiting Pantoprazole Sodium (Protonix Ec Tab) 40 mg PO DAILY [facility] Last Admin: 11/17/17 09:00 Dose: 40 mg Tramadol HCl (Ultram) 50 mg PO Q8 PRN PRN Reason: Pain, moderate (4-7) - Labs Labs: 11/17/17 06:04 11/17/17 06:04 PT 14.0 SECONDS (9.7-12.2) H 11/09/17 15:27 INR 1.3 11/09/17 15:27 APTT 30 SECONDS (21-34) 11/09/17 15:27 - Constitutional Appears: Non-toxic, No Acute Distress - Head Exam Head Exam: ATRAUMATIC - Eye Exam Eye Exam: EOMI. absent: Scleral icterus - ENT Exam ENT Exam: Mucous Membranes Moist - Respiratory Exam Respiratory Exam: NORMAL BREATHING PATTERN. absent: Accessory Muscle Use, Respiratory Distress - Cardiovascular Exam Cardiovascular Exam: +S1, +S2. absent: Bradycardia, Tachycardia - GI/Abdominal Exam GI & Abdominal Exam: Soft. absent: Distended, Firm, Guarding, Rigid, Tenderness Additional comments: Incision C/D/I. healing well. no signs of seroma or active discharge - Extremities Exam Extremities Exam: Normal Inspection. absent: Calf Tenderness - Neurological Exam Neurological Exam: Alert, Awake, Oriented x3 - Psychiatric Exam Psychiatric exam: Normal Affect - Skin Skin Exam: Intact, Warm Assessment and Plan - Assessment and Plan (Free Text) Assessment: 77M s/p partial gastrectomy w/ Frandy en Y recon for perforated gastric ulcer POD# 8 Plan: -Monitor drain output: kvng drains to stay until discharge -cont soft regular diet and nutrition supplements -encourage OOB and IC use -DVTppx -further recs per Dr. Gunnar Pedraza PGY1
--- NOTE | 2017-11-17 12:40 | CP.PCM.PN ---
Subjective - Date & Time of Evaluation Date of Evaluation: 11/17/17 Time of Evaluation: 12:30 - Subjective Subjective: Pt feels better Objective - Vital Signs/Intake and Output Vital Signs (last 24 hours): Temp Pulse Resp BP Pulse Ox 98.4 F 76 16 126/69 98 11/17/17 12:00 11/17/17 12:00 11/17/17 12:00 11/17/17 12:00 11/17/17 12:00 Intake and Output: 11/17/17 11/17/17 06:59 18:59 Intake Total 1220 Output Total 715 Balance 505 - Medications Medications: Current Medications Heparin Sodium (Porcine) (Heparin) 5,000 units SC Q8 [facility] Last Admin: 11/17/17 05:42 Dose: 5,000 units Piperacillin Sod/Tazobactam (Sod 3.375 gm/ Sodium Chloride) 100 mls @ 200 mls/ hr IVPB Q6H [facility] PRN Reason: Protocol Last Admin: 11/17/17 10:08 Dose: 200 mls/hr Linezolid (Zyvox 600mg/300ml D5w) 600 mg in 300 mls @ 200 mls/hr IVPB Q12 [facility] PRN Reason: Protocol Last Admin: 11/17/17 10:40 Dose: 200 mls/hr Fluconazole (Diflucan Iv 200 Mg/100 Ml Ns) 100 mls @ 100 mls/hr IVPB Q24H [facility] PRN Reason: Protocol Last Admin: 11/16/17 17:48 Dose: 100 mls/hr Potassium Chloride 40 meq/ (Sodium Chloride) 1,020 mls @ 50 mls/hr IV .[id number] [facility] Last Admin: 11/17/17 06:05 Dose: 50 mls/hr Ipratropium [place] (Atrovent) 0.5 mg IH RQ6 [facility] Last Admin: 11/17/17 07:35 Dose: 0.5 mg Ondansetron HCl (Zofran Inj) 4 mg IVP Q4 PRN PRN Reason: Nausea/Vomiting Pantoprazole Sodium (Protonix Ec Tab) 40 mg PO DAILY [facility] Last Admin: 11/17/17 09:00 Dose: 40 mg Tramadol HCl (Ultram) 50 mg PO Q8 PRN PRN Reason: Pain, moderate (4-7) - Labs Labs: 11/17/17 06:04 11/17/17 06:04 PT 14.0 SECONDS (9.7-12.2) H 11/09/17 15:27 INR 1.3 11/09/17 15:27 APTT 30 SECONDS (21-34) 11/09/17 15:27 - Constitutional Appears: No Acute Distress - Head Exam Head Exam: ATRAUMATIC, NORMOCEPHALIC - Eye Exam Additional comments: No scleral icterus - ENT Exam ENT Exam: Mucous Membranes Moist - Respiratory Exam Respiratory Exam: NORMAL BREATHING PATTERN Additional comments: Lungs clear - Cardiovascular Exam Cardiovascular Exam: REGULAR RHYTHM, +S1, +S2 - GI/Abdominal Exam GI & Abdominal Exam: Soft - Extremities Exam Additional comments: No edema or cyanosis Assessment and Plan - Assessment and Plan (Free Text) Assessment: sherie resolved Creat. 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
--- NOTE | 2017-11-17 14:12 | CP.PCM.PN ---
Subjective - Date & Time of Evaluation Date of Evaluation: 11/17/17 Time of Evaluation: 09:00 - Subjective Subjective: doing well in ICU OOB to chair Objective - Vital Signs/Intake and Output Vital Signs (last 24 hours): Temp Pulse Resp BP Pulse Ox 98.4 F 76 16 126/69 98 11/17/17 12:00 11/17/17 12:00 11/17/17 12:00 11/17/17 12:00 11/17/17 12:00 Intake and Output: 11/17/17 11/17/17 06:59 18:59 Intake Total 1220 Output Total 715 Balance 505 - Medications Medications: Current Medications Heparin Sodium (Porcine) (Heparin) 5,000 units SC Q8 [facility] Last Admin: 11/17/17 14:06 Dose: 5,000 units Piperacillin Sod/Tazobactam (Sod 3.375 gm/ Sodium Chloride) 100 mls @ 200 mls/ hr IVPB Q6H [facility] PRN Reason: Protocol Last Admin: 11/17/17 10:08 Dose: 200 mls/hr Linezolid (Zyvox 600mg/300ml D5w) 600 mg in 300 mls @ 200 mls/hr IVPB Q12 [facility] PRN Reason: Protocol Last Admin: 11/17/17 10:40 Dose: 200 mls/hr Fluconazole (Diflucan Iv 200 Mg/100 Ml Ns) 100 mls @ 100 mls/hr IVPB Q24H [facility] PRN Reason: Protocol Last Admin: 11/16/17 17:48 Dose: 100 mls/hr Potassium Chloride 40 meq/ (Sodium Chloride) 1,020 mls @ 50 mls/hr IV .[id number] [facility] Last Admin: 11/17/17 06:05 Dose: 50 mls/hr Ipratropium [place] (Atrovent) 0.5 mg IH RQ6 [facility] Last Admin: 11/17/17 13:33 Dose: 0.5 mg Ondansetron HCl (Zofran Inj) 4 mg IVP Q4 PRN PRN Reason: Nausea/Vomiting Pantoprazole Sodium (Protonix Ec Tab) 40 mg PO DAILY [facility] Last Admin: 11/17/17 09:00 Dose: 40 mg Tramadol HCl (Ultram) 50 mg PO Q8 PRN PRN Reason: Pain, moderate (4-7) - Labs Labs: 11/17/17 06:04 11/17/17 06:04 PT 14.0 SECONDS (9.7-12.2) H 11/09/17 15:27 INR 1.3 11/09/17 15:27 APTT 30 SECONDS (21-34) 11/09/17 15:27 - Constitutional Appears: Non-toxic, Chronically Ill - Head Exam Head Exam: NORMOCEPHALIC - Eye Exam Eye Exam: PERRL - ENT Exam ENT Exam: Mucous Membranes Dry - Neck Exam Neck Exam: absent: Lymphadenopathy - Respiratory Exam Respiratory Exam: Decreased Breath Sounds - Cardiovascular Exam Cardiovascular Exam: REGULAR RHYTHM - GI/Abdominal Exam GI & Abdominal Exam: Distended, Soft - Rectal Exam Rectal Exam: Deferred - Exam Exam: NORMAL INSPECTION Assessment and Plan (1) Atrial fib/flutter, transient Status: Acute (2) Perforated abdominal viscus Status: Acute (3) Sepsis Status: Acute (4) Acute kidney insufficiency Status: Acute (5) Gross hematuria Status: Acute - Assessment and Plan (Free Text) Assessment: cont iv antibiotics for 7-10 days
[2017-11-17] MEDS: Cefepime IV 1 gm in Dextrose 1 GM/50 ML BAG IVPB SCH (15:01)
[2017-11-17] MEDS: Fluconazole IV 200mg/100 ml NS 100 ML IVPB SCH (17:22)
[2017-11-18] MEDS: Ipratropium 0.02% Inhal Soln (0.5 mg/2.5 ml) UD IH SCH ×5 (01:18→19:25)
[2017-11-18] MEDS: Cefepime IV 1 gm in Dextrose 1 GM/50 ML BAG IVPB SCH ×2 (02:43→13:48)
[2017-11-18] MEDS: Potassium Chloride 40 MEQ in Sodium Chloride 0.45% 1,000 ML IV SCH (07:49)
[2017-11-18] MEDS: Pantoprazole 40 mg EC Tab PO SCH (09:14)
[2017-11-18] MEDS: Linezolid 600 mg in D5W 300 ml 600 MG/300 ML BAG IVPB SCH ×2 (09:14→21:05)
--- NOTE | 2017-11-18 10:33 | CP.PCM.PN ---
Subjective - Date & Time of Evaluation Date of Evaluation: 11/18/17 Time of Evaluation: 10:30 - Subjective Subjective: General Surgery Progress note for Dr. Moore This 77M was seen and evaluated this Am at bedside no acute events overnight. He is tolerating diet, passing flatus and moving bowels. Overnight he had 3 episodes of a-flutter. He denies any chest pain or SOB. His drain outputs were 10cc from right drain and 80cc from left. Dressing changed this AM during rounds. Objective - Vital Signs/Intake and Output Vital Signs (last 24 hours): Temp Pulse Resp BP Pulse Ox 98 F 109 H 17 132/63 100 11/18/17 04:00 11/18/17 08:00 11/18/17 08:00 11/18/17 01:56 11/18/17 08:00 Intake and Output: 11/18/17 11/18/17 06:59 18:59 Intake Total 1070 Output Total 1045 Balance 25 - Medications Medications: Current Medications Linezolid (Zyvox 600mg/300ml D5w) 600 mg in 300 mls @ 200 mls/hr IVPB Q12 [facility] PRN Reason: Protocol Last Admin: 11/18/17 09:14 Dose: 200 mls/hr Fluconazole (Diflucan Iv 200 Mg/100 Ml Ns) 100 mls @ 100 mls/hr IVPB Q24H [facility] PRN Reason: Protocol Last Admin: 11/17/17 17:22 Dose: 100 mls/hr Cefepime HCl (Maxipime Iv 1 Gm Premix) 1 gm in 50 mls @ 100 mls/hr IVPB Q12H [facility] PRN Reason: Protocol Last Admin: 11/18/17 02:43 Dose: 100 mls/hr Ipratropium [place] (Atrovent) 0.5 mg IH RQ6 [facility] Last Admin: 11/18/17 07:15 Dose: Not Given Ondansetron HCl (Zofran Inj) 4 mg IVP Q4 PRN PRN Reason: Nausea/Vomiting Pantoprazole Sodium (Protonix Ec Tab) 40 mg PO DAILY [facility] Last Admin: 11/18/17 09:14 Dose: 40 mg Tramadol HCl (Ultram) 50 mg PO Q8 PRN PRN Reason: Pain, moderate (4-7) - Labs Labs: 11/17/17 06:04 11/17/17 06:04 PT 14.0 SECONDS (9.7-12.2) H 11/09/17 15:27 INR 1.3 11/09/17 15:27 APTT 30 SECONDS (21-34) 11/09/17 15:27 - Constitutional Appears: Non-toxic, No Acute Distress - Head Exam Head Exam: ATRAUMATIC, NORMOCEPHALIC - Eye Exam Eye Exam: EOMI - ENT Exam ENT Exam: Mucous Membranes Moist - Respiratory Exam Respiratory Exam: NORMAL BREATHING PATTERN - Cardiovascular Exam Cardiovascular Exam: +S1, +S2 - GI/Abdominal Exam GI & Abdominal Exam: Soft. absent: Distended, Guarding, Rigid, Tenderness Additional comments: Dressing changed this AM during rounds. [place] in place, no purulence from the wound bed. - Neurological Exam Neurological Exam: Alert, Awake - Psychiatric Exam Psychiatric exam: Normal Affect, Normal Mood - Skin Skin Exam: Dry, Intact Assessment and Plan - Assessment and Plan (Free Text) Assessment: 77M POD#9 s/p exlap partial gastric resection and roueny reconstruction and doing well Continue regular diet Encourage out of bed Medical managment per primary team D/W Dr. Oscar Cherry PGY2
[2017-11-18 10:42] LABS: EOS % 0.2 % (0.0-4.0); HEMOGLOBIN 10.8 g/dL (12.0-18.0); WHITE BLOOD COUNT 15.4 K/uL (4.8-10.8)
[2017-11-18 10:51] LABS: BASO % 0.1 % (0.0-2.0); LYMPH # 0.9 K/uL (1.0-4.3); LYMPH % 6.1 % (20.0-40.0); MEAN CELL VOLUME 81.2 fL (80.0-94.0); MEAN CORPUSCULAR HEMOGLOBIN 26.7 pg (27.0-31.0); MEAN CORPUSCULAR HGB CONC 32.9 g/dL (33.0-37.0); MEAN PLATELET VOLUME 7.6 fL (7.2-11.7); MONO # 0.8 K/uL (0.0-0.8); MONO % 4.9 % (0.0-10.0); NEUT # 13.7 K/uL (1.8-7.0); NEUT % 88.7 % (50.0-75.0); NRBC % 0.1 % (0.0-2.0); RBC 4.03 Mil/uL (4.40-5.90); RED CELL DISTRIBUTION WIDTH 16.8 % (11.5-14.5)
[2017-11-18 10:53] LABS: PLATELET COUNT 434 K/uL (130-400)
[2017-11-18 11:08] LABS: ALB/GLOB RATIO 0.7 (1.0-2.1); ALBUMIN 2.6 g/dL (3.5-5.0); ALT/SGPT 13 U/L (21-72); AST/SGOT 19 U/L (17-59); BLOOD UREA NITROGEN 19 mg/dL (9-20); CALCIUM 8.1 mg/dl (8.6-10.4); GFR AFRICAN-AMERICAN > 60; GFR NON-AFRICAN AMERICAN 53
--- NOTE | 2017-11-18 11:17 | CP.PCM.PN ---
Subjective - Date & Time of Evaluation Date of Evaluation: 11/18/17 Time of Evaluation: 08:00 - Subjective Subjective: Progress note for Dr. Parker's Service Patient was seen and examined at bedside. He is difficult to understand however motions that he is doing well. He states that upon discharge he would like to return home. No acute events overnight. He is eating well and getting out of bed to chair. Objective - Vital Signs/Intake and Output Vital Signs (last 24 hours): Temp Pulse Resp BP Pulse Ox 97.8 F 98 H 20 154/71 H 100 11/18/17 08:00 11/18/17 10:00 11/18/17 08:00 11/18/17 08:00 11/18/17 08:00 Intake and Output: 11/18/17 11/18/17 06:59 18:59 Intake Total 1070 Output Total 1045 Balance 25 - Medications Medications: Current Medications Linezolid (Zyvox 600mg/300ml D5w) 600 mg in 300 mls @ 200 mls/hr IVPB Q12 [facility] PRN Reason: Protocol Last Admin: 11/18/17 09:14 Dose: 200 mls/hr Fluconazole (Diflucan Iv 200 Mg/100 Ml Ns) 100 mls @ 100 mls/hr IVPB Q24H [facility] PRN Reason: Protocol Last Admin: 11/17/17 17:22 Dose: 100 mls/hr Cefepime HCl (Maxipime Iv 1 Gm Premix) 1 gm in 50 mls @ 100 mls/hr IVPB Q12H [facility] PRN Reason: Protocol Last Admin: 11/18/17 02:43 Dose: 100 mls/hr Ipratropium [place] (Atrovent) 0.5 mg IH RQ6 [facility] Last Admin: 11/18/17 07:15 Dose: Not Given Ondansetron HCl (Zofran Inj) 4 mg IVP Q4 PRN PRN Reason: Nausea/Vomiting Pantoprazole Sodium (Protonix Ec Tab) 40 mg PO DAILY [facility] Last Admin: 11/18/17 09:14 Dose: 40 mg Tramadol HCl (Ultram) 50 mg PO Q8 PRN PRN Reason: Pain, moderate (4-7) - Labs Labs: 11/18/17 10:34 11/18/17 10:34 PT 14.0 SECONDS (9.7-12.2) H 11/09/17 15:27 INR 1.3 11/09/17 15:27 APTT 30 SECONDS (21-34) 11/09/17 15:27 - Constitutional Appears: Non-toxic, No Acute Distress - Head Exam Head Exam: ATRAUMATIC, NORMAL INSPECTION - Eye Exam Eye Exam: EOMI - ENT Exam ENT Exam: Mucous Membranes Moist - Neck Exam Neck Exam: Normal Inspection - Respiratory Exam Respiratory Exam: Clear to Ausculation Bilateral, NORMAL BREATHING PATTERN. absent: Respiratory Distress - Cardiovascular Exam Cardiovascular Exam: Tachycardia, REGULAR RHYTHM, +S1, +S2 - GI/Abdominal Exam GI & Abdominal Exam: Soft, Normal Bowel Sounds. absent: Distended, Firm, Guarding, Tenderness Additional comments: kvng drain in place - Extremities Exam Extremities Exam: Normal Inspection - Back Exam Back Exam: NORMAL INSPECTION - Neurological Exam Neurological Exam: Alert, Awake, Oriented x3 - Psychiatric Exam Psychiatric exam: Normal Affect, Normal Mood Assessment and Plan - Assessment and Plan (Free Text) Assessment: S/P perforated gastric ulcer repair on 11/09/17 Dr. Moore consulted - help appreciated Dr. Gaytan consulted - help appreciated Patient was intubated during his time in ICU, now extubated and doing well Management per surgical team Monitor for bowel function Encourage OOB and IC use Dr. De Luna consulted - help appreciated Flucanazole IVPB daily Linezolid 600mg IVPB Q12 hours (started 11/14) Cefepime 1gram IVPB Q12 hours Tramadol 50mg PO Q8 prn pain Hypertension Controlled Hx. Atrial Fibrillation In NSR at this time Dr. Williamson consulted - help appreciated Rate controlled MONY Dr. Dela Cruz consulted - help appreciated Renal function improving Urine out remains good Maintain SP > 90 Prophylactic Measures Heparin 5,000 U SC Q12 hours Protonix 40mg PO daily Zofran prn PT/PTT SCDs Case discussed with Dr. Parker All management per Dr. Parker Dispo - Will need IV abx for 7-10 days total. Started on 11/14
[2017-11-18 11:23] LABS: ANISOCYTOSIS SLIGHT; BANDS 1 % (0-2); LYMPHOCYTE 4 % (20-40); MONOCYTE 2 % (0-10); NEUTROPHIL 92 % (50-75); PLATELET ESTIMATE SLIGHTLY INCREASED (NORMAL); REACTIVE LYMPHOCYTES 1 % (0-0); TOTAL CELLS COUNTED 100
[2017-11-18 11:24] LABS: HYPOCHROMIC SLIGHT
--- NOTE | 2017-11-18 14:39 | CP.PCM.PN ---
Subjective - Date & Time of Evaluation Date of Evaluation: 11/18/17 Time of Evaluation: 09:00 - Subjective Subjective: improving slowly afeb nad Objective - Vital Signs/Intake and Output Vital Signs (last 24 hours): Temp Pulse Resp BP Pulse Ox 98.3 F 97 H 20 154/71 H 100 11/18/17 12:00 11/18/17 12:00 11/18/17 12:00 11/18/17 09:56 11/18/17 12:00 Intake and Output: 11/18/17 11/18/17 06:59 18:59 Intake Total 1070 Output Total 1045 Balance 25 - Medications Medications: Current Medications Heparin Sodium (Porcine) (Heparin) 5,000 units SC Q12 [facility] Last Admin: 11/18/17 11:19 Dose: 5,000 units Linezolid (Zyvox 600mg/300ml D5w) 600 mg in 300 mls @ 200 mls/hr IVPB Q12 [facility] PRN Reason: Protocol Last Admin: 11/18/17 09:14 Dose: 200 mls/hr Fluconazole (Diflucan Iv 200 Mg/100 Ml Ns) 100 mls @ 100 mls/hr IVPB Q24H [facility] PRN Reason: Protocol Last Admin: 11/17/17 17:22 Dose: 100 mls/hr Cefepime HCl (Maxipime Iv 1 Gm Premix) 1 gm in 50 mls @ 100 mls/hr IVPB Q12H [facility] PRN Reason: Protocol Last Admin: 11/18/17 13:48 Dose: 100 mls/hr Ipratropium [place] (Atrovent) 0.5 mg IH RQ6 [facility] Last Admin: 11/18/17 13:31 Dose: 0.5 mg Ondansetron HCl (Zofran Inj) 4 mg IVP Q4 PRN PRN Reason: Nausea/Vomiting Pantoprazole Sodium (Protonix Ec Tab) 40 mg PO DAILY [facility] Last Admin: 11/18/17 09:14 Dose: 40 mg Tramadol HCl (Ultram) 50 mg PO Q8 PRN PRN Reason: Pain, moderate (4-7) - Labs Labs: 11/18/17 10:34 11/18/17 10:34 PT 14.0 SECONDS (9.7-12.2) H 11/09/17 15:27 INR 1.3 11/09/17 15:27 APTT 30 SECONDS (21-34) 11/09/17 15:27 - Constitutional Appears: Non-toxic, Chronically Ill - Head Exam Head Exam: NORMOCEPHALIC - Eye Exam Eye Exam: PERRL - ENT Exam ENT Exam: Mucous Membranes Dry - Neck Exam Neck Exam: absent: Lymphadenopathy - Respiratory Exam Respiratory Exam: Decreased Breath Sounds - Cardiovascular Exam Cardiovascular Exam: REGULAR RHYTHM - GI/Abdominal Exam GI & Abdominal Exam: Distended, Soft - Rectal Exam Rectal Exam: Deferred - Exam Exam: NORMAL INSPECTION - Extremities Exam Extremities Exam: absent: Pedal Edema - Back Exam Back Exam: absent: CVA tenderness (L), CVA tenderness (R) - Neurological Exam Neurological Exam: Alert, Awake, Oriented x3 - Psychiatric Exam Psychiatric exam: Depressed Assessment and Plan (1) Atrial fib/flutter, transient Status: Acute (2) Perforated abdominal viscus Status: Acute (3) Sepsis Status: Acute (4) Acute kidney insufficiency Status: Acute (5) Gross hematuria Status: Acute
[2017-11-18] MEDS: Fluconazole IV 200mg/100 ml NS 100 ML IVPB SCH (17:02)
[2017-11-19] MEDS: Ipratropium 0.02% Inhal Soln (0.5 mg/2.5 ml) UD IH SCH ×4 (01:37→19:44)
[2017-11-19] MEDS: Cefepime IV 1 gm in Dextrose 1 GM/50 ML BAG IVPB SCH ×2 (01:45→14:24)
[2017-11-19 06:35] LABS: BASO % 0.2 % (0.0-2.0); HEMOGLOBIN 10.3 g/dL (12.0-18.0); MEAN PLATELET VOLUME 8.2 fL (7.2-11.7); RED CELL DISTRIBUTION WIDTH 16.4 % (11.5-14.5)
[2017-11-19 06:43] LABS: BLOOD UREA NITROGEN 17 mg/dL (9-20); CALCIUM 8.2 mg/dl (8.6-10.4); GFR AFRICAN-AMERICAN > 60; GFR NON-AFRICAN AMERICAN 58
[2017-11-19 06:51] LABS: EOS % 0.1 % (0.0-4.0); LYMPH # 0.8 K/uL (1.0-4.3); LYMPH % 4.9 % (20.0-40.0); MEAN CELL VOLUME 80.9 fL (80.0-94.0); MEAN CORPUSCULAR HEMOGLOBIN 27.1 pg (27.0-31.0); MEAN CORPUSCULAR HGB CONC 33.4 g/dL (33.0-37.0); MONO # 0.7 K/uL (0.0-0.8); MONO % 4.2 % (0.0-10.0); NEUT # 15.6 K/uL (1.8-7.0); NEUT % 90.6 % (50.0-75.0); NRBC % 0.1 % (0.0-2.0); WHITE BLOOD COUNT 17.2 K/uL (4.8-10.8)
[2017-11-19 06:52] LABS: PLATELET COUNT 397 K/uL (130-400)
--- NOTE | 2017-11-19 07:36 | CP.PCM.PN ---
Subjective - Date & Time of Evaluation Date of Evaluation: 11/19/17 Time of Evaluation: 07:32 - Subjective Subjective: Progress Note for Dr. Parker Patient seen and examined at bedside. Patient had blood sugar of 89 overnight, OJ was given. Otherwise patient is resting bed eating breakfast. Patient denies having fever, chills, headache, shortness of breath, chest pain, nausea, or vomiting. Objective - Vital Signs/Intake and Output Vital Signs (last 24 hours): Temp Pulse Resp BP Pulse Ox 97.4 F L 95 H 25 H 130/73 98 11/19/17 04:00 11/19/17 06:00 11/19/17 06:00 11/19/17 04:17 11/19/17 04:00 Intake and Output: 11/19/17 11/19/17 06:59 18:59 Intake Total 100 Output Total 832 Balance -732 - Medications Medications: Current Medications Heparin Sodium (Porcine) (Heparin) 5,000 units SC Q12 [facility] Last Admin: 11/18/17 21:08 Dose: 5,000 units Linezolid (Zyvox 600mg/300ml D5w) 600 mg in 300 mls @ 200 mls/hr IVPB Q12 [facility] PRN Reason: Protocol Last Admin: 11/18/17 21:05 Dose: 200 mls/hr Fluconazole (Diflucan Iv 200 Mg/100 Ml Ns) 100 mls @ 100 mls/hr IVPB Q24H [facility] PRN Reason: Protocol Last Admin: 11/18/17 17:02 Dose: 100 mls/hr Cefepime HCl (Maxipime Iv 1 Gm Premix) 1 gm in 50 mls @ 100 mls/hr IVPB Q12H [facility] PRN Reason: Protocol Last Admin: 11/19/17 01:45 Dose: 100 mls/hr Ipratropium [place] (Atrovent) 0.5 mg IH RQ6 [facility] Last Admin: 11/19/17 07:30 Dose: 0.5 mg Ondansetron HCl (Zofran Inj) 4 mg IVP Q4 PRN PRN Reason: Nausea/Vomiting Pantoprazole Sodium (Protonix Ec Tab) 40 mg PO DAILY [facility] Last Admin: 11/18/17 09:14 Dose: 40 mg Tramadol HCl (Ultram) 50 mg PO Q8 PRN PRN Reason: Pain, moderate (4-7) - Labs Labs: 11/19/17 06:23 11/19/17 06:23 PT 14.0 SECONDS (9.7-12.2) H 11/09/17 15:27 INR 1.3 11/09/17 15:27 APTT 30 SECONDS (21-34) 11/09/17 15:27 - Additional Findings Additional findings: - Constitutional Appears: Non-toxic, No Acute Distress - Head Exam Head Exam: ATRAUMATIC, NORMAL INSPECTION - Eye Exam Eye Exam: EOMI - ENT Exam ENT Exam: Mucous Membranes Moist - Neck Exam Neck Exam: Normal Inspection - Respiratory Exam Respiratory Exam: Clear to Ausculation Bilateral, NORMAL BREATHING PATTERN. absent: Respiratory Distress - Cardiovascular Exam Cardiovascular Exam: Tachycardia, REGULAR RHYTHM, +S1, +S2 - GI/Abdominal Exam GI & Abdominal Exam: Soft, Normal Bowel Sounds. absent: Distended, Firm, Guarding, Tenderness Additional comments: kvng drain in place - Extremities Exam Extremities Exam: Normal Inspection - Back Exam Back Exam: NORMAL INSPECTION - Neurological Exam Neurological Exam: Alert, Awake, Oriented x3 - Psychiatric Exam Psychiatric exam: Normal Affect, Normal Mood Assessment and Plan - Assessment and Plan (Free Text) Assessment: S/P perforated gastric ulcer repair on 11/09/17 Dr. Moore consulted - help appreciated Dr. Gaytan consulted - help appreciated Patient was intubated during his time in ICU, now extubated and doing well Management per surgical team Monitor for bowel function Encourage OOB and IC use Dr. De Luna consulted - help appreciated Flucanazole IVPB daily Linezolid 600mg IVPB Q12 hours (started 11/14) Cefepime 1gram IVPB Q12 hours Tramadol 50mg PO Q8 prn pain Hypertension Controlled Hx. Atrial Fibrillation In NSR at this time Dr. Williamson consulted - help appreciated Rate controlled MONY Dr. Dela Cruz consulted - help appreciated Renal function improving Urine out remains good Maintain SP > 90 Prophylactic Measures Heparin 5,000 U SC Q12 hours Protonix 40mg PO daily Zofran prn PT/PTT SCDs Case discussed with Dr. Parker All management per Dr. Parker Dispo - Will need IV abx for 7-10 days total. Started on 11/14. PICC line procedure ordered, patient will be discharged to [facility] Patient is medically stable to be discharge per Dr. Parker
[2017-11-19 08:16] LABS: MONOCYTE 5 % (0-10); TOTAL CELLS COUNTED 100
[2017-11-19 08:17] LABS: LYMPHOCYTE 5 % (20-40); NEUTROPHIL 89 % (50-75); PLATELET ESTIMATE NORMAL (NORMAL)
[2017-11-19 08:18] LABS: HYPOCHROMIC SLIGHT; OVALOCYTES SLIGHT
[2017-11-19] MEDS: Linezolid 600 mg in D5W 300 ml 600 MG/300 ML BAG IVPB SCH ×2 (11:43→21:58)
[2017-11-19] MEDS: Pantoprazole 40 mg EC Tab PO SCH (11:43)
--- NOTE | 2017-11-19 11:54 | RAD ---
HISTORY: PICC placement COMPARISON: 11/12/2017. FINDINGS: The right PICC line terminates in the SVC. LUNGS: No active pulmonary disease. PLEURA: Suspect small left pleural effusion, no pneumothorax apparent. CARDIOVASCULAR: There is persistent mild cardiomegaly. OSSEOUS STRUCTURES: No significant abnormalities. VISUALIZED UPPER ABDOMEN: Normal. OTHER FINDINGS: None. IMPRESSION: Right PICC line terminates in the SVC. No pneumothorax. Persistent mild cardiomegaly and suspect small left pleural effusion.
--- NOTE | 2017-11-19 12:57 | CP.PCM.PN ---
Subjective - Date & Time of Evaluation Date of Evaluation: 11/19/17 Time of Evaluation: 12:45 - Subjective Subjective: Sitting up in chair eating lunch. No c/o sob ,urinary Sm or abdominal pain Objective - Vital Signs/Intake and Output Vital Signs (last 24 hours): Temp Pulse Resp BP Pulse Ox 98.6 F 100 H 18 130/75 100 11/19/17 08:00 11/19/17 10:00 11/19/17 10:00 11/19/17 08:28 11/19/17 10:00 Intake and Output: 11/19/17 11/19/17 06:59 18:59 Intake Total 100 Output Total 832 Balance -732 - Medications Medications: Current Medications Heparin Sodium (Porcine) (Heparin) 5,000 units SC Q12 [facility] Last Admin: 11/19/17 11:43 Dose: 5,000 units Linezolid (Zyvox 600mg/300ml D5w) 600 mg in 300 mls @ 200 mls/hr IVPB Q12 [facility] PRN Reason: Protocol Last Admin: 11/19/17 11:43 Dose: 200 mls/hr Fluconazole (Diflucan Iv 200 Mg/100 Ml Ns) 100 mls @ 100 mls/hr IVPB Q24H [facility] PRN Reason: Protocol Last Admin: 11/18/17 17:02 Dose: 100 mls/hr Cefepime HCl (Maxipime Iv 1 Gm Premix) 1 gm in 50 mls @ 100 mls/hr IVPB Q12H [facility] PRN Reason: Protocol Last Admin: 11/19/17 01:45 Dose: 100 mls/hr Ipratropium [place] (Atrovent) 0.5 mg IH RQ6 [facility] Last Admin: 11/19/17 07:30 Dose: 0.5 mg Ondansetron HCl (Zofran Inj) 4 mg IVP Q4 PRN PRN Reason: Nausea/Vomiting Pantoprazole Sodium (Protonix Ec Tab) 40 mg PO DAILY [facility] Last Admin: 11/19/17 11:43 Dose: 40 mg Tramadol HCl (Ultram) 50 mg PO Q8 PRN PRN Reason: Pain, moderate (4-7) - Labs Labs: 11/19/17 06:23 11/19/17 06:23 PT 14.0 SECONDS (9.7-12.2) H 11/09/17 15:27 INR 1.3 11/09/17 15:27 APTT 30 SECONDS (21-34) 11/09/17 15:27 - Constitutional Appears: No Acute Distress - ENT Exam ENT Exam: Mucous Membranes Moist - Neck Exam Neck Exam: Normal Inspection - Respiratory Exam Respiratory Exam: NORMAL BREATHING PATTERN Additional comments: Lungs clear - Cardiovascular Exam Cardiovascular Exam: REGULAR RHYTHM Additional comments: A. flutter 106/ min - GI/Abdominal Exam GI & Abdominal Exam: Soft - Extremities Exam Additional comments: No edema or cyanosis Assessment and Plan - Assessment and Plan (Free Text) Assessment: CKD stage 111. Renal function remains stable. Leukocytosis. ?etiology. CXR from this morning does not any infiltrates S/P abdominal Sx A. flutter (chroning) Plan: Antibiotics per ID Instruct Pt/ family upon discharge to stop NSAIDS Was on Motrin at home Will see Pt as needed Please reconsult if needed.
--- NOTE | 2017-11-19 16:26 | CP.PCM.PN ---
Subjective - Date & Time of Evaluation Date of Evaluation: 11/19/17 Time of Evaluation: 08:00 - Subjective Subjective: day 6 zyvox for MRSA peritoneum / s/p perf viscus denies abd pain no fever 1 loose stool Objective - Vital Signs/Intake and Output Vital Signs (last 24 hours): Temp Pulse Resp BP Pulse Ox 98.8 F 87 20 134/61 99 11/19/17 12:00 11/19/17 12:00 11/19/17 12:00 11/19/17 12:00 11/19/17 12:00 Intake and Output: 11/19/17 11/19/17 06:59 18:59 Intake Total 100 540 Output Total 832 250 Balance -732 290 - Medications Medications: Current Medications Heparin Sodium (Porcine) (Heparin) 5,000 units SC Q12 [facility] Last Admin: 11/19/17 11:43 Dose: 5,000 units Linezolid (Zyvox 600mg/300ml D5w) 600 mg in 300 mls @ 200 mls/hr IVPB Q12 [facility] PRN Reason: Protocol Last Admin: 11/19/17 11:43 Dose: 200 mls/hr Fluconazole (Diflucan Iv 200 Mg/100 Ml Ns) 100 mls @ 100 mls/hr IVPB Q24H [facility] PRN Reason: Protocol Last Admin: 11/18/17 17:02 Dose: 100 mls/hr Metronidazole (Flagyl) 500 mg in 100 mls @ 100 mls/hr IVPB Q8 [facility] PRN Reason: Protocol Ipratropium [place] (Atrovent) 0.5 mg IH RQ6 [facility] Last Admin: 11/19/17 13:29 Dose: 0.5 mg Ondansetron HCl (Zofran Inj) 4 mg IVP Q4 PRN PRN Reason: Nausea/Vomiting Pantoprazole Sodium (Protonix Ec Tab) 40 mg PO DAILY [facility] Last Admin: 11/19/17 11:43 Dose: 40 mg Tramadol HCl (Ultram) 50 mg PO Q8 PRN PRN Reason: Pain, moderate (4-7) - Labs Labs: 11/19/17 06:23 11/19/17 06:23 PT 14.0 SECONDS (9.7-12.2) H 11/09/17 15:27 INR 1.3 11/09/17 15:27 APTT 30 SECONDS (21-34) 11/09/17 15:27 - Constitutional Appears: No Acute Distress, Chronically Ill - Head Exam Head Exam: NORMOCEPHALIC - Eye Exam Eye Exam: PERRL - ENT Exam ENT Exam: absent: Mucous Membranes Dry - Neck Exam Neck Exam: absent: Lymphadenopathy - Respiratory Exam Respiratory Exam: Decreased Breath Sounds - Cardiovascular Exam Cardiovascular Exam: REGULAR RHYTHM - GI/Abdominal Exam GI & Abdominal Exam: Distended, Soft - Rectal Exam Rectal Exam: Deferred - Exam Exam: NORMAL INSPECTION - Extremities Exam Extremities Exam: absent: Pedal Edema - Back Exam Back Exam: absent: CVA tenderness (L), CVA tenderness (R) - Neurological Exam Neurological Exam: Alert, Awake, Oriented x3 - Psychiatric Exam Psychiatric exam: Depressed - Skin Skin Exam: Dry Assessment and Plan (1) Atrial fib/flutter, transient Status: Acute (2) Perforated abdominal viscus Status: Acute (3) Sepsis Status: Acute (4) Acute kidney insufficiency Status: Acute (5) Gross hematuria Status: Acute - Assessment and Plan (Free Text) Assessment: Flagyl added cefepime d/c'd cont zyvox for now
[2017-11-19] MEDS: Fluconazole IV 200mg/100 ml NS 100 ML IVPB SCH (16:59)
[2017-11-19] MEDS: metroNIDAZOLE IV 500 mg/100 ml 500 MG/100 ML BAG IVPB SCH (16:59)
[2017-11-19] MEDS: Vancomycin 125 MG/5 ML SOLN (ORAL/RECTAL) PO SCH ×2 (17:00→21:57)
[2017-11-20] MEDS: metroNIDAZOLE IV 500 mg/100 ml 500 MG/100 ML BAG IVPB SCH ×3 (00:29→16:43)
[2017-11-20] MEDS: Ipratropium 0.02% Inhal Soln (0.5 mg/2.5 ml) UD IH SCH ×4 (01:15→20:19)
[2017-11-20 06:36] LABS: BASO % 0.2 % (0.0-2.0); EOS % 0.3 % (0.0-4.0); HEMOGLOBIN 9.8 g/dL (12.0-18.0); LYMPH # 0.5 K/uL (1.0-4.3); LYMPH % 3.7 % (20.0-40.0); MEAN CELL VOLUME 81.1 fL (80.0-94.0); MEAN CORPUSCULAR HGB CONC 33.3 g/dL (33.0-37.0); MEAN PLATELET VOLUME 7.7 fL (7.2-11.7); MONO # 0.6 K/uL (0.0-0.8); NEUT # 11.8 K/uL (1.8-7.0); NEUT % 90.8 % (50.0-75.0); PLATELET COUNT 365 K/uL (130-400); RBC 3.62 Mil/uL (4.40-5.90); RED CELL DISTRIBUTION WIDTH 16.6 % (11.5-14.5); WHITE BLOOD COUNT 12.9 K/uL (4.8-10.8)
[2017-11-20 06:54] LABS: ALB/GLOB RATIO 0.7 (1.0-2.1); ALBUMIN 2.3 g/dL (3.5-5.0); ALT/SGPT 10 U/L (21-72); AST/SGOT 18 U/L (17-59); BLOOD UREA NITROGEN 15 mg/dL (9-20); CALCIUM 8.2 mg/dl (8.6-10.4); GFR AFRICAN-AMERICAN > 60; GFR NON-AFRICAN AMERICAN > 60
[2017-11-20 08:17] LABS: LYMPHOCYTE 2 % (20-40); MONOCYTE 6 % (0-10); NEUTROPHIL 92 % (50-75); TOTAL CELLS COUNTED 100
[2017-11-20 08:18] LABS: ANISOCYTOSIS SLIGHT; HYPOCHROMIC SLIGHT; PLATELET ESTIMATE NORMAL (NORMAL); POLYCHROMIC SLIGHT
[2017-11-20] MEDS: Linezolid 600 mg in D5W 300 ml 600 MG/300 ML BAG IVPB SCH ×2 (09:45→21:18)
[2017-11-20] MEDS: Vancomycin 125 MG/5 ML SOLN (ORAL/RECTAL) PO SCH ×4 (09:45→21:17)
[2017-11-20] MEDS: Pantoprazole 40 mg EC Tab PO SCH (09:45)
[2017-11-20] MEDS: Fluconazole IV 200mg/100 ml NS 100 ML IVPB SCH (17:53)
[2017-11-21] MEDS: metroNIDAZOLE IV 500 mg/100 ml 500 MG/100 ML BAG IVPB SCH ×3 (00:09→17:00)
[2017-11-21] MEDS: Ipratropium 0.02% Inhal Soln (0.5 mg/2.5 ml) UD IH SCH ×4 (01:14→19:59)
[2017-11-21] MEDS: Pantoprazole 40 mg EC Tab PO SCH (10:16)
[2017-11-21] MEDS: Vancomycin 125 MG/5 ML SOLN (ORAL/RECTAL) PO SCH ×4 (10:16→22:46)
[2017-11-21] MEDS: Linezolid 600 mg in D5W 300 ml 600 MG/300 ML BAG IVPB SCH ×2 (10:17→22:45)
--- NOTE | 2017-11-21 16:14 | CP.PCM.PN ---
Subjective - Date & Time of Evaluation Date of Evaluation: 11/21/17 Time of Evaluation: 07:00 - Subjective Subjective: awake alert oob to chair\denies fever sob with exertion Objective - Vital Signs/Intake and Output Vital Signs (last 24 hours): Temp Pulse Resp BP Pulse Ox 98.4 F 110 H 17 130/55 L 100 11/21/17 15:48 11/21/17 15:48 11/21/17 15:48 11/21/17 15:48 11/21/17 15:48 Intake and Output: 11/21/17 11/21/17 06:59 18:59 Intake Total 800 Output Total 600 Balance 200 - Medications Medications: Current Medications Linezolid (Zyvox 600mg/300ml D5w) 600 mg in 300 mls @ 200 mls/hr IVPB Q12 [facility] PRN Reason: Protocol Last Admin: 11/21/17 10:17 Dose: 200 mls/hr Fluconazole (Diflucan Iv 200 Mg/100 Ml Ns) 100 mls @ 100 mls/hr IVPB Q24H [facility] PRN Reason: Protocol Last Admin: 11/20/17 17:53 Dose: 100 mls/hr Metronidazole (Flagyl) 500 mg in 100 mls @ 100 mls/hr IVPB Q8H [facility] PRN Reason: Protocol Last Admin: 11/21/17 09:00 Dose: 100 mls/hr Ipratropium [place] (Atrovent) 0.5 mg IH RQ6 [facility] Last Admin: 11/21/17 13:35 Dose: 0.5 mg Ondansetron HCl (Zofran Inj) 4 mg IVP Q4 PRN PRN Reason: Nausea/Vomiting Pantoprazole Sodium (Protonix Ec Tab) 40 mg PO DAILY [facility] Last Admin: 11/21/17 10:16 Dose: 40 mg Tramadol HCl (Ultram) 50 mg PO Q8 PRN PRN Reason: Pain, moderate (4-7) Vancomycin HCl (Vancocin (Oral Or Rectal Use)) 125 mg PO QID [facility] PRN Reason: Protocol Last Admin: 11/21/17 10:16 Dose: 125 mg - Labs Labs: 11/20/17 06:30 11/20/17 06:31 PT 14.0 SECONDS (9.7-12.2) H 11/09/17 15:27 INR 1.3 11/09/17 15:27 APTT 30 SECONDS (21-34) 11/09/17 15:27 - Constitutional Appears: Non-toxic, Chronically Ill - Head Exam Head Exam: NORMOCEPHALIC - Eye Exam Eye Exam: PERRL - ENT Exam ENT Exam: Mucous Membranes Dry - Neck Exam Neck Exam: absent: Lymphadenopathy - Respiratory Exam Respiratory Exam: Decreased Breath Sounds, Rales - Cardiovascular Exam Cardiovascular Exam: REGULAR RHYTHM, +S1, +S2 - GI/Abdominal Exam GI & Abdominal Exam: Distended, Soft - Rectal Exam Rectal Exam: Deferred - Exam Exam: NORMAL INSPECTION - Back Exam Back Exam: absent: CVA tenderness (L) - Neurological Exam Neurological Exam: Alert, Awake - Psychiatric Exam Psychiatric exam: Normal Mood - Skin Skin Exam: Dry Assessment and Plan (1) Atrial fib/flutter, transient Status: Acute (2) Perforated abdominal viscus Status: Acute (3) Sepsis Status: Acute (4) Acute kidney insufficiency Status: Acute (5) Gross hematuria Status: Acute - Assessment and Plan (Free Text) Plan: wbc trending down cont rx pneumonia/ peritonitis
[2017-11-21] MEDS: Fluconazole IV 200mg/100 ml NS 100 ML IVPB SCH (18:04)
[2017-11-22] MEDS: metroNIDAZOLE IV 500 mg/100 ml 500 MG/100 ML BAG IVPB SCH ×3 (00:40→15:59)
[2017-11-22] MEDS: Ipratropium 0.02% Inhal Soln (0.5 mg/2.5 ml) UD IH SCH ×3 (01:26→13:19)
[2017-11-22 05:44] LABS: BASO # 0.1 K/uL (0.0-0.2); BASO % 0.5 % (0.0-2.0); EOS # 0.1 K/uL (0.0-0.7); EOS % 0.5 % (0.0-4.0); HEMOGLOBIN 10.1 g/dL (12.0-18.0); LYMPH # 0.7 K/uL (1.0-4.3); LYMPH % 7.5 % (20.0-40.0); MEAN CELL VOLUME 80.3 fL (80.0-94.0); MEAN CORPUSCULAR HEMOGLOBIN 27.7 pg (27.0-31.0); MEAN CORPUSCULAR HGB CONC 34.5 g/dL (33.0-37.0); MEAN PLATELET VOLUME 7.1 fL (7.2-11.7); MONO # 0.9 K/uL (0.0-0.8); NEUT # 8.1 K/uL (1.8-7.0); NEUT % 82.5 % (50.0-75.0); PLATELET COUNT 370 K/uL (130-400); RBC 3.67 Mil/uL (4.40-5.90); RED CELL DISTRIBUTION WIDTH 16.5 % (11.5-14.5); WHITE BLOOD COUNT 9.8 K/uL (4.8-10.8)
[2017-11-22 06:07] LABS: ALB/GLOB RATIO 0.7 (1.0-2.1); ALBUMIN 2.4 g/dL (3.5-5.0); ALT/SGPT 18 U/L (21-72); AST/SGOT 17 U/L (17-59); BLOOD UREA NITROGEN 15 mg/dL (9-20); GFR AFRICAN-AMERICAN > 60; GFR NON-AFRICAN AMERICAN > 60
[2017-11-22 07:25] LABS: ANISOCYTOSIS SLIGHT; LYMPHOCYTE 8 % (20-40); MONOCYTE 8 % (0-10); NEUTROPHIL 84 % (50-75); PLATELET ESTIMATE NORMAL (NORMAL); POLYCHROMIC SLIGHT; TOTAL CELLS COUNTED 100
[2017-11-22] MEDS ORDERED: Potassium Chloride 20 mEq ER Tab PO STA (07:46)
[2017-11-22 08:46] VITALS: PULSE 88
--- NOTE | 2017-11-22 08:52 | PN ---
DATE: 11/20/2017 SUBJECTIVE: The patient is on IV antibiotics, supportive care. Evaluation for rehab. Diya Parker MD
[2017-11-22] MEDS: Pantoprazole 40 mg EC Tab PO SCH (09:12)
[2017-11-22] MEDS: Vancomycin 125 MG/5 ML SOLN (ORAL/RECTAL) PO SCH ×2 (09:12→15:58)
[2017-11-22] MEDS: Linezolid 600 mg in D5W 300 ml 600 MG/300 ML BAG IVPB SCH (09:13)
--- NOTE | 2017-11-22 10:08 | CP.PCM.PN ---
Subjective - Date & Time of Evaluation Date of Evaluation: 11/22/17 Time of Evaluation: 10:09 - Subjective Subjective: PGY2 Medicine note for Dr. Parker; all management as per Dr. Parker This patient was seen and examined at bedside this AM; he has no acute complaints and no overnight events; he was unable to be discharged this weekend 07/23 to medications being too expensive as per the skilled nursing. He will be transitioned to Po zyvox and metronidazole as per Dr. de luna; prescriptions were printed off and meds to bed will be provided so that the patient can be accomodated at the skilled nursing. Objective - Vital Signs/Intake and Output Vital Signs (last 24 hours): Temp Pulse Resp BP Pulse Ox 98.9 F 88 16 139/68 100 11/22/17 08:00 11/22/17 08:00 11/22/17 08:00 11/22/17 08:00 11/22/17 08:00 Intake and Output: 11/22/17 11/22/17 06:59 18:59 Intake Total 900 Output Total 750 Balance 150 - Medications Medications: Current Medications Heparin Sodium (Porcine) (Heparin) 5,000 units SC Q12 [facility] Last Admin: 11/22/17 09:11 Dose: 5,000 units Linezolid (Zyvox 600mg/300ml D5w) 600 mg in 300 mls @ 200 mls/hr IVPB Q12 [facility] PRN Reason: Protocol Last Admin: 11/22/17 09:13 Dose: 200 mls/hr Fluconazole (Diflucan Iv 200 Mg/100 Ml Ns) 100 mls @ 100 mls/hr IVPB Q24H [facility] PRN Reason: Protocol Last Admin: 11/21/17 18:04 Dose: 100 mls/hr Metronidazole (Flagyl) 500 mg in 100 mls @ 100 mls/hr IVPB Q8H [facility] PRN Reason: Protocol Last Admin: 11/22/17 09:11 Dose: 100 mls/hr Ipratropium [place] (Atrovent) 0.5 mg IH RQ6 [facility] Last Admin: 11/22/17 07:40 Dose: 0.5 mg Ondansetron HCl (Zofran Inj) 4 mg IVP Q4 PRN PRN Reason: Nausea/Vomiting Pantoprazole Sodium (Protonix Ec Tab) 40 mg PO DAILY [facility] Last Admin: 11/22/17 09:12 Dose: 40 mg Tramadol HCl (Ultram) 50 mg PO Q8 PRN PRN Reason: Pain, moderate (4-7) Last Admin: 11/22/17 03:31 Dose: 50 mg Vancomycin HCl (Vancocin (Oral Or Rectal Use)) 125 mg PO QID [facility] PRN Reason: Protocol Last Admin: 11/22/17 09:12 Dose: 125 mg - Labs Labs: 11/22/17 05:37 11/22/17 05:37 PT 14.0 SECONDS (9.7-12.2) H 11/09/17 15:27 INR 1.3 11/09/17 15:27 APTT 30 SECONDS (21-34) 11/09/17 15:27 - Constitutional Appears: Non-toxic Assessment and Plan - Assessment and Plan (Free Text) Assessment: Appears: Non-toxic, No Acute Distress - Head Exam Head Exam: ATRAUMATIC, NORMAL INSPECTION - Eye Exam Eye Exam: EOMI - ENT Exam ENT Exam: Mucous Membranes Moist - Neck Exam Neck Exam: Normal Inspection - Respiratory Exam Respiratory Exam: Clear to Ausculation Bilateral, NORMAL BREATHING PATTERN. absent: Respiratory Distress - Cardiovascular Exam Cardiovascular Exam: Tachycardia, REGULAR RHYTHM, +S1, +S2 - GI/Abdominal Exam GI & Abdominal Exam: Soft, Normal Bowel Sounds. absent: Distended, Firm, Guarding, Tenderness Additional comments: kvng drain in place - Extremities Exam Extremities Exam: Normal Inspection - Back Exam Back Exam: NORMAL INSPECTION - Neurological Exam Neurological Exam: Alert, Awake, Oriented x3 - Psychiatric Exam Psychiatric exam: Normal Affect, Normal Mood Assessment and Plan - Assessment and Plan (Free Text) Assessment: S/P perforated gastric ulcer repair on 11/09/17 Dr. Moore consulted - help appreciated Dr. Gaytan consulted - help appreciated Patient was intubated during his time in ICU, now extubated and doing well Management per surgical team Monitor for bowel function Encourage OOB and IC use Dr. De Luna consulted - help appreciated Flucanazole IVPB daily Linezolid 600mg PO BID for 7 more days Metronidazole 500mg PO TID for 7 more days Tramadol 50mg PO Q8 prn pain Hypertension Controlled Hx. Atrial Fibrillation In NSR at this time Dr. Williamson consulted - help appreciated Rate controlled MONY Dr. Dela Cruz consulted - help appreciated Renal function improving Urine out remains good Maintain SP > 90 Prophylactic Measures Heparin 5,000 U SC Q12 hours Protonix 40mg PO daily Zofran prn PT/PTT SCDs Case discussed with Dr. Parker All management per Dr. Parker Patient is medically stable to be discharge per Dr. Parker PO Zyvox BID 600mg for 7 more days PO Metronidazole 500mg for 7 more days 500mg TID Florastor 250mg PO BID for 30 days continue all other medicines that patient takes as outpatient; albuterol as needed, toprol xl 12.5mg daily, and Monteleukast 10mg daily patient should continue with heparin sc while bed bound PT/OT
--- NOTE | 2017-11-22 10:26 | CP.PCM.PN ---
Subjective - Date & Time of Evaluation Date of Evaluation: 11/22/17 Time of Evaluation: 09:00 - Subjective Subjective: iv rx renewed for michael Objective - Vital Signs/Intake and Output Vital Signs (last 24 hours): Temp Pulse Resp BP Pulse Ox 98.9 F 88 16 139/68 100 11/22/17 08:00 11/22/17 08:00 11/22/17 08:00 11/22/17 08:00 11/22/17 08:00 Intake and Output: 11/22/17 11/22/17 06:59 18:59 Intake Total 900 Output Total 750 Balance 150 - Medications Medications: Current Medications Heparin Sodium (Porcine) (Heparin) 5,000 units SC Q12 [facility] Last Admin: 11/22/17 09:11 Dose: 5,000 units Linezolid (Zyvox 600mg/300ml D5w) 600 mg in 300 mls @ 200 mls/hr IVPB Q12 [facility] PRN Reason: Protocol Last Admin: 11/22/17 09:13 Dose: 200 mls/hr Fluconazole (Diflucan Iv 200 Mg/100 Ml Ns) 100 mls @ 100 mls/hr IVPB Q24H [facility] PRN Reason: Protocol Last Admin: 11/21/17 18:04 Dose: 100 mls/hr Metronidazole (Flagyl) 500 mg in 100 mls @ 100 mls/hr IVPB Q8H [facility] PRN Reason: Protocol Last Admin: 11/22/17 09:11 Dose: 100 mls/hr Ipratropium [place] (Atrovent) 0.5 mg IH RQ6 [facility] Last Admin: 11/22/17 07:40 Dose: 0.5 mg Ondansetron HCl (Zofran Inj) 4 mg IVP Q4 PRN PRN Reason: Nausea/Vomiting Pantoprazole Sodium (Protonix Ec Tab) 40 mg PO DAILY [facility] Last Admin: 11/22/17 09:12 Dose: 40 mg Tramadol HCl (Ultram) 50 mg PO Q8 PRN PRN Reason: Pain, moderate (4-7) Last Admin: 11/22/17 03:31 Dose: 50 mg Vancomycin HCl (Vancocin (Oral Or Rectal Use)) 125 mg PO QID [facility] PRN Reason: Protocol Last Admin: 11/22/17 09:12 Dose: 125 mg - Labs Labs: 11/22/17 05:37 11/22/17 05:37 PT 14.0 SECONDS (9.7-12.2) H 11/09/17 15:27 INR 1.3 11/09/17 15:27 APTT 30 SECONDS (21-34) 11/09/17 15:27 - Constitutional Appears: Older Than Stated Age - Head Exam Head Exam: NORMOCEPHALIC - Eye Exam Eye Exam: absent: Scleral icterus - ENT Exam ENT Exam: Mucous Membranes Dry - Neck Exam Neck Exam: absent: Lymphadenopathy - Respiratory Exam Respiratory Exam: Decreased Breath Sounds - Cardiovascular Exam Cardiovascular Exam: REGULAR RHYTHM - GI/Abdominal Exam GI & Abdominal Exam: Distended - Rectal Exam Rectal Exam: Deferred - Exam Exam: NORMAL INSPECTION Assessment and Plan (1) Atrial fib/flutter, transient Status: Acute (2) Perforated abdominal viscus Status: Acute (3) Sepsis Status: Acute (4) Acute kidney insufficiency Status: Acute (5) Gross hematuria Status: Acute
[2017-11-22 12:22] VITALS: RESP 18; O2SAT 97
[2017-11-22 16:29] VITALS: BP 148/66; TEMP 97.9
== END 2017-11-22 17:14 | DRG 853 ==
LOC: C.ER 14:07 → C.9E 17:18 → C.9I 20:04 → C.6T 20:37 → C.9I 21:04
PROVIDERS: ADMIT Internal Medicine Pulmonary Disease; ATTEND Internal Medicine Pulmonary Disease
PROC: 0DB60ZZ Excision of Stomach, Open Approach (ICD-10-PCS; 2017-11-09)
PROC: 0YQ60ZZ Repair Left Inguinal Region, Open Approach (ICD-10-PCS; 2017-11-09)
PROC: 5A1945Z Respiratory Ventilation, 24-96 Consecutive Hours (ICD-10-PCS; 2017-11-09)
PROC: 0D160ZA Bypass Stomach to Jejunum, Open Approach (ICD-10-PCS; principal; 2017-11-09 17:23)
PROC: 02HV33Z Insertion of Infusion Device into Superior Vena Cava, Percutaneous Approach (ICD-10-PCS; 2017-11-19)
DX: A41.9 Sepsis, unspecified organism (principal); K26.5 Chronic or unspecified duodenal ulcer with perforation; K25.5 Chronic or unspecified gastric ulcer with perforation; J95.821 Acute postprocedural respiratory failure; I13.0 Hypertensive heart and chronic kidney disease with heart failure and stage 1 through stage 4 chronic kidney disease, or unspecified chronic kidney disease; I48.92 Unspecified atrial flutter; E87.2 Acidosis; E87.0 Hyperosmolality and hypernatremia; K40.30 Unilateral inguinal hernia, with obstruction, without gangrene, not specified as recurrent; N17.9 Acute kidney failure, unspecified; N39.0 Urinary tract infection, site not specified; I50.9 Heart failure, unspecified; I48.2 Chronic atrial fibrillation; J45.909 Unspecified asthma, uncomplicated; E86.9 Volume depletion, unspecified; E11.22 Type 2 diabetes mellitus with diabetic chronic kidney disease; K21.9 Gastro-esophageal reflux disease without esophagitis; K42.9 Umbilical hernia without obstruction or gangrene; N18.9 Chronic kidney disease, unspecified; N40.1 Benign prostatic hyperplasia with lower urinary tract symptoms; R31.0 Gross hematuria; Z74.01 Bed confinement status; Z85.46 Personal history of malignant neoplasm of prostate; B95.2 Enterococcus as the cause of diseases classified elsewhere; D72.819 Decreased white blood cell count, unspecified; K66.8 Other specified disorders of peritoneum

== ENCOUNTER 2018-01-04 18:00 | Inpatient (IN) | payer MEDICARE ==
[2018-01-04 18:00] VITALS: BMI 26.4
[2018-01-04] MEDS ORDERED: Sodium Chloride 0.9% 500 ML IV ONE (18:19)
--- NOTE | 2018-01-04 18:26 | C.PDOC ---
History Of Present Illness 77 year old male, whose PMHx includes atrial flutter, hypertension and recent admission for gastric ulcer meniscus, is brought to the ED by ambulance after being [facility]. As per [facility], patient is reportedly experiencing nausea and "cannot eat." Patient noted to have prolonged hospital course including surgery for perforated gastric ulcer. Patient denies fever, chills, or abdominal pain. Additional information limited because patient is a poor historian. Time Seen by Provider: 01/04/18 18:09 Chief Complaint (Nursing): Abdominal Pain History Per: Patient, EMS History/Exam Limitations: other (poor historian ) Current Symptoms Are (Timing): Still Present Quality Of Discomfort: denies: "Pain" Associated Symptoms: denies: Fever, Chills Additional History Per: Patient Past Medical History Reviewed: Historical Data, Nursing Documentation, Vital Signs Vital Signs: Last Vital Signs Temp 97.7 F 01/05/18 23:05 Pulse 84 01/06/18 00:00 Resp 20 01/05/18 23:05 BP 120/77 01/05/18 23:05 Pulse Ox 100 01/05/18 23:05 - Medical History PMH: Anemia, Asthma, CHF, HTN, Pneumonia (X3), Chronic Kidney Disease (RENAL INSUFFICIENCY) Surgical History: Endoscopy - [facility] Procedures BYPASS STOMACH TO JEJUNUM, OPEN APPROACH (11/09/17) CYSTOMETROGRAM (01/23/14) EXCISION OF STOMACH, OPEN APPROACH (11/09/17) EXTIRPATION OF MATTER FROM BLADDER, ENDO (05/19/17) INSERTION OF INFUSION DEV INTO SUP VENA CAVA, PERC APPROACH (11/09/17) REPAIR LEFT INGUINAL REGION, OPEN APPROACH (11/09/17) RESPIRATORY VENTILATION, 24-96 CONSECUTIVE HOURS (11/09/17) TRANSURETHRAL PROSTATECTOMY ([place]) (01/30/14) Family History: States: Unknown Family Hx - Social History Hx Alcohol Use: No Hx Substance Use: No - Immunization History Hx Tetanus Toxoid Vaccination: No Hx Influenza Vaccination: Yes (05/22/17) Hx Pneumococcal Vaccination: Yes (05/22/17) Review Of Systems Constitutional: Negative for: Fever, Chills Gastrointestinal: Positive for: Nausea. Negative for: Abdominal Pain Physical Exam - Physical Exam Appears: Non-toxic, No Acute Distress Skin: Normal Color, Warm, Dry Head: Atraumatic, Normacephalic Eye(s): bilateral: Normal Inspection Oral Mucosa: Moist Neck: Supple Chest: Symmetrical, No Deformity, No Tenderness Cardiovascular: Rhythm Regular, No Murmur Respiratory: Normal Breath Sounds, No Rales, No Rhonchi, No Wheezing Gastrointestinal/Abdominal: Soft, No Tenderness, No Guarding, No Rebound, Other (healed abdominal incision ) Extremity: Normal ROM, Capillary Refill (less than 2 seconds ) Gait: Steady ED Course And Treatment - Laboratory Results Result Diagrams: 01/06/18 06:20 01/06/18 06:20 ECG: Interpreted By Me, Viewed By Me ECG Rhythm: Atrial Flutter Interpretation Of ECG: Atrial Flutter at rate 82bpm. Nonspecific ST/T wave changes. Rate From EC O2 Sat by Pulse Oximetry: 100 (on RA) Pulse Ox Interpretation: Normal Medical Decision Making Medical Decision Making: ro metabolci cardiac abdominal etiology - labs imaging pending noted mild luekocytosis, dr herrmann requests ct abd /pelvis, shows ?abscess/pna. antibiotics ordered. pt with aflutter in er ?v3 elevation. not code heart per dr leach. heparin iniated. accepted tele dr herrmann. Disposition - Disposition Disposition: HOSPITALIZED Disposition Time: 21:00 Condition: FAIR - Clinical Impression Clinical Impression: Atrial flutter, Pneumonia, Intra-abdominal abscess - Scribe Statement The provider has reviewed the documentation as recorded by the Scribe (Judy Lucas) Provider Attestation: All medical record entries made by the Scribe were at my direction and personally dictated by me. I have reviewed the chart and agree that the record accurately reflects my personal performance of the history, physical exam, medical decision making, and the department course for this patient. I have also personally directed, reviewed, and agree with the discharge instructions and disposition. Decision To Admit - Pt Status Changed To: Hospital Disposition Of: Inpatient - Admit Certification Admit to Inpatient:: After my assessment, the patient will require hospitalization for at least two midnights. This is because of the severity of symptoms shown, intensity of services needed, and/or the medical risk in this patient being treated as an outpatient. - InPatient: Physician Admission Certification:: afluttere needs heparin - . Bed Request Type: Telemetry Admitting Physician: Diya Herrmann Patient Diagnosis: Atrial flutter, Pneumonia, Intra-abdominal abscess
[2018-01-04 18:41] LABS: BASO # 0.1 K/uL (0.0-0.2); BASO % 0.4 % (0.0-2.0); EOS % 0.2 % (0.0-4.0); HEMOGLOBIN 10.6 g/dL (12.0-18.0); LYMPH # 1.3 K/uL (1.0-4.3); LYMPH % 9.8 % (20.0-40.0); MEAN CELL VOLUME 80.2 fL (80.0-94.0); MEAN CORPUSCULAR HEMOGLOBIN 26.2 pg (27.0-31.0); MEAN CORPUSCULAR HGB CONC 32.7 g/dL (33.0-37.0); MEAN PLATELET VOLUME 7.8 fL (7.2-11.7); MONO # 0.9 K/uL (0.0-0.8); MONO % 6.8 % (0.0-10.0); NEUT # 10.8 K/uL (1.8-7.0); NEUT % 82.8 % (50.0-75.0); PLATELET COUNT 353 K/uL (130-400); RBC 4.07 Mil/uL (4.40-5.90); WHITE BLOOD COUNT 13.1 K/uL (4.8-10.8)
[2018-01-04 18:53] LABS: ALBUMIN 2.9 g/dL (3.5-5.0); CALCIUM 8.7 mg/dl (8.6-10.4)
[2018-01-04] MEDS ORDERED: Sodium Chloride 0.9% 1,000 ML ONE (18:53)
[2018-01-04 18:54] LABS: ALB/GLOB RATIO 0.8 (1.0-2.1)
[2018-01-04 19:00] LABS: INR 1.4
[2018-01-04 19:04] LABS: TROPONIN I 0.032 ng/mL (0.00-0.120)
[2018-01-04 19:25] LABS: ANISOCYTOSIS SLIGHT; EOSINOPHIL 1 % (0-4); HYPOCHROMIC SLIGHT; LYMPHOCYTE 9 % (20-40); MONOCYTE 4 % (0-10); NEUTROPHIL 86 % (50-75); PLATELET ESTIMATE NORMAL (NORMAL); POIKILOCYTOSIS SLIGHT; TARGET CELLS SLIGHT; TOTAL CELLS COUNTED 100
[2018-01-04 19:26] LABS: OVALOCYTES SLIGHT
[2018-01-04] MEDS ORDERED: Piperacillin/Tazobact 3.375 gm 100 ML IVPB STA (20:23)
[2018-01-04] MEDS ORDERED: Heparin25000 units/250ml 1/2NS 25,000 UNITS/250 ML BAG IV ONE (20:55)
[2018-01-04 20:59] LABS: URINE BACTERIA RARE (<OCC); URINE BILIRUBIN NEGATIVE (NEGATIVE); URINE BLOOD 1+ (NEGATIVE); URINE CLARITY Hazy (Clear); URINE COLOR Yellow (YELLOW); URINE GLUCOSE (UA) NORMAL (Normal); URINE LEUKOCYTE ESTERASE 3+ Leu/uL (Negative); URINE PROTEIN 1+ mg/dL (NEGATIVE); URINE UROBILINOGEN NORMAL mg/dL (0.2-1.0)
[2018-01-04] MEDS ORDERED: Piperacillin/Tazobact 3.375 gm 100 ML IVPB ONE (21:03)
[2018-01-04] MEDS ORDERED: Vancomycin 1 gm/NS 200 ml 1 GM/200 ML BAG IVPB STA (21:03)
[2018-01-05 01:37] VITALS: RESP 20
--- NOTE | 2018-01-05 05:10 | CP.PCM.CON ---
History of Present Illness - History of Present Illness History of Present Illness: General Surgery consult for Dr. Gaytan This 77M with a PMH HTN, DM, BPH, CHH, Pneumonia, CKD, inguinal hernia, presents with a 2 week history of diarrhea. He denies any nausea, vomiting or abdominal pain. He denies bloody stools. He deneis any fevers or chills. In the Ed he had CT abdomen which was significant for a intrahepatic fluid collection as well as a suprasplenic fluid collection. His only complaint is anything he eats "passes right through him". PMH: HTN, DM, BPH, CHH, Pneumonia, CKD, inguinal hernia PSH: Exlap, gastrectomy rue -n-y 2018, prostatectomy (2013), bladder procedure ( 2017) ALL: shellfish SocialHx: lives at home w/ family. Denies ETOH, recreational drug use FH: non-contributory Review of Systems - Review of Systems Review of Systems: 12 point review of systems conductied and negative aside from diarrhea. Past Patient History - Past Medical History & Family History Past Medical History?: Yes - Past Social History Smoking Status: Never Smoked - CARDIAC Hx Cardiac Disorders: Yes Hx Congestive Heart Failure: Yes Hx Hypertension: Yes - PULMONARY Hx Respiratory Disorders: Yes Hx Asthma: Yes Hx Pneumonia: Yes (X3) - NEUROLOGICAL Hx Neurological Disorder: Yes Hx Dizziness: Yes - HEENT Hx HEENT Problems: Yes Hx Cataracts: Yes - RENAL Hx Chronic Kidney Disease: Yes (RENAL INSUFFICIENCY) - ENDOCRINE/METABOLIC Hx Endocrine Disorders: No - HEMATOLOGICAL/ONCOLOGICAL Hx Blood Disorders: Yes Hx Anemia: Yes - INTEGUMENTARY Hx Dermatological Problems: No - MUSCULOSKELETAL/RHEUMATOLOGICAL Hx Musculoskeletal Disorders: Yes Hx Osteoarthritis: Yes - GASTROINTESTINAL Hx Gastrointestinal Disorders: Yes Hx Gastroesophageal Reflux: Yes - GENITOURINARY/GYNECOLOGICAL Hx Genitourinary Disorders: Yes Hx Prostate Problems: Yes (Urinary Retention, BPH) Hx Urinary Tract Infection: Yes Other/Comment: [facility] CATH - PSYCHIATRIC Hx Psychophysiologic Disorder: No Hx Substance Use: No - SURGICAL HISTORY Hx Surgeries: Yes Other/Comment: Cystoscopy, Partial gastrectomy, repair of incarcerated inguinal hernia - ANESTHESIA Hx Anesthesia: Yes Hx Anesthesia Reactions: No Meds Allergies/Adverse Reactions: Allergies Allergy/AdvReac Type Severity Reaction Status Date / Time shellfish derived Allergy Verified 01/04/18 18:22 Physical Exam - Constitutional Appears: Non-toxic, No Acute Distress - Head Exam Head Exam: ATRAUMATIC, NORMOCEPHALIC - Eye Exam Eye Exam: EOMI, Normal appearance - ENT Exam ENT Exam: Mucous Membranes Moist - Respiratory Exam Respiratory Exam: NORMAL BREATHING PATTERN - Cardiovascular Exam Cardiovascular Exam: +S1, +S2 - GI/Abdominal Exam GI & Abdominal Exam: Soft. absent: Diminished Bowel Sounds, Distended, Firm, Guarding, Hernia, Rebound, Rigid, Tenderness - Extremities Exam Extremities exam: Positive for: normal inspection - Neurological Exam Neurological exam: Alert, Oriented x3 - Psychiatric Exam Psychiatric exam: Normal Affect, Normal Mood - Skin Skin Exam: Dry, Intact Results - Vital Signs Recent Vital Signs: Last Vital Signs Temp 98.0 F 01/04/18 23:10 Pulse 82 01/05/18 00:05 Resp 20 01/04/18 23:10 BP 112/72 01/04/18 23:10 Pulse Ox 97 01/04/18 23:10 - Labs Result Diagrams: 01/04/18 18:37 01/04/18 18:37 Labs: Laboratory Results - last 24 hr 01/04/18 01/04/18 01/04/18 18:37 18:37 18:37 WBC 13.1 H RBC 4.07 L Hgb 10.6 L Hct 32.6 L MCV 80.2 MCH 26.2 L MCHC 32.7 L RDW 17.0 H Plt Count 353 MPV 7.8 Neut % (Auto) 82.8 H Lymph % (Auto) 9.8 L Mayes % (Auto) 6.8 Eos % (Auto) 0.2 Baso % (Auto) 0.4 Neut # (Auto) 10.8 H Lymph # (Auto) 1.3 Mayes # (Auto) 0.9 H Eos # (Auto) 0.0 Baso # (Auto) 0.1 Neutrophils % (Manual) 86 H Lymphocytes % (Manual) 9 L Monocytes % (Manual) 4 Eosinophils % (Manual) 1 Platelet Estimate Normal Hypochromasia (manual) Slight Poikilocytosis (manual Slight Anisocytosis (manual) Slight Target Cells Slight Ovalocytes Slight PT 15.0 H INR 1.4 APTT 23 Sodium 140 Potassium 5.1 Chloride 104 Carbon Dioxide 23 Anion Gap 18 BUN 25 H Creatinine 1.5 Est GFR ( Amer) 55 Est GFR (Non-Af Amer) 45 Random Glucose 81 Calcium 8.7 Total Bilirubin 0.4 AST 10 L D ALT 13 L D Alkaline Phosphatase 73 Troponin I 0.0320 Total Protein 6.6 Albumin 2.9 L D Globulin 3.7 Albumin/Globulin Ratio 0.8 L Lipase 35 Urine Color Urine Clarity Urine pH Ur Specific [place] Urine Protein Urine Glucose (UA) Urine Ketones Urine Blood Urine Nitrate Urine Bilirubin Urine Urobilinogen Ur Leukocyte Esterase Urine WBC (Auto) Urine RBC (Auto) Urine Bacteria Hyaline Casts 01/04/18 20:47 WBC RBC Hgb Hct MCV MCH MCHC RDW Plt Count MPV Neut % (Auto) Lymph % (Auto) Mayes % (Auto) Eos % (Auto) Baso % (Auto) Neut # (Auto) Lymph # (Auto) Mayes # (Auto) Eos # (Auto) Baso # (Auto) Neutrophils % (Manual) Lymphocytes % (Manual) Monocytes % (Manual) Eosinophils % (Manual) Platelet Estimate Hypochromasia (manual) Poikilocytosis (manual Anisocytosis (manual) Target Cells Ovalocytes PT INR APTT Sodium Potassium Chloride Carbon Dioxide Anion Gap BUN Creatinine Est GFR ( Amer) Est GFR (Non-Af Amer) Random Glucose Calcium Total Bilirubin AST ALT Alkaline Phosphatase Troponin I Total Protein Albumin Globulin Albumin/Globulin Ratio Lipase Urine Color Yellow Urine Clarity Hazy Urine pH 5.0 Ur Specific [place] 1.014 Urine Protein 1+ H Urine Glucose (UA) Normal Urine Ketones Trace Urine Blood 1+ H Urine Nitrate Negative Urine Bilirubin Negative Urine Urobilinogen Normal Ur Leukocyte Esterase 3+ H Urine WBC (Auto) 159 H Urine RBC (Auto) 8 H Urine Bacteria Rare Hyaline Casts 6-10 H - Imaging and Cardiology CT scan - abdomen Status: Report reviewed by me Assessment & Plan - Assessment and Plan (Free Text) Assessment: 77M with 2 weeks diarrhea Recommend c diff testing Continue medical management per primary doctor further recs per Dr. Lukas Cherry PGY3
[2018-01-05 06:35] LABS: INR 1.5; PROTHROMBIN TIME 16.6 SECONDS (9.7-12.2)
[2018-01-05] MEDS ORDERED: Heparin25000 units/250ml 1/2NS 25,000 UNITS/250 ML BAG IV ONE (07:30)
--- NOTE | 2018-01-05 07:33 | RAD ---
Date of service: 01/04/2018 PROCEDURE: CHEST RADIOGRAPH, 1 VIEW HISTORY: chest pain COMPARISON: Portable chest 11/19/2017. FINDINGS: LUNGS: Right lung remains clear with improved history volume noted bilaterally. Limited opacification left base is reiterated, silhouetting left hemidiaphragm. Consider potential chronic left pleural effusion though atelectasis or infiltrate on a recurrent or chronic basis is not excluded. PLEURA: No pneumothorax or right pleural fluid seen. Recurrent small insert left pleural effusion not excluded. CARDIOVASCULAR: Mild cardiomegaly not excluded. No pulmonary vascular derangement appreciated nevertheless. . OSSEOUS STRUCTURES: No significant abnormalities. VISUALIZED UPPER ABDOMEN: Normal. OTHER FINDINGS: Prior right PICC now removed. IMPRESSION: Improved history volume noted overall. Persistent silhouetting of the left hemidiaphragm is appreciated, potentially on a chronic or recurrent a basis as discussed above. Prior right PICC now removed.
[2018-01-05] MEDS ORDERED: Heparin25000 units/250ml 1/2NS 25,000 UNITS/250 ML BAG IV PRN (07:58)
--- NOTE | 2018-01-05 08:49 | CP.PCM.PN ---
Subjective - Date & Time of Evaluation Date of Evaluation: 01/05/18 Time of Evaluation: 08:48 - Subjective Subjective: PGY2 Medicine Note for Dr. Parker Patient seen and examined this morning at bedside. No acute events overnight. Patient is resting comfortably in his bed. He states he has no pain. He is feeling well but just weak. He has not had any bowel movements since he has been here. Denies fevers, chills, nausea, vomiting, diarrhea, constipation, chest pain, shortness of breath, palpitations, abdominal pain, headaches, vision changes, numbness or tingling. Objective - Vital Signs/Intake and Output Vital Signs (last 24 hours): Temp Pulse Resp BP Pulse Ox 97.9 F 84 20 104/71 100 01/05/18 08:20 01/05/18 08:20 01/05/18 08:20 01/05/18 08:20 01/05/18 08:20 - Medications Medications: Current Medications Heparin Sodium/Sodium Chloride (Heparin 76878 Units/250ml 1/2 Normal Saline) 25 ,000 units in 250 mls @ 7 mls/hr IV .Q24H PRN; Protocol; 10 U/KG/HR PRN Reason: PROTOCOL Last Admin: 01/05/18 08:33 Dose: 10 u/kg/hr, 7 mls/hr - Labs Labs: 01/04/18 18:37 01/04/18 18:37 PT 16.6 SECONDS (9.7-12.2) H 01/05/18 06:08 INR 1.5 01/05/18 06:08 APTT 97 SECONDS (21-34) H D 01/05/18 06:08 - Constitutional Appears: Non-toxic, No Acute Distress, Chronically Ill - Head Exam Head Exam: ATRAUMATIC, NORMOCEPHALIC - Eye Exam Eye Exam: Normal appearance - ENT Exam Additional comments: poor dentition, missing teeth - Respiratory Exam Respiratory Exam: Clear to Ausculation Bilateral, NORMAL BREATHING PATTERN. absent: Accessory Muscle Use, Rales, Rhonchi, Wheezes, Respiratory Distress - Cardiovascular Exam Cardiovascular Exam: +S1, +S2 Additional comments: a flutter at ~80 on tele - GI/Abdominal Exam GI & Abdominal Exam: Soft. absent: Distended, Firm, Guarding, Rigid, Tenderness - Extremities Exam Extremities Exam: absent: Calf Tenderness, Pedal Edema - Neurological Exam Neurological Exam: Alert, Awake, CN II-XII Intact, Oriented x3 - Psychiatric Exam Psychiatric exam: Normal Affect, Normal Mood - Skin Skin Exam: Dry, Warm Assessment and Plan - Assessment and Plan (Free Text) Plan: Diarrhea Recent hx of Gastric Ulcer Perf subcapsular hematoma General Surgery, Dr. Gaytan - help appreciated * These findings are expected posted surgery. * No surgical intervention at this time. afebrile WBC: 13.1 Abd/Pelvis CT w/o 01/05/18: Possible subcapsular hematoma of the spleen, age indeterminate. New since 11/09/2017. Recommend further evaluation with contrast -enhanced computed tomography. Left inguinal hernia containing nonobstructed loop of sigmoid colon. Additional minor findings as above. Abd/Plevis CT w/ IV 01/05/18: Subacute to chronic subcapsular splenic hematoma. Small splenic laceration. Small left pleural effusion. Trace ascites. Cholelithiasis. Large left inguinal hernia containing nonobstructed loop of sigmoid colon. Additional minor findings as above. Blood Cultures: pending Stool Studies * Stool Culture: pending * Ova and Parasites: pending * C. Diff: pending Atrial Flutter EKG: Atrial Flutter at rate 82bpm. Nonspecific ST/T wave changes. Metoprolol 12.5mg PO BID Heparin drip discontinued due to subcapsular hematoma of spleen Hx of Hypertension Metoprolol 12.5mg PO BID Lisinopril 2.5mg PO daily MONY Cr 1.5 (was 1.0 on 11/22/17) started on D5/half NS @75mL/hr Prophylactic Care SCDs Anticoag contra due to subcapsular hematoma of spleen All medical management per Dr. Elena Herbert Tara PGY2
[2018-01-05] MEDS ORDERED: Sodium Chloride 0.9% 1,000 ML IV SCH ×2 (09:00→09:56)
--- NOTE | 2018-01-05 09:29 | CT ---
Date of service: 01/04/2018 PROCEDURE: CT Abdomen and Pelvis without intravenous contrast HISTORY: nausea COMPARISON: None. TECHNIQUE: Without contrast.. Contrast dose: 0 Radiation dose: Total exam DLP = 385.78 mGy-cm. This CT exam was performed using one or more of the following dose reduction techniques: Automated exposure control, adjustment of the mA and/or kV according to patient size, and/or use of iterative reconstruction technique. FINDINGS: LOWER THORAX: Linear scar/ atelectasis in left lower lobe. Trace left pleural effusion. No hilda infiltrate. Mild cardiomegaly. LIVER: Unremarkable. No gross lesion or ductal dilatation. GALLBLADDER AND BILE DUCTS: Cholelithiasis. No mural thickening. PANCREAS: Unremarkable. No gross lesion or ductal dilatation. SPLEEN: The spleen is significant for possible subcapsular hematoma at the cephalic aspect of the spleen. This is best demonstrated on coronal images 56 through 66 this should be further evaluated with contrast-enhanced computed tomography of the abdomen. There is no splenic mass appreciated. Spleen is normal in size. ADRENALS: There is mild adrenal hypertrophy. KIDNEYS AND URETERS: Multiple bilateral fluid density renal masses consistent with cysts. In comparison to the prior examination, there is no significant interval change. There is no renal calculus or hydronephrosis. VASCULATURE: Unremarkable. No aortic aneurysm. BOWEL: No bowel obstruction. There is diverticulosis of the distal transverse colon with mural thickening. Consistent with nonspecific colitis. There is evidence of a small bowel anastomosis in the ileum, with suture material identified. The patient is status post partial gastrectomy. APPENDIX: Unremarkable. Normal appendix. PERITONEUM: There is minimal fluid in the right subhepatic space extending into the right pericolic gutter. There is no generalized ascites. There is no pneumoperitoneum. There is a left inguinal hernia containing sigmoid colon without evidence of obstruction. LYMPH NODES: Unremarkable. No enlarged lymph nodes. BLADDER: Unremarkable. REPRODUCTIVE: Normal prostate BONES: No acute fracture. OTHER FINDINGS: None. IMPRESSION: Possible subcapsular hematoma of the spleen, age indeterminate. New since 11/09/2017. Recommend further evaluation with contrast-enhanced computed tomography. Left inguinal hernia containing nonobstructed loop of sigmoid colon. Additional minor findings as above. The preliminary findings for this examination were reported by [facility] at 8:20 p.m. on 01/04/2018. There is discordance of this report with the preliminary findings. The possibility of a subcapsular hematoma of the spleen was not described in the preliminary report of this examination. The findings in this report were discussed by telephone with the patient's nurse, Deepa, at 9:10 a.m. on 01/05/2018.
[2018-01-05] MEDS ORDERED: Albuterol HFA 90 mcg/actuation (8 g) INH PRN (10:26)
[2018-01-05] MEDS ORDERED: Iodixanol 320 MG/ML 100 ML BOTTLE IV ONE (12:15)
--- NOTE | 2018-01-05 14:04 | CT ---
Date of service: 01/05/2018 PROCEDURE: CT Abdomen and Pelvis with contrast HISTORY: re-eval for poss. subcapsular hematoma?? COMPARISON: 01/04/2018 TECHNIQUE: Contrast dose: 100 mL Visipaque 320 Radiation dose: Total exam DLP = 521.40 mGy-cm. This CT exam was performed using one or more of the following dose reduction techniques: Automated exposure control, adjustment of the mA and/or kV according to patient size, and/or use of iterative reconstruction technique. FINDINGS: LOWER THORAX: Minimal linear scar/ atelectasis in left lower lobe. Trace left pleural effusion. LIVER: Unremarkable. No gross lesion or ductal dilatation. GALLBLADDER AND BILE DUCTS: Extensive cholelithiasis. No mural thickening. Pericholecystic fluid related to trace ascites. PANCREAS: Unremarkable. No gross lesion or ductal dilatation. SPLEEN: Unremarkable.There is a very small splenic laceration anteriorly (series 3, image 39 through 44). There is a low-attenuation subcapsular fluid collection most likely representing a subacute or chronic hematoma. This collection is seen over the superior aspect of the spleen and measures approximately 1.2 x 5.2 x 6.3 cm. It flattens the contour of the superior surface of the spleen. This collection is best demonstrated on coronal series 601, images 44 through 74. There is no splenic mass. ADRENALS: Unremarkable. No mass. KIDNEYS AND URETERS: Multiple bilateral renal cysts. No calculus or hydronephrosis. Largest cyst is in the lower pole right kidney and measures approximately 4.2 cm in diameter. Largest left renal cyst measures 3.8 cm in the mid to upper pole. VASCULATURE: Unremarkable. No aortic aneurysm. BOWEL: No bowel obstruction. There is some mural thickening of the stomach. The patient is status post partial gastrectomy. There are small bowel anastomoses noted in the right mid to lower abdomen. There is a left inguinal hernia containing a large loop of sigmoid colon, nonobstructed. APPENDIX: Normal appendix. PERITONEUM: Minimal ascites in the right subhepatic space extending to the right pericolic gutter. This also extends to the gallbladder fossa. LYMPH NODES: Unremarkable. No enlarged lymph nodes. BLADDER: Unremarkable. REPRODUCTIVE: Unremarkable prostate BONES: No acute fracture. OTHER FINDINGS: None. IMPRESSION: Subacute to chronic subcapsular splenic hematoma. Small splenic laceration. Small left pleural effusion. Trace ascites. Cholelithiasis. Large left inguinal hernia containing nonobstructed loop of sigmoid colon. Additional minor findings as above.
--- NOTE | 2018-01-05 17:15 | CARD ---
APPROVED REPORT Date of service: 01/04/2018 EKG Measurement Heart [id number] [id number] <Conclusion> Atrial flutter with variable AV block with premature ventricular or aberrantly conducted complexes Possible Inferior infarct,age undetermined Anterior infarct, age undetermined Abnormal ECG
[2018-01-05] MEDS: Dextrose 5%/0.45% NS 1,000 ML IV SCH (21:26)
[2018-01-06 06:30] LABS: BASO # 0.1 K/uL (0.0-0.2); BASO % 0.8 % (0.0-2.0); EOS # 0.1 K/uL (0.0-0.7); EOS % 1.2 % (0.0-4.0); HEMOGLOBIN 9.2 g/dL (12.0-18.0); LYMPH # 1.4 K/uL (1.0-4.3); LYMPH % 18.4 % (20.0-40.0); MEAN CELL VOLUME 81.3 fL (80.0-94.0); MEAN CORPUSCULAR HEMOGLOBIN 27.3 pg (27.0-31.0); MEAN CORPUSCULAR HGB CONC 33.6 g/dL (33.0-37.0); MONO # 0.8 K/uL (0.0-0.8); MONO % 10.9 % (0.0-10.0); NEUT # 5.1 K/uL (1.8-7.0); NEUT % 68.7 % (50.0-75.0); RBC 3.38 Mil/uL (4.40-5.90); RED CELL DISTRIBUTION WIDTH 17.3 % (11.5-14.5); WHITE BLOOD COUNT 7.4 K/uL (4.8-10.8)
[2018-01-06 06:49] LABS: ALB/GLOB RATIO 0.7 (1.0-2.1); ALBUMIN 2.4 g/dL (3.5-5.0); ALT/SGPT 15 U/L (21-72); AST/SGOT 8 U/L (17-59); BLOOD UREA NITROGEN 18 mg/dL (9-20); CALCIUM 8.1 mg/dl (8.6-10.4); GFR AFRICAN-AMERICAN > 60; GFR NON-AFRICAN AMERICAN > 60
--- NOTE | 2018-01-06 08:30 | CP.PCM.PN ---
Subjective - Date & Time of Evaluation Date of Evaluation: 01/06/18 Time of Evaluation: 08:22 - Subjective Subjective: General Surgery Progress Note for Dr. Gaytan This 77M was seen and examined this AM at bedside no acute events overnight. Pt reports his diarrhea has resolved. He is tolerating diet. He denies any abdominal pain, chest pain sob nausea vomiting. No new complaints at this time. Objective - Vital Signs/Intake and Output Vital Signs (last 24 hours): Temp Pulse Resp BP Pulse Ox 97.7 F 84 20 120/77 100 01/05/18 23:05 01/06/18 00:00 01/05/18 23:05 01/05/18 23:05 01/06/18 07:09 Intake and Output: 01/06/18 01/06/18 06:59 18:59 Intake Total 700 Output Total 400 Balance 300 - Medications Medications: Current Medications Albuterol (Ventolin Hfa 90 Mcg/Actuation (8 G)) 2 puff INH RQ6 PRN PRN Reason: Shortness of Breath Cyproheptadine HCl (Periactin) 4 mg PO HS ON [facility] OF [facility] Last Admin: 01/05/18 21:41 Dose: 4 mg Famotidine (Pepcid) 20 mg PO HS ON [facility] Last Admin: 01/05/18 21:38 Dose: 20 mg Heparin Sodium (Porcine) (Heparin) 5,000 units SC Q12H ON LICENSE OF [facility] Last Admin: 01/06/18 00:50 Dose: 5,000 units Dextrose/Sodium Chloride (Dextrose 5%/0.45% Ns 1000 Ml) 1,000 mls @ 75 mls/hr IV .[id number] ON LICENSE OF [facility] Last Admin: 01/05/18 21:26 Dose: 75 mls/hr Ibuprofen (Motrin Tab) 800 mg PO BID PRN PRN Reason: Pain, moderate (4-7) Lisinopril (Zestril) 2.5 mg PO DAILY ON [facility] Metoprolol Tartrate (Lopressor) 12.5 mg PO BID ON LICENSE OF [facility] Montelukast Sodium (Singulair) 10 mg PO HS ON [facility] OF [facility] Last Admin: 01/05/18 21:38 Dose: 10 mg Tramadol HCl (Ultram) 50 mg PO Q8H ON LICENSE OF [facility] Last Admin: 01/06/18 03:37 Dose: 50 mg - Labs Labs: 01/06/18 06:20 01/06/18 06:20 PT 16.6 SECONDS (9.7-12.2) H 01/05/18 06:08 INR 1.5 01/05/18 06:08 APTT 97 SECONDS (21-34) H D 01/05/18 06:08 - Constitutional Appears: Non-toxic, No Acute Distress - Head Exam Head Exam: ATRAUMATIC, NORMOCEPHALIC - Eye Exam Eye Exam: EOMI, Normal appearance - ENT Exam ENT Exam: Mucous Membranes Moist - Respiratory Exam Respiratory Exam: NORMAL BREATHING PATTERN - Cardiovascular Exam Cardiovascular Exam: +S1, +S2 - GI/Abdominal Exam GI & Abdominal Exam: Soft. absent: Distended, Firm, Guarding, Rigid, Tenderness - Neurological Exam Neurological Exam: Alert, Awake - Psychiatric Exam Psychiatric exam: Normal Affect, Normal Mood - Skin Skin Exam: Dry, Intact Assessment and Plan - Assessment and Plan (Free Text) Assessment: 77M presenting with Diarrhea. f/u c. diff regular diet no surgical intervention at this time Further recs per Dr. Lukas Cherry PGY3
--- NOTE | 2018-01-06 09:41 | CP.PCM.PN ---
Subjective - Date & Time of Evaluation Date of Evaluation: 01/06/18 Time of Evaluation: 09:41 - Subjective Subjective: PGY2 Medicine Note for Dr. Parker Patient seen and examined this morning at bedside. No acute events overnight. Patient states that the has his appetite back and has been eating well. He has not had any episodes of diarrhea since he was admitted. He is feeling well and is currently without any complaints. ROS negative. Objective - Vital Signs/Intake and Output Vital Signs (last 24 hours): Temp Pulse Resp BP Pulse Ox 97.4 F L 100 H 20 121/71 100 01/06/18 07:30 01/06/18 07:30 01/06/18 07:30 01/06/18 07:30 01/06/18 07:30 Intake and Output: 01/06/18 01/06/18 06:59 18:59 Intake Total 700 Output Total 400 Balance 300 - Medications Medications: Current Medications Albuterol (Ventolin Hfa 90 Mcg/Actuation (8 G)) 2 puff INH RQ6 PRN PRN Reason: Shortness of Breath Cyproheptadine HCl (Periactin) 4 mg PO HS [facility] Last Admin: 01/05/18 21:41 Dose: 4 mg Famotidine (Pepcid) 20 mg PO [facility] Last Admin: 01/05/18 21:38 Dose: 20 mg Heparin Sodium (Porcine) (Heparin) 5,000 units SC Q12H [facility] Last Admin: 01/06/18 00:50 Dose: 5,000 units Dextrose/Sodium Chloride (Dextrose 5%/0.45% Ns 1000 Ml) 1,000 mls @ 75 mls/hr IV .[id number] [facility] Last Admin: 01/05/18 21:26 Dose: 75 mls/hr Ibuprofen (Motrin Tab) 800 mg PO BID PRN PRN Reason: Pain, moderate (4-7) Lisinopril (Zestril) 2.5 mg PO DAILY [facility] Metoprolol Tartrate (Lopressor) 12.5 mg PO BID [facility] Montelukast Sodium (Singulair) 10 mg PO HS [facility] Last Admin: 01/05/18 21:38 Dose: 10 mg Tramadol HCl (Ultram) 50 mg PO Q8H [facility] Last Admin: 01/06/18 03:37 Dose: 50 mg - Labs Labs: 01/06/18 06:20 07/19/18 06:20 PT 16.6 SECONDS (9.7-12.2) H 01/05/18 06:08 INR 1.5 01/05/18 06:08 APTT 97 SECONDS (21-34) H D 01/05/18 06:08 - Constitutional Appears: Non-toxic, No Acute Distress - Head Exam Head Exam: ATRAUMATIC, NORMOCEPHALIC - Eye Exam Eye Exam: Normal appearance - ENT Exam ENT Exam: Mucous Membranes Moist - Neck Exam Neck Exam: absent: Lymphadenopathy - Respiratory Exam Respiratory Exam: Clear to Ausculation Bilateral, NORMAL BREATHING PATTERN. absent: Accessory Muscle Use, Rales, Rhonchi, Wheezes, Respiratory Distress - Cardiovascular Exam Cardiovascular Exam: Irregular Rhythm (aflutter on tele) - GI/Abdominal Exam GI & Abdominal Exam: Soft. absent: Distended, Firm, Guarding, Rigid, Tenderness Additional comments: ex-lap scar well healed. - Extremities Exam Extremities Exam: absent: Calf Tenderness, Pedal Edema Additional comments: SCDs in place - Neurological Exam Neurological Exam: Alert, Awake, CN II-XII Intact, Oriented x3 - Psychiatric Exam Psychiatric exam: Normal Affect, Normal Mood - Skin Skin Exam: Dry, Warm Assessment and Plan - Assessment and Plan (Free Text) Plan: Diarrhea (resolved) Recent hx of Gastric Ulcer Perf subcapsular hematoma General Surgery, Dr. Gaytan - help appreciated * These findings are expected posted surgery. * No surgical intervention at this time. afebrile WBC: 13.1 --> 7.4 Abd/Pelvis CT w/o 01/05/18: Possible subcapsular hematoma of the spleen, age indeterminate. New since 11/09/2017. Recommend further evaluation with contrast -enhanced computed tomography. Left inguinal hernia containing nonobstructed loop of sigmoid colon. Additional minor findings as above. Abd/Plevis CT w/ IV 01/05/18: Subacute to chronic subcapsular splenic hematoma. Small splenic laceration. Small left pleural effusion. Trace ascites. Cholelithiasis. Large left inguinal hernia containing nonobstructed loop of sigmoid colon. Additional minor findings as above. Blood Cultures: negative at 24 hours Stool Studies * Stool Culture: pending * Ova and Parasites: pending * C. Diff: pending Atrial Flutter EKG: Atrial Flutter at rate 82bpm. Nonspecific ST/T wave changes. Metoprolol 12.5mg PO BID Anticoag contra due to subcapsular hematoma of spleen Hx of Hypertension Metoprolol 12.5mg PO BID Lisinopril 2.5mg PO daily MONY (resovled) Cr 1.0 (was 1.5 on 01/05/18) D5/half NS @75mL/hr Prophylactic Care SCDs Anticoag contra due to subcapsular hematoma of spleen DISPO: Patient discharged on 01/06/18 to [facility] rehab with the following instructions. Patient is to be transferred back to [facility] per Dr. Parker. Patient is to continue taking medications as previously prescribed. No anticoagulation at this time due to subacute subcapsular hematoma of spleen. No acute intervention at this time. If patient experiences any new or worsening symptoms, please go directly to the nearest emergency room. All medical management per Dr. Elena Herbert Tara PGY2
[2018-01-06] MEDS ORDERED: Ipratropium 0.02% Inhal Soln (0.5 mg/2.5 ml) UD IH STA (10:14)
[2018-01-06] MEDS: Dextrose 5%/0.45% NS 1,000 ML IV SCH (11:04)
[2018-01-06 12:42] VITALS: BP 100/64; PULSE 73; TEMP 98.1; O2SAT 98
== END 2018-01-06 14:43 | disposition home or self-care (01) | DRG 371 ==
LOC: C.ER 18:00 → C.9E 20:55 → C.6T 21:36
PROVIDERS: ADMIT Internal Medicine Pulmonary Disease; ATTEND Internal Medicine Pulmonary Disease
DX: K65.1 Peritoneal abscess (principal); K25.5 Chronic or unspecified gastric ulcer with perforation; J18.9 Pneumonia, unspecified organism; I48.92 Unspecified atrial flutter; I13.0 Hypertensive heart and chronic kidney disease with heart failure and stage 1 through stage 4 chronic kidney disease, or unspecified chronic kidney disease; D73.5 Infarction of spleen; R19.7 Diarrhea, unspecified; K21.9 Gastro-esophageal reflux disease without esophagitis; J45.909 Unspecified asthma, uncomplicated; I50.9 Heart failure, unspecified; E11.22 Type 2 diabetes mellitus with diabetic chronic kidney disease; N18.9 Chronic kidney disease, unspecified; N40.1 Benign prostatic hyperplasia with lower urinary tract symptoms; Z87.01 Personal history of pneumonia (recurrent); Z87.440 Personal history of urinary (tract) infections; Z90.3 Acquired absence of stomach [part of]